=== PATIENT | female | born 2000 | race Caucasian/White ===

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

== ENCOUNTER 2019-06-14 16:24 | Emergency (ER) | payer OTHER ==
[2019-06-14 16:35] VITALS: BP 120/56; PULSE 88; RESP 20; TEMP 97.9
[2019-06-14] MEDS ORDERED: LORazepam 1 MG TAB PO STA (17:38)
[2019-06-14 19:03] LABS: Appearance,Urine Cloudy (Clear); Bilirubin,Urine Negative (Negative); Blood,Urine Negative (Negative); Color,Urine Yellow; Glucose,Urine (UA) Negative (Negative); Ketones,Urine Negative (Negative); Leukocyte Esterase,Urine Negative (Negative); Mucus,Urine Rare /hpf; Nitrite,Urine Negative (Negative); Protein,Urine 1+ (Negative); Specific Gravity,Urine 1.035 (1.001-1.035); Squamous Epithelial Cell,Urine 3 /hpf (0-4); Urobilinogen,Urine <2.0 mg/dL (<2.0); WBC,Urine 1 /hpf (0-5)
--- NOTE | 2019-06-14 19:09 | ED ---
Female Urogenital HPI - General Chief complaint: Urogenital Stated complaint: poss UTI, seizures Time Seen by Provider: 06/14/19 16:35 Source: family Mode of arrival: ambulatory Limitations: altered mental status, physical limitation - History of Present Illness Initial comments: The patient is a 19-year-old female with past nuchal history of epilepsy and cognitive impairment who presents to the emergency department with reported increased seizure-like activity at home. She does have a history of seizure disorder and is currently on Keppra, lamictal and onfi. She has been taking the medications as directed and has been on these medications for several years. Father states that she will have an increase in breakthrough seizures when she has a urinary tract infection. She is incontinent and wears a diaper. States that she has a tendency to poop in her diaper and he is unable to change her as soon as he would like. They did follow-up with Dr. Shay in office today. He was concerned because he reported that the patient wasn't drinking much over the past day and hasn't had a wet diaper in 24 hours. The patient is nonverbal and therefore has no complaints - Related Data Home Medications Medication Instructions Recorded Confirmed Clobazam [Onfi] 30 mg PO BID 01/22/15 10/20/17 ARIPiprazole [Abilify] 15 mg PO HS 05/13/17 10/20/17 Sertraline [Zoloft] 100 mg PO HS 05/13/17 10/20/17 cloNIDine HCL [Catapres] 0.1 mg PO DAILY 05/13/17 10/20/17 lamoTRIgine [LaMICtal Odt] 200 mg PO BID 05/13/17 10/20/17 lamoTRIgine [LaMICtal] 75 mg PO BID 05/13/17 10/20/17 levETIRAcetam [levETIRAcetam Oral 1,100 mg PO TID 05/13/17 10/20/17 Solution] Cetirizine HCl [Zyrtec] 5 mg PO DAILY PRN 10/20/17 10/20/17 Ibuprofen [Motrin Ib] 400 mg PO Q6H PRN 10/20/17 10/20/17 busPIRone HCl [Buspar] See Taper PO DIRECTED 10/20/17 10/20/17 Allergies Allergy/AdvReac Type Severity Reaction Status Date / Time No Known Allergies Allergy Verified 06/14/19 16:35 Review of Systems ROS Statement: Those systems with pertinent positive or pertinent negative responses have been documented in the HPI. ROS Other: All systems not noted in ROS Statement are negative. Past Medical History Past Medical History: Seizure Disorder Additional Past Medical History / Comment(s): epilepsy, cognitive impairment History of Any Multi-Drug Resistant Organisms: None Reported Additional Past Surgical History / Comment(s): VNS shunt, eye correction Past Psychological History: No Psychological Hx Reported Smoking Status: Never smoker Past Alcohol Use History: None Reported Past Drug Use History: None Reported General Exam Limitations: altered mental status, physical limitation General appearance: alert, in no apparent distress Head exam: Present: atraumatic Eye exam: Present: PERRL, EOMI Respiratory exam: Present: normal lung sounds bilaterally. Absent: respiratory distress, wheezes, rales, rhonchi, stridor Cardiovascular Exam: Present: regular rate, normal rhythm, normal heart sounds. Absent: systolic murmur, diastolic murmur, rubs, gallop, clicks GI/Abdominal exam: Present: soft, normal bowel sounds. Absent: distended, tenderness, guarding, rebound, rigid Extremities exam: Present: normal inspection, full ROM, normal capillary refill. Absent: tenderness, pedal edema, joint swelling, calf tenderness Neurological exam: Present: alert Skin exam: Present: warm, dry, intact, normal color. Absent: rash Course Vital Signs 06/14/19 16:31 Temperature 97.9 F Pulse Rate 88 Respiratory 20 Rate Blood Pressure 120/56 O2 Sat by Pulse 99 Oximetry Medical Decision Making - Medical Decision Making Upon arrival the patient is placed in room 16. A thorough history and physical exam is performed. Because the father is reporting that the patient is significantly dehydrated did recommend placing an IV. Father initially refused stating he wanted to attempt to hydrate her by mouth. The patient was given 2 mg of Ativan for anxiety and then straight cathed. The patient's urine does results and I do go in and discuss the results with the father. I do inform him that she does not have signs of a urinary tract infection at this. I do not have a reason for the patient having increased seizures. The father does request blood work at this time. It does not appear that she is drinking very well by mouth either and therefore I did recommend IV placed and for hydration. Father originally agreed to this. He then retracted this statement saying that he wanted to continue to try and encourage fluids by mouth. Laboratory studies were conducted which were unremarkable. Patient's Lamictal level was sent as a send out. I went back into the room and the father has been able to get the patient did drink one cup of water and 2 cups of juice. Because the diagnosis, differential treatment options. At this time the father felt comfortable taking the patient home. She has not had any seizure-like activity in the emergency room. I did recommend that they continue taking the antiseizure medications as directed. She needs to follow-up with her neurologist in regards to her breakthrough seizure activity. The patient has any new or worsening symptoms she should return to the emergency room. The father was in agreement with the treatment plan and the patient was discharged home in stable condition - Lab Data Result diagrams: 06/14/19 19:54 06/14/19 19:54 Lab Results 06/14/19 06/14/19 06/14/19 Range/Units 17:35 19:54 19:54 WBC 9.3 (4.0-11.0) k/uL RBC 5.03 (3.80-5.40) m/uL Hgb 14.8 (11.4-16.0) gm/dL Hct 44.5 (34.0-46.0) % MCV 88.5 (80.0-100.0) fL MCH 29.5 (25.0-35.0) pg MCHC 33.3 (31.0-37.0) g/dL RDW 12.2 (11.5-15.5) % Plt Count 309 (150-450) k/uL Neutrophils % 67 % Lymphocytes % 25 % Monocytes % 5 % Eosinophils % 1 % Basophils % 0 % Neutrophils # 6.2 (1.3-7.7) k/uL Lymphocytes # 2.4 (1.0-4.8) k/uL Monocytes # 0.5 (0-1.0) k/uL Eosinophils # 0.1 (0-0.7) k/uL Basophils # 0.0 (0-0.2) k/uL Sodium 140 (137-145) mmol/L Potassium 4.1 (3.5-5.1) mmol/L Chloride 103 (98-107) mmol/L Carbon Dioxide 25 (22-30) mmol/L Anion Gap 12 mmol/L BUN 11 (7-17) mg/dL Creatinine 0.68 (0.52-1.04) mg/dL Est GFR (CKD-EPI)AfAm >90 (>60 ml/min/1.73 sqM) Est GFR (CKD-EPI)NonAf >90 (>60 ml/min/1.73 sqM) Glucose 114 H (74-99) mg/dL Calcium 9.6 (8.4-10.2) mg/dL Total Bilirubin 0.5 (0.2-1.3) mg/dL AST 29 (14-36) U/L ALT 22 (4-34) U/L Alkaline Phosphatase 146 H (38-126) U/L Total Protein 7.6 (6.3-8.2) g/dL Albumin 4.8 (3.5-5.0) g/dL Lipase 92 (23-300) U/L HCG, Qual Not Detected Urine Color Yellow Urine Appearance Cloudy H (Clear) Urine pH 6.0 (5.0-8.0) Ur Specific Mason 1.035 (1.001-1.035) Urine Protein 1+ H (Negative) Urine Glucose (UA) Negative (Negative) Urine Ketones Negative (Negative) Urine Blood Negative (Negative) Urine Nitrite Negative (Negative) Urine Bilirubin Negative (Negative) Urine Urobilinogen <2.0 (<2.0) mg/dL Ur Leukocyte Esterase Negative (Negative) Urine WBC 1 (0-5) /hpf Ur Squamous Epith Cells 3 (0-4) /hpf Urine Mucus Rare H (None) /hpf Lamotrigine (2.0-15.0) ug/mL 06/14/19 Range/Units 19:54 WBC (4.0-11.0) k/uL RBC (3.80-5.40) m/uL Hgb (11.4-16.0) gm/dL Hct (34.0-46.0) % MCV (80.0-100.0) fL MCH (25.0-35.0) pg MCHC (31.0-37.0) g/dL RDW (11.5-15.5) % Plt Count (150-450) k/uL Neutrophils % % Lymphocytes % % Monocytes % % Eosinophils % % Basophils % % Neutrophils # (1.3-7.7) k/uL Lymphocytes # (1.0-4.8) k/uL Monocytes # (0-1.0) k/uL Eosinophils # (0-0.7) k/uL Basophils # (0-0.2) k/uL Sodium (137-145) mmol/L Potassium (3.5-5.1) mmol/L Chloride (98-107) mmol/L Carbon Dioxide (22-30) mmol/L Anion Gap mmol/L BUN (7-17) mg/dL Creatinine (0.52-1.04) mg/dL Est GFR (CKD-EPI)AfAm (>60 ml/min/1.73 sqM) Est GFR (CKD-EPI)NonAf (>60 ml/min/1.73 sqM) Glucose (74-99) mg/dL Calcium (8.4-10.2) mg/dL Total Bilirubin (0.2-1.3) mg/dL AST (14-36) U/L ALT (4-34) U/L Alkaline Phosphatase (38-126) U/L Total Protein (6.3-8.2) g/dL Albumin (3.5-5.0) g/dL Lipase (23-300) U/L HCG, Qual Urine Color Urine Appearance (Clear) Urine pH (5.0-8.0) Ur Specific Mason (1.001-1.035) Urine Protein (Negative) Urine Glucose (UA) (Negative) Urine Ketones (Negative) Urine Blood (Negative) Urine Nitrite (Negative) Urine Bilirubin (Negative) Urine Urobilinogen (<2.0) mg/dL Ur Leukocyte Esterase (Negative) Urine WBC (0-5) /hpf Ur Squamous Epith Cells (0-4) /hpf Urine Mucus (None) /hpf Lamotrigine 8.1 (2.0-15.0) ug/mL Disposition Clinical Impression: Breakthrough seizure, Dehydration Disposition: HOME SELF-CARE Condition: Stable Instructions (If sedation given, give patient instructions): Recurrent Seizures in Adults (ED) Additional Instructions: Please follow-up with your neurologist. Take your seizure medications as directed. Return to the emergency room for any new or worsening symptoms Is patient prescribed a controlled substance at d/c from ED?: No Referrals: Melchor Garcia MD [Primary Care Provider] - 1-2 days Time of Disposition: 21:19
[2019-06-14] MEDS ORDERED: SODIUM CHLORIDE 0.9% 1,000 ML IV ONE (19:18)
[2019-06-14 20:27] LABS: Basophils % (A) 0 %; Eosinophils # (A) 0.1 k/uL (0-0.7); Eosinophils % (A) 1 %; HCT 44.5 % (34.0-46.0); HGB 14.8 gm/dL (11.4-16.0); Lymphocytes # (A) 2.4 k/uL (1.0-4.8); Lymphocytes % (A) 25 %; MCH 29.5 pg (25.0-35.0); MCHC 33.3 g/dL (31.0-37.0); MCV 88.5 fL (80.0-100.0); Mean Platelet Volume 7.2; Monocytes # (A) 0.5 k/uL (0-1.0); Monocytes % (A) 5 %; Neutrophils # (A) 6.2 k/uL (1.3-7.7); Neutrophils % (A) 67 %; Platelet Count 309 k/uL (150-450); RBC 5.03 m/uL (3.80-5.40); RDW 12.2 % (11.5-15.5); WBC 9.3 k/uL (4.0-11.0)
[2019-06-14 20:37] LABS: HCG,Qualitative Serum Not Detected
[2019-06-14 21:06] LABS: ALT 22 U/L (4-34); AST 29 U/L (14-36); African American GFR (CKD) >90 (>60 ml/min/1.73 sqM); Albumin 4.8 g/dL (3.5-5.0); Alkaline Phosphatase 146 U/L (38-126); Anion Gap 12 mmol/L; Blood Urea Nitrogen 11 mg/dL (7-17); Calcium 9.6 mg/dL (8.4-10.2); Carbon Dioxide 25 mmol/L (22-30); Chloride 103 mmol/L (98-107); Glucose 114 mg/dL (74-99); Non-African American GFR(CKD) >90 (>60 ml/min/1.73 sqM); Potassium 4.1 mmol/L (3.5-5.1); Sodium 140 mmol/L (137-145); Total Bilirubin 0.5 mg/dL (0.2-1.3); Total Protein 7.6 g/dL (6.3-8.2)
== END 2019-06-14 21:36 | disposition home or self-care (01) ==
LOC: EC 16:24
DX: E86.0 Dehydration (principal); G40.909 Epilepsy, unspecified, not intractable, without status epilepticus; F41.9 Anxiety disorder, unspecified; G31.84 Mild cognitive impairment of uncertain or unknown etiology; Z79.899 Other long term (current) drug therapy
CPT/HCPCS: 36415; 80053; 80175; 81001; 83690; 84703; 85025; 99284

== ENCOUNTER → 2020-09-27 | Day surgery (SDC) | payer OTHER ==
[2020-09-25 14:05] VITALS: BMI 37.8
[~2020-09-27] MED LIST: DEXAMETHASONE SOD PHOSPHATE 4 MG/ML 1 ML VIAL IV ONE; KETAMINE 10 MG/ML 20 ML VIAL ONE; LACTATED RINGERS 1,000 ML IV SCH; LIDOCAINE 1% (10MG/ML) FOR IV START INTRADERMA PRN; LIDOCAINE 1% INJ 10MG/ML (20 ML MDV) ONE; MIDAZOLAM 2 MG/2 ML VIAL IV ONE; MIDAZOLAM ORAL SYRUP 10 MG/5 ML CUP PO ONE; ONDANSETRON 4 MG/2 ML VIAL IVP ONE; ONDANSETRON 4 MG/2 ML VIAL IVP PRN; PROPOFOL 10 MG/ML 20 ML VIAL IV ONE; SUCCINYLCHOLINE CHLORIDE 100 MG/5 ML SYR IV ONE; fentaNYL (PF) 50 MCG/ML 2 ML AMP ONE; metroNIDAZOLE-NS PMX 500 MG in SALINE 1 100ML.BAG IVPB PRN
[2020-09-27 14:09] VITALS: RESP 16; TEMP 97
--- NOTE | 2020-09-27 14:54 | P.GSCN ---
History of Present Illness Consult date: 09/27/20 Reason for Consult: -Initial Oral Exam -FMX -Prophy -#1 O resin -#5 B resin -#9 DL Resin -#10 MLF -#11 F resin -#16 O resin -#22 F resin -#26 F resin -#27 DF Resin -#32 O resin all filteck bulk or supreme shade A 3, glass ionomer base -#2,4,14,15,18,19,20,28,29,30 root extractions with #18 being surgical. All roots were under the gumline, and #4 was abscessed with a fistula. * 4 Resorbable sutures placed on lowers both sides (2 on each side). -7 carpules, local infiltrations and palatal infiltrations used for the extraction areas. -#8 has grade II mobility and #7 has a grade I mobility. Mother informed. Might be due to a fall. Past Medical History Past Medical History: Seizure Disorder Additional Past Medical History / Comment(s): epilepsy-last seizure couple weeks ago, cognitive impairment, urinary incontinecy-wears depends, UTI's, cerebral palsy per PCP H&P History of Any Multi-Drug Resistant Organisms: None Reported Additional Past Surgical History / Comment(s): VNS shunt, eye correction Past Anesthesia/Blood Transfusion Reactions: No Reported Reaction Smoking Status: Second hand smoke exposure - Past Family History Mother Family Medical History: No Reported History Medications and Allergies Home Medications Medication Instructions Recorded Confirmed Type Ibuprofen [Motrin Ib] 400 mg PO Q6H PRN 10/20/17 09/25/20 History Cariprazine HCl [Vraylar] 6 mg PO QAM 09/25/20 09/27/20 History FLUoxetine HCL 80 mg PO HS 09/25/20 09/27/20 History Melatonin 10 mg PO HS 09/25/20 09/27/20 History Paliperidone [Invega] 6 mg PO DAILY 09/25/20 09/27/20 History lamoTRIgine [LaMICtal Xr] 300 mg PO BID 09/25/20 09/27/20 History levETIRAcetam [Keppra Oral 10 ml PO BID 09/25/20 09/27/20 History Solution] clonazePAM 1 mg PO TID 09/27/20 09/27/20 History Allergies Allergy/AdvReac Type Severity Reaction Status Date / Time No Known Allergies Allergy Verified 09/27/20 08:59 Surgical - Exam Vital Signs Temp Pulse Resp BP Pulse Ox 96.8 F L 73 16 105/58 93 L 09/27/20 09:14 09/27/20 09:14 09/27/20 09:14 09/27/20 09:14 09/27/20 09:14
[2020-09-27 15:12] VITALS: BP 135/64; PULSE 80
== END | disposition home or self-care (01) ==
LOC: OR 15:47
PROVIDERS: ATTEND Dentist
DX: K02.9 Dental caries, unspecified (principal); K04.7 Periapical abscess without sinus; G40.409 Other generalized epilepsy and epileptic syndromes, not intractable, without status epilepticus; R32 Unspecified urinary incontinence; G80.9 Cerebral palsy, unspecified; Z77.22 Contact with and (suspected) exposure to environmental tobacco smoke (acute) (chronic); Z79.899 Other long term (current) drug therapy; Z98.2 Presence of cerebrospinal fluid drainage device
CPT/HCPCS: 41899; J2250; J1100; J2405; J2001; J3010; J0330; J2704

== ENCOUNTER 2022-10-06 12:22 | Emergency (ER) | payer OTHER ==
[2022-10-06] MEDS ORDERED: SODIUM CHLORIDE 0.9% 500 ML 500 ML IV STA (12:58)
[2022-10-06] MEDS ORDERED: SODIUM CHLORIDE 0.9% 1,000 ML IV STA (12:58)
--- NOTE | 2022-10-06 13:00 | ED ---
Weakness HPI - General Chief complaint: Altered Mental Status Stated complaint: decreased mobility Time Seen by Provider: 10/06/22 12:24 Source: EMS, RN notes reviewed, old records reviewed Mode of arrival: EMS Limitations: language barrier, physical limitation - History of Present Illness Initial comments: This is a 22-year-old female to the ER today. Patient is nonverbal prevents with caregiver. Patient presents for decreased activity level, decreased activities of daily living since recent change in seizure medication. Patient was apparently a medically induced coma secondary to seizures for greater than a week. Caregiver, mom denies any current seizure activity, mother states patient has had similar episodes of prior urinary tract infections MD Complaint: generalized weakness, focal weakness -: days(s) Location: generalized Severity: moderate Severity scale (1-10): 4 Consistency: constant Improves with: none Worsens with: none Context: history of similar Associated Symptoms: denies other symptoms - Related Data Home Medications Medication Instructions Recorded Confirmed Ibuprofen [Motrin Ib] 400 mg PO Q6H PRN 10/20/17 05/12/22 Cariprazine HCl [Vraylar] 6 mg PO QAM 09/25/20 05/12/22 FLUoxetine HCL 80 mg PO HS 09/25/20 05/12/22 Melatonin [Melatonin ER] 10 mg PO HS 09/25/20 05/12/22 lamoTRIgine [LaMICtal Xr] 300 mg PO BID 09/25/20 05/12/22 levETIRAcetam [Keppra Oral 15 ml PO BID 09/25/20 05/12/22 Solution] clonazePAM 1 mg PO TID 09/27/20 05/12/22 Control Pill (?Name) 1 tab PO QAM 05/12/22 05/12/22 Paliperidone [Invega] 9 mg PO DAILY 05/12/22 05/12/22 Midazolam [Nayzilam] 1 spray NASAL DIRECTED PRN 05/14/22 05/14/22 Sulfamethoxazole/Trimethoprim 20 ml PO BID 05/14/22 05/14/22 [Sulfatrim 40-8 mg/5ml Susp] guanFACINE [Tenex] 2 mg PO BID 05/14/22 05/14/22 Previous Rx's Medication Instructions Recorded Amoxic-Pot Clav 400-57Mg/5Ml 10 ml PO Q12H #200 ml 10/06/22 [Augmentin 400-57 mg/5 ml Susp] Allergies Allergy/AdvReac Type Severity Reaction Status Date / Time No Known Allergies Allergy Verified 10/06/22 12:37 Review of Systems ROS Statement: Those systems with pertinent positive or pertinent negative responses have been documented in the HPI. ROS Other: All systems not noted in ROS Statement are negative. Past Medical History Past Medical History: Seizure Disorder Additional Past Medical History / Comment(s): Epilepsy-last seizure yesterday, cognitive impairment, developmentally delayed, non verbal, Autism, urinary incontinence, wears depends, hx UTI's, cerebral palsy. History of Any Multi-Drug Resistant Organisms: None Reported Additional Past Surgical History / Comment(s): VNS shunt, eye correction, dental work. Past Anesthesia/Blood Transfusion Reactions: No Reported Reaction Additional Past Anesthesia/Blood Transfusion Reaction / Comment(s): Mom PONV. Past Psychological History: Anxiety Smoking Status: Second hand smoke exposure Past Alcohol Use History: None Reported Past Drug Use History: None Reported - Past Family History Mother Family Medical History: No Reported History General Exam Limitations: language barrier, physical limitation General appearance: alert, in no apparent distress Head exam: Present: atraumatic, normocephalic, normal inspection Eye exam: Present: normal appearance, PERRL, EOMI. Absent: scleral icterus, conjunctival injection, periorbital swelling ENT exam: Present: normal exam, mucous membranes moist Neck exam: Present: normal inspection. Absent: tenderness, meningismus, lymphadenopathy Respiratory exam: Present: normal lung sounds bilaterally. Absent: respiratory distress, wheezes, rales, rhonchi, stridor Cardiovascular Exam: Present: regular rate, normal rhythm, normal heart sounds. Absent: systolic murmur, diastolic murmur, rubs, gallop, clicks GI/Abdominal exam: Present: soft, normal bowel sounds. Absent: distended, tenderness, guarding, rebound, rigid Extremities exam: Present: normal inspection, full ROM, normal capillary refill. Absent: tenderness, pedal edema, joint swelling, calf tenderness Back exam: Present: normal inspection Neurological exam: Present: alert, oriented X3, CN II-XII intact Psychiatric exam: Present: normal affect, normal mood Skin exam: Present: warm, dry, intact, normal color. Absent: rash Course Vital Signs 10/06/22 10/06/22 10/06/22 12:38 18:46 20:06 Temperature 101.1 F H Pulse Rate 97 100 101 H Respiratory 20 18 18 Rate Blood Pressure 139/86 126/87 120/93 O2 Sat by Pulse 100 100 100 Oximetry - Reevaluation(s) Reevaluation #1: 10/06/22 15:31 Medical records reviewed Reevaluation #2: 10/06/22 15:31 Symptoms unchanged here in the emergency department Reevaluation #3: 10/06/22 16:57 Patient symptoms are improving here in the ER Patient informed results questions answered Reevaluation #4: 10/06/22 13:02 Was pt. sent in by a medical professional or institution? @ -no Did you speak to anyone other than the patient for history? @ -no Did you review nursing and triage notes? @ -agree Were old charts reviewed? @ -yes Differential Diagnosis? @ -prior EKG interpreted by me (3pts min.)? @ -no X-rays interpreted by me (1pt min.)? @ -no CT interpreted by me (1pt min.)? @ -no U/S interpreted by me (1pt. min.)? @ -no What testing was considered but not performed? (CT, X-rays, U/S, labs)? Why? @ -no What meds were considered but not given? Why? @ -no Did you discuss the management of the patient with other professionals? @ -no Did you reconcile home meds? @ -no Was smoking cessation discussed for >3mins.? @ -no Was critical care preformed (if so, how long)? @ -no Were there social determinants of health that impacted care today? How? (Homelessness, low income, unemployed, alcoholism, drug addiction, transportation, low edu. Level, literacy, decrease access to med. care, long-term, rehab)? @ -no Was there de-escalation of care discussed even if they declined? (Discuss DNR or withdrawal of care, Hospice)? @ -no What co-morbidities impacted this encounter? (DM, HTN, Smoking, COPD, CAD, Cancer, CVA, Hep., AIDS, mental health diagnosis, sleep apnea, morbid obesity)? @ -none Was patient admitted / discharged? @ -22 female to the emergency department for evaluation of altered mental status and acting appropriately. Patient does have significant urinary tract infection here in the ER, family prefers discharge home, patient given antibiotics here and can be discharged Discharge Undiagnosed new problem with uncertain prognosis? @ -no Drug Therapy requiring intensive monitoring for toxicity (Heparin, Nitro, Insulin, Cardizem)? @ -no Were any procedures done? @ -no Diagnosis/symptom? @ -UTI, weakness, altered mental status Acute, or Chronic, or Acute on Chronic? @ -acute Uncomplicated (without systemic symptoms) or Complicated (systemic symptoms)? @ -complicated Side effects of treatment? @ -no Exacerbation, Progression, or Severe Exacerbation] @ -no Poses a threat to life or bodily function? @ -no Reevaluation #5: 10/06/22 Differential Altered Mental Status: Hypoglycemia, DKA, hypercapnia, ETOH, overdose, CO poisoning, trauma, myxedema coma, HTN encephalopathy, infection, encephalitis, psychosis, intercranial hemorrhage, hepatic encephalopathy, meningitis, CVA, this is not meant to be an all-inclusive list Differential Weakness: Hypoglycemia, shock, sepsis, hyponatremia, anemia, infection, NV, ETOH, adverse medicine reaction, overdose, stroke, this is not meant to be an all-inclusive list. EKG Findings - EKG Comments: EKG Findings:: EKG is sinus tachycardia 104 [place] 137 QRS 94 QTC 377 - EKG Results: EKG: interpreted by [facility] Medical Decision Making - Medical Decision Making 22 female to the emergency department for evaluation of altered mental status and acting appropriately. Patient does have significant urinary tract infection here in the ER, family prefers discharge home, patient given antibiotics here and can be discharged - Lab Data Result diagrams: 10/06/22 13:58 Lab Results 10/06/22 10/06/22 10/06/22 Range/Units 13:37 13:58 13:58 Sodium 138 (137-145) mmol/L Potassium 4.3 (3.5-5.1) mmol/L Chloride 106 (98-107) mmol/L Carbon Dioxide 23 (22-30) mmol/L Anion Gap 9 mmol/L BUN 14 (7-17) mg/dL Creatinine 0.62 (0.52-1.04) mg/dL Est GFR (CKD-EPI)AfAm >90 (>60 ml/min/1.73 sqM) Est GFR (CKD-EPI)NonAf >90 (>60 ml/min/1.73 sqM) Glucose 101 H (74-99) mg/dL Calcium 8.5 (8.4-10.2) mg/dL Phosphorus 4.3 (2.5-4.5) mg/dL Magnesium 2.0 2.0 (1.6-2.3) mg/dL Total Bilirubin 0.5 (0.2-1.3) mg/dL AST 32 (14-36) U/L ALT 25 (4-34) U/L Alkaline Phosphatase 116 (38-126) U/L Total Protein 6.5 (6.3-8.2) g/dL Albumin 3.5 (3.5-5.0) g/dL TSH 1.210 (0.465-4.680) mIU/L Urine Color Yellow Urine Appearance Turbid H (Clear) Urine pH 6.5 (5.0-8.0) Ur Specific [place] 1.016 (1.001-1.035) Urine Protein 2+ H (Negative) Urine Glucose (UA) Negative (Negative) Urine Ketones Negative (Negative) Urine Blood Small H (Negative) Urine Nitrite Negative (Negative) Urine Bilirubin Negative (Negative) Urine Urobilinogen <2.0 (<2.0) mg/dL Ur Leukocyte Esterase Large H (Negative) Urine RBC 9 H (0-5) /hpf Urine WBC >182 H (0-5) /hpf Ur Squamous Epith Cells 58 H (0-4) /hpf Urine Bacteria Many H (None) /hpf Urine Mucus Rare H (None) /hpf Salicylates <1.0 mg/dL Acetaminophen <10.0 ug/mL Phenytoin <3.0 ug/mL Valproic Acid <10.0 ug/mL Carbamazepine <3.0 ug/mL Lamotrigine (2.0-15.0) ug/mL [place] <0.2 mmol/L Serum Alcohol <10 mg/dL 10/06/22 Range/Units 13:58 Sodium (137-145) mmol/L Potassium (3.5-5.1) mmol/L Chloride (98-107) mmol/L Carbon Dioxide (22-30) mmol/L Anion Gap mmol/L BUN (7-17) mg/dL Creatinine (0.52-1.04) mg/dL Est GFR (CKD-EPI)AfAm (>60 ml/min/1.73 sqM) Est GFR (CKD-EPI)NonAf (>60 ml/min/1.73 sqM) Glucose (74-99) mg/dL Calcium (8.4-10.2) mg/dL Phosphorus (2.5-4.5) mg/dL Magnesium (1.6-2.3) mg/dL Total Bilirubin (0.2-1.3) mg/dL AST (14-36) U/L ALT (4-34) U/L Alkaline Phosphatase (38-126) U/L Total Protein (6.3-8.2) g/dL Albumin (3.5-5.0) g/dL TSH (0.465-4.680) mIU/L Urine Color Urine Appearance (Clear) Urine pH (5.0-8.0) Ur Specific [place] (1.001-1.035) Urine Protein (Negative) Urine Glucose (UA) (Negative) Urine Ketones (Negative) Urine Blood (Negative) Urine Nitrite (Negative) Urine Bilirubin (Negative) Urine Urobilinogen (<2.0) mg/dL Ur Leukocyte Esterase (Negative) Urine RBC (0-5) /hpf Urine WBC (0-5) /hpf Ur Squamous Epith Cells (0-4) /hpf Urine Bacteria (None) /hpf Urine Mucus (None) /hpf Salicylates mg/dL Acetaminophen ug/mL Phenytoin ug/mL Valproic Acid ug/mL Carbamazepine ug/mL Lamotrigine 14.1 (2.0-15.0) ug/mL [place] mmol/L Serum Alcohol mg/dL - EKG Data -: EKG Interpreted by Me (EKG sinus 104 KS 137 QRS 94 QTC 377) Disposition Clinical Impression: Altered mental status, UTI (urinary tract infection), Delirium due to general medical condition, Weakness Disposition: HOME SELF-CARE Condition: Good Instructions (If sedation given, give patient instructions): Urinary Tract Infection in Women (ED) Prescriptions: Amoxic-Pot Clav 400-57Mg/5Ml [Augmentin 400-57 mg/5 ml Susp] 10 ml PO Q12H #200 ml Is patient prescribed a controlled substance at d/c from ED?: No Referrals: Melchor Garcia MD [Primary Care Provider] - 1-2 days Time of Disposition: 16:50
[2022-10-06 14:20] LABS: Appearance,Urine Turbid (Clear); Bacteria,Urine Many /hpf; Bilirubin,Urine Negative (Negative); Blood,Urine Small (Negative); Color,Urine Yellow; Glucose,Urine (UA) Negative (Negative); Ketones,Urine Negative (Negative); Leukocyte Esterase,Urine Large (Negative); Mucus,Urine Rare /hpf; Nitrite,Urine Negative (Negative); PH, Urine 6.5 (5.0-8.0); Protein,Urine 2+ (Negative); RBC,Urine 9 /hpf (0-5); Specific Gravity,Urine 1.016 (1.001-1.035); Squamous Epithelial Cell,Urine 58 /hpf (0-4); Urobilinogen,Urine <2.0 mg/dL (<2.0); WBC,Urine >182 /hpf (0-5)
[2022-10-06 14:24] LABS: AST 32 U/L (14-36); African American GFR (CKD) >90 (>60 ml/min/1.73 sqM); Albumin 3.5 g/dL (3.5-5.0); Alkaline Phosphatase 116 U/L (38-126); Anion Gap 9 mmol/L; Blood Urea Nitrogen 14 mg/dL (7-17); Carbamazepine (Tegretol) <3.0 ug/mL; Carbon Dioxide 23 mmol/L (22-30); Chloride 106 mmol/L (98-107); Glucose 101 mg/dL (74-99); Lithium <0.2 mmol/L; Non-African American GFR(CKD) >90 (>60 ml/min/1.73 sqM); Phenytoin (Dilantin) <3.0 ug/mL; Sodium 138 mmol/L (137-145); Total Bilirubin 0.5 mg/dL (0.2-1.3); Total Protein 6.5 g/dL (6.3-8.2)
[2022-10-06 14:28] LABS: Valproic Acid (Depakene) <10.0 ug/mL
[2022-10-06 15:26] LABS: ALT 25 U/L (4-34); Acetaminophen <10.0 ug/mL; Alcohol <10 mg/dL; Calcium 8.5 mg/dL (8.4-10.2); Phosphorus 4.3 mg/dL (2.5-4.5); Potassium 4.3 mmol/L (3.5-5.1); Salicylate <1.0 mg/dL
[2022-10-06] MEDS ORDERED: AMOXIC-POT CLAV 200-28.5MG/5ML 100 ML BOTTLE PO ONE (16:56)
[2022-10-06 18:47] VITALS: RESP 18; TEMP 101.1
[2022-10-06] MEDS ORDERED: ACETAMINOPHEN TAB 500 MG TAB PO STA (19:36)
[2022-10-06] MEDS ORDERED: IBUPROFEN 800 MG TAB PO STA (19:36)
[2022-10-06 20:08] VITALS: BP 120/93; PULSE 101
== END 2022-10-06 20:20 | disposition home or self-care (01) ==
LOC: EC 12:22
DX: N39.0 Urinary tract infection, site not specified (principal); F05 Delirium due to known physiological condition; F41.9 Anxiety disorder, unspecified; Z77.22 Contact with and (suspected) exposure to environmental tobacco smoke (acute) (chronic); Z79.899 Other long term (current) drug therapy
CPT/HCPCS: 36415; 93005; 80156; 80164; 80053; 80175; 80185; 80178; 83735; 84100; 84443; 81001; 80143; 80179; 99285; 96365; 96361; G0480; J0696; 80320

== ENCOUNTER 2022-11-04 12:49 | Emergency (ER) | payer OTHER ==
[2022-11-04 18:37] LABS: Appearance,Urine Cloudy (Clear); Bacteria,Urine Many /hpf; Bilirubin,Urine Negative (Negative); Blood,Urine Negative (Negative); Color,Urine Light Red; Glucose,Urine (UA) Negative (Negative); Ketones,Urine Negative (Negative); Leukocyte Esterase,Urine Large (Negative); Mucus,Urine Many /hpf; Nitrite,Urine Positive (Negative); Protein,Urine 1+ (Negative); RBC,Urine 35 /hpf (0-5); Specific Gravity,Urine 1.033 (1.001-1.035); Squamous Epithelial Cell,Urine 2 /hpf (0-4); Urobilinogen,Urine <2.0 mg/dL (<2.0); WBC,Urine 113 /hpf (0-5)
[2022-11-04 20:08] LABS: Basophils % (A) 0 %; Eosinophils # (A) 0.1 k/uL (0-0.7); Eosinophils % (A) 2 %; HGB 13.6 gm/dL (11.4-16.0); Lymphocytes # (A) 2.4 k/uL (1.0-4.8); Lymphocytes % (A) 38 %; MCH 31.1 pg (25.0-35.0); MCHC 34.9 g/dL (31.0-37.0); MCV 89.1 fL (80.0-100.0); Mean Platelet Volume 7.5; Monocytes # (A) 0.4 k/uL (0-1.0); Monocytes % (A) 7 %; Neutrophils # (A) 3.1 k/uL (1.3-7.7); Neutrophils % (A) 50 %; Platelet Count 230 k/uL (150-450); RBC 4.38 m/uL (3.80-5.40); RDW 14.9 % (11.5-15.5); WBC 6.2 k/uL (3.8-10.6)
[2022-11-04 20:20] LABS: ALT 30 U/L (4-34); AST 49 U/L (14-36); African American GFR (CKD) >90 (>60 ml/min/1.73 sqM); Albumin 3.7 g/dL (3.5-5.0); Alkaline Phosphatase 112 U/L (38-126); Anion Gap 4 mmol/L; Blood Urea Nitrogen 10 mg/dL (7-17); Calcium 9.2 mg/dL (8.4-10.2); Carbon Dioxide 29 mmol/L (22-30); Chloride 106 mmol/L (98-107); Glucose 84 mg/dL (74-99); Non-African American GFR(CKD) >90 (>60 ml/min/1.73 sqM); Sodium 139 mmol/L (137-145); Total Bilirubin 0.6 mg/dL (0.2-1.3); Total Protein 6.8 g/dL (6.3-8.2)
[2022-11-04 20:34] LABS: Potassium 4.4 mmol/L (3.5-5.1)
[2022-11-04] MEDS ORDERED: cefTRIAXone IN SWFI 1,000 MG/10 ML SYRINGE IVP STA (21:00)
--- NOTE | 2022-11-04 21:00 | ED ---
General Adult HPI - General Chief complaint: Urogenital Stated complaint: constipation Time Seen by Provider: 11/04/22 15:07 Source: family, EMS Mode of arrival: EMS Limitations: physical limitation - History of Present Illness Initial comments: This is a 22-year-old female with a past medical history including cognitive delay and epilepsy as well as impairment secondary to severe epilepsy presented to the emergency department for increasing lethargy today. The patient's parents stated that the patient was sleeping all day and did not want to eat or drink. The patient denied of any urine or stool diapers. They were concerned due to the patient's symptoms today that she had worsening infection. The patient was unable to answer any questions as she is at her baseline and nonverbal. The patient did have a UTI on October 06 but stated that the patient had improved from this initial infection. The patient woke up with the symptoms today. - Related Data Home Medications Medication Instructions Recorded Confirmed Cariprazine HCl [Vraylar] 6 mg PO DAILY 09/25/20 11/04/22 FLUoxetine HCL 80 mg PO HS 09/25/20 11/04/22 levETIRAcetam [Keppra Oral 1,700 mg PO BID 09/25/20 11/04/22 Solution] Paliperidone [Invega] 9 mg PO DAILY 05/12/22 11/04/22 Midazolam [Nayzilam] 1 spray NASAL ONCE PRN 05/14/22 11/04/22 guanFACINE [Tenex] 1 mg PO BID 05/14/22 11/04/22 ALPRAZolam [Xanax] 1 mg PO TID PRN 11/04/22 11/04/22 Lacosamide [Vimpat] 200 mg PO BID 11/04/22 11/04/22 cloBAZam 20 mg PO HS 11/04/22 11/04/22 guanFACINE HCL [Intuniv] 2 mg PO BID 11/04/22 11/04/22 lamoTRIgine 300 mg PO BID 11/04/22 11/04/22 Previous Rx's Medication Instructions Recorded cephALEXin [Keflex Oral Susp] 10 ml PO QID #200 ml 11/04/22 Allergies Allergy/AdvReac Type Severity Reaction Status Date / Time No Known Allergies Allergy Verified 11/04/22 19:26 Review of Systems ROS Statement: Those systems with pertinent positive or pertinent negative responses have been documented in the HPI. ROS Other: All systems not noted in ROS Statement are negative. Past Medical History Past Medical History: Seizure Disorder Additional Past Medical History / Comment(s): Epilepsy-last seizure yesterday, cognitive impairment, developmentally delayed, non verbal, Autism, urinary incontinence, wears depends, hx UTI's, cerebral palsy. History of Any Multi-Drug Resistant Organisms: None Reported Additional Past Surgical History / Comment(s): VNS shunt, eye correction, dental work. Past Anesthesia/Blood Transfusion Reactions: No Reported Reaction Additional Past Anesthesia/Blood Transfusion Reaction / Comment(s): Mom PONV. Past Psychological History: Anxiety Smoking Status: Second hand smoke exposure Past Alcohol Use History: None Reported Past Drug Use History: None Reported - Past Family History Mother Family Medical History: No Reported History General Exam Limitations: altered mental status (ANOx0, at baseline), physical limitation General appearance: alert, in no apparent distress, obese Head exam: Present: atraumatic, normocephalic, normal inspection Eye exam: Present: normal appearance, PERRL Pupils: Present: normal accommodation ENT exam: Present: normal exam, normal oropharynx, mucous membranes moist Neck exam: Present: normal inspection, full ROM Respiratory exam: Present: normal lung sounds bilaterally Cardiovascular Exam: Present: regular rate, normal rhythm, normal heart sounds GI/Abdominal exam: Present: soft, normal bowel sounds Extremities exam: Present: normal inspection, full ROM Back exam: Present: normal inspection, full ROM Neurological exam: Present: alert, altered (ANOx0, at baseline) Psychiatric exam: Present: normal affect, normal mood Skin exam: Present: warm, dry Course Vital Signs 11/04/22 12:55 Temperature 97.9 F Pulse Rate 87 Respiratory 16 Rate Blood Pressure 106/72 O2 Sat by Pulse 96 Oximetry Medical Decision Making - Medical Decision Making Was pt. sent in by a medical professional or institution (, PA, PURCHASING EXPEDITOR, urgent care, hospital, or skilled nursing...) When possible be specific @ -No Did you speak to anyone other than the patient for history (EMS, parent, family, police, friend...)? What history was obtained from this source @ -Yes, parents at the bedside stated that the patient had worsening lethargy today with decreased urine and stool diapers. Did you review nursing and triage notes (agree or disagree)? Why? @ -I reviewed and agree with nursing and triage notes Were old charts reviewed (outside hosp., previous admission, EMS record, old EKG, old radiological studies, urgent care reports/EKG's, skilled nursing records)? Report findings @ -No old charts were reviewed Differential Diagnosis (chest pain, altered mental status, abdominal pain women, abdominal pain men, vaginal bleeding, weakness, fever, dyspnea, syncope, headache, dizziness, GI bleed, back pain, seizure, CVA, palpatations, mental health)? @ -Sepsis, UTI, pneumonia EKG interpreted by me (3pts min.). @ -None X-rays interpreted by me (1pt min.). @ -None done CT interpreted by me (1pt min.). @ -None done U/S interpreted by me (1pt. min.). @ -None done What testing was considered but not performed or refused? (CT, X-rays, U/S, labs)? Why? @ -None What meds were considered but not given or refused? Why? @ -None Did you discuss the management of the patient with other professionals (professionals i.e. , PA, PURCHASING EXPEDITOR, lab, RT, psych nurse, social media community manager, sock drier, teacher, aoc plans intelligence officer, bilingual case manager)? Give summary @ -No Was smoking cessation discussed for >3mins.? @ -No Was critical care preformed (if so, how long)? @ -No Were there social determinants of health that impacted care today? How? (Homelessness, low income, unemployed, alcoholism, drug addiction, transportation, low edu. Level, literacy, decrease access to med. care, retirement, rehab)? @ -No Was there de-escalation of care discussed even if they declined (Discuss DNR or withdrawal of care, Hospice)? DNR status @ -No What co-morbidities impacted this encounter? (DM, HTN, Smoking, COPD, CAD, Cancer, CVA, ARF, Chemo, Hep., AIDS, mental health diagnosis, sleep apnea, morbid obesity)? @ -Epilepsy, cognitive delay Was patient admitted / discharged? Hospital course, mention meds given and route, prescriptions, significant lab abnormalities, going to OR and other pertinent info. @ -The patient was seen and evaluated emergency department. There was a significant delay to evaluate the patient as there was a significantly critical medical resuscitation. When I evaluated, the patient was resting in bed comfortably. Vital signs were stable. Urinalysis was initially obtained and was positive for UTI and laboratory workup was obtained to make sure the patient denied of any signs of sepsis. There was also a significant delay as the patient was a difficult IV start and an ultrasound that he needed to be placed. Once this was performed, the patient had normal laboratory workup and likely had lethargy secondary to UTI. On reevaluation in the emergency department, the patient was back to her baseline, eating and drinking per her parents. Due to the patient's UTI, the patient was given a dose of Rocephin in the emergency department and was given a prescription for liquid Keflex to be taken for 5 days as the patient could not tolerate pills. The patient's parents were told to follow-up with her primary care physician for further workup and evaluations report back to the emergency department if there are pain or symptoms became acutely worse. The patient was agreeable to this as was her parents. The patient was straight home in stable condition. Undiagnosed new problem with uncertain prognosis? @ -No Drug Therapy requiring intensive monitoring for toxicity (Heparin, Nitro, Insulin, Cardizem)? @ -No Were any procedures done? @ -No Diagnosis/symptom? @ -UTI Acute, or Chronic, or Acute on Chronic? @ -Acute Uncomplicated (without systemic symptoms) or Complicated (systemic symptoms)? @ -Uncomplicated Side effects of treatment? @ -No Exacerbation, Progression, or Severe Exacerbation? @ -No Poses a threat to life or bodily function? How? (Chest pain, USA, NV, pneumonia, PE, COPD, DKA, ARF, appy, cholecystitis, CVA, Diverticulitis, Homicidal, Suicidal, threat to staff... and all critical care pts) @ -No - Lab Data Result diagrams: 11/04/22 19:40 11/04/22 19:40 Lab Results 11/04/22 11/04/22 11/04/22 Range/Units 18:11 19:40 19:40 WBC 6.2 (3.8-10.6) k/uL RBC 4.38 (3.80-5.40) m/uL Hgb 13.6 (11.4-16.0) gm/dL Hct 39.0 (34.0-46.0) % MCV 89.1 (80.0-100.0) fL MCH 31.1 (25.0-35.0) pg MCHC 34.9 (31.0-37.0) g/dL RDW 14.9 (11.5-15.5) % Plt Count 230 (150-450) k/uL MPV 7.5 Neutrophils % 50 % Lymphocytes % 38 % Monocytes % 7 % Eosinophils % 2 % Basophils % 0 % Neutrophils # 3.1 (1.3-7.7) k/uL Lymphocytes # 2.4 (1.0-4.8) k/uL Monocytes # 0.4 (0-1.0) k/uL Eosinophils # 0.1 (0-0.7) k/uL Basophils # 0.0 (0-0.2) k/uL Sodium 139 (137-145) mmol/L Potassium 4.4 (3.5-5.1) mmol/L Chloride 106 (98-107) mmol/L Carbon Dioxide 29 (22-30) mmol/L Anion Gap 4 mmol/L BUN 10 (7-17) mg/dL Creatinine 0.57 (0.52-1.04) mg/dL Est GFR (CKD-EPI)AfAm >90 (>60 ml/min/1.73 sqM) Est GFR (CKD-EPI)NonAf >90 (>60 ml/min/1.73 sqM) Glucose 84 (74-99) mg/dL Plasma Lactic Acid Mookie (0.7-2.0) mmol/L Calcium 9.2 (8.4-10.2) mg/dL Total Bilirubin 0.6 (0.2-1.3) mg/dL AST 49 H (14-36) U/L ALT 30 (4-34) U/L Alkaline Phosphatase 112 (38-126) U/L Total Protein 6.8 (6.3-8.2) g/dL Albumin 3.7 (3.5-5.0) g/dL Urine Color Light Red Urine Appearance Cloudy H (Clear) Urine pH 6.0 (5.0-8.0) Ur Specific [place] 1.033 (1.001-1.035) Urine Protein 1+ H (Negative) Urine Glucose (UA) Negative (Negative) Urine Ketones Negative (Negative) Urine Blood Negative (Negative) Urine Nitrite Positive H (Negative) Urine Bilirubin Negative (Negative) Urine Urobilinogen <2.0 (<2.0) mg/dL Ur Leukocyte Esterase Large H (Negative) Urine RBC 35 H (0-5) /hpf Urine WBC 113 H (0-5) /hpf Ur Squamous Epith Cells 2 (0-4) /hpf Urine Bacteria Many H (None) /hpf Urine Mucus Many H (None) /hpf 11/04/22 Range/Units 19:40 WBC (3.8-10.6) k/uL RBC (3.80-5.40) m/uL Hgb (11.4-16.0) gm/dL Hct (34.0-46.0) % MCV (80.0-100.0) fL MCH (25.0-35.0) pg MCHC (31.0-37.0) g/dL RDW (11.5-15.5) % Plt Count (150-450) k/uL MPV Neutrophils % % Lymphocytes % % Monocytes % % Eosinophils % % Basophils % % Neutrophils # (1.3-7.7) k/uL Lymphocytes # (1.0-4.8) k/uL Monocytes # (0-1.0) k/uL Eosinophils # (0-0.7) k/uL Basophils # (0-0.2) k/uL Sodium (137-145) mmol/L Potassium (3.5-5.1) mmol/L Chloride (98-107) mmol/L Carbon Dioxide (22-30) mmol/L Anion Gap mmol/L BUN (7-17) mg/dL Creatinine (0.52-1.04) mg/dL Est GFR (CKD-EPI)AfAm (>60 ml/min/1.73 sqM) Est GFR (CKD-EPI)NonAf (>60 ml/min/1.73 sqM) Glucose (74-99) mg/dL Plasma Lactic Acid Mookie 0.9 (0.7-2.0) mmol/L Calcium (8.4-10.2) mg/dL Total Bilirubin (0.2-1.3) mg/dL AST (14-36) U/L ALT (4-34) U/L Alkaline Phosphatase (38-126) U/L Total Protein (6.3-8.2) g/dL Albumin (3.5-5.0) g/dL Urine Color Urine Appearance (Clear) Urine pH (5.0-8.0) Ur Specific [place] (1.001-1.035) Urine Protein (Negative) Urine Glucose (UA) (Negative) Urine Ketones (Negative) Urine Blood (Negative) Urine Nitrite (Negative) Urine Bilirubin (Negative) Urine Urobilinogen (<2.0) mg/dL Ur Leukocyte Esterase (Negative) Urine RBC (0-5) /hpf Urine WBC (0-5) /hpf Ur Squamous Epith Cells (0-4) /hpf Urine Bacteria (None) /hpf Urine Mucus (None) /hpf Disposition Clinical Impression: UTI (urinary tract infection) Disposition: HOME SELF-CARE Condition: Stable Instructions (If sedation given, give patient instructions): Urinary Tract Infection in Women (ED) Prescriptions: cephALEXin [Keflex Oral Susp] 10 ml PO QID #200 ml Is patient prescribed a controlled substance at d/c from ED?: No Referrals: Víctor Shay Jr, [Primary Care Provider] - 1-2 days Time of Disposition: 19:45
[2022-11-04 22:23] VITALS: BP 117/77; PULSE 76; RESP 18; TEMP 98.1
== END 2022-11-04 22:23 | disposition home or self-care (01) ==
LOC: EC 12:49
DX: N39.0 Urinary tract infection, site not specified (principal); G40.909 Epilepsy, unspecified, not intractable, without status epilepticus; F41.9 Anxiety disorder, unspecified; Z77.22 Contact with and (suspected) exposure to environmental tobacco smoke (acute) (chronic); Z79.899 Other long term (current) drug therapy
CPT/HCPCS: 51798; 36415; 80053; 83605; 85025; 81001; 99285; 96374; J0696

== ENCOUNTER 2022-12-01 13:28 | Emergency (ER) | payer OTHER ==
[2022-12-01 13:54] VITALS: BP 98/64; PULSE 75; RESP 18; TEMP 99.4
[2022-12-01] MEDS ORDERED: KETOROLAC 15 MG/ML 1 ML VIAL IVP STA (14:09)
[2022-12-01] MEDS ORDERED: ONDANSETRON 4 MG/2 ML VIAL IVP STA (14:09)
[2022-12-01] MEDS ORDERED: SODIUM CHLORIDE 0.9% 500 ML 500 ML IV STA (14:09)
--- NOTE | 2022-12-01 14:10 | ED ---
Abdominal Pain HPI - General Chief Complaint: Abdominal Pain Stated Complaint: Poss UTI Time Seen by Provider: 12/01/22 13:46 Source: family, RN notes reviewed, old records reviewed, Caregiver Mode of arrival: EMS Limitations: altered mental status, physical limitation - History of Present Illness Initial Comments: This is a 22-year-old female to the emergency department for evaluation today of abdominal pain. Decreased bowel movements, no dysuria but family always concern for urinary tract with this patient. Patient has no complaints here in the emergency department MD Complaint: abdominal pain -: days(s) Location: diffuse, epigastric, suprapubic Radiation: epigastric, suprapubic Migration to: suprapubic Severity: moderate Severity scale (1-10): 7 Quality: stabbing Consistency: constant Improves With: nothing Worsens With: nothing Associated Symptoms: nausea Treatments Prior to Arrival: other (0) - Related Data Home Medications Medication Instructions Recorded Confirmed Cariprazine HCl [Vraylar] 6 mg PO DAILY 09/25/20 11/04/22 FLUoxetine HCL 80 mg PO HS 09/25/20 11/04/22 levETIRAcetam [Keppra Oral 1,700 mg PO BID 09/25/20 11/04/22 Solution] Paliperidone [Invega] 9 mg PO DAILY 05/12/22 11/04/22 Midazolam [Nayzilam] 1 spray NASAL ONCE PRN 05/14/22 11/04/22 guanFACINE [Tenex] 1 mg PO BID 05/14/22 11/04/22 ALPRAZolam [Xanax] 1 mg PO TID PRN 11/04/22 11/04/22 Lacosamide [Vimpat] 200 mg PO BID 11/04/22 11/04/22 cloBAZam 20 mg PO HS 11/04/22 11/04/22 guanFACINE HCL [Intuniv] 2 mg PO BID 11/04/22 11/04/22 lamoTRIgine 300 mg PO BID 11/04/22 11/04/22 Previous Rx's Medication Instructions Recorded cephALEXin [Keflex Oral Susp] 10 ml PO QID #200 ml 11/04/22 Amoxic-Pot Clav 875-125Mg 1 tab PO Q12HR #14 tablet 12/01/22 [Augmentin 875-125] Allergies Allergy/AdvReac Type Severity Reaction Status Date / Time No Known Allergies Allergy Verified 12/01/22 13:48 Review of Systems ROS Statement: Those systems with pertinent positive or pertinent negative responses have been documented in the HPI. ROS Other: All systems not noted in ROS Statement are negative. Past Medical History Past Medical History: Seizure Disorder Additional Past Medical History / Comment(s): Epilepsy, cognitive impairment, developmentally delayed, non verbal, Autism, urinary incontinence, wears depends, hx UTI's, cerebral palsy. History of Any Multi-Drug Resistant Organisms: None Reported Additional Past Surgical History / Comment(s): VNS shunt, eye correction, dental work. Past Anesthesia/Blood Transfusion Reactions: No Reported Reaction Additional Past Anesthesia/Blood Transfusion Reaction / Comment(s): Mom PONV. Past Psychological History: Anxiety Smoking Status: Second hand smoke exposure Past Alcohol Use History: None Reported Past Drug Use History: None Reported - Past Family History Mother Family Medical History: No Reported History General Exam Limitations: altered mental status, physical limitation General appearance: alert, in no apparent distress Head exam: Present: atraumatic, normocephalic, normal inspection Eye exam: Present: normal appearance, PERRL, EOMI. Absent: scleral icterus, conjunctival injection, periorbital swelling ENT exam: Present: normal exam, mucous membranes moist Neck exam: Present: normal inspection. Absent: tenderness, meningismus, lymphadenopathy Respiratory exam: Present: normal lung sounds bilaterally. Absent: respiratory distress, wheezes, rales, rhonchi, stridor Cardiovascular Exam: Present: regular rate, normal rhythm, normal heart sounds. Absent: systolic murmur, diastolic murmur, rubs, gallop, clicks GI/Abdominal exam: Present: soft, normal bowel sounds. Absent: distended, tenderness, guarding, rebound, rigid Extremities exam: Present: normal inspection, full ROM, normal capillary refill. Absent: tenderness, pedal edema, joint swelling, calf tenderness Back exam: Present: normal inspection Neurological exam: Present: alert, oriented X3, CN II-XII intact Psychiatric exam: Present: normal affect, normal mood Skin exam: Present: warm, dry, intact, normal color. Absent: rash Course Vital Signs 12/01/22 13:49 Temperature 99.4 F Pulse Rate 75 Respiratory 18 Rate Blood Pressure 98/64 O2 Sat by Pulse 98 Oximetry - Reevaluation(s) Reevaluation #1: 12/01/22 15:20 Medical record is reviewed Reevaluation #2: 12/01/22 15:20 Symptoms are changed Reevaluation #3: Patient informed results and questions answered Reevaluation #4: 12/01/22 15:20 Was pt. sent in by a medical professional or institution (NOHELIA Diaz, CHRISTIAN SCIENCE NURSE, urgent care, hospital, or [facility]...) When possible be specific @ -no Did you speak to anyone other than the patient for history (EMS, parent, family, police, friend...)? What history was obtained from this source @ -no Did you review nursing and triage notes (agree or disagree)? Why? @ -agree Are old charts reviewed (outside hosp., previous admission, EMS record, old EKG, old radiological studies, urgent care reports/EKG's, [facility] records)? Report findings @ -yes Differential Diagnosis (chest pain, altered mental status, abdominal pain women, abdominal pain men, vaginal bleeding, weakness, fever, dyspnea, syncope, headache, dizziness, GI bleed, back pain, seizure, CVA, palpatations, mental health, musculoskeletal)? @ -prior EKG interpreted by me (3pts min.). @ -no X-rays interpreted by me (1pt min.). @ -no CT interpreted by me (1pt min.). @ -yes U/S interpreted by me (1pt. min.). @ -no What testing was considered but not performed or refused? (CT, X-rays, U/S, labs)? Why? @ -none What meds were considered but not given or refused? Why? @ -none Did you discuss the management of the patient with other professionals (oksana andre i.e. NOHELIA Diaz, CHRISTIAN SCIENCE NURSE, lab, RT, psych nurse, social media content specialist, power plant operations manager, teacher, restoration officer, home health care case manager)? Give summary @ -no Was smoking cessation discussed for >3mins.? @ -no Was critical care preformed (if so, how long)? @ -no Were there social determinants of health that impacted care today? How? (Homelessness, low income, unemployed, alcoholism, drug addiction, transportation, low edu. Level, literacy, decrease access to med. care, [facility], rehab)? @ -none Was there de-escalation of care discussed even if they declined (Discuss DNR or withdrawal of care, Hospice)? DNR status @ -no What co-morbidities impacted this encounter? (DM, HTN, Smoking, COPD, CAD, Cancer, CVA, ARF, Chemo, Hep., AIDS, mental health diagnosis, sleep apnea, morbid obesity)? @ -none Was patient admitted / discharged? Hospital course, mention meds given and route, prescriptions, significant lab abnormalities, going to OR and other pertinent info. @ - 22 female not acting appropriately maybe an pain abdominal pain does have constipation also found of urinary tract infection patient will place on antibiotics and bowel regimen patient can be discharged home Discharge Undiagnosed new problem with uncertain prognosis? @ -no Drug Therapy requiring intensive monitoring for toxicity (Heparin, Nitro, Insulin, Cardizem)? @ -no Were any procedures done? @ -no Diagnosis/symptom? @ -UTI, constipation, altered mental status Acute, or Chronic, or Acute on Chronic? @ -Acute Uncomplicated (without systemic symptoms) or Complicated (systemic symptoms)? @ -Complicated Side effects of treatment? @ -no Exacerbation, Progression, or Severe Exacerbation? @ -exacerbation Poses a threat to life or bodily function? How? (Chest pain, USA, NV, pneumonia, PE, COPD, DKA, ARF, appy, cholecystitis, CVA, Diverticulitis, Homicidal, Suicidal, threat to staff... and all critical care pts) @ -no Reevaluation #5: 12/01/22 15:20 Differential Abdominal Pain Women: Appendicitis, Cholecystitis, diverticulosis, ischemic bowel, pancreatitis, hepatitis, UTI, gastroenteritis, AAA, incarcerated hernia, bowel obstruction, constipation, inflammatory bowel, hepatitis, peptic ulcer disease, splenic infarction, perforated viscus, vulvitis, ovarian torsion, PID, kidney stone, pl acenta abruption, this is not meant to be an all-inclusive list Medical Decision Making - Medical Decision Making 22 female not acting appropriately maybe an pain abdominal pain does have constipation also found of urinary tract infection patient will place on antibiotics and bowel regimen patient can be discharged home - Lab Data Result diagrams: 12/01/22 15:18 12/01/22 15:18 Lab Results 12/01/22 12/01/22 12/01/22 Range/Units 14:45 15:18 15:18 WBC 5.8 (3.8-10.6) k/uL RBC 4.42 (3.80-5.40) m/uL Hgb 13.4 (11.4-16.0) gm/dL Hct 39.6 (34.0-46.0) % MCV 89.7 (80.0-100.0) fL MCH 30.4 (25.0-35.0) pg MCHC 33.9 (31.0-37.0) g/dL RDW 15.1 (11.5-15.5) % Plt Count 304 (150-450) k/uL MPV 7.5 Neutrophils % 56 % Lymphocytes % 33 % Monocytes % 8 % Eosinophils % 1 % Basophils % 0 % Neutrophils # 3.2 (1.3-7.7) k/uL Lymphocytes # 1.9 (1.0-4.8) k/uL Monocytes # 0.5 (0-1.0) k/uL Eosinophils # 0.1 (0-0.7) k/uL Basophils # 0.0 (0-0.2) k/uL Sodium 141 (137-145) mmol/L Potassium 4.3 (3.5-5.1) mmol/L Chloride 104 (98-107) mmol/L Carbon Dioxide 30 (22-30) mmol/L Anion Gap 7 mmol/L BUN 13 (7-17) mg/dL Creatinine 0.64 (0.52-1.04) mg/dL Est GFR (CKD-EPI)AfAm >90 (>60 ml/min/1.73 sqM) Est GFR (CKD-EPI)NonAf >90 (>60 ml/min/1.73 sqM) Glucose 86 (74-99) mg/dL Calcium 9.2 (8.4-10.2) mg/dL Total Bilirubin 0.4 (0.2-1.3) mg/dL AST 42 H (14-36) U/L ALT 37 H (4-34) U/L Alkaline Phosphatase 139 H (38-126) U/L Total Protein 6.9 (6.3-8.2) g/dL Albumin 3.8 (3.5-5.0) g/dL Amylase 47 (30-110) U/L Lipase 79 (23-300) U/L Urine Color Yellow Urine Appearance Cloudy H (Clear) Urine pH 6.5 (5.0-8.0) Ur Specific [place] 1.019 (1.001-1.035) Urine Protein Trace H (Negative) Urine Glucose (UA) Negative (Negative) Urine Ketones Negative (Negative) Urine Blood Negative (Negative) Urine Nitrite Positive H (Negative) Urine Bilirubin Negative (Negative) Urine Urobilinogen <2.0 (<2.0) mg/dL Ur Leukocyte Esterase Small H (Negative) Urine RBC 2 (0-5) /hpf Urine WBC 17 H (0-5) /hpf Ur Squamous Epith Cells 22 H (0-4) /hpf Urine Bacteria Moderate H (None) /hpf Urine Mucus Few H (None) /hpf - Radiology Data Radiology results: report reviewed (CT of the abdomen and pelvis is negative for acute disease mild constipation), image reviewed Disposition Clinical Impression: Abdominal pain, UTI (urinary tract infection), Constipation, Altered mental status Disposition: HOME SELF-CARE Condition: Good Instructions (If sedation given, give patient instructions): Constipation (ED), Urinary Tract Infection in Women (ED) Prescriptions: Amoxic-Pot Clav 875-125Mg [Augmentin 875-125] 1 tab PO Q12HR #14 tablet Is patient prescribed a controlled substance at d/c from ED?: No Referrals: Víctor Shay Jr, [Primary Care Provider] - 1-2 days Time of Disposition: 17:00
[2022-12-01 15:00] LABS: Appearance,Urine Cloudy (Clear); Bacteria,Urine Moderate /hpf; Bilirubin,Urine Negative (Negative); Blood,Urine Negative (Negative); Color,Urine Yellow; Glucose,Urine (UA) Negative (Negative); Ketones,Urine Negative (Negative); Leukocyte Esterase,Urine Small (Negative); Mucus,Urine Few /hpf; Nitrite,Urine Positive (Negative); PH, Urine 6.5 (5.0-8.0); Protein,Urine Trace (Negative); RBC,Urine 2 /hpf (0-5); Specific Gravity,Urine 1.019 (1.001-1.035); Squamous Epithelial Cell,Urine 22 /hpf (0-4); Urobilinogen,Urine <2.0 mg/dL (<2.0); WBC,Urine 17 /hpf (0-5)
--- NOTE | 2022-12-01 15:55 | CT ---
EXAMINATION TYPE: CT abdomen pelvis wo con CT DLP: 1143.4 mGycm, Automated exposure control for dose reduction was used. DATE OF EXAM: 12/01/2022 3:44 PM COMPARISON: None CLINICAL INDICATION:Female, 22 years old with history of abdominal pain; UTI TECHNIQUE: Standard CT of the abdomen and pelvis without IV or oral contrast. Lack of IV or oral co ntrast limits evaluation of solid and hollow organ viscera. Coronal and sagittal reformats were perfo rmed. FINDINGS: LOWER CHEST: Posterior dependent subsegmental atelectasis is noted. Pectus excavatum with an AP dimen maxine of 5.6 cm. Left anterior chest wall partially visualized device identified. Mild cardiac megaly. ABDOMEN LIVER: Unremarkable noncontrast appearance GALLBLADDER AND BILE DUCTS: Unremarkable noncontrast appearance PANCREAS: Unremarkable noncontrast appearance SPLEEN: Unremarkable noncontrast appearance ADRENAL GLANDS: Unremarkable noncontrast appearance. KIDNEYS AND URETERS: No evidence of hydronephrosis or renal calculus. No perinephric fat stranding or fluid collections. PELVIS BLADDER: Under distended, limiting evaluation. REPRODUCTIVE: Unremarkable noncontrast appearance ABDOMEN & PELVIS STOMACH AND BOWEL: Stomach and duodenum are unremarkable. No evidence of bowel obstruction. The appen vimal is within normal limits. Moderate amount of stool in the distal colon. No focal bowel wall thicke sanju or surrounding inflammatory changes. PERITONEUM: No evidence of pneumoperitoneum or free fluid. VASCULATURE: No evidence of aortic aneurysm. MUSCULOSKELETAL: No acute osseous abnormalities LYMPH NODES: No gross evidence for lymphadenopathy. SOFT TISSUE/ABDOMINAL WALL: Unremarkable IMPRESSION: 1. No acute abdominal/pelvic process within limitations of a noncontrast exam. 2. Moderate colonic stool burden. Correlate for constipation.
[2022-12-01 16:08] LABS: Basophils % (A) 0 %; Eosinophils # (A) 0.1 k/uL (0-0.7); Eosinophils % (A) 1 %; HCT 39.6 % (34.0-46.0); HGB 13.4 gm/dL (11.4-16.0); Lymphocytes # (A) 1.9 k/uL (1.0-4.8); Lymphocytes % (A) 33 %; MCH 30.4 pg (25.0-35.0); MCHC 33.9 g/dL (31.0-37.0); MCV 89.7 fL (80.0-100.0); Mean Platelet Volume 7.5; Monocytes # (A) 0.5 k/uL (0-1.0); Monocytes % (A) 8 %; Neutrophils # (A) 3.2 k/uL (1.3-7.7); Neutrophils % (A) 56 %; Platelet Count 304 k/uL (150-450); RBC 4.42 m/uL (3.80-5.40); RDW 15.1 % (11.5-15.5); WBC 5.8 k/uL (3.8-10.6)
[2022-12-01 16:12] LABS: ALT 37 U/L (4-34); AST 42 U/L (14-36); African American GFR (CKD) >90 (>60 ml/min/1.73 sqM); Albumin 3.8 g/dL (3.5-5.0); Alkaline Phosphatase 139 U/L (38-126); Amylase 47 U/L (30-110); Anion Gap 7 mmol/L; Blood Urea Nitrogen 13 mg/dL (7-17); Calcium 9.2 mg/dL (8.4-10.2); Carbon Dioxide 30 mmol/L (22-30); Chloride 104 mmol/L (98-107); Glucose 86 mg/dL (74-99); Lipase 79 U/L (23-300); Non-African American GFR(CKD) >90 (>60 ml/min/1.73 sqM); Potassium 4.3 mmol/L (3.5-5.1); Sodium 141 mmol/L (137-145); Total Bilirubin 0.4 mg/dL (0.2-1.3); Total Protein 6.9 g/dL (6.3-8.2)
[2022-12-01] MEDS ORDERED: cefTRIAXone IN SWFI 1,000 MG/10 ML SYRINGE IVP STA (17:08)
[2022-12-01] MEDS ORDERED: GLYCERIN ADULT SUPPOSITORY 1 EACH RECTAL STA (17:08)
[2022-12-01] MEDS ORDERED: SENNOSIDES-DOCUSATE SODIUM 1 EACH TAB PO STA (17:08)
[2022-12-01] MEDS ORDERED: AMOXIC-POT CLAV 875MG STARTER PACK 2 TAB BTL PO STA (17:32)
== END 2022-12-01 19:19 | disposition home or self-care (01) ==
LOC: EC 13:28
DX: R41.82 Altered mental status, unspecified (principal); K59.00 Constipation, unspecified; R10.13 Epigastric pain; N39.0 Urinary tract infection, site not specified; F41.9 Anxiety disorder, unspecified; Z77.22 Contact with and (suspected) exposure to environmental tobacco smoke (acute) (chronic); Z79.899 Other long term (current) drug therapy
CPT/HCPCS: 36415; 80053; 82150; 83690; 85025; 81001; 74176; 99284; 96374; 96375 ×2; 96361 ×3; J2405; J0696; J1885

== ENCOUNTER 2023-02-06 11:32 | Emergency (ER) | payer OTHER ==
[2023-02-06 11:37] VITALS: RESP 18
--- NOTE | 2023-02-06 12:30 | XR ---
EXAMINATION TYPE: XR chest 2V DATE OF EXAM: 02/06/2023 12:17 PM CLINICAL INDICATION:Female, 22 years old with history of cough,fever; [facility] COMPARISON: Chest radiographs from 12/31/2022 TECHNIQUE: XR chest 2V Frontal and lateral views of the chest. FINDINGS: Poor patient positioning. Lungs/Pleura: There is no evidence of pleural effusion, focal consolidation, or pneumothorax. Pulmonary vascularity: Unremarkable. Heart/mediastinum: Cardiomediastinal silhouette is unremarkable. Musculoskeletal: No acute osseous pathology. Other findings: Electronic device with leads extending towards the head. IMPRESSION: Low lung volumes with a generalized hazy appearance which could represent atelectasis.
--- NOTE | 2023-02-06 12:31 | XR ---
EXAMINATION TYPE: XR KUB DATE OF EXAM: 02/06/2023 12:17 PM CLINICAL INDICATION:Female, 22 years old with history of constipation; COMPARISON: None. TECHNIQUE: One radiographic view of the abdomen was obtained. FINDINGS: Moderate to large stool amount of stool throughout the colon. The bowel gas pattern is nons pecific without dilated loops of small or large bowel. There is no evidence for organomegaly or pneum operitoneum. The osseous structures are intact. No abnormal calcifications are present. Fecal mater ial and gas are demonstrated throughout the colon and rectum. Degeneration changes throughout the sp ine. IMPRESSION: Moderate to large stool burden throughout the colon. Nonspecific bowel gas pattern without radiograph ic evidence for acute process.
[2023-02-06 13:24] LABS: Basophils % (A) 0 %; Eosinophils % (A) 0 %; HCT 39.6 % (34.0-46.0); HGB 13.8 gm/dL (11.4-16.0); Lymphocytes # (A) 1.6 k/uL (1.0-4.8); Lymphocytes % (A) 24 %; MCHC 34.8 g/dL (31.0-37.0); MCV 91.9 fL (80.0-100.0); Mean Platelet Volume 7.4; Monocytes # (A) 0.3 k/uL (0-1.0); Monocytes % (A) 5 %; Neutrophils # (A) 4.5 k/uL (1.3-7.7); Neutrophils % (A) 69 %; Platelet Count 363 k/uL (150-450); RDW 13.2 % (11.5-15.5); WBC 6.5 k/uL (3.8-10.6)
[2023-02-06 13:42] LABS: ALT 79 U/L (4-34); African American GFR (CKD) >90 (>60 ml/min/1.73 sqM); Albumin 4.1 g/dL (3.5-5.0); Anion Gap 10 mmol/L; Blood Urea Nitrogen 16 mg/dL (7-17); Calcium 9.5 mg/dL (8.4-10.2); Carbon Dioxide 25 mmol/L (22-30); Chloride 104 mmol/L (98-107); Glucose 101 mg/dL (74-99); Non-African American GFR(CKD) >90 (>60 ml/min/1.73 sqM); Sodium 139 mmol/L (137-145); Total Bilirubin 0.5 mg/dL (0.2-1.3)
[2023-02-06 13:58] LABS: AST 68 U/L (14-36); Alkaline Phosphatase 141 U/L (38-126); Potassium 4.8 mmol/L (3.5-5.1)
--- NOTE | 2023-02-06 15:31 | ED ---
General Adult HPI - General Chief complaint: Upper Respiratory Infection Stated complaint: CONGESTION Time Seen by Provider: 02/06/23 11:36 Source: patient, RN notes reviewed Mode of arrival: ambulatory Limitations: no limitations - History of Present Illness Initial comments: 22-year-old female presents emergency Department with mother for evaluation of weakness, fever, congestion. Patient has not been well over the last few weeks. Patient worsen or last couple days but states that she has a weakened usual and which she has underlying cognitive impairment, epilepsy. She is concerned about possible infection was brought to emergency department for evaluation. - Related Data Home Medications Medication Instructions Recorded Confirmed Cariprazine HCl [Vraylar] 6 mg PO DAILY 09/25/20 11/04/22 FLUoxetine HCL 80 mg PO HS 09/25/20 11/04/22 levETIRAcetam [Keppra Oral 1,700 mg PO BID 09/25/20 11/04/22 Solution] Paliperidone [Invega] 9 mg PO DAILY 05/12/22 11/04/22 Midazolam [Nayzilam] 1 spray NASAL ONCE PRN 05/14/22 11/04/22 guanFACINE [Tenex] 1 mg PO BID 05/14/22 11/04/22 ALPRAZolam [Xanax] 1 mg PO TID PRN 11/04/22 11/04/22 Lacosamide [Vimpat] 200 mg PO BID 11/04/22 11/04/22 cloBAZam 20 mg PO HS 11/04/22 11/04/22 guanFACINE HCL [Intuniv] 2 mg PO BID 11/04/22 11/04/22 lamoTRIgine 300 mg PO BID 11/04/22 11/04/22 Previous Rx's Medication Instructions Recorded cephALEXin [Keflex Oral Susp] 10 ml PO QID #200 ml 11/04/22 Amoxic-Pot Clav 875-125Mg 1 tab PO Q12HR #14 tablet 12/01/22 [Augmentin 875-125] Amoxic-Pot Clav 875-125Mg 1 tab PO Q12HR #20 tab 02/06/23 [Augmentin 875-125] Allergies Allergy/AdvReac Type Severity Reaction Status Date / Time No Known Allergies Allergy Verified 02/06/23 11:34 Review of Systems ROS Statement: Those systems with pertinent positive or pertinent negative responses have been documented in the HPI. ROS Other: All systems not noted in ROS Statement are negative. Past Medical History Past Medical History: Seizure Disorder Additional Past Medical History / Comment(s): Epilepsy, cognitive impairment, developmentally delayed, non verbal, Autism, urinary incontinence, wears depends, hx UTI's, cerebral palsy. History of Any Multi-Drug Resistant Organisms: None Reported Additional Past Surgical History / Comment(s): VNS shunt, eye correction, dental work. Past Anesthesia/Blood Transfusion Reactions: No Reported Reaction Additional Past Anesthesia/Blood Transfusion Reaction / Comment(s): Mom PONV. Past Psychological History: Anxiety Smoking Status: Second hand smoke exposure Past Alcohol Use History: None Reported Past Drug Use History: None Reported - Past Family History Mother Family Medical History: No Reported History General Exam Limitations: no limitations General appearance: alert, in no apparent distress Head exam: Present: atraumatic, normocephalic, normal inspection Eye exam: Present: normal appearance, PERRL, EOMI. Absent: scleral icterus, conjunctival injection, periorbital swelling ENT exam: Present: mucous membranes moist, TM's normal bilaterally, normal external ear exam. Absent: normal oropharynx Neck exam: Present: normal inspection, full ROM. Absent: tenderness, meningi smus, lymphadenopathy Respiratory exam: Present: normal lung sounds bilaterally. Absent: respiratory distress, wheezes, rales, rhonchi, stridor Cardiovascular Exam: Present: regular rate, normal rhythm, normal heart sounds. Absent: systolic murmur, diastolic murmur, rubs, gallop, clicks GI/Abdominal exam: Present: soft, normal bowel sounds. Absent: distended, tenderness, guarding, rebound, rigid Course Vital Signs 02/06/23 11:35 Temperature 99.5 F Pulse Rate 80 Respiratory 18 Rate Blood Pressure 128/72 O2 Sat by Pulse 97 Oximetry Medical Decision Making - Medical Decision Making Was pt. sent in by a medical professional or institution (, PA, [employer], urgent care, hospital, or alf...) When possible be specific @ -No Did you speak to anyone other than the patient for history (EMS, parent, family, police, friend...)? What history was obtained from this source @ -[Mother providing also family history current complaint medications Did you review nursing and triage notes (agree or disagree)? Why? @ -I reviewed and agree with nursing and triage notes Were old charts reviewed (outside hosp., previous admission, EMS record, old EKG, old radiological studies, urgent care reports/EKG's, alf records)? Report findings @ -No old charts were reviewed Differential Diagnosis (chest pain, altered mental status, abdominal pain women, abdominal pain men, vaginal bleeding, weakness, fever, dyspnea, syncope, headache, dizziness, GI bleed, back pain, seizure, CVA, palpatations, mental health, musculoskeletal)? @ -URI, pneumonia, UTI, viral illness EKG interpreted by me (3pts min.). @ -None X-rays interpreted by me (1pt min.). @ -Chest x-ray shows some haziness concerning for atelectasis CT interpreted by me (1pt min.). @ -None done U/S interpreted by me (1pt. min.). @ -None done What testing was considered but not performed or refused? (CT, X-rays, U/S, labs)? Why? @ -None What meds were considered but not given or refused? Why? @ -None Did you discuss the management of the patient with other professionals (professionals i.e. , PA, [employer], lab, RT, psych nurse, social worker delinquency prevention, director energy, teacher, armoured corps officer, case reviewer)? Give summary @ -No Was smoking cessation discussed for >3mins.? @ -No Was critical care preformed (if so, how long)? @ -No Were there social determinants of health that impacted care today? How? (Homelessness, low income, unemployed, alcoholism, drug addiction, transportation, low edu. Level, literacy, decrease access to med. care, usp, rehab)? @ -No Was there de-escalation of care discussed even if they declined (Discuss DNR or withdrawal of care, Hospice)? DNR status @ -No What co-morbidities impacted this encounter? (DM, HTN, Smoking, COPD, CAD, Cancer, CVA, ARF, Chemo, Hep., AIDS, mental health diagnosis, sleep apnea, morbid obesity)? @ -Epilepsy, cognitive impairment Was patient admitted / discharged? Hospital course, mention meds given and route, prescriptions, significant lab abnormalities, going to OR and other pertinent info. @ -Discharge patient is nitrite positive be treated for UTI patient does have URI symptoms without definite infiltrate and has a negative viral swab. Undiagnosed new problem with uncertain prognosis? @ -No Drug Therapy requiring intensive monitoring for toxicity (Heparin, Nitro, Insulin, Cardizem)? @ -No Were any procedures done? @ -No Diagnosis/symptom? @ -URI, UTI Acute, or Chronic, or Acute on Chronic? @ -Acute Uncomplicated (without systemic symptoms) or Complicated (systemic symptoms)? @ -Uncomplicated Side effects of treatment? @ -No Exacerbation, Progression, or Severe Exacerbation? @ -No Poses a threat to life or bodily function? How? (Chest pain, USA, [place], pneumonia, PE, COPD, DKA, ARF, appy, cholecystitis, CVA, Diverticulitis, Homicidal, Suicidal, threat to staff... and all critical care pts) @ -No - Lab Data Result diagrams: 02/06/23 12:56 02/06/23 12:56 Lab Results 02/06/23 02/06/23 02/06/23 Range/Units 12:28 12:56 12:56 WBC 6.5 (3.8-10.6) k/uL RBC 4.30 (3.80-5.40) m/uL Hgb 13.8 (11.4-16.0) gm/dL Hct 39.6 (34.0-46.0) % MCV 91.9 (80.0-100.0) fL MCH 32.0 (25.0-35.0) pg MCHC 34.8 (31.0-37.0) g/dL RDW 13.2 (11.5-15.5) % Plt Count 363 (150-450) k/uL MPV 7.4 Neutrophils % 69 % Lymphocytes % 24 % Monocytes % 5 % Eosinophils % 0 % Basophils % 0 % Neutrophils # 4.5 (1.3-7.7) k/uL Lymphocytes # 1.6 (1.0-4.8) k/uL Monocytes # 0.3 (0-1.0) k/uL Eosinophils # 0.0 (0-0.7) k/uL Basophils # 0.0 (0-0.2) k/uL Sodium 139 (137-145) mmol/L Potassium 4.8 (3.5-5.1) mmol/L Chloride 104 (98-107) mmol/L Carbon Dioxide 25 (22-30) mmol/L Anion Gap 10 mmol/L BUN 16 (7-17) mg/dL Creatinine 0.52 (0.52-1.04) mg/dL Est GFR (CKD-EPI)AfAm >90 (>60 ml/min/1.73 sqM) Est GFR (CKD-EPI)NonAf >90 (>60 ml/min/1.73 sqM) Glucose 101 H (74-99) mg/dL Plasma Lactic Acid Mookie (0.7-2.0) mmol/L Calcium 9.5 (8.4-10.2) mg/dL Total Bilirubin 0.5 (0.2-1.3) mg/dL AST 68 H (14-36) U/L ALT 79 H (4-34) U/L Alkaline Phosphatase 141 H (38-126) U/L Total Protein 7.0 (6.3-8.2) g/dL Albumin 4.1 (3.5-5.0) g/dL Urine Color Urine Appearance (Clear) Urine pH (5.0-8.0) Ur Specific [place] (1.001-1.035) Urine Protein (Negative) Urine Glucose (UA) (Negative) Urine Ketones (Negative) Urine Blood (Negative) Urine Nitrite (Negative) Urine Bilirubin (Negative) Urine Urobilinogen (<2.0) mg/dL Ur Leukocyte Esterase (Negative) Urine RBC (0-5) /hpf Urine WBC (0-5) /hpf Ur Squamous Epith Cells (0-4) /hpf Urine Bacteria (None) /hpf Urine Mucus (None) /hpf Influenza Type A (PCR) Not Detected (Not Detectd) Influenza Type B (PCR) Not Detected (Not Detectd) RSV (PCR) Not Detected (Not Detectd) SARS-CoV-2 (PCR) Not Detected (Not Detectd) 02/06/23 02/06/23 Range/Units 12:56 14:59 WBC (3.8-10.6) k/uL RBC (3.80-5.40) m/uL Hgb (11.4-16.0) gm/dL Hct (34.0-46.0) % MCV (80.0-100.0) fL MCH (25.0-35.0) pg MCHC (31.0-37.0) g/dL RDW (11.5-15.5) % Plt Count (150-450) k/uL MPV Neutrophils % % Lymphocytes % % Monocytes % % Eosinophils % % Basophils % % Neutrophils # (1.3-7.7) k/uL Lymphocytes # (1.0-4.8) k/uL Monocytes # (0-1.0) k/uL Eosinophils # (0-0.7) k/uL Basophils # (0-0.2) k/uL Sodium (137-145) mmol/L Potassium (3.5-5.1) mmol/L Chloride (98-107) mmol/L Carbon Dioxide (22-30) mmol/L Anion Gap mmol/L BUN (7-17) mg/dL Creatinine (0.52-1.04) mg/dL Est GFR (CKD-EPI)AfAm (>60 ml/min/1.73 sqM) Est GFR (CKD-EPI)NonAf (>60 ml/min/1.73 sqM) Glucose (74-99) mg/dL Plasma Lactic Acid Mookie 1.3 (0.7-2.0) mmol/L Calcium (8.4-10.2) mg/dL Total Bilirubin (0.2-1.3) mg/dL AST (14-36) U/L ALT (4-34) U/L Alkaline Phosphatase (38-126) U/L Total Protein (6.3-8.2) g/dL Albumin (3.5-5.0) g/dL Urine Color Yellow Urine Appearance Cloudy H (Clear) Urine pH 7.0 (5.0-8.0) Ur Specific [place] 1.029 (1.001-1.035) Urine Protein Trace H (Negative) Urine Glucose (UA) Negative (Negative) Urine Ketones Negative (Negative) Urine Blood Negative (Negative) Urine Nitrite Positive H (Negative) Urine Bilirubin Negative (Negative) Urine Urobilinogen <2.0 (<2.0) mg/dL Ur Leukocyte Esterase Negative (Negative) Urine RBC <1 (0-5) /hpf Urine WBC 1 (0-5) /hpf Ur Squamous Epith Cells 1 (0-4) /hpf Urine Bacteria Occasional H (None) /hpf Urine Mucus Occasional H (None) /hpf Influenza Type A (PCR) (Not Detectd) Influenza Type B (PCR) (Not Detectd) RSV (PCR) (Not Detectd) SARS-CoV-2 (PCR) (Not Detectd) Disposition Clinical Impression: Acute upper respiratory infection, UTI (urinary tract infection) Disposition: HOME SELF-CARE Condition: Stable Instructions (If sedation given, give patient instructions): Urinary Tract Infection in Women (ED) Additional Instructions: Please return to the Emergency Department if symptoms worsen or any other concerns. Prescriptions: Amoxic-Pot Clav 875-125Mg [Augmentin 875-125] 1 tab PO Q12HR #20 tab Is patient prescribed a controlled substance at d/c from ED?: No Referrals: Melchor Garcia MD [Primary Care Provider] - 1-2 days Time of Disposition: 16:04
[2023-02-06 15:56] LABS: Appearance,Urine Cloudy (Clear); Bacteria,Urine Occasional /hpf; Bilirubin,Urine Negative (Negative); Blood,Urine Negative (Negative); Color,Urine Yellow; Glucose,Urine (UA) Negative (Negative); Ketones,Urine Negative (Negative); Leukocyte Esterase,Urine Negative (Negative); Mucus,Urine Occasional /hpf; Nitrite,Urine Positive (Negative); Protein,Urine Trace (Negative); RBC,Urine <1 /hpf (0-5); Specific Gravity,Urine 1.029 (1.001-1.035); Squamous Epithelial Cell,Urine 1 /hpf (0-4); Urobilinogen,Urine <2.0 mg/dL (<2.0); WBC,Urine 1 /hpf (0-5)
[2023-02-06] MEDS ORDERED: cefTRIAXone IN SWFI 1,000 MG/10 ML SYRINGE IVP STA (16:01)
[2023-02-06 16:45] VITALS: BP 133/88; PULSE 88; TEMP 98
== END 2023-02-06 16:29 | disposition home or self-care (01) ==
LOC: EC 11:32
DX: J06.9 Acute upper respiratory infection, unspecified (principal); N39.0 Urinary tract infection, site not specified; F41.9 Anxiety disorder, unspecified; Z77.22 Contact with and (suspected) exposure to environmental tobacco smoke (acute) (chronic); Z79.899 Other long term (current) drug therapy; Z20.822 Contact with and (suspected) exposure to COVID-19
CPT/HCPCS: 36415; 80053; 83605; 85025; 81001; 87636; 71046; 74018; 99284; 96374; J0696

== ENCOUNTER 2023-02-21 09:58 | Emergency (ER) | payer OTHER ==
--- NOTE | 2023-02-21 10:38 | XR ---
EXAMINATION TYPE: XR KUB DATE OF EXAM: 02/21/2023 10:31 AM CLINICAL INDICATION:Female, 23 years old with history of constipation; [facility] COMPARISON: None. TECHNIQUE: One radiographic view of the abdomen was obtained. FINDINGS: The bowel gas pattern is nonspecific without dilated loops of small or large bowel. There i s no evidence for organomegaly or pneumoperitoneum. The osseous structures are intact. No abnormal calcifications are present. Fecal material and gas are demonstrated throughout the colon and rectum. Mild to moderate fecal burden. IMPRESSION: 1. No evidence of bowel obstruction. 2. Mild to moderate fecal burden.
[2023-02-21 11:21] LABS: ALT 88 U/L (4-34); African American GFR (CKD) >90 (>60 ml/min/1.73 sqM); Anion Gap 13 mmol/L; Blood Urea Nitrogen 14 mg/dL (7-17); Calcium 9.7 mg/dL (8.4-10.2); Carbon Dioxide 23 mmol/L (22-30); Chloride 104 mmol/L (98-107); Glucose 100 mg/dL (74-99); Non-African American GFR(CKD) >90 (>60 ml/min/1.73 sqM); Sodium 140 mmol/L (137-145); Total Bilirubin 0.8 mg/dL (0.2-1.3)
[2023-02-21 11:35] LABS: Potassium 5.8 mmol/L (3.5-5.1)
[2023-02-21 11:36] LABS: AST 139 U/L (14-36); Albumin 4.3 g/dL (3.5-5.0); Alkaline Phosphatase 150 U/L (38-126); Total Protein 7.4 g/dL (6.3-8.2)
[2023-02-21] MEDS ORDERED: LORazepam 1 MG TAB PO STA (11:52)
[2023-02-21 11:54] LABS: Appearance,Urine Clear (Clear); Bilirubin,Urine Negative (Negative); Blood,Urine Negative (Negative); Color,Urine Yellow; Glucose,Urine (UA) Negative (Negative); Ketones,Urine Negative (Negative); Leukocyte Esterase,Urine Negative (Negative); Nitrite,Urine Negative (Negative); PH, Urine 6.5 (5.0-8.0); Protein,Urine Trace (Negative); Specific Gravity,Urine 1.017 (1.001-1.035); Urobilinogen,Urine <2.0 mg/dL (<2.0)
[2023-02-21 12:32] LABS: Basophils % (A) 0 %; Eosinophils # (A) 0.1 k/uL (0-0.7); Eosinophils % (A) 1 %; HCT 43.1 % (34.0-46.0); HGB 14.9 gm/dL (11.4-16.0); Lymphocytes # (A) 1.5 k/uL (1.0-4.8); Lymphocytes % (A) 18 %; MCH 32.1 pg (25.0-35.0); MCHC 34.7 g/dL (31.0-37.0); MCV 92.5 fL (80.0-100.0); Mean Platelet Volume 7.8; Monocytes # (A) 0.5 k/uL (0-1.0); Monocytes % (A) 6 %; Neutrophils # (A) 6.4 k/uL (1.3-7.7); Neutrophils % (A) 75 %; Platelet Count 306 k/uL (150-450); RBC 4.66 m/uL (3.80-5.40); RDW 13.3 % (11.5-15.5); WBC 8.5 k/uL (3.8-10.6)
[2023-02-21 12:45] LABS: ALT 87 U/L (4-34); AST 126 U/L (14-36); African American GFR (CKD) >90 (>60 ml/min/1.73 sqM); Albumin 4.4 g/dL (3.5-5.0); Alkaline Phosphatase 166 U/L (38-126); Anion Gap 10 mmol/L; Blood Urea Nitrogen 14 mg/dL (7-17); Calcium 9.9 mg/dL (8.4-10.2); Carbon Dioxide 31 mmol/L (22-30); Chloride 102 mmol/L (98-107); Glucose 93 mg/dL (74-99); Non-African American GFR(CKD) >90 (>60 ml/min/1.73 sqM); Potassium 4.3 mmol/L (3.5-5.1); Sodium 143 mmol/L (137-145); Total Bilirubin 0.6 mg/dL (0.2-1.3); Total Protein 7.2 g/dL (6.3-8.2)
--- NOTE | 2023-02-21 13:04 | ED ---
General Adult HPI - General Chief complaint: Weakness Stated complaint: lethargic Time Seen by Provider: 02/21/23 10:17 Source: family, EMS, RN notes reviewed Mode of arrival: EMS Limitations: physical limitation - History of Present Illness Initial comments: 23-year-old male with past medical history significant for autism and cognitive delay presents to the emergency department with a chief complaint of lethargy. Patient is nonverbal so most of the history is obtained from the mother. Mother reports that patient has not had a bowel movement for 5 days. Denies any known fevers or vomiting, melena, and hematochezia. - Related Data Home Medications Medication Instructions Recorded Confirmed Cariprazine HCl [Vraylar] 6 mg PO DAILY 09/25/20 02/21/23 FLUoxetine HCL 80 mg PO HS 09/25/20 02/21/23 levETIRAcetam [Keppra Oral 2,000 mg PO BID 09/25/20 02/21/23 Solution] Paliperidone [Invega] 9 mg PO DAILY 05/12/22 02/21/23 Midazolam [Nayzilam] 1 spray NASAL ONCE PRN 05/14/22 02/21/23 guanFACINE [Tenex] 1 mg PO BID 05/14/22 02/21/23 Lacosamide [Vimpat] 200 mg PO BID 11/04/22 02/21/23 cloBAZam 20 mg PO HS 11/04/22 02/21/23 guanFACINE HCL [Intuniv] 2 mg PO BID 11/04/22 02/21/23 lamoTRIgine 300 mg PO BID 11/04/22 02/21/23 LORazepam [Ativan] 1 mg PO BID PRN 02/21/23 02/21/23 LORazepam [Ativan] 1 mg PO DAILY 02/21/23 02/21/23 Allergies Allergy/AdvReac Type Severity Reaction Status Date / Time No Known Allergies Allergy Verified 02/21/23 15:11 Review of Systems ROS Statement: Those systems with pertinent positive or pertinent negative responses have been documented in the HPI. ROS Other: All systems not noted in ROS Statement are negative. Past Medical History Past Medical History: Seizure Disorder Additional Past Medical History / Comment(s): Epilepsy, cognitive impairment, developmentally delayed, non verbal, Autism, urinary incontinence, wears depends, hx UTI's, cerebral palsy. History of Any Multi-Drug Resistant Organisms: None Reported Additional Past Surgical History / Comment(s): VNS shunt, eye correction, dental work. Past Anesthesia/Blood Transfusion Reactions: No Reported Reaction Additional Past Anesthesia/Blood Transfusion Reaction / Comment(s): Mom PONV. Past Psychological History: Anxiety Smoking Status: Second hand smoke exposure Past Alcohol Use History: None Reported Past Drug Use History: None Reported - Past Family History Mother Family Medical History: No Reported History General Exam Limitations: physical limitation Course Vital Signs 02/21/23 02/21/23 02/21/23 10:05 11:22 13:45 Temperature 97.0 F L 97.2 F L Pulse Rate 104 H 100 Respiratory 16 18 Rate Blood Pressure 119/87 127/75 115/84 O2 Sat by Pulse 98 98 Oximetry - Reevaluation(s) Reevaluation #1: 02/21/23 14:45 should reevaluated. Patient still has not had a bowel movement. Enema ordered. Reevaluation #2: 02/21/23 16:25 pt reevaluated. Patient notes he distress. Additional enema was ordered. Productive a lactulose to be given and patient to be discharged. Medical Decision Making - Medical Decision Making Was pt. sent in by a medical professional or institution (, PA, EMBEDDED SYSTEMS DEVELOPER, urgent care, hospital, or [facility]...) When possible be specific @ -[No] Did you speak to anyone other than the patient for history (EMS, parent, family, police, friend...)? What history was obtained from this source @ -[No] Did you review nursing and triage notes (agree or disagree)? Why? @ -[I reviewed and agree with nursing and triage notes] Were old charts reviewed (outside hosp., previous admission, EMS record, old EKG, old radiological studies, urgent care reports/EKG's, [facility] records)? Report findings @ -[No old charts were reviewed] Differential Diagnosis (chest pain, altered mental status, abdominal pain women, abdominal pain men, vaginal bleeding, weakness, fever, dyspnea, syncope, headache, dizziness, GI bleed, back pain, seizure, CVA, palpatations, mental health, musculoskeletal)? @ -[not applicable] EKG interpreted by me (3pts min.). @ -[As above] X-rays interpreted by me (1pt min.). @ [facility] x-ray reveals mild to moderate stool burden CT interpreted by me (1pt min.). @ -[None done] U/S interpreted by me (1pt. min.). @ -[None done] What testing was considered but not performed or refused? (CT, X-rays, U/S, labs)? Why? @ -[None] What meds were considered but not given or refused? Why? @ -[None] Did you discuss the management of the patient with other professionals (professionals i.e. DrPedro, PA, EMBEDDED SYSTEMS DEVELOPER, lab, RT, psych nurse, social media analyst, guest services officer, teacher, personal banking officer, rn case manager)? Give summary @ -[No] Was smoking cessation discussed for >3mins.? @ -[No] Was critical care preformed (if so, how long)? @ -[No] Were there social determinants of health that impacted care today? How? (Homelessness, low income, unemployed, alcoholism, drug addiction, transportation, low edu. Level, literacy, decrease access to med. care, alf, rehab)? @ -[No] Was there de-escalation of care discussed even if they declined (Discuss DNR or withdrawal of care, Hospice)? DNR status @ -[No] What co-morbidities impacted this encounter? (DM, HTN, Smoking, COPD, CAD, Cancer, CVA, ARF, Chemo, Hep., AIDS, mental health diagnosis, sleep apnea, morbid obesity)? @ -[None] Was patient admitted / discharged? Hospital course, mention meds given and route, prescriptions, significant lab abnormalities, going to OR and other pertinent info. @ Discharged. This is a 23-year-old female with past medical history significant for autism and cognitive delay who presents the emergency department with a chief complaint of constipation. Patient had thorough history and physical exam performed. Abdomen is soft and nontender. Patient given 2 enemas and lactulose. Discharged in stable condition. Return precautions discussed at length. Case is discussed with Dr. Bessie DOTY who agrees with plan of care Undiagnosed new problem with uncertain prognosis? @ -[No] Drug Therapy requiring intensive monitoring for toxicity (Heparin, Nitro, Insulin, Cardizem)? @ -[No] Were any procedures done? @ -[No] Diagnosis/symptom? @ -Constipation Acute, or Chronic, or Acute on Chronic? @ -Acute Uncomplicated (without systemic symptoms) or Complicated (systemic symptoms)? @ -Uncomplicated Side effects of treatment? @ -[No] Exacerbation, Progression, or Severe Exacerbation? @ -[No] Poses a threat to life or bodily function? How? (Chest pain, [place], [place], pneumonia, PE, COPD, DKA, ARF, appy, cholecystitis, CVA, Diverticulitis, Homicidal, Suicidal, threat to staff... and all critical care pts) @ Low likelihood - Lab Data Result diagrams: 02/21/23 12:20 02/21/23 12:20 Lab Results 02/21/23 02/21/23 02/21/23 Range/Units 10:50 10:50 10:50 WBC (3.8-10.6) k/uL RBC (3.80-5.40) m/uL Hgb (11.4-16.0) gm/dL Hct (34.0-46.0) % MCV (80.0-100.0) fL MCH (25.0-35.0) pg MCHC (31.0-37.0) g/dL RDW (11.5-15.5) % Plt Count (150-450) k/uL MPV Neutrophils % % Lymphocytes % % Monocytes % % Eosinophils % % Basophils % % Neutrophils # (1.3-7.7) k/uL Lymphocytes # (1.0-4.8) k/uL Monocytes # (0-1.0) k/uL Eosinophils # (0-0.7) k/uL Basophils # (0-0.2) k/uL Sodium 140 (137-145) mmol/L Potassium 5.8 H (3.5-5.1) mmol/L Chloride 104 (98-107) mmol/L Carbon Dioxide 23 (22-30) mmol/L Anion Gap 13 mmol/L BUN 14 (7-17) mg/dL Creatinine 0.61 (0.52-1.04) mg/dL Est GFR (CKD-EPI)AfAm >90 (>60 ml/min/1.73 sqM) Est GFR (CKD-EPI)NonAf >90 (>60 ml/min/1.73 sqM) Glucose 100 H (74-99) mg/dL Calcium 9.7 (8.4-10.2) mg/dL Total Bilirubin 0.8 (0.2-1.3) mg/dL AST 139 H (14-36) U/L ALT 88 H (4-34) U/L Alkaline Phosphatase 150 H (38-126) U/L Total Protein 7.4 (6.3-8.2) g/dL Albumin 4.3 (3.5-5.0) g/dL Urine Color Yellow Urine Appearance Clear (Clear) Urine pH 6.5 (5.0-8.0) Ur Specific [place] 1.017 (1.001-1.035) Urine Protein Trace H (Negative) Urine Glucose (UA) Negative (Negative) Urine Ketones Negative (Negative) Urine Blood Negative (Negative) Urine Nitrite Negative (Negative) Urine Bilirubin Negative (Negative) Urine Urobilinogen <2.0 (<2.0) mg/dL Ur Leukocyte Esterase Negative (Negative) Influenza Type A (PCR) Not Detected (Not Detectd) Influenza Type B (PCR) Not Detected (Not Detectd) RSV (PCR) Not Detected (Not Detectd) SARS-CoV-2 (PCR) Not Detected (Not Detectd) 02/21/23 02/21/23 Range/Units 12:20 12:20 WBC 8.5 (3.8-10.6) k/uL RBC 4.66 (3.80-5.40) m/uL Hgb 14.9 (11.4-16.0) gm/dL Hct 43.1 (34.0-46.0) % MCV 92.5 (80.0-100.0) fL MCH 32.1 (25.0-35.0) pg MCHC 34.7 (31.0-37.0) g/dL RDW 13.3 (11.5-15.5) % Plt Count 306 (150-450) k/uL MPV 7.8 Neutrophils % 75 % Lymphocytes % 18 % Monocytes % 6 % Eosinophils % 1 % Basophils % 0 % Neutrophils # 6.4 (1.3-7.7) k/uL Lymphocytes # 1.5 (1.0-4.8) k/uL Monocytes # 0.5 (0-1.0) k/uL Eosinophils # 0.1 (0-0.7) k/uL Basophils # 0.0 (0-0.2) k/uL Sodium 143 (137-145) mmol/L Potassium 4.3 (3.5-5.1) mmol/L Chloride 102 (98-107) mmol/L Carbon Dioxide 31 H (22-30) mmol/L Anion Gap 10 mmol/L BUN 14 (7-17) mg/dL Creatinine 0.63 (0.52-1.04) mg/dL Est GFR (CKD-EPI)AfAm >90 (>60 ml/min/1.73 sqM) Est GFR (CKD-EPI)NonAf >90 (>60 ml/min/1.73 sqM) Glucose 93 (74-99) mg/dL Calcium 9.9 (8.4-10.2) mg/dL Total Bilirubin 0.6 (0.2-1.3) mg/dL AST 126 H (14-36) U/L ALT 87 H (4-34) U/L Alkaline Phosphatase 166 H (38-126) U/L Total Protein 7.2 (6.3-8.2) g/dL Albumin 4.4 (3.5-5.0) g/dL Urine Color Urine Appearance (Clear) Urine pH (5.0-8.0) Ur Specific [place] (1.001-1.035) Urine Protein (Negative) Urine Glucose (UA) (Negative) Urine Ketones (Negative) Urine Blood (Negative) Urine Nitrite (Negative) Urine Bilirubin (Negative) Urine Urobilinogen (<2.0) mg/dL Ur Leukocyte Esterase (Negative) Influenza Type A (PCR) (Not Detectd) Influenza Type B (PCR) (Not Detectd) RSV (PCR) (Not Detectd) SARS-CoV-2 (PCR) (Not Detectd) Disposition Clinical Impression: Constipation Disposition: HOME SELF-CARE Condition: Stable Instructions (If sedation given, give patient instructions): Constipation (ED), High Fiber Diet (ED), Fleet Enema (ED) Additional Instructions: Please monitor symptoms closely Please return to the nearest emergency department if worsening symptoms Is patient prescribed a controlled substance at d/c from ED?: No Referrals: Melchor Garcia MD [Primary Care Provider] - 1-2 days Time of Disposition: 16:49
[2023-02-21 13:52] VITALS: BP 115/84; PULSE 100
[2023-02-21] MEDS ORDERED: LACTULOSE 20 GM/30 ML CUP PO ONE (16:39)
[2023-02-21 20:02] VITALS: RESP 17; TEMP 97.6
== END 2023-02-21 20:14 | disposition home or self-care (01) ==
LOC: EC 09:58
DX: K59.00 Constipation, unspecified (principal); F41.9 Anxiety disorder, unspecified; G40.909 Epilepsy, unspecified, not intractable, without status epilepticus; Z77.22 Contact with and (suspected) exposure to environmental tobacco smoke (acute) (chronic); Z20.822 Contact with and (suspected) exposure to COVID-19; Z79.899 Other long term (current) drug therapy
CPT/HCPCS: 36415; 74018; 80053; 81003; 85025; 87636; 99285

== ENCOUNTER 2023-03-25 09:28 | Inpatient (IN) | payer OTHER ==
--- NOTE | 2023-03-25 09:43 | ED ---
Female Urogenital HPI - General Stated complaint: Possible UTI Time Seen by Provider: 03/25/23 09:42 Source: RN notes reviewed, old records reviewed, Caregiver Limitations: altered mental status, physical limitation - History of Present Illness Initial comments: This is a 23-year-old female with underlying altered mental status, patient's brought in by caregiver for possibility of urinary tract infection patient is unable to provide any significant medical history mom states patient's activity level has severely diminished MD Complaint: dysuria, pelvic pain -: days(s) Location: suprapubic Radiation: suprapubic Severity: mild Severity scale (1-10): 1 Quality: cramping Consistency: intermittent Improves with: none Worsens with: none Patient : No Associated Symptoms: denies other symptoms - Related Data Sexually active: No Home Medications Medication Instructions Recorded Confirmed Cariprazine HCl [Vraylar] 6 mg PO DAILY 09/25/20 03/25/23 FLUoxetine HCL 80 mg PO HS 09/25/20 03/25/23 Paliperidone [Invega] 9 mg PO DAILY 05/12/22 03/25/23 Midazolam [Nayzilam] 1 spray NASAL ONCE PRN 05/14/22 03/25/23 guanFACINE [Tenex] 3 mg PO DAILY 05/14/22 03/25/23 Lacosamide [Vimpat] 200 mg PO BID 11/04/22 03/25/23 cloBAZam 20 mg PO HS 11/04/22 03/25/23 lamoTRIgine 300 mg PO BID 11/04/22 03/25/23 LORazepam [Ativan] 1 mg PO BID PRN 02/21/23 03/25/23 Previous Rx's Medication Instructions Recorded Amoxic-Pot Clav 200-28.5MG/5Ml 12 ml PO Q8HR 5 Days #180 ml 03/30/23 [Augmentin 200-28.5 mg/5 ml Susp] levETIRAcetam [Keppra Oral 1,500 mg PO BID #0 03/30/23 Solution] Allergies Allergy/AdvReac Type Severity Reaction Status Date / Time No Known Allergies Allergy Verified 03/25/23 12:25 Review of Systems ROS Statement: Those systems with pertinent positive or pertinent negative responses have been documented in the HPI. ROS Other: All systems not noted in ROS Statement are negative. Past Medical History Past Medical History: Seizure Disorder Additional Past Medical History / Comment(s): Epilepsy, cognitive impairment, developmentally delayed, non verbal, Autism, urinary incontinence, wears depends, hx UTI's, cerebral palsy. History of Any Multi-Drug Resistant Organisms: None Reported Additional Past Surgical History / Comment(s): VNS shunt, eye correction, dental work. Past Anesthesia/Blood Transfusion Reactions: No Reported Reaction Additional Past Anesthesia/Blood Transfusion Reaction / Comment(s): Mom PONV. Past Psychological History: Anxiety Smoking Status: Second hand smoke exposure Past Alcohol Use History: None Reported Past Drug Use History: None Reported - Past Family History Mother Family Medical History: No Reported History General Exam General appearance: alert, in no apparent distress, anxious Head exam: Present: atraumatic, normocephalic, normal inspection Eye exam: Present: normal appearance, PERRL, EOMI. Absent: scleral icterus, conjunctival injection, periorbital swelling ENT exam: Present: normal exam, mucous membranes moist Neck exam: Present: normal inspection. Absent: tenderness, meningismus, lymphadenopathy Respiratory exam: Present: normal lung sounds bilaterally. Absent: respiratory distress, wheezes, rales, rhonchi, stridor Cardiovascular Exam: Present: regular rate, normal rhythm, normal heart sounds. Absent: systolic murmur, diastolic murmur, rubs, gallop, clicks GI/Abdominal exam: Present: soft, normal bowel sounds. Absent: distended, tenderness, guarding, rebound, rigid Extremities exam: Present: normal inspection, full ROM, normal capillary refill. Absent: tenderness, pedal edema, joint swelling, calf tenderness Back exam: Present: normal inspection Neurological exam: Present: alert, oriented X3, CN II-XII intact Psychiatric exam: Present: normal affect, normal mood Skin exam: Present: warm, dry, intact, normal color. Absent: rash Course Vital Signs 03/25/23 03/25/23 03/25/23 09:50 10:02 11:00 Temperature 97.2 F L Pulse Rate 74 71 65 Respiratory 16 20 16 Rate Blood Pressure 109/72 109/72 110/60 O2 Sat by Pulse 93 L 94 L 98 Oximetry 03/25/23 03/25/23 03/25/23 11:31 12:55 14:00 Temperature Pulse Rate 76 75 88 Respiratory 16 16 16 Rate Blood Pressure 103/55 115/75 118/81 O2 Sat by Pulse 95 96 92 L Oximetry 03/25/23 03/25/23 03/25/23 15:39 17:00 17:36 Temperature 97.4 F L Pulse Rate 84 81 68 Respiratory 17 16 16 Rate Blood Pressure 114/78 115/84 134/68 O2 Sat by Pulse 97 95 95 Oximetry - Reevaluation(s) Reevaluation #1: 03/25/23 10:02 Records reviewed Reevaluation #2: 03/25/23 14:28 A she has no change in symptoms here in the ER Reevaluation #3: 03/25/23 14:28 Patient informed results questions answered Reevaluation #4: 03/25/23 10:02 Was pt. sent in by a medical professional or institution (NOHELIA Diaz, DECORATING CONSULTANT, urgent care, hospital, or penitentiary...) When possible be specific @ -no Did you speak to anyone other than the patient for history (EMS, parent, family, police, friend...)? What history was obtained from this source @ -no Did you review nursing and triage notes (agree or disagree)? Why? @ -agree Are old charts reviewed (outside hosp., previous admission, EMS record, old EKG, old radiological studies, urgent care reports/EKG's, penitentiary records)? Report findings @ -yes Differential Diagnosis (chest pain, altered mental status, abdominal pain women, abdominal pain men, vaginal bleeding, weakness, fever, dyspnea, syncope, headache, dizziness, GI bleed, back pain, seizure, CVA, palpatations, mental health, musculoskeletal)? @ -prior EKG interpreted by me (3pts min.). @ -yes X-rays interpreted by me (1pt min.). @ -yes positive for pneumonia CT interpreted by me (1pt min.). @ -yes positive for pneumonia U/S interpreted by me (1pt. min.). @ -no What testing was considered but not performed or refused? (CT, X-rays, U/S, labs)? Why? @ -none What meds were considered but not given or refused? Why? @ -none Did you discuss the management of the patient with other professionals (professionals i.e. NOHELIA Diaz, DECORATING CONSULTANT, lab, RT, psych nurse, home health care social worker, lye machine operator, teacher, chief analytics officer, case sealer)? Give summary @ -no Was smoking cessation discussed for >3mins.? @ -no Was critical care preformed (if so, how long)? @ -no Were there social determinants of health that impacted care today? How? (Homelessness, low income, unemployed, alcoholism, drug addiction, transportation, low edu. Level, literacy, decrease access to med. care, shelter, rehab)? @ -none Was there de-escalation of care discussed even if they declined (Discuss DNR or withdrawal of care, Hospice)? DNR status @ -no What co-morbidities impacted this encounter? (DM, HTN, Smoking, COPD, CAD, Cancer, CVA, ARF, Chemo, Hep., AIDS, mental health diagnosis, sleep apnea, morbid obesity)? @ -none Was patient admitted / discharged? Hospital course, mention meds given and route, prescriptions, significant lab abnormalities, going to OR and other pertinent info. @ - 23-year-old female to the emergency department for evaluation is found to have pneumonia here in the emergency room, pneumonia with weakness. Patient has no other acute findings, patient will be admitted for IV antibiotics Admitted Undiagnosed new problem with uncertain prognosis? @ -no Drug Therapy requiring intensive monitoring for toxicity (Heparin, Nitro, Insulin, Cardizem)? @ -no Were any procedures done? @ -no Diagnosis/symptom? @ -Altered mental status and pneumonia Acute, or Chronic, or Acute on Chronic? @ -Acute Uncomplicated (without systemic symptoms) or Complicated (systemic symptoms)? @ -Complicated Side effects of treatment? @ -no Exacerbation, Progression, or Severe Exacerbation? @ -exacerbation Poses a threat to life or bodily function? How? (Chest pain, USA, NC, pneumonia, PE, COPD, DKA, ARF, appy, cholecystitis, CVA, Diverticulitis, Homicidal, Suicidal, threat to staff... and all critical care pts) @ -yes pneumonia sepsis Reevaluation #5: 03/25/23 10:02 Differential Abdominal Pain Women: Appendicitis, Cholecystitis, diverticulosis, ischemic bowel, pancreatitis, hepatitis, UTI, gastroenteritis, AAA, incarcerated hernia, bowel obstruction, constipation, inflammatory bowel, hepatitis, peptic ulcer disease, splenic infarction, perforated viscus, vulvitis, ovarian torsion, PID, kidney stone, placenta abruption, this is not meant to be an all-inclusive list - Consultations Consultation #1: Spoke with Dr. Garcia who agrees to admit this patient Medical Decision Making - Medical Decision Making 23-year-old female to the emergency department for evaluation is found to have pneumonia here in the emergency room, pneumonia with weakness. Patient has no other acute findings, patient will be admitted for IV antibiotics - Lab Data Result diagrams: 03/27/23 07:15 03/30/23 05:19 Lab Results 03/25/23 03/25/23 03/25/23 Range/Units 09:42 09:42 10:45 WBC 3.1 L (3.8-10.6) k/uL RBC 4.18 (3.80-5.40) m/uL Hgb 13.5 (11.4-16.0) gm/dL Hct 38.4 (34.0-46.0) % MCV 91.9 (80.0-100.0) fL MCH 32.4 (25.0-35.0) pg MCHC 35.3 (31.0-37.0) g/dL RDW 15.4 (11.5-15.5) % Plt Count 172 (150-450) k/uL MPV 8.5 Neutrophils % 55 % Lymphocytes % 34 % Monocytes % 7 % Eosinophils % 1 % Basophils % 0 % Neutrophils # 1.7 (1.3-7.7) k/uL Lymphocytes # 1.1 (1.0-4.8) k/uL Monocytes # 0.2 (0-1.0) k/uL Eosinophils # 0.0 (0-0.7) k/uL Basophils # 0.0 (0-0.2) k/uL Poikilocytosis Slight PT (10.0-12.5) sec INR (<1.2) APTT (22.0-30.0) sec Sodium (137-145) mmol/L Potassium (3.5-5.1) mmol/L Chloride (98-107) mmol/L Carbon Dioxide (22-30) mmol/L Anion Gap mmol/L BUN (7-17) mg/dL Creatinine (0.52-1.04) mg/dL Est GFR (CKD-EPI)AfAm (>60 ml/min/1.73 sqM) Est GFR (CKD-EPI)NonAf (>60 ml/min/1.73 sqM) Glucose (74-99) mg/dL Plasma Lactic Acid Mookie (0.7-2.0) mmol/L Calcium (8.4-10.2) mg/dL Phosphorus (2.5-4.5) mg/dL Magnesium (1.6-2.3) mg/dL Total Bilirubin (0.2-1.3) mg/dL AST (14-36) U/L ALT (4-34) U/L Alkaline Phosphatase (38-126) U/L Troponin I (0.000-0.034) ng/mL NT-Pro-B Natriuret Pep pg/mL Total Protein (6.3-8.2) g/dL Albumin (3.5-5.0) g/dL Lipase (23-300) U/L Urine Color Yellow Urine Appearance Slightly Cloudy H (Clear) Urine pH 6.0 (5.0-8.0) Ur Specific [place] 1.033 (1.001-1.035) Urine Protein 1+ H (Negative) Urine Glucose (UA) Negative (Negative) Urine Ketones Negative (Negative) Urine Blood Negative (Negative) Urine Nitrite Negative (Negative) Urine Bilirubin 1+ (Negative) Urine Urobilinogen 2.0 (<2.0) mg/dL Ur Leukocyte Esterase Moderate (Negative) Urine RBC 104 H (0-5) /hpf Urine WBC 19 H (0-5) /hpf Ur Squamous Epith Cells 10 H (0-4) /hpf Urine Bacteria Occasional H (None) /hpf Urine Mucus Many H (None) /hpf Urine Yeast (Budding) Many H (None) /hpf Urine Legionella Ag Negative (Negative) 03/25/23 03/25/23 03/25/23 Range/Units 10:45 10:45 10:45 WBC (3.8-10.6) k/uL RBC (3.80-5.40) m/uL Hgb (11.4-16.0) gm/dL Hct (34.0-46.0) % MCV (80.0-100.0) fL MCH (25.0-35.0) pg MCHC (31.0-37.0) g/dL RDW (11.5-15.5) % Plt Count (150-450) k/uL MPV Neutrophils % % Lymphocytes % % Monocytes % % Eosinophils % % Basophils % % Neutrophils # (1.3-7.7) k/uL Lymphocytes # (1.0-4.8) k/uL Monocytes # (0-1.0) k/uL Eosinophils # (0-0.7) k/uL Basophils # (0-0.2) k/uL Poikilocytosis PT 10.3 (10.0-12.5) sec INR 0.9 (<1.2) APTT 29.0 (22.0-30.0) sec Sodium 147 H (137-145) mmol/L Potassium 4.2 (3.5-5.1) mmol/L Chloride 107 (98-107) mmol/L Carbon Dioxide 34 H (22-30) mmol/L Anion Gap 6 mmol/L BUN 18 H (7-17) mg/dL Creatinine 0.56 (0.52-1.04) mg/dL Est GFR (CKD-EPI)AfAm >90 (>60 ml/min/1.73 sqM) Est GFR (CKD-EPI)NonAf >90 (>60 ml/min/1.73 sqM) Glucose 82 (74-99) mg/dL Plasma Lactic Acid Mookie 0.7 (0.7-2.0) mmol/L Calcium 9.7 (8.4-10.2) mg/dL Phosphorus 4.3 (2.5-4.5) mg/dL Magnesium 1.6 (1.6-2.3) mg/dL Total Bilirubin 0.5 (0.2-1.3) mg/dL AST 246 H (14-36) U/L ALT 258 H (4-34) U/L Alkaline Phosphatase 164 H (38-126) U/L Troponin I (0.000-0.034) ng/mL NT-Pro-B Natriuret Pep 20 pg/mL Total Protein 6.4 (6.3-8.2) g/dL Albumin 3.8 (3.5-5.0) g/dL Lipase (23-300) U/L Urine Color Urine Appearance (Clear) Urine pH (5.0-8.0) Ur Specific [place] (1.001-1.035) Urine Protein (Negative) Urine Glucose (UA) (Negative) Urine Ketones (Negative) Urine Blood (Negative) Urine Nitrite (Negative) Urine Bilirubin (Negative) Urine Urobilinogen (<2.0) mg/dL Ur Leukocyte Esterase (Negative) Urine RBC (0-5) /hpf Urine WBC (0-5) /hpf Ur Squamous Epith Cells (0-4) /hpf Urine Bacteria (None) /hpf Urine Mucus (None) /hpf Urine Yeast (Budding) (None) /hpf Urine Legionella Ag (Negative) 03/25/23 03/25/23 Range/Units 10:45 12:47 WBC (3.8-10.6) k/uL RBC (3.80-5.40) m/uL Hgb (11.4-16.0) gm/dL Hct (34.0-46.0) % MCV (80.0-100.0) fL MCH (25.0-35.0) pg MCHC (31.0-37.0) g/dL RDW (11.5-15.5) % Plt Count (150-450) k/uL MPV Neutrophils % % Lymphocytes % % Monocytes % % Eosinophils % % Basophils % % Neutrophils # (1.3-7.7) k/uL Lymphocytes # (1.0-4.8) k/uL Monocytes # (0-1.0) k/uL Eosinophils # (0-0.7) k/uL Basophils # (0-0.2) k/uL Poikilocytosis PT (10.0-12.5) sec INR (<1.2) APTT (22.0-30.0) sec Sodium (137-145) mmol/L Potassium (3.5-5.1) mmol/L Chloride (98-107) mmol/L Carbon Dioxide (22-30) mmol/L Anion Gap mmol/L BUN (7-17) mg/dL Creatinine (0.52-1.04) mg/dL Est GFR (CKD-EPI)AfAm (>60 ml/min/1.73 sqM) Est GFR (CKD-EPI)NonAf (>60 ml/min/1.73 sqM) Glucose (74-99) mg/dL Plasma Lactic Acid Mookie (0.7-2.0) mmol/L Calcium (8.4-10.2) mg/dL Phosphorus (2.5-4.5) mg/dL Magnesium (1.6-2.3) mg/dL Total Bilirubin (0.2-1.3) mg/dL AST (14-36) U/L ALT (4-34) U/L Alkaline Phosphatase (38-126) U/L Troponin I <0.012 (0.000-0.034) ng/mL NT-Pro-B Natriuret Pep pg/mL Total Protein (6.3-8.2) g/dL Albumin (3.5-5.0) g/dL Lipase 94 (23-300) U/L Urine Color Urine Appearance (Clear) Urine pH (5.0-8.0) Ur Specific [place] (1.001-1.035) Urine Protein (Negative) Urine Glucose (UA) (Negative) Urine Ketones (Negative) Urine Blood (Negative) Urine Nitrite (Negative) Urine Bilirubin (Negative) Urine Urobilinogen (<2.0) mg/dL Ur Leukocyte Esterase (Negative) Urine RBC (0-5) /hpf Urine WBC (0-5) /hpf Ur Squamous Epith Cells (0-4) /hpf Urine Bacteria (None) /hpf Urine Mucus (None) /hpf Urine Yeast (Budding) (None) /hpf Urine Legionella Ag (Negative) - EKG Data -: EKG Interpreted by Me (EKG is sinus 41 AK 136 QRS 174 QTc 452) - Radiology Data Radiology results: report reviewed (CT chest and pelvis positive for pneumonia, chest x-rays positive for pneumonia), image reviewed Disposition Clinical Impression: Altered mental status, Pneumonia, Weakness, Delirium due to general medical condition, Developmental disorder, Autism, Right middle lobe pneumonia, Recurrent UTI Disposition: ADMITTED IP TO THIS [facility] Condition: Serious Is patient prescribed a controlled substance at d/c from ED?: No Time of Disposition: 14:15
[2023-03-25 10:36] LABS: Appearance,Urine Slightly Cloudy (Clear); Bilirubin,Urine 1+ (Negative); Blood,Urine Negative (Negative); Color,Urine Yellow; Glucose,Urine (UA) Negative (Negative); Ketones,Urine Negative (Negative); Leukocyte Esterase,Urine Moderate (Negative); Nitrite,Urine Negative (Negative); Protein,Urine 1+ (Negative); Specific Gravity,Urine 1.033 (1.001-1.035)
[2023-03-25 10:38] LABS: Bacteria,Urine Occasional /hpf; Budding Yeast,Urine Many /hpf; Mucus,Urine Many /hpf; RBC,Urine 104 /hpf (0-5); Squamous Epithelial Cell,Urine 10 /hpf (0-4); WBC,Urine 19 /hpf (0-5)
[2023-03-25] MEDS ORDERED: SODIUM CHLORIDE 0.9% 1,000 ML IV STA (10:45)
[2023-03-25 10:57] LABS: Basophils % (A) 0 %; Eosinophils % (A) 1 %; HCT 38.4 % (34.0-46.0); HGB 13.5 gm/dL (11.4-16.0); Lymphocytes # (A) 1.1 k/uL (1.0-4.8); Lymphocytes % (A) 34 %; MCH 32.4 pg (25.0-35.0); MCHC 35.3 g/dL (31.0-37.0); MCV 91.9 fL (80.0-100.0); Mean Platelet Volume 8.5; Monocytes # (A) 0.2 k/uL (0-1.0); Monocytes % (A) 7 %; Neutrophils # (A) 1.7 k/uL (1.3-7.7); Neutrophils % (A) 55 %; Platelet Count 172 k/uL (150-450); Poikilocytosis Slight; RBC 4.18 m/uL (3.80-5.40); RDW 15.4 % (11.5-15.5); WBC 3.1 k/uL (3.8-10.6)
[2023-03-25 11:09] LABS: INR 0.9 (<1.2); Prothrombin Time 10.3 sec (10.0-12.5)
[2023-03-25 11:16] LABS: ALT 258 U/L (4-34); AST 246 U/L (14-36); African American GFR (CKD) >90 (>60 ml/min/1.73 sqM); Albumin 3.8 g/dL (3.5-5.0); Alkaline Phosphatase 164 U/L (38-126); Anion Gap 6 mmol/L; Blood Urea Nitrogen 18 mg/dL (7-17); Calcium 9.7 mg/dL (8.4-10.2); Carbon Dioxide 34 mmol/L (22-30); Chloride 107 mmol/L (98-107); Glucose 82 mg/dL (74-99); Magnesium 1.6 mg/dL (1.6-2.3); Non-African American GFR(CKD) >90 (>60 ml/min/1.73 sqM); Phosphorus 4.3 mg/dL (2.5-4.5); Potassium 4.2 mmol/L (3.5-5.1); Sodium 147 mmol/L (137-145); Total Bilirubin 0.5 mg/dL (0.2-1.3); Total Protein 6.4 g/dL (6.3-8.2)
[2023-03-25 11:25] LABS: NT-Pro-B-Type Natriuretic Pept 20 pg/mL
--- NOTE | 2023-03-25 11:52 | XR ---
EXAMINATION TYPE: XR chest 2V DATE OF EXAM: 03/25/2023 COMPARISON: NONE HISTORY: Upper respiratory infection. TECHNIQUE: Frontal and lateral views of the chest are obtained. IMPRESSION: There is patchy interstitial changes throughout the lungs bilaterally which could relate to edema or possibly infection. There is no focal area of consolidation. Evaluation is somewhat limited due to po or inspiratory effort. Left-sided generator device has leads extending up into the left neck.
--- NOTE | 2023-03-25 13:46 | CT ---
EXAMINATION: CTA CHEST, CT ABDOMEN AND PELVIS WITH IV CONTRAST DATE OF EXAM: 03/25/2023 1:34 PM HISTORY: Altered mental status and urinary tract infection. TECHNIQUE: CTA of the chest followed by routine CT abdomen and pelvis was performed with sagittal, co nolberto and 3-D reformatted images. 100 mL of Isovue-[address] dose lowering tech niques were used, to include: automated exposure control, adjustment for patient size, and or use of iterative reconstruction. COMPARISON: None FINDINGS: CHEST CTA: Lungs: There is an area of consolidative change within the medial aspect of the right middle lobe wh ich could potentially also represent atelectasis versus infection. The lungs otherwise appear clear. There are some small blebs at the right lung apex. Pleura: Normal. Mediastinum And Loni: Normal. Pulmonary Arteries: Normal. Cardiovascular: Normal. Chest Wall: Left-sided generator device has leads extending into the neck. ABDOMEN: Liver and Biliary system: Normal. Adrenal glands: Normal. Kidneys and ureters: Normal. Spleen: Normal. Pancreas: Normal. Gallbladder: Normal. Lymph nodes, Peritoneum and mesentery: There is no mesenteric or retroperitoneal lymphadenopathy. Gastrointestinal tract: There are no dilated loops of bowel or free intraperitoneal air. The appe ndix is normal. Aorta/IVC: No aortic aneurysm. IVC normal. Abdominal wall: Normal. PELVIS: Fluid: There is no free fluid in the pelvis. Lymph Nodes: There is no pelvic or inguinal lymphadenopathy.. Urinary bladder: Normal. BONES: There are no osseous destructive lesions.. ADDITIONAL SIGNIFICANT FINDINGS: None. IMPRESSION: 1. Right middle lobe opacity is suggestive of pneumonia with a possibility of a component of atelecta sis. 2. No acute process otherwise seen within the chest, abdomen or pelvis.
[2023-03-25] MEDS ORDERED: IPRATROPIUM-ALBUTEROL 3 ML NEB INHALATION PRN (14:24)
[2023-03-25] MEDS ORDERED: PNEUMONIA PROTOCOL UTILIZED 1 EACH MISC PO PRN (14:24)
[2023-03-25] MEDS ORDERED: AZITHROMYCIN 500 MG in SODIUM CHLORIDE 0.9% 250 ML IVPB STA (14:24)
[2023-03-25] MEDS ORDERED: LORazepam 1 MG TAB PO PRN (18:25)
[2023-03-25] MEDS: CLOBAZAM 10 MG PO SCH (20:29)
[2023-03-25] MEDS: FLUoxetine HCL 20 MG CAP PO SCH (20:29)
[2023-03-25] MEDS: levETIRAcetam 500 MG TAB PO SCH (20:29)
[2023-03-25] MEDS: LACOSAMIDE 50 MG TABLET PO SCH (20:29)
[2023-03-25] MEDS: lamoTRIgine 100 MG TAB PO SCH (20:29)
--- NOTE | 2023-03-26 08:33 | XR ---
EXAMINATION TYPE: XR chest 2V DATE OF EXAM: 03/26/2023 6:59 AM CLINICAL INDICATION:Female, 23 years old with history of pneumonia; [facility] COMPARISON: Chest radiograph from one day prior. TECHNIQUE: XR chest 2V Frontal and lateral views of the chest. FINDINGS: Lungs/Pleura: Prominent interstitial lung markings are seen scattered throughout the lungs. No eviden ce of focal consolidation, pneumothorax or pleural effusion. Pulmonary vascularity: Unremarkable. Heart/mediastinum: Cardiomediastinal silhouette is unremarkable. Electronic device with lead terminat ing superiorly. Musculoskeletal: No acute osseous pathology. IMPRESSION: Low lung volumes with a generalized hazy appearance which could represent atelectasis versus atypical pneumonia.
[2023-03-26] MEDS: guanFACINE 1 MG TAB PO SCH (08:47)
[2023-03-26] MEDS: lamoTRIgine 100 MG TAB PO SCH ×2 (08:47→20:57)
[2023-03-26] MEDS: levETIRAcetam 500 MG TAB PO SCH ×2 (08:48→20:57)
[2023-03-26] MEDS: PALIPERIDONE 3 MG TAB.ER.24 PO SCH (08:48)
[2023-03-26] MEDS: LACOSAMIDE 50 MG TABLET PO SCH ×2 (08:48→20:57)
[2023-03-26] MEDS: VRAYLAR 6 MG PO SCH (08:51)
--- NOTE | 2023-03-26 12:03 | P.HPIM ---
History of Present Illness H&P Date: 03/26/23 Chief Complaint: Bennett Sierra is a 23-year-old female with known epilepsy, cerebral palsy, autism, nonverbal, urinary continence. He is been dealing with frequent urinary tract infections that have failed to improve her overall course. She ended up with [facility] last month for this was found to have a resistant bacteria. She presented to the emergency room and [facility] for worsening mentation yesterday.. She is found to have contaminated urine and a pneumonia. She is admitted now resting comfortably on the floor. Mother indicates she is a little bit more responsive. She remains on significant amount of antiseizure medication. Her mother who is her primary caregiver reports no other known symptoms. Her father is a bedside mentioned since the change in medications in July with neurology she's been much more somnolent. Incidental finding was elevated liver function tests on her labs. Review of Systems ROS unobtainable: due to mental status Past Medical History Past Medical History: Seizure Disorder Additional Past Medical History / Comment(s): Epilepsy, cognitive impairment, developmentally delayed, non verbal, Autism, urinary incontinence, wears depends, hx UTI's, cerebral palsy. History of Any Multi-Drug Resistant Organisms: None Reported Additional Past Surgical History / Comment(s): VNS shunt, eye correction, dental work. Past Anesthesia/Blood Transfusion Reactions: No Reported Reaction Additional Past Anesthesia/Blood Transfusion Reaction / Comment(s): Mom PONV. Smoking Status: Never smoker - Past Family History Mother Family Medical History: No Reported History Occupational Seizure History - Commerical Driving History Currently uses [employer] for employment (including self-employed).: No Medications and Allergies Home Medications Medication Instructions Recorded Confirmed Type Cariprazine HCl [Vraylar] 6 mg PO DAILY 09/25/20 03/25/23 History FLUoxetine HCL 80 mg PO HS 09/25/20 03/25/23 History levETIRAcetam [Keppra Oral 2,000 mg PO BID 09/25/20 03/25/23 History Solution] Paliperidone [Invega] 9 mg PO DAILY 05/12/22 03/25/23 History Midazolam [Nayzilam] 1 spray NASAL ONCE PRN 05/14/22 03/25/23 History guanFACINE [Tenex] 3 mg PO DAILY 05/14/22 03/25/23 History Lacosamide [Vimpat] 200 mg PO BID 11/04/22 03/25/23 History cloBAZam 20 mg PO HS 11/04/22 03/25/23 History lamoTRIgine 300 mg PO BID 11/04/22 03/25/23 History LORazepam [Ativan] 1 mg PO BID PRN 02/21/23 03/25/23 History Allergies Allergy/AdvReac Type Severity Reaction Status Date / Time No Known Allergies Allergy Verified 03/25/23 12:25 Physical Exam Vitals: Vital Signs Temp Pulse Pulse Resp BP BP Pulse Ox 03/26/23 11:15 75 17 03/26/23 08:00 97.4 F L 75 17 117/75 95 03/26/23 01:51 97.1 F L 85 14 107/66 98 03/25/23 20:10 97.4 F L 84 14 121/76 94 L 03/25/23 18:12 96.9 F L 85 16 124/83 93 L 03/25/23 17:36 68 16 134/68 95 03/25/23 17:00 81 16 115/84 95 03/25/23 15:39 97.4 F L 84 17 114/78 97 03/25/23 14:00 88 16 118/81 92 L 03/25/23 12:55 75 16 115/75 96 Intake and Output 03/25/23 03/26/23 03/26/23 22:59 06:59 14:59 Other: Voiding Method Diaper Diaper # Voids 1 Weight 79.379 kg GENERAL: Sleeping female well-known to me. HEAD: Atraumatic, normocephalic. EYES: Deferred ENT:nares patent, oropharynx clear without exudates. Moist mucous membranes. NECK: Normal range of motion, supple without lymphadenopathy or JVD, no thyromegaly LUNGS: Breath sounds no wheezes rales, there is rhonchi to the right lung. HEART: Regular rate and rhythm without murmurs, rubs or gallops.S1S2 Normal ABDOMEN: Soft, nontender, normoactive bowel sounds. No guarding, no rebound. No masses appreciated. EXTREMITIES: Normal range of motion, no pitting or edema. No clubbing or cyanosis. NEUROLOGICAL: Cranial nerves II through XII grossly intact. She does not speak but makes sounds, this time patient is asleep but easily arousable. PSYCH: Sleeping this time. SKIN: Warm, Dry, normal turgor, no rashes or lesions noted. Results CBC & Chem 7: 03/25/23 10:45 03/25/23 10:45 Labs: Microbiology - Last 24 Hours (Table) 03/25/23 10:45 Blood Culture Gram Stain - Preliminary Blood Chest x-ray: report reviewed CT scan - chest: report reviewed Thrombosis Risk Factor Assmnt - DVT/VTE Prophylaxis DVT/VTE Prophylaxis: Low risk, early ambulation encouraged - Choose All That Apply Any of the Below Risk Factors Present?: Yes Each Factor Represents 1 point: Obesity (BMI >25) Other Risk Factors: No Thrombosis Risk Factor Assessment Total Risk Factor Score: 1 Thrombosis Risk Factor Assessment Level: Low Risk Assessment and Plan (1) Right middle lobe pneumonia Current Visit: Yes Status: Acute Code(s): J18.9 - PNEUMONIA, UNSPECIFIED ORGANISM SNOMED Code(s): 653160440 (2) Recurrent UTI Current Visit: Yes Status: Acute Code(s): N39.0 - URINARY TRACT INFECTION, SITE NOT SPECIFIED SNOMED Code(s): 866397537 (3) Autism Current Visit: Yes Status: Acute Code(s): F84.0 - AUTISTIC DISORDER SNOMED Code(s): 93426786 (4) Developmental disorder Current Visit: Yes Status: Acute Code(s): F89 - UNSPECIFIED DISORDER OF PSYCHOLOGICAL DEVELOPMENT SNOMED Code(s): 0961746 (5) Cerebral palsy Current Visit: Yes Status: Acute Code(s): G80.9 - CEREBRAL PALSY, UNSPECIFIED SNOMED Code(s): 850322781 (6) Altered mental status Current Visit: Yes Status: Acute Code(s): R41.82 - ALTERED MENTAL STATUS, UNSPECIFIED SNOMED Code(s): 886442877 (7) Abnormal LFTs Current Visit: Yes Status: Acute Code(s): R79.89 - OTHER SPECIFIED ABNORMAL FINDINGS OF BLOOD CHEMISTRY SNOMED Code(s): 294455604 Plan: She will continue on azithromycin and ceftriaxone. Her home medications were reordered. Will consult neurology regarding the somnolence caused by these m edications which were recently changed. P labs normal function tests. She'll be reevaluated next 24 hours.
[2023-03-26] MEDS: AZITHROMYCIN 500 MG in SODIUM CHLORIDE 0.9% 250 ML IVPB SCH (13:48)
[2023-03-26 13:55] LABS: Basophils % (A) 1 %; Eosinophils % (A) 1 %; HCT 39.3 % (34.0-46.0); HGB 13.8 gm/dL (11.4-16.0); Lymphocytes # (A) 1.1 k/uL (1.0-4.8); Lymphocytes % (A) 29 %; MCH 32.7 pg (25.0-35.0); MCV 93.4 fL (80.0-100.0); Mean Platelet Volume 7.7; Monocytes # (A) 0.3 k/uL (0-1.0); Monocytes % (A) 6 %; Neutrophils # (A) 2.3 k/uL (1.3-7.7); Neutrophils % (A) 61 %; Platelet Count 166 k/uL (150-450); Poikilocytosis Slight; RBC 4.21 m/uL (3.80-5.40); RDW 15.5 % (11.5-15.5); WBC 3.9 k/uL (3.8-10.6)
[2023-03-26 14:09] LABS: Chloride 108 mmol/L (98-107)
[2023-03-26 14:16] LABS: ALT 235 U/L (4-34); AST 212 U/L (14-36); African American GFR (CKD) >90 (>60 ml/min/1.73 sqM); Albumin 3.4 g/dL (3.5-5.0); Albumin/Globulin Ratio 1.4; Alkaline Phosphatase 155 U/L (38-126); Anion Gap 6 mmol/L; Blood Urea Nitrogen 14 mg/dL (7-17); Carbon Dioxide 30 mmol/L (22-30); Globulin 2.5 g/dL; Glucose 74 mg/dL (74-99); Magnesium 1.5 mg/dL (1.6-2.3); Non-African American GFR(CKD) >90 (>60 ml/min/1.73 sqM); Potassium 4.2 mmol/L (3.5-5.1); Sodium 144 mmol/L (137-145); Total Bilirubin 0.4 mg/dL (0.2-1.3); Total Protein 5.9 g/dL (6.3-8.2)
[2023-03-26] MEDS: FLUoxetine HCL 20 MG CAP PO SCH (20:57)
[2023-03-26] MEDS: CLOBAZAM 10 MG PO SCH (21:11)
[2023-03-27] MEDS: lamoTRIgine 100 MG TAB PO SCH ×2 (08:04→20:42)
[2023-03-27] MEDS: LACOSAMIDE 50 MG TABLET PO SCH ×2 (08:04→20:42)
[2023-03-27] MEDS: PALIPERIDONE 3 MG TAB.ER.24 PO SCH (08:05)
[2023-03-27] MEDS: guanFACINE 1 MG TAB PO SCH (08:05)
[2023-03-27] MEDS: levETIRAcetam 500 MG TAB PO SCH ×2 (08:05→20:42)
[2023-03-27] MEDS: VRAYLAR 6 MG PO SCH (08:22)
[2023-03-27 08:30] LABS: Basophils % (A) 0 %; Eosinophils # (A) 0.1 k/uL (0-0.7); Eosinophils % (A) 1 %; HCT 37.9 % (34.0-46.0); HGB 12.9 gm/dL (11.4-16.0); Lymphocytes # (A) 1.5 k/uL (1.0-4.8); Lymphocytes % (A) 32 %; MCH 31.8 pg (25.0-35.0); MCV 93.7 fL (80.0-100.0); Mean Platelet Volume 7.9; Monocytes # (A) 0.3 k/uL (0-1.0); Monocytes % (A) 7 %; Neutrophils # (A) 2.6 k/uL (1.3-7.7); Neutrophils % (A) 56 %; Platelet Count 174 k/uL (150-450); Poikilocytosis Slight; RBC 4.04 m/uL (3.80-5.40); RDW 15.5 % (11.5-15.5); WBC 4.6 k/uL (3.8-10.6)
[2023-03-27 09:25] LABS: ALT 214 U/L (4-34); AST 180 U/L (14-36); African American GFR (CKD) >90 (>60 ml/min/1.73 sqM); Albumin 3.1 g/dL (3.5-5.0); Albumin/Globulin Ratio 1.3; Alkaline Phosphatase 144 U/L (38-126); Anion Gap 8 mmol/L; Blood Urea Nitrogen 17 mg/dL (7-17); Calcium 8.8 mg/dL (8.4-10.2); Carbon Dioxide 29 mmol/L (22-30); Chloride 107 mmol/L (98-107); Globulin 2.4 g/dL; Glucose 61 mg/dL (74-99); Non-African American GFR(CKD) >90 (>60 ml/min/1.73 sqM); Potassium 3.6 mmol/L (3.5-5.1); Sodium 144 mmol/L (137-145); Total Bilirubin 0.4 mg/dL (0.2-1.3); Total Protein 5.5 g/dL (6.3-8.2)
[2023-03-27] MEDS: AZITHROMYCIN 500 MG in SODIUM CHLORIDE 0.9% 250 ML IVPB SCH (12:22)
--- NOTE | 2023-03-27 12:30 | P.PN ---
Nhan العلي a 23-year-old female with known epilepsy, cerebral palsy, autism, nonverbal, urinary continence. He is been dealing with frequent urinary tract infections that have failed to improve her overall course. She ended up with [facility] last month for this was found to have a resistant bacteria. She presented to the emergency room and [facility] for worsening mentation yesterday.. She is found to have contaminated urine and a pneumonia. She is admitted now resting comfortably on the floor. Mother indicates she is a little bit more responsive. She remains on significant amount of antiseizure medication. Her mother who is her primary caregiver reports no other known symptoms. Her father is a bedside mentioned since the change in medications in July with neurology she's been much more somnolent. Incidental finding was elevated liver function tests on her labs. 03/27/2023: Patient was seen and evaluated. Her mother is now bedside. Her mother reports she continues to be somnolent. May be slightly more arousable. Vital signs are stable. Patient afebrile. Blood pressure normal. She remained pain center pulse oximetry 93% on room air. Labs today show normal CBC, chemistries are also normal. LFTs AST is down to 180 from 246 and ALT 214 from 258. Alkaline phosphatase is also improved 144. Blood cultures are positive for bacillus. She remains on Rocephin and azithromycin for pneumonia coverage, her antiseizure medications clobetasol, Vimpat, Lamictal, Keppra, Ativan, and inVegra. No reported seizures Objective - Vital Signs Vital signs: Vital Signs Temp 97.4 F L 03/27/23 07:35 Pulse 78 03/27/23 07:35 Resp 17 03/27/23 07:35 BP 102/64 03/27/23 07:35 Pulse Ox 93 L 03/27/23 08:35 FiO2 Intake & Output 03/26/23 03/27/23 03/27/23 18:59 06:59 18:59 Other: Voiding Method Diaper Diaper Diaper # Voids 0 2 - Exam GENERAL: female well-known to me. Arousable to her baseline, but not as active HEAD: Atraumatic, normocephalic. EYES: Deferred ENT:nares patent, oropharynx clear without exudates. Moist mucous membranes. NECK: Normal range of motion, supple without lymphadenopathy or JVD, no thyromegaly LUNGS: Breath sounds no wheezes rales, there is rhonchi to the right lung. HEART: Regular rate and rhythm without murmurs, rubs or gallops.S1S2 Normal ABDOMEN: Soft, nontender, normoactive bowel sounds. No guarding, no rebound. No masses appreciated. EXTREMITIES: Normal range of motion, no pitting or edema. No clubbing or cyanosis. NEUROLOGICAL: Cranial nerves II through XII grossly intact. She does not speak but makes sounds, this time patient is asleep but easily arousable. PSYCH: Sleeping this time. SKIN: Warm, Dry, normal turgor, no rashes or lesions noted. - Labs CBC & Chem 7: 03/27/23 07:15 03/27/23 07:15 Labs: Abnormal Lab Results - Last 24 Hours (Table) 03/26/23 03/27/23 Range/Units 13:27 07:15 Chloride 108 H (98-107) mmol/L Glucose 61 L (74-99) mg/dL Magnesium 1.5 L (1.6-2.3) mg/dL AST 212 H 180 H (14-36) U/L ALT 235 H 214 H (4-34) U/L Alkaline Phosphatase 155 H 144 H (38-126) U/L Total Protein 5.9 L 5.5 L (6.3-8.2) g/dL Albumin 3.4 L 3.1 L (3.5-5.0) g/dL Microbiology - Last 24 Hours (Table) 03/25/23 10:45 Blood Culture Gram Stain - Preliminary Blood Blood Culture - Preliminary Bacillus species Not Anthracis 03/25/23 10:40 Blood Culture - Preliminary Blood Assessment and Plan (1) Right middle lobe pneumonia Current Visit: Yes Status: Acute Code(s): J18.9 - PNEUMONIA, UNSPECIFIED ORGANISM SNOMED Code(s): 327326213 (2) Recurrent UTI Current Visit: Yes Status: Acute Code(s): N39.0 - URINARY TRACT INFECTION, SITE NOT SPECIFIED SNOMED Code(s): 158236811 (3) Autism Current Visit: Yes Status: Acute Code(s): F84.0 - AUTISTIC DISORDER SNOMED Code(s): 25296510 (4) Developmental disorder Current Visit: Yes Status: Acute Code(s): F89 - UNSPECIFIED DISORDER OF PSYCHOLOGICAL DEVELOPMENT SNOMED Code(s): 0083612 (5) Cerebral palsy Current Visit: Yes Status: Acute Code(s): G80.9 - CEREBRAL PALSY, UNSPECIFIED SNOMED Code(s): 381612359 (6) Altered mental status Current Visit: Yes Status: Acute Code(s): R41.82 - ALTERED MENTAL STATUS, UNSPECIFIED SNOMED Code(s): 336760197 (7) Abnormal LFTs Current Visit: Yes Status: Acute Code(s): R79.89 - OTHER SPECIFIED ABNORMAL FINDINGS OF BLOOD CHEMISTRY SNOMED Code(s): 963525799 (8) Positive blood culture Current Visit: Yes Status: Acute Code(s): R78.81 - BACTEREMIA SNOMED Code(s): 110054527 Plan: She will continue on azithromycin and ceftriaxone. Her home medications were reordered. Will consult neurology regarding the somnolence caused by these medications which were recently changed. We'll consult infectious diseases regarding her positive blood culture She'll be reevaluated next 24 hours.
[2023-03-27] MEDS: DEXTROSE 5%-0.9% NACL 1,000 ML IV SCH (14:11)
[2023-03-27] MEDS: CLOBAZAM 10 MG PO SCH (20:43)
[2023-03-27] MEDS: FLUoxetine HCL 20 MG CAP PO SCH (20:45)
--- NOTE | 2023-03-27 21:35 | P.CONS ---
History of Present Illness - Reason for Consult Consult date: 03/27/23 Bacteremia Requesting physician: Melchor Garcia - Chief Complaint Mental status changes x few days - History of Present Illness Patient is a 23-year-old female with a past medical history significant for seizure disorder cognitive impairment developmental delay autism cerebral palsy history of recurrent UTI patient was brought into the hospital on 03/25/2023 for evaluation of worsening mental status changes and concern for possible UTI history provided by mostly father at the bedside mentioned that his ex- brought the patient to the hospital because of mental status changes and concerning for possible UTI there was no clear history of any high-grade fever or chills nausea vomiting diarrhea or any other symptoms reported on presentation to the hospital the patient was afebrile and no fever has been recorded subsequently patient was mildly hypoxic however currently not requiring supplemental oxygen not hypotensive need for pressor support patient did have white count of 3.1 which is 0.6 today creatinine 0.56 liver exams are mildly elevated patient urine was not significantly positive patient did have a CT of the chest abdominal pelvis did not show any evidence of PE and there was consulted with changes within the medial aspect of the right middle lobe concerning for pneumonia patient was started on ceftriaxone and azithromycin with the blood cultures coming back positive with gram-positive bacilli infectious disease was consulted for further management of antibiotic therapy most information has been obtained from review the chart talking to the father as patient nonverbal and cannot provide any history. Review of Systems Positive points has been mentioned in HPI complete review could not be obtained because of his underlying mental status Past Medical History Past Medical History: Seizure Disorder Additional Past Medical History / Comment(s): Epilepsy, cognitive impairment, developmentally delayed, non verbal, Autism, urinary incontinence, wears depends, hx UTI's, cerebral palsy. History of Any Multi-Drug Resistant Organisms: None Reported Additional Past Surgical History / Comment(s): VNS shunt, eye correction, dental work. Past Anesthesia/Blood Transfusion Reactions: No Reported Reaction Additional Past Anesthesia/Blood Transfusion Reaction / Comm: Mom PONV. Smoking Status: Never smoker - Past Family History Mother Family Medical History: No Reported History Medications and Allergies Home Medications Medication Instructions Recorded Confirmed Type Cariprazine HCl [Vraylar] 6 mg PO DAILY 09/25/20 03/25/23 History FLUoxetine HCL 80 mg PO HS 09/25/20 03/25/23 History Paliperidone [Invega] 9 mg PO DAILY 05/12/22 03/25/23 History Midazolam [Nayzilam] 1 spray NASAL ONCE PRN 05/14/22 03/25/23 History guanFACINE [Tenex] 3 mg PO DAILY 05/14/22 03/25/23 History Lacosamide [Vimpat] 200 mg PO BID 11/04/22 03/25/23 History cloBAZam 20 mg PO HS 11/04/22 03/25/23 History lamoTRIgine 300 mg PO BID 11/04/22 03/25/23 History LORazepam [Ativan] 1 mg PO BID PRN 02/21/23 03/25/23 History Amoxic-Pot Clav 200-28.5MG/5Ml 12 ml PO Q8HR 5 Days #180 ml 03/30/23 Rx [Augmentin 200-28.5 mg/5 ml Susp] levETIRAcetam [Keppra Oral 1,500 mg PO BID #0 03/30/23 03/25/23 Rx Solution] Allergies Allergy/AdvReac Type Severity Reaction Status Date / Time No Known Allergies Allergy Verified 03/25/23 12:25 Physical Exam Vitals: Vital Signs Temp Pulse Resp BP Pulse Ox 03/27/23 08:35 93 L 03/27/23 07:35 97.4 F L 78 17 102/64 95 03/27/23 02:00 97.5 F L 79 97/68 94 L 03/26/23 19:47 97.7 F 85 16 111/65 97 Intake and Output 03/26/23 03/27/23 03/27/23 22:59 06:59 14:59 Other: Voiding Method Diaper Diaper # Voids 0 2 GENERAL DESCRIPTION: Young female lying in bed, no distress. No tachypnea or accessory muscle of respiration use. HEENT: Shows Pallor , no scleral icterus. Oral mucous membrane is dry. No pharyngeal erythema or thrush NECK: Trachea central, no thyromegaly. LUNGS: Unlabored breathing. Decreased breath sound at the base HEART: S1, S2, regular rate and rhythm. No loud murmur ABDOMEN: Soft, no tenderness EXTREMITIES: No edema of feet. SKIN: No rash, no masses palpable. NEUROLOGICAL: The patient is awake but nonverbal orientation cannot be determined Results CBC & Chem 7: 03/27/23 07:15 03/30/23 05:19 Labs: Abnormal Lab Results - Last 24 Hours (Table) 03/27/23 03/27/23 Range/Units 07:15 13:24 Glucose 61 L (74-99) mg/dL AST 180 H (14-36) U/L ALT 214 H (4-34) U/L Alkaline Phosphatase 144 H (38-126) U/L C-Reactive Protein 2.2 H (<1.0) mg/dL Total Protein 5.5 L (6.3-8.2) g/dL Albumin 3.1 L (3.5-5.0) g/dL Microbiology - Last 24 Hours (Table) 03/25/23 10:45 Blood Culture Gram Stain - Preliminary Blood Blood Culture - Preliminary Bacillus species Not Anthracis 03/25/23 10:40 Blood Culture - Preliminary Blood Assessment and Plan (1) Pneumonia Status: Acute Code(s): J18.9 - PNEUMONIA, UNSPECIFIED ORGANISM SNOMED Code(s): 506671838 (2) Positive blood culture Status: Acute Code(s): R78.81 - BACTEREMIA SNOMED Code(s): 981010004 Plan: 1-patient with a positive blood culture with gram-positive bacilli more likely skin contamination and could be bacillus species patient did have a CT abdominal pelvis did not show any acute intra-abdominal pathology 2-patient did have a right middle lobe pneumonia on the CT could be responsible for her symptoms and the patient is covered with Rocephin and Zithromax to continue. 3we will repeat a blood culture to document clearance and check a CRP and a procalcitonin obtain sputum if possible Father at the bedside question concern answered We will follow on clinical condition and cultures to further adjust medication if needed Thank you for this consultation we will follow the patient along with you Dictation was produced using Seen dictation software. please excuse any grammatical, word or spelling errors. Time with Patient: Greater than 30
[2023-03-28] MEDS: DEXTROSE 5%-0.9% NACL 1,000 ML IV SCH (06:15)
--- NOTE | 2023-03-28 07:55 | XR ---
EXAMINATION TYPE: XR chest 1V portable DATE OF EXAM: 03/28/2023 6:44 AM CLINICAL INDICATION:Female, 23 years old with history of pneumonia; COMPARISON: Chest radiograph from one day prior. TECHNIQUE: XR chest 1V portable Frontal view of the chest. FINDINGS: Lungs/Pleura: Prominent interstitial lung markings are seen scattered throughout the lungs. No eviden ce of focal consolidation, pneumothorax or pleural effusion. Pulmonary vascularity: Unremarkable. Heart/mediastinum: Cardiomediastinal silhouette is unremarkable. Electronic device with lead terminat ing superiorly. Musculoskeletal: No acute osseous pathology. IMPRESSION: Low lung volumes with a generalized hazy appearance which could represent atelectasis versus atypical pneumonia.
[2023-03-28] MEDS: levETIRAcetam 500 MG TAB PO SCH (09:08)
[2023-03-28] MEDS: LACOSAMIDE 50 MG TABLET PO SCH ×2 (09:08→20:28)
[2023-03-28] MEDS: guanFACINE 1 MG TAB PO SCH (09:08)
[2023-03-28] MEDS: PALIPERIDONE 3 MG TAB.ER.24 PO SCH (09:08)
[2023-03-28] MEDS: lamoTRIgine 100 MG TAB PO SCH ×2 (09:08→20:28)
[2023-03-28] MEDS: VRAYLAR 6 MG PO SCH (09:19)
--- NOTE | 2023-03-28 09:35 | P.CNNES ---
History of Present Illness Consult date: 03/27/23 Requesting physician: Melchor Garcia Reason for Consult: somnolence/medications History of Present Illness: Patient is a 23-year-old female with history of developmental delays, cognitively impaired, who has history of seizure disorder, brought to the hospital by ambulance to days ago, 03/25/2023 at 9:28 AM. As per EMS flow sheet, when they arrived, it was reported that at the end of February 2023, she was diagnosed at [facility] with antibiotic resistant E. coli UTI. Patient's mother at the scene reported that the day prior, she began to notice that the patient was basically nonverbal was not making any sounds and did not want to eat or drink. This morning, patient continued to resist eating or drink ing and curled on the floor in position. This was an abnormal behavior for the patient. Patient's mother was concerned the UTI has got worse and requires further treatment. Patient was afebrile. Patient makes eye contact when her name is spoken and then closes her eyes. Patient is normally inquisitive and stays awake, so not to miss anything. Patient's blood pressure at the scene was 138/88, pulse rate 88, respirations 16 saturation 95% temperature 97.2. Patient has not had any seizures since she arrived to the hospital. Neurology was consulted for excessive somnolence, and evaluate seizure medications. Patient's father was present at this time, who provided with history. He mentions that patient was born with her twin sister at 38 weeks of by normal vaginal delivery without any complications. Her weight was 7 pounds, and had no complications. She was noticed to have developmental delays at 1-1/2-2 years, when she was not rolling, not talking. Patient started having seizure disorder at age 2. Over the years she has tried numerous medications. She had undergone genetic testing, and no abnormalities were identified. Her breakthrough seizures usually occurs whenever she has a UTI or sinus infection. Usually the medications used to hold her seizures very well. She may not have seizure for a month or several weeks. Patient has sig nificant speech delays, and has only 5-6 words vocabulary. She is in diapers and never was potty trained. Patient was however ambulatory, although with not a lot of mobility, but was able to get up, and walk inside the house, and was able to walk up stairs, walk downstairs. Patient's parents are and patient lives with her mother mostly, and only on the weekends and Wednesday afternoon, and that takes care of her. Patient's father says that she was brought to the hospital this time because she was unresponsive, not talking, not responding to verbal or physical stimuli. No seizures have been reported. In late June and early July 2022 patient has worsening of her seizures. On a Wednesday, she had a couple seizures, and the frequency ramped up on and by Wednesday, she was having seizures every 15 minutes. Patient was admitted to [facility], where she was intubated, placed on mechanical ventilation. It took almost 48 hours to control the seizures (per father, she had 100s of seizures around that time of hospitalization). Subsequently she developed a collapsed lung and pneumonia and was hospitalized for another 9 days for total of 14 days of hospitalization. Patient has always been on Lamictal 300 mg twice a day and Keppra 2000 mg twice a day, but after this admission in June/July 2022, she has been also added on Vimpat 200 mg twice a day and Onfi 20 mg at bedtime. During this hospitalization, she was strapped in the bed, and was immobile, as she was pulling all lines and was difficult to manage, as patient does not take verbal commands and was pulling all the IV and other lines out. After she was discharged from the hospitalization, patient has not walked. She just scoots around on the floor but does not walk. She has developed a wound on the right lateral malleolus because of lack of mobility and from dragging on the carpet. Review of Systems Progress as mentioned in HPI. Dad denies any fever, chills or any report of headaches. ROS unobtainable: due to mental status Past Medical History Past Medical History: Seizure Disorder Additional Past Medical History / Comment(s): Epilepsy, cognitive impairment, developmentally delayed, non verbal, Autism, urinary incontinence, wears depends, hx UTI's, cerebral palsy. History of Any Multi-Drug Resistant Organisms: None Reported Additional Past Surgical History / Comment(s): VNS shunt, eye correction, dental work. Past Anesthesia/Blood Transfusion Reactions: No Reported Reaction Additional Past Anesthesia/Blood Transfusion Reaction / Comment(s): Mom PONV. Smoking Status: Never smoker - Past Family History Mother Family Medical History: No Reported History Medications and Allergies Home Medications Medication Instructions Recorded Confirmed Type Cariprazine HCl [Vraylar] 6 mg PO DAILY 09/25/20 03/25/23 History FLUoxetine HCL 80 mg PO HS 09/25/20 03/25/23 History levETIRAcetam [Keppra Oral 2,000 mg PO BID 09/25/20 03/25/23 History Solution] Paliperidone [Invega] 9 mg PO DAILY 05/12/22 03/25/23 History Midazolam [Nayzilam] 1 spray NASAL ONCE PRN 05/14/22 03/25/23 History guanFACINE [Tenex] 3 mg PO DAILY 05/14/22 03/25/23 History Lacosamide [Vimpat] 200 mg PO BID 11/04/22 03/25/23 History cloBAZam 20 mg PO HS 11/04/22 03/25/23 History lamoTRIgine 300 mg PO BID 11/04/22 03/25/23 History LORazepam [Ativan] 1 mg PO BID PRN 02/21/23 03/25/23 History Allergies Allergy/AdvReac Type Severity Reaction Status Date / Time No Known Allergies Allergy Verified 03/25/23 12:25 Physical Examination - Vital Signs Vital Signs: Vital Signs Temp Pulse Resp BP Pulse Ox 03/27/23 08:35 93 L 03/27/23 07:35 97.4 F L 78 17 102/64 95 03/27/23 02:00 97.5 F L 79 97/68 94 L 03/26/23 19:47 97.7 F 85 16 111/65 97 Intake and Output 03/26/23 03/27/23 03/27/23 22:59 06:59 14:59 Other: Voiding Method Diaper Diaper # Voids 0 2 Patient is a young female, laying in the bed, in no distress. Patient is alert awake, is significantly mentally challenged. Patient only spoke a few words, which is her baseline. Attention, concentration and fund of knowledge are all severely impaired. On cranial nerve examination, pupils are equal, round and reacting to light, visual miguel could not be tested. Extraocular muscles appears intact. Face is symmetric. Lower cranial nerves could not be tested. Patient does hear and answers sporadically with her baseline limited speech. On muscle strength testing, patient did not cooperate with the testing at all. Her hands appears weak, approximately the strength appears fairly normal. Patient was laying in the bed, crossing her legs in an style. Patient's dad was able to stretch her legs in front, and she held the legs extended on the bed. Patient has slight heelcord shortening on the right side. Deep tendon reflexes are symmetric 2+ at the biceps, 2+ brachioradialis, 3 at the knees, 3 ankles and plantars are upgoing bilaterally. Patient has a sust ained clonus on the right side. Sensory and cerebellar functions cannot be tested. Her tone is increased in the legs. Gait patient not ambulatory at this time On general examination, there is no carotid bruit or murmur, S1-S2 audible. Chest is clear on consultation. Abdomen is soft nontender. No organomegaly, bowel sounds present. Peripheral pulses are present. No peripheral edema. Results - Laboratory Findings CBC and BMP: 03/27/23 07:15 03/27/23 07:15 Abnormal Lab Findings: Abnormal Labs 03/25/23 03/25/23 03/25/23 09:42 10:45 10:45 WBC 3.1 L Sodium 147 H Chloride Carbon Dioxide 34 H BUN 18 H Glucose Magnesium AST 246 H ALT 258 H Alkaline Phosphatase 164 H C-Reactive Protein Total Protein Albumin Urine Appearance Slightly Cloudy H Urine Protein 1+ H Urine RBC 104 H Urine WBC 19 H Ur Squamous Epith Cells 10 H Urine Bacteria Occasional H Urine Mucus Many H Urine Yeast (Budding) Many H 03/26/23 03/27/23 03/27/23 13:27 07:15 13:24 WBC Sodium Chloride 108 H Carbon Dioxide BUN Glucose 61 L Magnesium 1.5 L AST 212 H 180 H ALT 235 H 214 H Alkaline Phosphatase 155 H 144 H C-Reactive Protein 2.2 H Total Protein 5.9 L 5.5 L Albumin 3.4 L 3.1 L Urine Appearance Urine Protein Urine RBC Urine WBC Ur Squamous Epith Cells Urine Bacteria Urine Mucus Urine Yeast (Budding) Assessment and Plan Assessment: * Altered mental status, likely due to metabolic encephalopathy, on top of her baseline static encephalopathy from developmental delays, cognitive impairment. * History of mentally challenged, cognitively impaired with developmental delays. * Seizure disorder since age 2. Seizures currently in remission. * Polypharmacy * Mild right lower lobe pneumonia * History of recurrent UTI * Autism * Positive blood cultures, perhaps contamination Plan: * Patient is on numerous seizure medications. Particularly the dose of Lamictal (300 mg twice a day) and Keppra (2000 mg twice a day) is a fairly high dose. However these were the 2 medications that she has been on for long time. Vimpat 200 mg twice a day and Onfi 20 mg at bedtime were added in July 2022 after she was hospitalized at [facility] for status epilepticus. At present she is on all 4 seizure medications. At present patient is fully alert and awake. I spoke to patient's dad about adjusting seizure medications, but he preferred for me to speak to her mother, who is the main caregiver about seizure medications. * I will contact patient's mother for further discussion about her seizure medications. In the meantime we will continue the same. * We will check Keppra level, Lamictal level. * Other medical management as per IM and ID. * Neurology will follow. Thank you for the consult. Time with Patient: Greater than 30
[2023-03-28 10:34] LABS: ALT 172 U/L (8-44); AST 133 U/L (13-35); Albumin 3.3 g/dL (3.8-4.9); Albumin/Globulin Ratio 1.94 Ratio (1.60-3.17); Alkaline Phosphatase 141 U/L (41-126); Blood Urea Nitrogen 14.4 mg/dL (9.0-27.0); Calcium 8.8 mg/dL (8.7-10.3); Chloride 112 mmol/L (96-109); Globulin 1.7 g/dL (1.6-3.3); Glucose 95 mg/dL (70-110); Magnesium 1.5 mg/dL (1.5-2.4); Potassium 3.4 mmol/L (3.5-5.5); Sodium 148 mmol/L (135-145); Total Bilirubin <0.2 mg/dL (0.3-1.2)
[2023-03-28] MEDS: D5-0.45% NACL WITH KCL 20MEQ/L 1,000 ML IV SCH (12:03)
[2023-03-28] MEDS ORDERED: LORazepam 2 MG/ML INJ IV PRN (12:09)
--- NOTE | 2023-03-28 12:11 | P.PN ---
Nhan العلي a 23-year-old female with known epilepsy, cerebral palsy, autism, nonverbal, urinary continence. He is been dealing with frequent urinary tract infections that have failed to improve her overall course. She ended up with [facility] last month for this was found to have a resistant bacteria. She presented to the emergency room and [facility] for worsening mentation yesterday.. She is found to have contaminated urine and a pneumonia. She is admitted now resting comfortably on the floor. Mother indicates she is a little bit more responsive. She remains on significant amount of antiseizure medication. Her mother who is her primary caregiver reports no other known symptoms. Her father is a bedside mentioned since the change in medications in July with neurology she's been much more somnolent. Incidental finding was elevated liver function tests on her labs. 03/27/2023: Patient was seen and evaluated. Her mother is now bedside. Her mother reports she continues to be somnolent. May be slightly more arousable. Vital signs are stable. Patient afebrile. Blood pressure normal. She remained pain center pulse oximetry 93% on room air. Labs today show normal CBC, chemistries are also normal. LFTs AST is down to 180 from 246 and ALT 214 from 258. Alkaline phosphatase is also improved 144. Blood cultures are positive for bacillus. She remains on Rocephin and azithromycin for pneumonia coverage, her antiseizure medications clobetasol, Vimpat, Lamictal, Keppra, Ativan, and inVegra. No reported seizures 03/28/2023: Patient remains in her bed. She was found asleep today. She was easily arousable. Her mother is at bedside. Vital signs are stable today. Laboratory studies show a slight hypernatremia and hypokalemia. Infectious disease and neurology had seen the patient. The recommendations are noted. Her labs remained stable. Chest x-ray shows low lung volumes generalized hazy appearance could represent atelectasis versus atypical pneumonia. Objective - Vital Signs Vital signs: Vital Signs Temp 96.5 F L 03/28/23 01:51 Pulse 66 03/28/23 06:41 Resp 17 03/28/23 06:41 BP 102/68 03/28/23 06:41 Pulse Ox 93 L 03/28/23 09:25 FiO2 Intake & Output 03/27/23 03/28/23 03/28/23 18:59 06:59 18:59 Other: Voiding Method Diaper Diaper Diaper # Voids 2 1 - Exam GENERAL: female well-known to me. Awake when I entered the room HEAD: Atraumatic, normocephalic. EYES: Deferred ENT:nares patent, oropharynx clear without exudates. Moist mucous membranes. NECK: Normal range of motion, supple without lymphadenopathy or JVD, no thyromegaly LUNGS: Breath sounds no wheezes rales, there is rhonchi to the right lung. HEART: Regular rate and rhythm without murmurs, rubs or gallops.S1S2 Normal ABDOMEN: Soft, nontender, normoactive bowel sounds. No guarding, no rebound. No masses appreciated. EXTREMITIES: Normal range of motion, no pitting or edema. No clubbing or cyanosis. NEUROLOGICAL: Cranial nerves II through XII grossly intact. She does not speak but makes sounds, this time patient is awake and looking around. PSYCH: Baseline SKIN: Warm, Dry, normal turgor, no rashes or lesions noted. - Labs CBC & Chem 7: 03/27/23 07:15 03/28/23 03:59 Labs: Abnormal Lab Results - Last 24 Hours (Table) 03/27/23 03/28/23 Range/Units 13:24 03:59 Sodium 148 H (135-145) mmol/L Potassium 3.4 L (3.5-5.5) mmol/L Chloride 112 H (96-109) mmol/L BUN/Creatinine Ratio 24.00 H (12.00-20.00) Ratio Total Bilirubin <0.2 L (0.3-1.2) mg/dL AST 133 H (13-35) U/L ALT 172 H (8-44) U/L Alkaline Phosphatase 141 H (41-126) U/L C-Reactive Protein 2.2 H (<1.0) mg/dL Total Protein 5.0 L (6.2-8.2) g/dL Albumin 3.3 L (3.8-4.9) g/dL Microbiology - Last 24 Hours (Table) 03/25/23 10:40 Blood Culture - Preliminary Blood 03/25/23 10:45 Blood Culture Gram Stain - Preliminary Blood Blood Culture - Preliminary Bacillus species Not Anthracis Assessment and Plan (1) Right middle lobe pneumonia Current Visit: Yes Status: Acute Code(s): J18.9 - PNEUMONIA, UNSPECIFIED ORGANISM SNOMED Code(s): 731214451 (2) Recurrent UTI Current Visit: Yes Status: Acute Code(s): N39.0 - URINARY TRACT INFECTION, SITE NOT SPECIFIED SNOMED Code(s): 345744018 (3) Autism Current Visit: Yes Status: Acute Code(s): F84.0 - AUTISTIC DISORDER SNOMED Code(s): 19621209 (4) Developmental disorder Current Visit: Yes Status: Acute Code(s): F89 - UNSPECIFIED DISORDER OF PSYCHOLOGICAL DEVELOPMENT SNOMED Code(s): 9718249 (5) Cerebral palsy Current Visit: Yes Status: Acute Code(s): G80.9 - CEREBRAL PALSY, UNSPECIFIED SNOMED Code(s): 642681440 (6) Altered mental status Current Visit: Yes Status: Acute Code(s): R41.82 - ALTERED MENTAL STATUS, UNSPECIFIED SNOMED Code(s): 079167218 (7) Abnormal LFTs Current Visit: Yes Status: Acute Code(s): R79.89 - OTHER SPECIFIED ABNORMAL FINDINGS OF BLOOD CHEMISTRY SNOMED Code(s): 485088135 (8) Positive blood culture Current Visit: Yes Status: Acute Code(s): R78.81 - BACTEREMIA SNOMED Code(s): 324241259
[2023-03-28 16:17] VITALS: BMI 33.0
[2023-03-28] MEDS: FLUoxetine HCL 20 MG CAP PO SCH (20:28)
[2023-03-28] MEDS: CLOBAZAM 10 MG PO SCH (20:28)
[2023-03-29] MEDS: D5-0.45% NACL WITH KCL 20MEQ/L 1,000 ML IV SCH ×2 (06:38→16:06)
[2023-03-29] MEDS: PALIPERIDONE 3 MG TAB.ER.24 PO SCH (08:34)
[2023-03-29] MEDS: lamoTRIgine 100 MG TAB PO SCH ×2 (08:35→20:47)
[2023-03-29] MEDS: LACOSAMIDE 50 MG TABLET PO SCH ×2 (08:35→20:46)
[2023-03-29] MEDS: VRAYLAR 6 MG PO SCH (08:35)
[2023-03-29] MEDS: guanFACINE 1 MG TAB PO SCH (08:35)
--- NOTE | 2023-03-29 09:48 | P.PN ---
Subjective Progress Note Date: 03/28/23 Patient was seen for a follow-up. Patient's dad was present. Patient's dad mentioned that at around 12 - 1 p.m., she had a spell in which her eyes was dazed, confused, she could not say "hi" which usually responds. She had a look of "dear in headlight". She is now back to baseline. Patient's dad mentions that patient does not get any grand mal seizures. Her seizures consist of tensing up, and eyes go glassy and she does not respond for about 1-1-1/2 minutes. She does not bite her tongue. Patient's dad was not clear if the spelled earlier today was a seizure or something different. I also spoke to patient's mother on the phone about her seizure medications. She was concerned about the dose of Keppra, which is quite high. She used to be on Keppra 1000 mg twice a day, but after her status epilepticus in June and July 2022, the dose was increased to 2000 mg twice a day. Patient has been on Lamictal 300 mg twice a day for a long time. However patient's mother was concerned that patient has lost about 50 pounds, which may affect the dosing of Lamictal. Informed her that I have sent Lamictal level which is still pending. Objective - Vital Signs Vital signs: Vital Signs Temp 96.5 F L 03/28/23 01:51 Pulse 70 03/28/23 13:54 Resp 16 03/28/23 13:54 BP 111/78 03/28/23 13:54 Pulse Ox 91 L 03/28/23 13:54 FiO2 Intake & Output 03/27/23 03/28/23 03/28/23 18:59 06:59 18:59 Weight 79.379 kg Other: Voiding Method Diaper Diaper Diaper # Voids 2 1 - Exam Patient is laying in the bed. She is getting changed. Detailed examination deferred. - Labs CBC & Chem 7: 03/27/23 07:15 03/28/23 03:59 Labs: Abnormal Lab Results - Last 24 Hours (Table) 03/28/23 Range/Units 03:59 Sodium 148 H (135-145) mmol/L Potassium 3.4 L (3.5-5.5) mmol/L Chloride 112 H (96-109) mmol/L BUN/Creatinine Ratio 24.00 H (12.00-20.00) Ratio Total Bilirubin <0.2 L (0.3-1.2) mg/dL AST 133 H (13-35) U/L ALT 172 H (8-44) U/L Alkaline Phosphatase 141 H (41-126) U/L Total Protein 5.0 L (6.2-8.2) g/dL Albumin 3.3 L (3.8-4.9) g/dL Microbiology - Last 24 Hours (Table) 03/25/23 10:45 Blood Culture Gram Stain - Final Blood Blood Culture - Final Bacillus species Not Anthracis 03/25/23 10:40 Blood Culture - Preliminary Blood Assessment and Plan Assessment: * Altered mental status, likely due to metabolic encephalopathy, on top of her baseline static encephalopathy from developmental delays, cognitive impairment. * History of mentally challenged, cognitively impaired with developmental delays. * Seizure disorder since age 2. Seizures currently in remission. * Polypharmacy * Mild right lower lobe pneumonia * History of recurrent UTI * Autism * Positive blood cultures, perhaps contamination Plan: * Patient is on numerous seizure medications. Particularly the dose of Lamictal (300 mg twice a day) and Keppra (2000 mg twice a day) is a fairly high dose. However these were the 2 medications that she has been on for long time. Vimpat 200 mg twice a day and Onfi 20 mg at bedtime were added in July 2022 after she was hospitalized at [facility] for status epilepticus. At present she is on all 4 seizure medications. * I also spoke to patient's mother on the phone about her seizure medications. She was concerned about the dose of Keppra, which is quite high. She used to be on Keppra 1000 mg twice a day, but after her status epilepticus in the end of June/July 2022, the dose was increased to 2000 mg twice a day. Patient has been on Lamictal 300 mg twice a day for a long time. However patient's mother was concerned that patient has lost about 50 pounds, which may affect the dosing of Lamictal. Informed her that I have sent Lamictal level which is still pending. We will decrease Keppra down to 1500 mg twice a day. Patient's mother agreed. * Await Keppra level, Lamictal level. * Other medical management as per IM and ID.
--- NOTE | 2023-03-29 11:41 | P.PN ---
Nhan العلي a 23-year-old female with known epilepsy, cerebral palsy, autism, nonverbal, urinary continence. He is been dealing with frequent urinary tract infections that have failed to improve her overall course. She ended up with [facility] last month for this was found to have a resistant bacteria. She presented to the emergency room and [facility] for worsening mentation yesterday.. She is found to have contaminated urine and a pneumonia. She is admitted now resting comfortably on the floor. Mother indicates she is a little bit more responsive. She remains on significant amount of antiseizure medication. Her mother who is her primary caregiver reports no other known symptoms. Her father is a bedside mentioned since the change in medications in July with neurology she's been much more somnolent. Incidental finding was elevated liver function tests on her labs. 03/27/2023: Patient was seen and evaluated. Her mother is now bedside. Her mother reports she continues to be somnolent. May be slightly more arousable. Vital signs are stable. Patient afebrile. Blood pressure normal. She remained pain center pulse oximetry 93% on room air. Labs today show normal CBC, chemistries are also normal. LFTs AST is down to 180 from 246 and ALT 214 from 258. Alkaline phosphatase is also improved 144. Blood cultures are positive for bacillus. She remains on Rocephin and azithromycin for pneumonia coverage, her antiseizure medications clobetasol, Vimpat, Lamictal, Keppra, Ativan, and inVegra. No reported seizures 03/28/2023: Patient remains in her bed. She was found asleep today. She was easily arousable. Her mother is at bedside. Vital signs are stable today. Laboratory studies show a slight hypernatremia and hypokalemia. Infectious disease and neurology had seen the patient. The recommendations are noted. Her labs remained stable. Chest x-ray shows low lung volumes generalized hazy appearance could represent atelectasis versus atypical pneumonia. 03/29/2023: Patient is asleep in her bed. Indicates she's been acting more like herself. She did stay up until 3 AM. Mom is been at bedside since yesterday. Infectious disease is on consult. She remains on IV fluids of D5 half-normal saline +20 KCl at 70 mL an hour. She had a seizure yesterday. She has DuoNeb updrafts ordered for shortness breath. She remains on her seizure medications. Antibiotics have been completed. She remains afebrile. Blood pressure pulse oximetry heart rate rest rate are normal. Laboratory studies along with seizure medication levels are all pending. Blood culture repeat remains negative Objective - Vital Signs Vital signs: Vital Signs Temp 98.2 F 03/29/23 07:57 Pulse 65 03/29/23 07:57 Resp 19 03/29/23 07:57 BP 117/81 03/29/23 07:57 Pulse Ox 95 03/29/23 07:57 FiO2 Intake & Output 03/28/23 03/29/23 03/29/23 18:59 06:59 18:59 Intake Total 840 1080 50 Balance 840 1080 50 Weight 79.379 kg Intake: Intake, IV Titration 840 840 50 Amount D5-0.45% NaCl with KCl 840 840 20Meq/l 1,000 ml @ 70 mls /hr IV .[id number] RACHEL Rx#: [id number] cefTRIAXone 2 gm In 50 Sodium Chloride 0.9% 50 ml @ 100 mls/hr IVPB Q24HR RACHEL Rx#:[id number] Oral 240 Other: Voiding Method Diaper Diaper Diaper Incontinent # Voids 1 2 1 - Exam GENERAL: female well-known to me. Sleeping HEAD: Atraumatic, normocephalic. EYES: Deferred ENT:nares patent, oropharynx clear without exudates. Moist mucous membranes. NECK: Normal range of motion, supple without lymphadenopathy or JVD, no thyromegaly LUNGS: Breath sounds no wheezes rales, there is rhonchi to the right lung. HEART: Regular rate and rhythm without murmurs, rubs or gallops.S1S2 Normal ABDOMEN: Soft, nontender, normoactive bowel sounds. No guarding, no rebound. No masses appreciated. EXTREMITIES: Normal range of motion, no pitting or edema. No clubbing or cyanosis. NEUROLOGICAL: Cranial nerves II through XII grossly intact. PSYCH: Baseline SKIN: Warm, Dry, normal turgor, no rashes or lesions noted. - Labs CBC & Chem 7: 03/27/23 07:15 03/28/23 03:59 Labs: Microbiology - Last 24 Hours (Table) 03/27/23 13:24 Blood Culture - Preliminary Blood 03/25/23 10:40 Blood Culture - Preliminary Blood 03/25/23 10:45 Blood Culture Gram Stain - Final Blood Blood Culture - Final Bacillus species Not Anthracis Assessment and Plan (1) Right middle lobe pneumonia Current Visit: Yes Status: Acute Code(s): J18.9 - PNEUMONIA, UNSPECIFIED ORGANISM SNOMED Code(s): 085994332 (2) Recurrent UTI Current Visit: Yes Status: Acute Code(s): N39.0 - URINARY TRACT INFECTION, SITE NOT SPECIFIED SNOMED Code(s): 101490748 (3) Autism Current Visit: Yes Status: Acute Code(s): F84.0 - AUTISTIC DISORDER SNOMED Code(s): 13161868 (4) Developmental disorder Current Visit: Yes Status: Acute Code(s): F89 - UNSPECIFIED DISORDER OF PSYCHOLOGICAL DEVELOPMENT SNOMED Code(s): 3310091 (5) Cerebral palsy Current Visit: Yes Status: Acute Code(s): G80.9 - CEREBRAL PALSY, UNSPECIFIED SNOMED Code(s): 987313049 (6) Altered mental status Current Visit: Yes Status: Acute Code(s): R41.82 - ALTERED MENTAL STATUS, UNSPECIFIED SNOMED Code(s): 732080337 (7) Abnormal LFTs Current Visit: Yes Status: Acute Code(s): R79.89 - OTHER SPECIFIED ABNORMAL FINDINGS OF BLOOD CHEMISTRY SNOMED Code(s): 136763210 (8) Positive blood culture Current Visit: Yes Status: Acute Code(s): R78.81 - BACTEREMIA SNOMED Code(s): 561216570 Plan: Awaiting her repeat metabolic panel and liver function tests. Waiting on her antiseizure medication levels. We have recommendations from neurology and infectious disease. She'll continue on her current course treatment. With her continued improvement, we'll expect discharge in next 24-48 hours.
--- NOTE | 2023-03-29 13:35 | P.PN ---
Subjective Progress Note Date: 03/28/23 Principal diagnosis: Reason for follow-up is pneumonia positive blood culture and right foot pressure ulcer Patient is a 23-year-old female with a past medical history si gnificant for seizure disorder cognitive impairment developmental delay autism cerebral palsy history of recurrent UTI patient was brought into the hospital on 03/25/2023 for evaluation of worsening mental status changes and concern for possible UTI, patient did have a CT of the chest abdominal pelvis with evidence of right middle lobe pneumonia also have blood cultures drawn ischemia positive with gram-positive bacilli probably this infectious disease consultation On today's evaluation that is 03/28/2023 the patient remains to be afebrile the patient is breathing comfortably on room air no worsening cough or sputum production per the mother at the bedside no vomiting or diarrhea has been re ported patient mother mentioned she did have a wound on the right heel pressure ulcer currently being treated with Medihoney but no drainage has been noticed. Patient did have a white count of 4.6 as of 03/27/2023, creatinine 0.6 Objective - Vital Signs Vital signs: Vital Signs Temp 96.5 F L 03/28/23 01:51 Pulse 66 03/28/23 06:41 Resp 17 03/28/23 06:41 BP 102/68 03/28/23 06:41 Pulse Ox 93 L 03/28/23 09:25 FiO2 Intake & Output 03/27/23 03/28/23 03/28/23 18:59 06:59 18:59 Other: Voiding Method Diaper Diaper Diaper # Voids 2 1 - Exam GENERAL DESCRIPTION: Young female lying in bed in no distress RESPIRATORY SYSTEM: Unlabored breathing , decreased breath sounds at bases HEART: S1 S2 regular rate and rhythm , ABDOMEN: Soft , no tenderness EXTREMITIES: Right foot medial aspect did have a stage III pressure ulcer with some slough tissue but no significant redness or foul-smelling drainage - Labs CBC & Chem 7: 03/27/23 07:15 03/28/23 03:59 Labs: Abnormal Lab Results - Last 24 Hours (Table) 03/27/23 03/28/23 Range/Units 13:24 03:59 Sodium 148 H (135-145) mmol/L Potassium 3.4 L (3.5-5.5) mmol/L Chloride 112 H (96-109) mmol/L BUN/Creatinine Ratio 24.00 H (12.00-20.00) Ratio Total Bilirubin <0.2 L (0.3-1.2) mg/dL AST 133 H (13-35) U/L ALT 172 H (8-44) U/L Alkaline Phosphatase 141 H (41-126) U/L C-Reactive Protein 2.2 H (<1.0) mg/dL Total Protein 5.0 L (6.2-8.2) g/dL Albumin 3.3 L (3.8-4.9) g/dL Microbiology - Last 24 Hours (Table) 03/25/23 10:40 Blood Culture - Preliminary Blood 03/25/23 10:45 Blood Culture Gram Stain - Preliminary Blood Blood Culture - Preliminary Bacillus species Not Anthracis Assessment and Plan (1) Decubitus ulcer of right foot, stage 3 Current Visit: Yes Status: Acute Code(s): L89.893 - PRESSURE ULCER OF OTHER SITE, STAGE 3 SNOMED Code(s): 886483314 (2) Pneumonia Current Visit: Yes Status: Acute Code(s): J18.9 - PNEUMONIA, UNSPECIFIED ORGANISM SNOMED Code(s): 195464600 (3) Positive blood culture Current Visit: Yes Status: Acute Code(s): R78.81 - BACTEREMIA SNOMED Code(s): 198825754 Plan: 1-patient with a positive blood culture with gram-positive bacilli more likely skin contamination and could be bacillus species patient did have a CT abdominal pelvis did not show any acute intra-abdominal pathology 2-patient did have a right middle lobe pneumonia on the CT could be responsible for her symptoms and the patient is covered with Rocephin and Zithromax to continue. 3blood culture has been repeated to document clearance of bacteremia which are currently pending ID on the initial blood cultures currently pending as well 4patient with a pressure ulcer to the right foot stage III with slough tissue continue local wound care with [facility] wound does not look infected clinically Mother at the bedside multiple questions concern answered Dictation was produced using Dr. Zation software. please excuse any grammatical, word or spelling errors. Time with Patient: Less than 30
--- NOTE | 2023-03-29 13:39 | P.PN ---
Subjective Progress Note Date: 03/29/23 Principal diagnosis: Reason for follow-up is pneumonia positive blood culture and right foot pressure ulcer Patient is a 23-year-old female with a past medical history si gnificant for seizure disorder cognitive impairment developmental delay autism cerebral palsy history of recurrent UTI patient was brought into the hospital on 03/25/2023 for evaluation of worsening mental status changes and concern for possible UTI, patient did have a CT of the chest abdominal pelvis with evidence of right middle lobe pneumonia also have blood cultures drawn ischemia positive with gram-positive bacilli probably this infectious disease consultation On today's evaluation that is 03/29/2023 the patient continues to be afebrile the patient is breathing comfortably on room air and no need for supplemental oxygen, mother at the bedside mention no worsening cough or sputum production or choking on the food and no vomiting or diarrhea has been reported Patient did have a white count of 4.6 as of 03/27/2023, creatinine 0.6 as of yesterday no lab draw today, blood culture have been finalized with bacillus species not anthracis blood culture repeat 03/27/2023 so far pending Objective - Vital Signs Vital signs: Vital Signs Temp 98.2 F 03/29/23 07:57 Pulse 65 03/29/23 07:57 Resp 19 03/29/23 07:57 BP 117/81 03/29/23 07:57 Pulse Ox 95 03/29/23 07:57 FiO2 Intake & Output 03/28/23 03/29/23 03/29/23 18:59 06:59 18:59 Intake Total 840 1080 50 Balance 840 1080 50 Weight 79.379 kg Intake: Intake, IV Titration 840 840 50 Amount D5-0.45% NaCl with KCl 840 840 20Meq/l 1,000 ml @ 70 mls /hr IV .[id number] RACHEL Rx#: [id number] cefTRIAXone 2 gm In 50 Sodium Chloride 0.9% 50 ml @ 100 mls/hr IVPB Q24HR RACHEL Rx#:[id number] Oral 240 Other: Voiding Method Diaper Diaper Diaper Incontinent # Voids 1 2 1 - Exam GENERAL DESCRIPTION: Young female lying in bed in no distress RESPIRATORY SYSTEM: Unlabored breathing , decreased breath sounds at bases HEART: S1 S2 regular rate and rhythm , ABDOMEN: Soft , no tenderness EXTREMITIES: Right foot medial aspect did have a stage III pressure ulcer with some slough tissue but no significant redness or foul-smelling drainage - Labs CBC & Chem 7: 03/27/23 07:15 03/28/23 03:59 Labs: Microbiology - Last 24 Hours (Table) 03/27/23 13:24 Blood Culture - Preliminary Blood 03/25/23 10:40 Blood Culture - Preliminary Blood 03/25/23 10:45 Blood Culture Gram Stain - Final Blood Blood Culture - Final Bacillus species Not Anthracis Assessment and Plan (1) Decubitus ulcer of right foot, stage 3 Current Visit: Yes Status: Acute Code(s): L89.893 - PRESSURE ULCER OF OTHER SITE, STAGE 3 SNOMED Code(s): 908360609 (2) Pneumonia Current Visit: Yes Status: Acute Code(s): J18.9 - PNEUMONIA, UNSPECIFIED ORGANISM SNOMED Code(s): 355816015 (3) Positive blood culture Current Visit: Yes Status: Acute Code(s): R78.81 - BACTEREMIA SNOMED Code(s): 161263091 Plan: 1-patient with a positive blood culture with gram-positive bacilli more likely skin contamination and could be bacillus species patient did have a CT abdominal pelvis did not show any acute intra-abdominal pathology 2-patient did have a right middle lobe pneumonia on the CT could be responsible for her symptoms , Patient has completed 4 doses of ceftriaxone will consider short course of oral Augmentin to finish her treatment 3blood culture has been finalized as the bacillus species not anthracis and repeat blood culture has been negative so far more likely representing contamination and this was explained to the mother at the bedside in layman term 4patient with a pressure ulcer to the right foot stage III with slough tissue continue local wound care with [facility] Mother at the bedside multiple questions concern answered Dictation was produced using [employer] dictation software. please excuse any grammatical, word or spelling errors. Time with Patient: Less than 30
[2023-03-29] MEDS: AMOXIC-POT CLAV 200-28.5MG/5ML 100 ML BOTTLE PO SCH ×2 (16:04→23:37)
--- NOTE | 2023-03-29 17:27 | P.PN ---
Subjective Progress Note Date: 03/29/23 Patient was seen for a follow-up. Patient's mother was present. No further seizures. Patient is stable. Patient's dad mentioned that at around 12 - 1 p.m., she had a spell in which her eyes was dazed, confused, she could not say "hi" which usually responds. She had a look of "dear in headlight". She is now back to baseline. Patient's dad mentions that patient does not get any grand mal seizures. Her seizures consist of tensing up, and eyes go glassy and she does not respond for about 1-1-1/2 minutes. She does not bite her tongue. Patient's dad was not clear if the spelled earlier today was a seizure or something different. I also spoke to patient's mother on the phone about her seizure medications. She was concerned about the dose of Keppra, which is quite high. She used to be on Keppra 1000 mg twice a day, but after her status epilepticus in June and July 2022, the dose was increased to 2000 mg twice a day. Patient has been on Lamictal 300 mg twice a day for a long time. However patient's mother was concerned that patient has lost about 50 pounds, which may affect the dosing of Lamictal. Informed her that I have sent Lamictal level which is still pending. Objective - Vital Signs Vital signs: Vital Signs Temp 98.2 F 03/29/23 07:57 Pulse 69 03/29/23 14:00 Resp 16 03/29/23 14:00 BP 106/72 03/29/23 14:00 Pulse Ox 95 03/29/23 14:00 FiO2 Intake & Output 03/28/23 03/29/23 03/29/23 18:59 06:59 18:59 Intake Total 840 1080 50 Balance 840 1080 50 Weight 79.379 kg Intake: Intake, IV Titration 840 840 50 Amount D5-0.45% NaCl with KCl 840 840 20Meq/l 1,000 ml @ 70 mls /hr IV .[id number] [facility] Rx#: [id number] cefTRIAXone 2 gm In 50 Sodium Chloride 0.9% 50 ml @ 100 mls/hr IVPB Q24HR [facility] Rx#:[id number] Oral 240 Other: Voiding Method Diaper Diaper Diaper Incontinent # Voids 1 2 1 - Exam Patient is laying in the bed. Patient is alert and awake. She is mostly nonverbal, with some very limited speech. 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 * History of mentally challenged, cognitively impaired with developmental delays. * Seizure disorder since age 2. Seizures currently in remission. * Polypharmacy * Mild right lower lobe pneumonia * History of recurrent UTI * Autism * Positive blood cultures, perhaps contamination Plan: * Patient is on numerous seizure medications. Particularly the dose of Lamictal (300 mg twice a day) and Keppra (2000 mg twice a day) is a fairly high dose. However these were the 2 medications that she has been on for long time. Vimpat 200 mg twice a day and Onfi 20 mg at bedtime were added in July 2022 after she was hospitalized at [facility] for status epilepticus. At present she is on all 4 seizure medications. * I also spoke to patient's mother on the phone about her seizure medications. She was concerned about the dose of Keppra, which is quite high. She used to be on Keppra 1000 mg twice a day, but after her status epilepticus in the end of June/July 2022, the dose was increased to 2000 mg twice a day. Patient has been on Lamictal 300 mg twice a day for a long time. However patient's mother was concerned that patient has lost about 50 pounds, which may affect the dosing of Lamictal. Informed her that I have sent Lamictal level which is still pending. We will decrease Keppra down to 1500 mg twice a day. Patient's mother agreed. * Await Keppra level, Lamictal level. * Other medical management as per IM and ID.
[2023-03-29] MEDS: FLUoxetine HCL 20 MG CAP PO SCH (20:46)
[2023-03-29] MEDS: CLOBAZAM 10 MG PO SCH (20:46)
[2023-03-29 21:19] VITALS: RESP 18
[2023-03-30] MEDS: D5-0.45% NACL WITH KCL 20MEQ/L 1,000 ML IV SCH (06:10)
[2023-03-30 06:20] LABS: ALT 130 U/L (4-34); AST 84 U/L (14-36); African American GFR (CKD) >90 (>60 ml/min/1.73 sqM); Albumin/Globulin Ratio 1.3; Alkaline Phosphatase 131 U/L (38-126); Anion Gap 7 mmol/L; Blood Urea Nitrogen 8 mg/dL (7-17); Calcium 8.7 mg/dL (8.4-10.2); Carbon Dioxide 31 mmol/L (22-30); Chloride 103 mmol/L (98-107); Globulin 2.3 g/dL; Glucose 87 mg/dL (74-99); Non-African American GFR(CKD) >90 (>60 ml/min/1.73 sqM); Potassium 3.8 mmol/L (3.5-5.1); Sodium 141 mmol/L (137-145); Total Bilirubin 0.3 mg/dL (0.2-1.3); Total Protein 5.3 g/dL (6.3-8.2)
[2023-03-30] MEDS: AMOXIC-POT CLAV 200-28.5MG/5ML 100 ML BOTTLE PO SCH (09:12)
[2023-03-30] MEDS: guanFACINE 1 MG TAB PO SCH (09:13)
[2023-03-30] MEDS: LACOSAMIDE 50 MG TABLET PO SCH (09:14)
[2023-03-30] MEDS: lamoTRIgine 100 MG TAB PO SCH (09:15)
[2023-03-30] MEDS: PALIPERIDONE 3 MG TAB.ER.24 PO SCH (09:15)
[2023-03-30] MEDS ORDERED: VRAYLAR 6 MG PO SCH (10:30)
--- NOTE | 2023-03-30 12:27 | P.PN ---
Subjective Progress Note Date: 03/30/23 Principal diagnosis: Reason for follow-up is pneumonia positive blood culture and right foot pressure ulcer Patient is a 23-year-old female with a past medical history si gnificant for seizure disorder cognitive impairment developmental delay autism cerebral palsy history of recurrent UTI patient was brought into the hospital on 03/25/2023 for evaluation of worsening mental status changes and concern for possible UTI, patient did have a CT of the chest abdominal pelvis with evidence of right middle lobe pneumonia also have blood cultures drawn ischemia positive with gram-positive bacilli probably this infectious disease consultation On today's evaluation that is 03/29/2023 the patient continues to be afebrile the patient is breathing comfortably on room air and no need for supplemental oxygen, mother at the bedside mention no worsening cough or sputum production or choking on the food and no vomiting or diarrhea has been reported Patient did have a white count of 4.6 as of 03/27/2023, creatinine 0.6 as of yesterday no lab draw today, blood culture have been finalized with bacillus species not anthracis blood culture repeat 03/27/2023 so far pending Objective - Vital Signs Vital signs: Vital Signs Temp 96.1 F L 03/30/23 07:22 Pulse 72 03/30/23 07:22 Resp 18 03/30/23 07:22 BP 84/65 03/30/23 07:22 Pulse Ox 96 03/30/23 08:04 FiO2 Intake & Output 03/29/23 03/30/23 03/30/23 18:59 06:59 18:59 Intake Total 1250 Balance 1250 Intake: Intake, IV Titration 890 Amount D5-0.45% NaCl with KCl 840 20Meq/l 1,000 ml @ 70 mls /hr IV .[id number] [facility] Rx#: [id number] cefTRIAXone 2 gm In 50 Sodium Chloride 0.9% 50 ml @ 100 mls/hr IVPB Q24HR [facility] Rx#:[id number] Oral 360 Other: Voiding Method Diaper Diaper Incontinent Incontinent # Voids 2 2 - Labs CBC & Chem 7: 03/27/23 07:15 03/30/23 05:19 Labs: Abnormal Lab Results - Last 24 Hours (Table) 03/30/23 Range/Units 05:19 Carbon Dioxide 31 H (22-30) mmol/L AST 84 H (14-36) U/L ALT 130 H (4-34) U/L Alkaline Phosphatase 131 H (38-126) U/L Total Protein 5.3 L (6.3-8.2) g/dL Albumin 3.0 L (3.5-5.0) g/dL Microbiology - Last 24 Hours (Table) 03/27/23 13:24 Blood Culture - Preliminary Blood Assessment and Plan (1) Decubitus ulcer of right foot, stage 3 Current Visit: Yes Status: Acute Code(s): L89.893 - PRESSURE ULCER OF OTHER SITE, STAGE 3 SNOMED Code(s): 208619844 (2) Pneumonia Current Visit: Yes Status: Acute Code(s): J18.9 - PNEUMONIA, UNSPECIFIED ORGANISM SNOMED Code(s): 814856168 (3) Positive blood culture Current Visit: Yes Status: Acute Code(s): R78.81 - BACTEREMIA SNOMED Code(s): 529100361 Plan: 1-patient with a positive blood culture with gram-positive bacilli more likely skin contamination and could be bacillus species patient did have a CT abdominal pelvis did not show any acute intra-abdominal pathology 2-blood culture has been finalized as the bacillus species not anthracis and repeat blood culture has been negative so far more likely representing contamination and this was explained to the mother at the bedside in layman term 3patient with a pressure ulcer to the right foot stage III with slough tissue continue local wound care with [facility] 4-patient did have a right middle lobe pneumonia on the CT , Patient has completed 4 doses of ceftriaxone , patient is currently on oral Augmentin to continue for another few days And aspiration precautions Father at the bedside questions concern answered Dictation was produced using [employer] dictation software. please excuse any grammatical, word or spelling errors. Time with Patient: Less than 30
[2023-03-30] MEDS: VRAYLAR 6 MG PO SCH (13:09)
--- NOTE | 2023-03-30 13:34 | P.DS ---
Providers Date of admission: 03/25/23 14:26 Expected date of discharge: 03/30/23 Attending physician: Melchor Garcia Consults: 03/26/23 19:37 Consult Physician Routine Consulting Provider: Edvin Lopez Consult Reason/Comments: somnolence/medications Do you want consulting provider notified?: Yes 03/27/23 11:33 Consult Physician Routine Consulting Provider: Grey Parisi Consult Reason/Comments: + blood cultures Do you want consulting provider notified?: Yes 03/27/23 12:30 Consult Physician Routine Consulting Provider: Zia Yeh Consult Reason/Comments: seizures with great somnolence from meds Do you want consulting provider notified?: Yes Primary care physician: Víctor Shay - Jeffery Diagnosis(es) (1) Right middle lobe pneumonia Current Visit: Yes Status: Acute (2) Recurrent UTI Current Visit: Yes Status: Acute (3) Autism Current Visit: Yes Status: Acute (4) Developmental disorder Current Visit: Yes Status: Acute (5) Cerebral palsy Current Visit: Yes Status: Acute (6) Altered mental status Current Visit: Yes Status: Acute (7) Abnormal LFTs Current Visit: Yes Status: Acute (8) Positive blood culture Current Visit: Yes Status: Acute Hospital Course: 03/26/23: Coretta is a 23-year-old female with known epilepsy, cerebral palsy, autism, nonverbal, urinary continence. He is been dealing with frequent urinary tract infections that have failed to improve her overall course. She ended up with [place] last month for this was found to have a resistant bacteria. She presented to the emergency room and [facility] for worsening mentation yesterday.. She is found to have contaminated urine and a pneumonia. She is admitted now resting comfortably on the floor. Mother indicates she is a little bit more responsive. She remains on significant amount of antiseizure medication. Her mother who is her primary caregiver reports no other known symptoms. Her father is a bedside mentioned since the change in medications in July with neurology she's been m uch more somnolent. Incidental finding was elevated liver function tests on her labs. 03/27/2023: Patient was seen and evaluated. Her mother is now bedside. Her mother reports she continues to be somnolent. May be slightly more arousable. Vital signs are stable. Patient afebrile. Blood pressure normal. She remained pain center pulse oximetry 93% on room air. Labs today show normal CBC, ch emistries are also normal. LFTs AST is down to 180 from 246 and ALT 214 from 258. Alkaline phosphatase is also improved 144. Blood cultures are positive for bacillus. She remains on Rocephin and azithromycin for pneumonia coverage, her antiseizure medications clobetasol, Vimpat, Lamictal, Keppra, Ativan, and inVegra. No reported seizures 03/28/2023: Patient remains in her bed. She was found asleep today. She was easily arousable. Her mother is at bedside. Vital signs are stable today. Laboratory studies show a slight hypernatremia and hypokalemia. Infectious disease and neurology had seen the patient. The recommendations are noted. Her labs remained stable. Chest x-ray shows low lung volumes generalized hazy appearance could represent atelectasis versus atypical pneumonia. 03/29/2023: Patient is asleep in her bed. Indicates she's been acting more like herself. She did stay up until 3 AM. Mom is been at bedside since yesterday. Infectious disease is on consult. She remains on IV fluids of D5 half-normal saline +20 KCl at 70 mL an hour. She had a seizure yesterday. She [facility] for shortness breath. She remains on her seizure medications. Antibiotics have been completed. She remains afebrile. Blood pressure pulse oximetry heart rate rest rate are normal. Laboratory studies along with seizure medication levels are all pending. Blood culture repeat remains negative 03/30/23: ID and neruo notes reviewed. repeat blood cultre Negative x 48hours, [place] to be contaminent. pneumonia symptoms improved. abn lfts improved. Overall pt is closer to base line and will be sent hay with a small seizure med reduction and abx for the pneumonia. she eill f/u in office in 3 days Patient Condition at Discharge: Fair Plan - Discharge Summary New Discharge Prescriptions: New Amoxic-Pot Clav 200-28.5MG/5Ml [Augmentin 200-28.5 mg/5 ml Susp] 12 ml PO Q8HR 5 Days #180 ml Continue Paliperidone [Invega] 9 mg PO DAILY Midazolam [Nayzilam] 1 spray NASAL ONCE PRN PRN Reason: Seizures Lacosamide [Vimpat] 200 mg PO BID cloBAZam 20 mg PO HS lamoTRIgine 300 mg PO BID LORazepam [Ativan] 1 mg PO BID PRN PRN Reason: Anxiety Cariprazine HCl [Vraylar] 6 mg PO DAILY FLUoxetine HCL 80 mg PO HS guanFACINE [Tenex] 3 mg PO DAILY Changed levETIRAcetam [Keppra Oral Solution] 1,500 mg PO BID #0 Discharge Medication List Cariprazine HCl [Vraylar] 6 mg PO DAILY 09/25/20 [History] FLUoxetine HCL 80 mg PO HS 09/25/20 [History] Paliperidone [Invega] 9 mg PO DAILY 05/12/22 [History] Midazolam [Nayzilam] 1 spray NASAL ONCE PRN 05/14/22 [History] guanFACINE [Tenex] 3 mg PO DAILY 05/14/22 [History] Lacosamide [Vimpat] 200 mg PO BID 11/04/22 [History] cloBAZam 20 mg PO HS 11/04/22 [History] lamoTRIgine 300 mg PO BID 11/04/22 [History] LORazepam [Ativan] 1 mg PO BID PRN 02/21/23 [History] Amoxic-Pot Clav 200-28.5MG/5Ml [Augmentin 200-28.5 mg/5 ml Susp] 12 ml PO Q8HR 5 Days #180 ml 03/30/23 [Rx] levETIRAcetam [Keppra Oral Solution] 1,500 mg PO BID #0 03/30/23 [Rx] Follow up Appointment(s)/Referral(s): [facility] Nurse, [NON-STAFF] - As Needed Melchor Garcia MD [STAFF PHYSICIAN] - 1 Week Discharge Disposition: HOME SELF-CARE
[2023-03-30 15:25] VITALS: PULSE 73; TEMP 96.9
[2023-03-30 15:48] VITALS: BP 95/55
--- NOTE | 2023-03-31 00:22 | P.PN ---
Subjective Progress Note Date: 03/30/23 03/30/2023: Patient was seen for a follow-up. Patient's both parents were present today. Patient is getting ready for discharge. No further seizures reported. 03/29/2023: Patient was seen for a follow-up. Patient's mother was present. No further seizures. Patient is stable. Patient's dad mentioned that at around 12 - 1 p.m., she had a spell in which her eyes was dazed, confused, she could not say "hi" which usually responds. She had a look of "dear in headlight". She is now back to baseline. Patient's dad mentions that patient does not get any grand mal seizures. Her seizures consist of tensing up, and eyes go glassy and she does not respond for about 1-1-1/2 minutes. She does not bite her tongue. Patient's dad was not clear if the spelled earlier today was a seizure or something different. I also spoke to patient's mother on the phone about her seizure medications. She was concerned about the dose of Keppra, which is quite high. She used to be on Keppra 1000 mg twice a day, but after her status epilepticus in June and Jul, the dose was increased to 2000 mg twice a day. Patient has been on Lamictal 300 mg twice a day for a long time. However patient's mother was concerned that patient has lost about 50 pounds, which may affect the dosing of Lamictal. Informed her that I have sent Lamictal level which is still pending. Objective - Vital Signs Vital signs: Vital Signs Temp 96.1 F L 03/30/23 07:22 Pulse 72 03/30/23 07:22 Resp 18 03/30/23 07:22 BP 84/65 03/30/23 07:22 Pulse Ox 96 03/30/23 08:04 FiO2 Intake & Output 03/29/23 03/30/23 03/30/23 18:59 06:59 18:59 Intake Total 1250 Balance 1250 Intake: Intake, IV Titration 890 Amount D5-0.45% NaCl with KCl 840 20Meq/l 1,000 ml @ 70 mls /hr IV .[id number] [facility] Rx#: [id number] cefTRIAXone 2 gm In 50 Sodium Chloride 0.9% 50 ml @ 100 mls/hr IVPB Q24HR [facility] Rx#:[id number] Oral 360 Other: Voiding Method Diaper Diaper Diaper Incontinent Incontinent Incontinent # Voids 2 2 - Exam Patient is laying in the bed. Patient is getting ready for transfer. Detailed examination deferred. 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 * History of mentally challenged, cognitively impaired with developmental delays. * Seizure disorder since age 2. Seizures currently in remission. * Polypharmacy * Mild right lower lobe pneumonia * History of recurrent UTI * Autism * Positive blood cultures, perhaps contamination Plan: * Patient is on numerous seizure medications. Particularly the dose of Lamictal (300 mg twice a day) and Keppra (2000 mg twice a day) is a fairly high dose. However these were the 2 medications that she has been on for long time. Vimpat 200 mg twice a day and Onfi 20 mg at bedtime were added in July 2022 after she was hospitalized at [facility] for status epilepticus. At present she is on all 4 seizure medications. * I also spoke to patient's mother on the phone about her seizure medications. She was concerned about the dose of Keppra, which is quite high. She used to be on Keppra 1000 mg twice a day, but after her status epilepticus in the end of June/July 2022, the dose was increased to 2000 mg twice a day. Patient has been on Lamictal 300 mg twice a day for a long time. However patient's mother was concerned that patient has lost about 50 pounds, which may affect the dosing of Lamictal. Informed her that I have sent Lamictal level which is still pending. We will decrease Keppra down to 1500 mg twice a day. Omar jack's mother agreed. * Await Keppra level, Lamictal level. Still pending. Spoke to mother. She will discuss with Dr. Shay as an outpatient about the medication level, which is still pending at the time of this dictation. * Patient will follow-up with the neurologist..
[2023-03-31 04:54] LABS: Levetiracetam (Keppra) 76.1 ug/mL (3.0-60.0)
[2023-03-31 06:49] LABS: Lamotrigine (Lamictal) 19.5 ug/mL (2.0-15.0)
== END 2023-03-30 15:15 | disposition home health service (06) | DRG 139 ==
LOC: EC 09:28 → 4SSUR 14:26 → OBSVTOIN 14:26 → 4SSUR 17:28
PROVIDERS: ADMIT Family Medicine; ATTEND Family Medicine
DX: J18.9 Pneumonia, unspecified organism (principal); N39.0 Urinary tract infection, site not specified; B96.20 Unspecified Escherichia coli [E. coli] as the cause of diseases classified elsewhere; F84.0 Autistic disorder; R40.0 Somnolence; E87.0 Hyperosmolality and hypernatremia; R32 Unspecified urinary incontinence; R79.89 Other specified abnormal findings of blood chemistry; T42.75XA Adverse effect of unspecified antiepileptic and sedative-hypnotic drugs, initial encounter; G80.9 Cerebral palsy, unspecified; G40.909 Epilepsy, unspecified, not intractable, without status epilepticus; G93.41 Metabolic encephalopathy; G93.49 Other encephalopathy; L89.893 Pressure ulcer of other site, stage 3; Z77.22 Contact with and (suspected) exposure to environmental tobacco smoke (acute) (chronic); Z79.899 Other long term (current) drug therapy; Z87.440 Personal history of urinary (tract) infections; Z28.311 Partially vaccinated for COVID-19
CPT/HCPCS: 36415; 71045; 71046; 71275; 74177; 80053; 80175; 80177; 81001; 83605; 83690; 83735; 83880; 84100; 84145; 84443; 84484; 85025; 85610; 85730; 86140; 87040; 87449; 93005; 94760; 96361; 96365; 96366; 96375; 99285

== ENCOUNTER 2023-04-19 10:49 | Inpatient (IN) | payer OTHER ==
[2023-04-19] MEDS ORDERED: SODIUM CHLORIDE 0.9% 1,000 ML IV STA (11:13)
--- NOTE | 2023-04-19 11:16 | ED ---
Seizure HPI - General Chief Complaint: Seizure Stated Complaint: Seizure Time Seen by Provider: 04/19/23 11:03 Source: family, EMS, RN notes reviewed Mode of arrival: EMS Limitations: language barrier, altered mental status - History of Present Illness Initial Comments: Patient is a 23-year-old female presented ER with chief complaint of a seizure. Doctor's providing most HPI. Mother states patient had a tonic-clonic seizure for about 30 minutes this morning. Mother states that she did 2 nasal sprays of treatment as a limp. Mother reports patient has been taking epileptic medications as prescribed. Patient is currently taking Keppra, Lamictal, lacosamide. Mother reports that she is not acting normal post ictal. She states patient has not had any recent fevers, chills, cough, congestion, urinary problems. She does report patient has been constipated and she tried [id number] medications. She also describes patient was recently h ospitalized for pneumonia around [place]. - Related Data Home Medications Medication Instructions Recorded Confirmed Cariprazine HCl [Vraylar] 6 mg PO DAILY 09/25/20 04/19/23 FLUoxetine HCL 80 mg PO HS 09/25/20 04/19/23 Paliperidone [Invega] 9 mg PO DAILY 05/12/22 04/19/23 Midazolam [Nayzilam] 1 spray NASAL ONCE PRN 05/14/22 04/19/23 guanFACINE [Tenex] 3 mg PO DAILY 05/14/22 04/19/23 Lacosamide [Vimpat] 200 mg PO BID 11/04/22 04/19/23 cloBAZam 20 mg PO HS 11/04/22 04/19/23 lamoTRIgine 300 mg PO BID 11/04/22 04/19/23 LORazepam [Ativan] 1 mg PO BID PRN 02/21/23 04/19/23 Previous Rx's Medication Instructions Recorded levETIRAcetam [Keppra Oral 1,500 mg PO BID #0 03/30/23 Solution] Allergies Allergy/AdvReac Type Severity Reaction Status Date / Time No Known Allergies Allergy Verified 04/19/23 11:52 Review of Systems ROS Statement: Those systems with pertinent positive or pertinent negative responses have been documented in the HPI. ROS Other: All systems not noted in ROS Statement are negative. Past Medical History Past Medical History: Seizure Disorder Additional Past Medical History / Comment(s): Epilepsy, cognitive impairment, developmentally delayed, non verbal, Autism, urinary incontinence, wears depends, hx UTI's, cerebral palsy. History of Any Multi-Drug Resistant Organisms: None Reported Additional Past Surgical History / Comment(s): VNS shunt, eye correction, dental work. Past Anesthesia/Blood Transfusion Reactions: No Reported Reaction Additional Past Anesthesia/Blood Transfusion Reaction / Comment(s): Mom PONV. Past Psychological History: Anxiety Smoking Status: Never smoker Past Alcohol Use History: None Reported Past Drug Use History: None Reported - Past Family History Mother Family Medical History: No Reported History General Exam Limitations: language barrier, altered mental status General appearance: alert, in no apparent distress Head exam: Present: atraumatic, normocephalic, normal inspection ENT exam: Present: normal exam, mucous membranes dry, mucous membranes moist Respiratory exam: Present: normal lung sounds bilaterally. Absent: respiratory distress, wheezes, rales, rhonchi, stridor Cardiovascular Exam: Present: regular rate, normal rhythm, normal heart sounds. Absent: systolic murmur, diastolic murmur, rubs, gallop, clicks GI/Abdominal exam: Present: soft, normal bowel sounds. Absent: distended, tenderness, guarding, rebound, rigid Neurological exam: Present: alert Psychiatric exam: Present: normal affect, normal mood Skin exam: Present: warm, dry, intact, normal color. Absent: rash Course Vital Signs 04/19/23 04/19/23 04/19/23 11:02 11:11 12:20 Temperature 92.2 F L Pulse Rate 72 68 Respiratory 18 16 Rate Blood Pressure 112/66 113/86 O2 Sat by Pulse 94 L 96 Oximetry 04/19/23 04/19/23 15:00 17:01 Temperature 96.8 F L 97.6 F Pulse Rate 79 Respiratory 14 Rate Blood Pressure 111/59 O2 Sat by Pulse Oximetry Medical Decision Making - Medical Decision Making Was pt. sent in by a medical professional or institution (, PA, FOREIGN COLLECTION CLERK, urgent care, hospital, or jail...) When possible be specific @ -No Did you speak to anyone other than the patient for history (EMS, parent, family, police, friend...)? What history was obtained from this source @ -Mother providing HPI Did you review nursing and triage notes (agree or disagree)? Why? @ -I reviewed and agree with nursing and triage notes Were old charts reviewed (outside hosp., previous admission, EMS record, old EKG, old radiological studies, urgent care reports/EKG's, jail records)? Report findings @ -No old charts were reviewed Differential Diagnosis (chest pain, altered mental status, abdominal pain women, abdominal pain men, vaginal bleeding, weakness, fever, dyspnea, syncope, headache, dizziness, GI bleed, back pain, seizure, CVA, palpatations, mental health, musculoskeletal)? @ -Differential seizure EKG interpreted by me (3pts min.). @ -None X-rays interpreted by me (1pt min.). @ -Chest x-ray interpreted by me shows no acute cardiopulmonary process CT interpreted by me (1pt min.). @ -None done U/S interpreted by me (1pt. min.). @ -None done What testing was considered but not performed or refused? (CT, X-rays, U/S, labs)? Why? @ -None What meds were considered but not given or refused? Why? @ -None Did you discuss the management of the patient with other professionals (professionals i.e. , PA, FOREIGN COLLECTION CLERK, lab, RT, psych nurse, nursing home social worker, patient services specialist, teacher, chief security officer, community case manager)? Give summary @ -yes, Dr. Funes, ED attending, spoke with who accepts medical admission. Was smoking cessation discussed for >3mins.? @ -No Was critical care preformed (if so, how long)? @ -No Were there social determinants of health that impacted care today? How? (Homelessness, low income, unemployed, alcoholism, drug addiction, transport ation, low edu. Level, literacy, decrease access to med. care, fci, rehab)? @ -No Was there de-escalation of care discussed even if they declined (Discuss DNR or withdrawal of care, Hospice)? DNR status @ -No What co-morbidities impacted this encounter? (DM, HTN, Smoking, COPD, CAD, Cancer, CVA, ARF, Chemo, Hep., AIDS, mental health diagnosis, sleep apnea, morbid obesity)? @ -Epilepsy, developmental delay Was patient admitted / discharged? Hospital course, mention meds given and r oute, prescriptions, significant lab abnormalities, going to OR and other pertinent info. @ -Admitted. Patient is a 23-year-old female presented ER with chief complaint of a seizure. Patient had a temperature of 92.2 axillary on exam. History and physical exam was performed. Patient in no signs of acute distress. Labs obtained in the ER were significant for mild dehydration. COVID, RSV, influenza negative. UA without signs of infection. Chest x-ray showed no acute process. K eppra, Lamictal, lacosamide levels pending. TSH and free T4 are pending. Patient received IV fluids and ativan for symptoms control in the ER. Case discussed with Dr. Garcia who accepts medical admission. Patient will be admitted for further care. Mother is in agreement with plan. Undiagnosed new problem with uncertain prognosis? @ -No Drug Therapy requiring intensive monitoring for toxicity (Heparin, Nitro, Insulin, Cardizem)? @ -No Were any procedures done? @ -No Diagnosis/symptom? @ -Seizure Acute, or Chronic, or Acute on Chronic? @ -Acute Uncomplicated (without systemic symptoms) or Complicated (systemic symptoms)? @ -Complicated Side effects of treatment? @ -No Exacerbation, Progression, or Severe Exacerbation? @ -No Poses a threat to life or bodily function? How? (Chest pain, [place], [place], pneumonia, PE, COPD, DKA, ARF, appy, cholecystitis, CVA, Diverticulitis, Homicidal, Suicidal, threat to staff... and all critical care pts) @ -No - Lab Data Result diagrams: 04/19/23 11:39 04/19/23 11:39 Lab Results 04/19/23 04/19/23 04/19/23 Range/Units 11:39 11:39 11:39 WBC 4.7 (3.8-10.6) k/uL RBC 4.25 (3.80-5.40) m/uL Hgb 14.0 (11.4-16.0) gm/dL Hct 40.0 (34.0-46.0) % MCV 94.0 (80.0-100.0) fL MCH 32.9 (25.0-35.0) pg MCHC 35.0 (31.0-37.0) g/dL RDW 15.6 H (11.5-15.5) % Plt Count 231 (150-450) k/uL MPV 7.8 Poikilocytosis Slight Sodium 149 H (137-145) mmol/L Potassium 3.9 (3.5-5.1) mmol/L Chloride 110 H (98-107) mmol/L Carbon Dioxide 33 H (22-30) mmol/L Anion Gap 6 mmol/L BUN 21 H (7-17) mg/dL Creatinine 0.73 (0.52-1.04) mg/dL Est GFR (CKD-EPI)AfAm >90 (>60 ml/min/1.73 sqM) Est GFR (CKD-EPI)NonAf >90 (>60 ml/min/1.73 sqM) Glucose 90 (74-99) mg/dL Calcium 9.7 (8.4-10.2) mg/dL Total Bilirubin 0.5 (0.2-1.3) mg/dL AST 164 H (14-36) U/L ALT 168 H (4-34) U/L Alkaline Phosphatase 165 H (38-126) U/L Total Protein 6.7 (6.3-8.2) g/dL Albumin 4.1 (3.5-5.0) g/dL Urine Color Yellow Urine Appearance Clear (Clear) Urine pH 6.0 (5.0-8.0) Ur Specific Mcgrath 1.015 (1.001-1.035) Urine Protein 1+ H (Negative) Urine Glucose (UA) Negative (Negative) Urine Ketones Negative (Negative) Urine Blood Negative (Negative) Urine Nitrite Negative (Negative) Urine Bilirubin Negative (Negative) Urine Urobilinogen <2.0 (<2.0) mg/dL Ur Leukocyte Esterase Negative (Negative) Urine RBC 3 (0-5) /hpf Urine WBC 5 (0-5) /hpf Ur Squamous Epith Cells 2 (0-4) /hpf Hyaline Casts 4 H (0-2) /lpf Urine Mucus Few H (None) /hpf Urine Yeast (Budding) Many H (None) /hpf Influenza Type A (PCR) (Not Detectd) Influenza Type B (PCR) (Not Detectd) RSV (PCR) (Not Detectd) SARS-CoV-2 (PCR) (Not Detectd) 04/19/23 Range/Units 11:39 WBC (3.8-10.6) k/uL RBC (3.80-5.40) m/uL Hgb (11.4-16.0) gm/dL Hct (34.0-46.0) % MCV (80.0-100.0) fL MCH (25.0-35.0) pg MCHC (31.0-37.0) g/dL RDW (11.5-15.5) % Plt Count (150-450) k/uL MPV Poikilocytosis Sodium (137-145) mmol/L Potassium (3.5-5.1) mmol/L Chloride (98-107) mmol/L Carbon Dioxide (22-30) mmol/L Anion Gap mmol/L BUN (7-17) mg/dL Creatinine (0.52-1.04) mg/dL Est GFR (CKD-EPI)AfAm (>60 ml/min/1.73 sqM) Est GFR (CKD-EPI)NonAf (>60 ml/min/1.73 sqM) Glucose (74-99) mg/dL Calcium (8.4-10.2) mg/dL Total Bilirubin (0.2-1.3) mg/dL AST (14-36) U/L ALT (4-34) U/L Alkaline Phosphatase (38-126) U/L Total Protein (6.3-8.2) g/dL Albumin (3.5-5.0) g/dL Urine Color Urine Appearance (Clear) Urine pH (5.0-8.0) Ur Specific Mcgrath (1.001-1.035) Urine Protein (Negative) Urine Glucose (UA) (Negative) Urine Ketones (Negative) Urine Blood (Negative) Urine Nitrite (Negative) Urine Bilirubin (Negative) Urine Urobilinogen (<2.0) mg/dL Ur Leukocyte Esterase (Negative) Urine RBC (0-5) /hpf Urine WBC (0-5) /hpf Ur Squamous Epith Cells (0-4) /hpf Hyaline Casts (0-2) /lpf Urine Mucus (None) /hpf Urine Yeast (Budding) (None) /hpf Influenza Type A (PCR) Not Detected (Not Detectd) Influenza Type B (PCR) Not Detected (Not Detectd) RSV (PCR) Not Detected (Not Detectd) SARS-CoV-2 (PCR) Not Detected (Not Detectd) - Radiology Data Radiology results: report reviewed, image reviewed Disposition Clinical Impression: Seizure Disposition: [facility] Condition: Stable Referrals: Víctor Shay Jr, [Primary Care Provider] - 1-2 days Time of Disposition: 17:23
[2023-04-19 11:55] LABS: MCH 32.9 pg (25.0-35.0); Mean Platelet Volume 7.8; Platelet Count 231 k/uL (150-450); Poikilocytosis Slight; RBC 4.25 m/uL (3.80-5.40); RDW 15.6 % (11.5-15.5); WBC 4.7 k/uL (3.8-10.6)
[2023-04-19] MEDS ORDERED: LORazepam 2 MG/ML INJ IV STA (12:01)
[2023-04-19 12:19] LABS: ALT 168 U/L (4-34); AST 164 U/L (14-36); African American GFR (CKD) >90 (>60 ml/min/1.73 sqM); Albumin 4.1 g/dL (3.5-5.0); Alkaline Phosphatase 165 U/L (38-126); Anion Gap 6 mmol/L; Blood Urea Nitrogen 21 mg/dL (7-17); Calcium 9.7 mg/dL (8.4-10.2); Carbon Dioxide 33 mmol/L (22-30); Chloride 110 mmol/L (98-107); Glucose 90 mg/dL (74-99); Non-African American GFR(CKD) >90 (>60 ml/min/1.73 sqM); Potassium 3.9 mmol/L (3.5-5.1); Sodium 149 mmol/L (137-145); Total Bilirubin 0.5 mg/dL (0.2-1.3); Total Protein 6.7 g/dL (6.3-8.2)
--- NOTE | 2023-04-19 12:49 | XR ---
EXAMINATION TYPE: XR chest 2V DATE OF EXAM: 04/19/2023 COMPARISON: 03/28/2023 TECHNIQUE: PA and lateral views submitted. HISTORY: Altered mental status FINDINGS: There is limited inspiration. Grossly the lungs are clear and there is no pneumothorax, pleural effu maxine, or focal pneumonia. Heart size normal and no overt failure. There is a stimulator device in st able position with the lead coiled over the soft tissues of the left neck. Correlate clinically. IMPRESSION: 1. No acute process.
[2023-04-19 14:33] LABS: Appearance,Urine Clear (Clear); Bilirubin,Urine Negative (Negative); Blood,Urine Negative (Negative); Budding Yeast,Urine Many /hpf; Color,Urine Yellow; Glucose,Urine (UA) Negative (Negative); Hyaline Casts,Urine 4 /lpf (0-2); Ketones,Urine Negative (Negative); Leukocyte Esterase,Urine Negative (Negative); Mucus,Urine Few /hpf; Nitrite,Urine Negative (Negative); Protein,Urine 1+ (Negative); RBC,Urine 3 /hpf (0-5); Specific Gravity,Urine 1.015 (1.001-1.035); Squamous Epithelial Cell,Urine 2 /hpf (0-4); Urobilinogen,Urine <2.0 mg/dL (<2.0); WBC,Urine 5 /hpf (0-5)
[2023-04-19] MEDS ORDERED: ACETAMINOPHEN TAB 325 MG TAB PO PRN (17:21)
[2023-04-19] MEDS ORDERED: NALOXONE 0.4 MG/ML 1 ML VIAL IV PRN (17:21)
[2023-04-19] MEDS: SODIUM CHLORIDE 0.9% 1,000 ML IV SCH (18:22)
[2023-04-19 18:48] LABS: T4, Free (Free Thyroxine) 1.1 ng/dL (0.78-2.19)
[2023-04-19] MEDS ORDERED: LORazepam 1 MG TAB PO PRN (21:07)
[2023-04-19] MEDS ORDERED: NON FORMULARY DRUG (Midazolam [Nayzilam] 5 MG/0.1 ML Each) NASAL PRN (21:07)
[2023-04-19] MEDS ORDERED: bisacodyL 10 MG SUPP RECTAL PRN (21:09)
[2023-04-19] MEDS: FLUoxetine HCL 20 MG CAP PO SCH (22:02)
[2023-04-19] MEDS: levETIRAcetam ORAL SOLN 500 MG/5 ML CUP PO SCH (22:03)
[2023-04-19] MEDS: lamoTRIgine 100 MG TAB PO SCH (22:03)
[2023-04-19] MEDS: LACOSAMIDE 50 MG TABLET PO SCH (22:08)
[2023-04-19] MEDS: Clobazam [Clobazam] 10 MG Tablet PO SCH (22:58)
[2023-04-20] MEDS: SODIUM CHLORIDE 0.9% 1,000 ML IV SCH ×2 (05:03→20:42)
[2023-04-20] MEDS ORDERED: NA PHOS,M-B/NA PHOS,DI-BA 133 ML ENEMA RECTAL ONE ×2 (06:00→07:00)
[2023-04-20 07:24] LABS: Levetiracetam (Keppra) 91.6 ug/mL (3.0-60.0)
--- NOTE | 2023-04-20 08:33 | XR ---
EXAMINATION TYPE: XR abdomen 2V DATE OF EXAM: 04/20/2023 CLINICAL DATA: 23 year-old female no bowel movement in 10 days, [facility] COMPARISON: 02/21/2023 FINDINGS: No evidence for free intraperitoneal air. Generator device projecting at the left side of t he chest. No dilated small bowel or air-fluid levels. There is large amount of stool seen throughout the colon. There is also fullness in the pelvis which could represent distention of the bladder. No suspicious calcifications are seen. IMPRESSION: 1. No evidence for free air or small bowel obstruction. 2. Large stool burden compatible with constipation. 3. Fullness in the region of the pelvis may reflect prominent distention of the urinary bladder.
[2023-04-20] MEDS: levETIRAcetam ORAL SOLN 500 MG/5 ML CUP PO SCH (10:38)
[2023-04-20] MEDS: lamoTRIgine 100 MG TAB PO SCH ×2 (10:38→20:38)
[2023-04-20] MEDS: LACOSAMIDE 50 MG TABLET PO SCH ×2 (10:38→20:37)
[2023-04-20] MEDS: guanFACINE 1 MG TAB PO SCH (10:39)
[2023-04-20] MEDS: PALIPERIDONE 3 MG TAB.ER.24 PO SCH (10:39)
[2023-04-20] MEDS: CARIPRAZINE HCL 6 MG PO SCH (10:43)
--- NOTE | 2023-04-20 13:03 | P.CNNES ---
History of Present Illness Consult date: 04/20/23 Requesting physician: Melchor Garcia Reason for Consult: seizures History of Present Illness: This is a 23-year-old woman history of epilepsy, cognitive delay, autism, nonverbal at baseline who presented emergency department because of breakthrough seizure. History is obtained from patient's mother was at bedside as well as the medical record. According to the mother of the patient is on the multiple seizure medication and has VNS for her epilepsy. Patient had a breakthrough seizure in which the seizure lasted about possibly 30 minutes in which the patient was staring off and had abnormal movement of the body but no jerking or shaking of extremities yesterday. Patient is on Keppra 1500 mg twice a day, Lamictal 300 mg twice a day, Vimpat 200 mg twice a day, on the 20 mg daily at bedtime and is on low setting VNS. Patient has seizures since 2 years old. Patient was in our facility towards end of 03/2023 and was a being cared by Dr. Lopez (Neuro-Hospitalist) in which the Keppra was decreased to 1500mg bid especially since it was supratherapeutic and mother concerns for side-effects of sleepiness. The patient follow-up with Dr. Barone over at [place] and according to the mother she stated he was in agreement with dose of Keppra 1500mg bid but was told if continues to have seizures to consider going back up to 2gm bid. Per mother the patient had a prior seizure was this Wednesday. She had underlying pneumonia in the last one month. Patient is back to baseline. As stated earlier patient is nonverbal but the according to the mother she can feed herself using her hands. She crawls. Some of the work-up during this hospital visit consisted of: wbc 4.7K Sodium is 149, AST is 164, ALTs 168, BUN is 21 and creatinine is 0.73 at. Glucose is 90, calcium 7.7 TSH is 2.640 Free T4 is 1.10. Keppra level is 91.6 Lamcital level is 21.5. Review of Systems Limited but the positive and negative as per HPI. Past Medical History Past Medical History: Seizure Disorder Additional Past Medical History / Comment(s): Epilepsy, cognitive impairment, developmentally delayed, non verbal, Autism, urinary incontinence, wears depends, hx UTI's, cerebral palsy. History of Any Multi-Drug Resistant Organisms: None Reported Additional Past Surgical History / Comment(s): VNS shunt, eye correction, dental work. Past Anesthesia/Blood Transfusion Reactions: No Reported Reaction Additional Past Anesthesia/Blood Transfusion Reaction / Comment(s): Mom PONV. Past Psychological History: Anxiety Additional Psychological History / Comment(s): Developmentally delayed, autis tic, non verbal. Smoking Status: Never smoker Past Alcohol Use History: None Reported Past Drug Use History: None Reported - Past Family History Mother Family Medical History: No Reported History Medications and Allergies Home Medications Medication Instructions Recorded Confirmed Type Cariprazine HCl [Vraylar] 6 mg PO DAILY 09/25/20 04/19/23 History FLUoxetine HCL 80 mg PO HS 09/25/20 04/19/23 History Paliperidone [Invega] 9 mg PO DAILY 05/12/22 04/19/23 History Midazolam [Nayzilam] 1 spray NASAL ONCE PRN 05/14/22 04/19/23 History guanFACINE [Tenex] 3 mg PO DAILY 05/14/22 04/19/23 History Lacosamide [Vimpat] 200 mg PO BID 11/04/22 04/19/23 History cloBAZam 20 mg PO HS 11/04/22 04/19/23 History lamoTRIgine 300 mg PO BID 11/04/22 04/19/23 History LORazepam [Ativan] 1 mg PO BID PRN 02/21/23 04/19/23 History levETIRAcetam [Keppra Oral 1,500 mg PO BID #0 03/30/23 04/19/23 Rx Solution] Allergies Allergy/AdvReac Type Severity Reaction Status Date / Time No Known Allergies Allergy Verified 04/19/23 11:52 Physical Examination - Vital Signs Vital Signs: Vital Signs Temp Pulse Pulse Resp BP BP Pulse Ox 04/20/23 08:00 18 04/20/23 07:00 98.2 F 92 16 101/57 94 L 04/20/23 02:02 98.5 F 92 22 106/57 93 L 04/20/23 02:00 22 04/19/23 20:07 98.1 F 96 14 109/62 97 04/19/23 20:00 98.9 F 107 H 16 96/49 94 L 04/19/23 18:31 98 04/19/23 18:23 86 14 111/59 92 L 04/19/23 17:01 97.6 F 79 14 111/59 04/19/23 15:00 96.8 F L Intake and Output 04/19/23 04/20/23 04/20/23 22:59 06:59 14:59 Intake Total 180 Balance 180 Intake: Oral 180 Other: Voiding Method Diaper Diaper Diaper # Voids 1 # Bowel Movements 1 Weight 79.379 kg General: Lying in bed and does not appear in acute distress. Neuro: Very limited because of her overall poor baseline and lack of cooperation. Upon seeing the patient she was closing her eyes and resisting to contact. When I moved away from patient (in which she did not see me) then she open eyes and was moving her head side to side and was interacting with her mother. No facial weakness. Has decrease tone in uppers. Could not assess lowers because of lack of cooperation. Results - Laboratory Findings CBC and BMP: 04/19/23 11:39 04/19/23 11:39 Abnormal Lab Findings: Abnormal Labs 04/19/23 04/19/23 04/19/23 11:39 11:39 11:39 RDW 15.6 H Sodium 149 H Chloride 110 H Carbon Dioxide 33 H BUN 21 H AST 164 H ALT 168 H Alkaline Phosphatase 165 H Urine Protein 1+ H Hyaline Casts 4 H Urine Mucus Few H Urine Yeast (Budding) Many H Lamotrigine Levetiracetam 04/19/23 11:39 RDW Sodium Chloride Carbon Dioxide BUN AST ALT Alkaline Phosphatase Urine Protein Hyaline Casts Urine Mucus Urine Yeast (Budding) Lamotrigine 21.5 H* Levetiracetam 91.6 H Assessment and Plan Assessment: This is a 23-year-old woman with history of epilepsy since age of 32 years old, is on for different antiepileptic drug and is on low setting of VNS who presents because of breakthrough seizure. According to the mother in last one month, p atient having underlying pneumonia. In end of 03/2023 her Keppra was decrease from 2gm to 1500mg because of concern of side-effects (sleepiness) by Dr. Lopez Breakthrough seizure likely due to her underlying recent sickness (pneumonia) and uncontrolled epilepsy---back to baseline. Underlying epilepsy since 2 years old and is on 4 different antiepileptic drugs and low setting of VNS Severe Cognitive impairment Autism History of recurrent UTI Plan: I well on Keppra from 1500 mg to 2000 mg twice a day she since the patient's having recurrent seizures. Her Keppra was lowered in the end of March 2023 because of concern of side effects for her sleepiness by Dr. Lopez. She stated that she spoke with her daughters epileptologist (Dr. Barone) and she was informed patient can go back on Keppra 2gm bid if continues to have seizures. Her home Vimpat 200mg bid, Lamictal 300mg bid and Onfi 20mg qhs is continued. If continues to have seizures, consider for her epileptologist to go up on her VNS settings and if seizures controlled to consider going down on her medication to limit side-effects. Is on Ativan 1mg bid PRN Patient Keppra level is 91.6 (normal is 3--60). Lamotrigine level is 21.5 (normal is 2-15). I ordered a routine EEG but mother feels patient is doing better and wants to hold off on EEG but if continues to have further episodes by tomorrow will consider an EEG. Recommend the patient to follow-up with Dr. Barone within 1-2 weeks for further evaluation and modification of seizures management. Will defer the rest of medical management to the primary team. The plan is discussed with patient's mother who is at bedside. Thank you for the consultation. Time with Patient: Greater than 30
[2023-04-20 14:59] VITALS: RESP 16
--- NOTE | 2023-04-20 16:24 | P.HPIM ---
History of Present Illness H&P Date: 04/20/23 Chief Complaint: Seizures This is a 23-year-old female with past medical history significant for epilepsy, cerebral palsy, autism, nonverbal, and multiple other medical issues, follows up with [place] epileptologist -Dr. Barone, and presented to the ER with breakthrough seizures. All information is being obtained from chart, staff, mother as patient is nonverbal, has not walked since July,. Patient's mother states patient started having breakthrough seizure activity lasting approximately 25 minutes despite 2 nasal sprays. Patient is currently maintained on Lamictal, Keppra and Vimpat, and low setting VNS. Lamictal level 21.5, Keppra level 91.6. Patient had been hospitalized in March for pneumonia and seizures and Keppra dose had been decreased due to supratherapeutic levels and concerns for increased sleepiness. Chest x-ray reported no acute process. Abdominal x-ray reported no evidence for free air or small bowel obstruction, large stool burden compatible with constipation, fullness in the region of the pelvis may reflect prominent distention of the urinary bladder. Patient was fecally disimpacted for large amount of stool, + received an enema with further stooling. No further seizure activity reported. Patient is currently sleeping with mother at the bedside. Afebrile, normal WBC, sodium 149, potassium 3.9, bicarb 33, BUN 21, creatinine 0.73, glucose 90, elevated LFTs; AST 164, ALT 168, alk phos 165( elevated in March during prior admission). TSH 2.64, free T4 110. UA negative. Serology did not detect influenza type A/B/RSV/Covid. Review of Systems ROS unobtainable: due to mental status Past Medical History Past Medical History: Seizure Disorder Additional Past Medical History / Comment(s): Epilepsy, cognitive impairment, developmentally delayed, non verbal, Autism, urinary incontinence, wears depends, hx UTI's, cerebral palsy. History of Any Multi-Drug Resistant Organisms: None Reported Additional Past Surgical History / Comment(s): VNS shunt, eye correction, dental work. Past Anesthesia/Blood Transfusion Reactions: No Reported Reaction Additional Past Anesthesia/Blood Transfusion Reaction / Comment(s): Mom PONV. Past Psychological History: Anxiety Additional Psychological History / Comment(s): Developmentally delayed, autistic, non verbal. Smoking Status: Never smoker Past Alcohol Use History: None Reported Past Drug Use History: None Reported - Past Family History Mother Family Medical History: No Reported History Medications and Allergies Home Medications Medication Instructions Recorded Confirmed Type Cariprazine HCl [Vraylar] 6 mg PO DAILY 09/25/20 04/19/23 History FLUoxetine HCL 80 mg PO HS 09/25/20 04/19/23 History Paliperidone [Invega] 9 mg PO DAILY 05/12/22 04/19/23 History Midazolam [Nayzilam] 1 spray NASAL ONCE PRN 05/14/22 04/19/23 History guanFACINE [Tenex] 3 mg PO DAILY 05/14/22 04/19/23 History Lacosamide [Vimpat] 200 mg PO BID 11/04/22 04/19/23 History cloBAZam 20 mg PO HS 11/04/22 04/19/23 History lamoTRIgine 300 mg PO BID 11/04/22 04/19/23 History LORazepam [Ativan] 1 mg PO BID PRN 02/21/23 04/19/23 History levETIRAcetam [Keppra Oral 1,500 mg PO BID #0 03/30/23 04/19/23 Rx Solution] Allergies Allergy/AdvReac Type Severity Reaction Status Date / Time No Known Allergies Allergy Verified 04/19/23 11:52 Physical Exam Vitals: Vital Signs Temp Pulse Pulse Resp BP BP Pulse Ox 04/20/23 08:00 18 04/20/23 07:00 98.2 F 92 16 101/57 94 L 04/20/23 02:02 98.5 F 92 22 106/57 93 L 04/20/23 02:00 22 04/19/23 20:07 98.1 F 96 14 109/62 97 04/19/23 20:00 98.9 F 107 H 16 96/49 94 L 04/19/23 18:31 98 04/19/23 18:23 86 14 111/59 92 L 04/19/23 17:01 97.6 F 79 14 111/59 04/19/23 15:00 96.8 F L Intake and Output 04/19/23 04/20/23 04/20/23 22:59 06:59 14:59 Intake Total 180 Balance 180 Intake: Oral 180 Other: Voiding Method Diaper Diaper Diaper # Voids 1 # Bowel Movements 1 Weight 79.379 kg GENERAL: Lying in bed, sleeping, no apparent acute distress. HEAD: Atraumatic, normocephalic. EYES: Deferred NECK: Supple, without lymphadenopathy or JVD LUNGS: Breath sounds no wheezes rales, there is rhonchi to the right lung. HEART: Regular rate and rhythm without murmurs, rubs or gallops.S1S2 Normal ABDOMEN: Soft, nontender, normoactive bowel sounds. No guarding, no rebound. EXTREMITIES: Normal range of motion, no pitting or edema. No clubbing or cyanosis. Legs interlocked in a pretzel shape at rest. NEUROLOGICAL: Limited exam:She does not speak but makes sounds, this time patient is asleep but easily arousable. PSYCH: Sleeping this time. SKIN: Warm, Dry, normal turgor, no rashes or lesions noted. Results CBC & Chem 7: 04/19/23 11:39 04/19/23 11:39 Labs: Abnormal Lab Results - Last 24 Hours (Table) 04/19/23 04/19/23 Range/Units 11:39 11:39 Urine Protein 1+ H (Negative) Hyaline Casts 4 H (0-2) /lpf Urine Mucus Few H (None) /hpf Urine Yeast (Budding) Many H (None) /hpf Lamotrigine 21.5 H* (2.0-15.0) ug/mL Levetiracetam 91.6 H (3.0-60.0) ug/mL Assessment and Plan Assessment: Breakthrough seizures in a patient with history of seizure disorder since age 2. Constipation status post disimpaction Recent right middle lobe pneumonia, completed antibiotic therapy History of recurrent UTIs Cognitively impaired with developmental disorder Autism Cerebral palsy Abnormal LFTs Plan: Continue on current medication regime ,monitoring and symptomatic treatment. Per patient's mother's discussion with neurology,Dr. Barone had recommended increasing Keppra back to prior dose before last admission ,if further seizure activity occurred. Keppra dose therefore increased. Maintain seizure precautions. EEG ordered, declined today by mother. The impression and plan of care has been dictated as directed. : I performed a history and examination of this patient, discussed the same with the dictator. I agree with the dictator's note ,documented as a scribe. Any a dditional findings or plans will be noted.
[2023-04-20] MEDS: PANTOPRAZOLE 40 MG/10 ML VIAL IVP SCH (17:59)
[2023-04-20] MEDS ORDERED: ZINC OXIDE PASTE (Z-GUARD) 1 APPLIC TOPICAL PRN (18:09)
[2023-04-20] MEDS: FLUoxetine HCL 20 MG CAP PO SCH (20:37)
[2023-04-20] MEDS: levETIRAcetam 500 MG TAB PO SCH (20:38)
[2023-04-20] MEDS: Clobazam [Clobazam] 10 MG Tablet PO SCH (20:41)
[2023-04-21 08:24] VITALS: PULSE 70; TEMP 98.7
[2023-04-21 08:48] VITALS: BP 98/62
[2023-04-21] MEDS: lamoTRIgine 100 MG TAB PO SCH (08:55)
[2023-04-21] MEDS: LACOSAMIDE 50 MG TABLET PO SCH (08:55)
[2023-04-21] MEDS: levETIRAcetam 500 MG TAB PO SCH (08:55)
[2023-04-21] MEDS: PALIPERIDONE 3 MG TAB.ER.24 PO SCH (08:56)
[2023-04-21] MEDS: guanFACINE 1 MG TAB PO SCH (08:56)
[2023-04-21] MEDS: CARIPRAZINE HCL 6 MG PO SCH (09:38)
[2023-04-21] MEDS: PANTOPRAZOLE 40 MG/10 ML VIAL IVP SCH (09:38)
--- NOTE | 2023-04-21 10:05 | P.DS ---
Providers Date of admission: 04/19/23 17:36 Expected date of discharge: 04/21/23 Attending physician: Melchor Garcia H&P Date: 04/20/23 Chief Complaint: Seizures This is a 23-year-old female with past medical history significant for epilepsy, cerebral palsy, autism, nonverbal, and multiple other medical issues, follows up with [place] epileptologist -Dr. Baorne, and presented to the ER with breakthrough seizures. All information is being obtained from chart, staff, mother as patient is nonverbal, has not walked since July,. Patient's mother states patient started having breakthrough seizure activity lasting approximately 25 minutes despite 2 nasal sprays. Patient is currently maintained on Lamictal, Keppra and Vimpat, and low setting VNS. Lamictal level 21.5, Keppra level 91.6. Patient had been hospitalized in March for pneumonia and seizures and Keppra dose had been decreased due to supratherapeutic levels and concerns for increased sleepiness. Chest x-ray reported no acute process. Abdominal x-ray reported no evidence for free air or small bowel obstruction, large stool burden compatible with constipation, fullness in the region of the pelvis may reflect prominent distention of the urinary bladder. Patient was fecally disimpacted for large amount of stool, + received an enema with further stooling. No further seizure activity reported. Patient is currently sleeping with mother at the bedside. Afebrile, normal WBC, sodium 149, potassium 3.9, bicarb 33, BUN 21, creatinine 0.73, glucose 90, elevated LFTs; AST 164, ALT 168, alk phos 165( elevated in March during prior admission). TSH 2.64, free T4 110. UA negative. Serology did not detect influenza type A/B/RSV/Covid. Per patient's mother's discussion with neurology,Dr. Barone had recommended increasing Keppra back to prior dose before last admission ,if further seizure activity occurred. Keppra dose therefore increased. Maintain seizure precautions. EEG ordered, declined at this time by mother. 04/21/2023 seizure precautions maintained. No further seizure activity reported overnight or this morning. Patient alert, interacting with her mother at bedside. Mother is eager for discharge. Patient will be discharged home today in stable condition with guarded prognosis pending final DC recommendations and clearance per neurology. The impression and plan of care has been dictated as directed. : I performed a history and examination of this patient, discussed the same with the dictator. I agree with the dictator's note ,documented as a scribe. Any additional findings or plans will be noted. Consults: 04/20/23 05:54 Consult Physician Urgent Consulting Provider: Zia Yeh Consult Reason/Comments: seizures Do you want consulting provider notified?: Yes Primary care physician: Víctor Shay Patient Condition at Discharge: Stable Plan - Discharge Summary Discharge Rx Participant: Yes New Discharge Prescriptions: Continue Paliperidone [Invega] 9 mg PO DAILY Midazolam [Nayzilam] 1 spray NASAL ONCE PRN PRN Reason: Seizures Lacosamide [Vimpat] 200 mg PO BID cloBAZam 20 mg PO HS lamoTRIgine 300 mg PO BID LORazepam [Ativan] 1 mg PO BID PRN PRN Reason: Anxiety Cariprazine HCl [Vraylar] 6 mg PO DAILY FLUoxetine HCL 80 mg PO HS guanFACINE [Tenex] 3 mg PO DAILY Changed levETIRAcetam [Keppra Oral Solution] 2,000 mg PO BID #0 Discharge Medication List Cariprazine HCl [Vraylar] 6 mg PO DAILY 09/25/20 [History] FLUoxetine HCL 80 mg PO HS 09/25/20 [History] Paliperidone [Invega] 9 mg PO DAILY 05/12/22 [History] Midazolam [Nayzilam] 1 spray NASAL ONCE PRN 05/14/22 [History] guanFACINE [Tenex] 3 mg PO DAILY 05/14/22 [History] Lacosamide [Vimpat] 200 mg PO BID 11/04/22 [History] cloBAZam 20 mg PO HS 11/04/22 [History] lamoTRIgine 300 mg PO BID 11/04/22 [History] LORazepam [Ativan] 1 mg PO BID PRN 02/21/23 [History] levETIRAcetam [Keppra Oral Solution] 2,000 mg PO BID #0 04/21/23 [Rx] Follow up Appointment(s)/Referral(s): Epileptologist, Dr. Barone [Other] - 1 Week (Please call to schedule follow up) Laurita,Víctor Jr, DO [Primary Care Provider] - 3 Days (Please call to schedule follow up) Patient Instructions/Handouts: Epilepsy (GEN) Activity/Diet/Wound Care/Special Instructions: Call [facility] to set up ambulance for discharge home: [phone]. The physician certification form is on the chart.
[2023-04-21 10:16] LABS: Lamotrigine (Lamictal) 21.5 ug/mL (2.0-15.0)
== END 2023-04-21 09:37 | disposition home or self-care (01) | DRG 53 ==
LOC: EC 10:49 → 4SSUR 17:36 → 1SOBS 18:16
PROVIDERS: ADMIT Family Medicine; ATTEND Family Medicine
DX: G40.909 Epilepsy, unspecified, not intractable, without status epilepticus (principal); F41.9 Anxiety disorder, unspecified; F84.0 Autistic disorder; G80.9 Cerebral palsy, unspecified; Z11.52 Encounter for screening for COVID-19; Z28.311 Partially vaccinated for COVID-19; Z28.21 Immunization not carried out because of patient refusal; Z87.440 Personal history of urinary (tract) infections; K59.00 Constipation, unspecified; Z79.899 Other long term (current) drug therapy; E86.0 Dehydration; Z87.01 Personal history of pneumonia (recurrent); R32 Unspecified urinary incontinence; R41.89 Other symptoms and signs involving cognitive functions and awareness
CPT/HCPCS: 36415; 71046; 74019; 80053; 80175; 80177; 80235; 81001; 84439; 84443; 85027; 87636; 96361; 96374; 99285

== ENCOUNTER 2023-05-05 10:23 | Day surgery (SDC) | payer OTHER ==
[2023-05-03 09:40] VITALS: BMI 32.1
[~2023-05-05 10:23] MED LIST changes: +HYDROmorphone 0.5 MG/0.5 ML SYRINGE IVP PRN; -KETAMINE 10 MG/ML 20 ML VIAL ONE; -LIDOCAINE 1% (10MG/ML) FOR IV START INTRADERMA PRN; -LIDOCAINE 1% INJ 10MG/ML (20 ML MDV) ONE; -MIDAZOLAM 2 MG/2 ML VIAL IV ONE; -MIDAZOLAM ORAL SYRUP 10 MG/5 ML CUP PO ONE; -ONDANSETRON 4 MG/2 ML VIAL IVP PRN; -PROPOFOL 10 MG/ML 20 ML VIAL IV ONE; -SUCCINYLCHOLINE CHLORIDE 100 MG/5 ML SYR IV ONE; -fentaNYL (PF) 50 MCG/ML 2 ML AMP ONE
[2023-05-05] MEDS ORDERED: SUCCINYLCHOLINE CHLORIDE 200 MG/10 ML VIAL IV ONE (11:33)
[2023-05-05] MEDS ORDERED: PROPOFOL 10 MG/ML 20 ML VIAL IV ONE (11:33)
[2023-05-05] MEDS ORDERED: ePHEDrine 50 MG/ML 1 ML VIAL ONE (11:33)
[2023-05-05] MEDS ORDERED: LIDOCAINE 1% INJ 10MG/ML (20 ML MDV) ONE (11:33)
[2023-05-05] MEDS ORDERED: PHENYLEPHRINE 10 MG/ML VIAL ONE (11:33)
[2023-05-05] MEDS ORDERED: KETOROLAC 15 MG/ML 1 ML VIAL ONE (11:33)
--- NOTE | 2023-05-05 14:03 | P.GSCN ---
History of Present Illness Consult date: 05/05/23 (Pt) Reason for Consult: -4 BWS -1 PA #30 -Prophy -#16 M resin -#1 O resin glass ionomer. -#7,9,10 Root extractions -#8,30 Simple extraction Citanest forte 4% 4 carpules, local, palatal and lingual infiltration Post op instructions given to parents. Thank you Past Medical History Past Medical History: Seizure Disorder Additional Past Medical History / Comment(s): Epilepsy, cognitive impairment, developmentally delayed, non verbal, Autism, urinary incontinence, wears depends, hx UTI's, cerebral palsy, pt. has been in [facility] since 06/25 and requires [facility] list for transfer History of Any Multi-Drug Resistant Organisms: None Reported Additional Past Surgical History / Comment(s): VNS shunt, eye correction, dental work. Past Anesthesia/Blood Transfusion Reactions: No Reported Reaction Additional Past Anesthesia/Blood Transfusion Reaction / Comm: Mom PONV Smoking Status: Never smoker, Second hand smoke exposure - Past Family History Mother Family Medical History: No Reported History Medications and Allergies Home Medications Medication Instructions Recorded Confirmed Type Cariprazine HCl [Vraylar] 6 mg PO DAILY 09/25/20 05/03/23 History FLUoxetine HCL 80 mg PO HS 09/25/20 05/03/23 History Paliperidone [Invega] 9 mg PO DAILY 05/12/22 05/03/23 History Midazolam [Nayzilam] 1 spray NASAL ONCE PRN 05/14/22 05/03/23 History guanFACINE [Tenex] 3 mg PO DAILY 05/14/22 05/03/23 History Lacosamide [Vimpat] 200 mg PO BID 11/04/22 05/03/23 History cloBAZam 20 mg PO HS 11/04/22 05/03/23 History lamoTRIgine 300 mg PO BID 11/04/22 05/03/23 History LORazepam [Ativan] 1 mg PO BID PRN 02/21/23 05/03/23 History Brivaracetam [Briviact] 10 mg PO BID 05/03/23 05/03/23 History Allergies Allergy/AdvReac Type Severity Reaction Status Date / Time No Known Allergies Allergy Verified 05/03/23 08:35 Surgical - Exam Vital Signs Temp Pulse Resp BP Pulse Ox 97.2 F L 66 16 118/64 97 05/05/23 10:31 05/05/23 10:31 05/05/23 10:31 05/05/23 10:31 05/05/23 10:31
[2023-05-05 14:49] VITALS: TEMP 96.8
[2023-05-05 14:50] VITALS: RESP 12
[2023-05-05 15:19] VITALS: BP 103/63; PULSE 77
== END 2023-05-05 15:22 | disposition home or self-care (01) ==
LOC: OR 10:23
PROVIDERS: ATTEND Dentist
DX: K02.9 Dental caries, unspecified (principal); G80.8 Other cerebral palsy; G40.409 Other generalized epilepsy and epileptic syndromes, not intractable, without status epilepticus; Z87.440 Personal history of urinary (tract) infections; Z79.899 Other long term (current) drug therapy
CPT/HCPCS: 84703; 41899; J0330; J1100; J2405; J2001; J1885; J2704; J2371

== ENCOUNTER 2023-05-26 19:38 | Observation (INO) | payer OTHER ==
[2023-05-26] MEDS: SODIUM CHLORIDE 0.9% 1,000 ML IV STA (22:31)
--- NOTE | 2023-05-26 22:35 | ED ---
Weakness HPI - General Chief complaint: Weakness Stated complaint: AMS Time Seen by Provider: 05/26/23 21:28 Source: patient, EMS, RN notes reviewed, old records reviewed Mode of arrival: EMS Limitations: no limitations - History of Present Illness Initial comments: This is a 23-year-old female to the ER for evaluation today. Patient presents today for evaluation of altered mental status, unable to provide history patient is brought in for increasing altered mental status MD Complaint: generalized weakness, lack of energy, difficulty walking -: days(s) Location: generalized Severity: moderate Severity scale (1-10): 4 Quality: tingling, numbness Consistency: constant Improves with: none Worsens with: none Context: recent illness, history of similar Associated Symptoms: confusion - Related Data Home Medications Medication Instructions Recorded Confirmed Cariprazine HCl [Vraylar] 6 mg PO DAILY 09/25/20 05/03/23 FLUoxetine HCL 80 mg PO HS 09/25/20 05/03/23 Paliperidone [Invega] 9 mg PO DAILY 05/12/22 05/03/23 Midazolam [Nayzilam] 1 spray NASAL ONCE PRN 05/14/22 05/03/23 guanFACINE [Tenex] 3 mg PO DAILY 05/14/22 05/03/23 Lacosamide [Vimpat] 200 mg PO BID 11/04/22 05/03/23 cloBAZam 20 mg PO HS 11/04/22 05/03/23 lamoTRIgine 300 mg PO BID 11/04/22 05/03/23 LORazepam [Ativan] 1 mg PO BID PRN 02/21/23 05/03/23 Brivaracetam [Briviact] 10 mg PO BID 05/03/23 05/03/23 Allergies Allergy/AdvReac Type Severity Reaction Status Date / Time No Known Allergies Allergy Verified 05/26/23 19:48 Review of Systems ROS Statement: Those systems with pertinent positive or pertinent negative responses have been documented in the HPI. ROS Other: All systems not noted in ROS Statement are negative. Past Medical History Past Medical History: Seizure Disorder Additional Past Medical History / Comment(s): Epilepsy, cognitive impairment, developmentally delayed, non verbal, Autism, urinary incontinence, wears depends, hx UTI's, cerebral palsy, pt. has been in [facility] since 06/25 and requires [facility] list for transfer History of Any Multi-Drug Resistant Organisms: None Reported Additional Past Surgical History / Comment(s): VNS shunt, eye correction, dental work. Past Anesthesia/Blood Transfusion Reactions: No Reported Reaction Additional Past Anesthesia/Blood Transfusion Reaction / Comment(s): Mom PONV Past Psychological History: Anxiety Smoking Status: Never smoker, Second hand smoke exposure Past Alcohol Use History: None Reported Past Drug Use History: None Reported - Past Family History Mother Family Medical History: No Reported History General Exam Limitations: no limitations General appearance: alert, in no apparent distress Head exam: Present: atraumatic, normocephalic, normal inspection Eye exam: Present: normal appearance, PERRL, EOMI. Absent: scleral icterus, conjunctival injection, periorbital swelling ENT exam: Present: normal exam, mucous membranes moist Neck exam: Present: normal inspection. Absent: tenderness, meningismus, lymphadenopathy Respiratory exam: Present: normal lung sounds bilaterally. Absent: respiratory distress, wheezes, rales, rhonchi, stridor Cardiovascular Exam: Present: regular rate, normal rhythm, normal heart sounds. Absent: systolic murmur, diastolic murmur, rubs, gallop, clicks GI/Abdominal exam: Present: soft, normal bowel sounds. Absent: distended, tenderness, guarding, rebound, rigid Extremities exam: Present: normal inspection, full ROM, normal capillary refill. Absent: tenderness, pedal edema, joint swelling, calf tenderness Back exam: Present: normal inspection Neurological exam: Present: alert, oriented X3, CN II-XII intact Psychiatric exam: Present: normal affect, normal mood Skin exam: Present: warm, dry, intact, normal color. Absent: rash Course Vital Signs 05/26/23 05/26/23 05/27/23 19:44 21:47 02:21 Temperature 97.5 F L Pulse Rate 70 74 68 Respiratory 18 20 15 Rate Blood Pressure 109/70 112/78 O2 Sat by Pulse 94 L 94 L 95 Oximetry - Reevaluation(s) Reevaluation #1: 05/27/23 03:51 medical record is reviewed Reevaluation #2: 05/27/23 03:51 patient is unchanged here in the ER Reevaluation #3: 05/27/23 03:52 patient and mom informed of results here in the ED Reevaluation #4: 05/27/23 03:51 Was pt. sent in by a medical professional or institution (NOHELIA Diaz, CORE MACHINE OPERATOR, urgent care, hospital, or half-way...) When possible be specific @ -no Did you speak to anyone other than the patient for history (EMS, parent, family, police, friend...)? What history was obtained from this source @ -no Did you review nursing and triage notes (agree or disagree)? Why? @ -agree Are old charts reviewed (outside hosp., previous admission, EMS record, old EKG, old radiological studies, urgent care reports/EKG's, half-way records)? Report findings @ -yes Differential Diagnosis (chest pain, altered mental status, abdominal pain women, abdominal pain men, vaginal bleeding, weakness, fever, dyspnea, syncope, headache, dizziness, GI bleed, back pain, seizure, CVA, palpatations, mental health, musculoskeletal)? @ -prior EKG interpreted by me (3pts min.). @ -yes X-rays interpreted by me (1pt min.). @ -yes negative for acute disease CT interpreted by me (1pt min.). @ -no U/S interpreted by me (1pt. min.). @ -no What testing was considered but not performed or refused? (CT, X-rays, U/S, labs)? Why? @ -none What meds were considered but not given or refused? Why? @ -none Did you discuss the management of the patient with other professionals (pro fessionals i.e. NOHELIA Diaz, CORE MACHINE OPERATOR, lab, RT, psych nurse, criminal justice social worker, packaging engineer, teacher, sheriff officer, case monitor)? Give summary @ -no Was smoking cessation discussed for >3mins.? @ -no Was critical care preformed (if so, how long)? @ -no Were there social determinants of health that impacted care today? How? (Homelessness, low income, unemployed, alcoholism, drug addiction, transportation, low edu. Level, literacy, decrease access to med. care, correction, rehab)? @ -none Was there de-escalation of care discussed even if they declined (Discuss DNR or withdrawal of care, Hospice)? DNR status @ -no What co-morbidities impacted this encounter? (DM, HTN, Smoking, COPD, CAD, Cancer, CVA, ARF, Chemo, Hep., AIDS, mental health diagnosis, sleep apnea, morbid obesity)? @ -none Was patient admitted / discharged? Hospital course, mention meds given and route, prescriptions, significant lab abnormalities, going to OR and other pertinent info. @ - Undiagnosed new problem with uncertain prognosis? @ -no Drug Therapy requiring intensive monitoring for toxicity (Heparin, Nitro, Insulin, Cardizem)? @ -no Were any procedures done? @ -no Diagnosis/symptom? @ - Acute, or Chronic, or Acute on Chronic? @ -Acute Uncomplicated (without systemic symptoms) or Complicated (systemic symptoms)? @ -Complicated Side effects of treatment? @ -no Exacerbation, Progression, or Severe Exacerbation? @ -exacerbation Poses a threat to life or bodily function? How? (Chest pain, [place], [place], pneumonia, PE, COPD, DKA, ARF, appy, cholecystitis, CVA, Diverticulitis, Homicidal, Suicidal, threat to staff... and all critical care pts) @ -yes Reevaluation #5: Differential Altered Mental Status: Hypoglycemia, DKA, hypercapnia, ETOH, overdose, CO poisoning, trauma, myxedema coma, HTN encephalopathy, infection, encephalitis, psychosis, intercranial hemorrhage, hepatic encephalopathy, meningitis, CVA, this is not meant to be an all-inclusive list - Consultations Consultation #1: spoke w [facility] who is ok for admission Medical Decision Making - Medical Decision Making 23 female to the ER for evlauation of AMS, who will be admitted for evaluation in regards to altered mental state - Lab Data Result diagrams: 05/26/23 23:11 05/26/23 23:11 Lab Results 05/26/23 05/26/23 05/26/23 Range/Units 23:11 23:11 23:11 WBC 3.8 (3.8-10.6) k/uL RBC 3.55 L (3.80-5.40) m/uL Hgb 12.1 (11.4-16.0) gm/dL Hct 34.1 (34.0-46.0) % MCV 96.1 (80.0-100.0) fL MCH 34.1 (25.0-35.0) pg MCHC 35.5 (31.0-37.0) g/dL RDW 14.8 (11.5-15.5) % Plt Count 165 (150-450) k/uL MPV 8.0 Neutrophils % 49 % Lymphocytes % 38 % Monocytes % 8 % Eosinophils % 1 % Basophils % 0 % Neutrophils # 1.9 (1.3-7.7) k/uL Lymphocytes # 1.5 (1.0-4.8) k/uL Monocytes # 0.3 (0-1.0) k/uL Eosinophils # 0.1 (0-0.7) k/uL Basophils # 0.0 (0-0.2) k/uL PT 11.1 (10.0-12.5) sec INR 1.0 (<1.2) APTT 26.7 (22.0-30.0) sec Sodium (137-145) mmol/L Potassium (3.5-5.1) mmol/L Chloride (98-107) mmol/L Carbon Dioxide (22-30) mmol/L Anion Gap mmol/L BUN (7-17) mg/dL Creatinine (0.52-1.04) mg/dL Est GFR (CKD-EPI)AfAm (>60 ml/min/1.73 sqM) Est GFR (CKD-EPI)NonAf (>60 ml/min/1.73 sqM) Glucose (74-99) mg/dL Plasma Lactic Acid Mookie (0.7-2.0) mmol/L Calcium (8.4-10.2) mg/dL Phosphorus (2.5-4.5) mg/dL Magnesium (1.6-2.3) mg/dL Total Bilirubin (0.2-1.3) mg/dL AST (14-36) U/L ALT (4-34) U/L Alkaline Phosphatase (38-126) U/L Troponin I (0.000-0.034) ng/mL Total Protein (6.3-8.2) g/dL Albumin (3.5-5.0) g/dL Urine Color Yellow Urine Appearance Cloudy H (Clear) Urine pH 6.5 (5.0-8.0) Ur Specific [place] 1.030 (1.001-1.035) Urine Protein 1+ H (Negative) Urine Glucose (UA) Negative (Negative) Urine Ketones Trace H (Negative) Urine Blood Negative (Negative) Urine Nitrite Negative (Negative) Urine Bilirubin 1+ H (Negative) Urine Urobilinogen 8.0 (<2.0) mg/dL Ur Leukocyte Esterase Negative (Negative) Urine WBC 2 (0-5) /hpf Ur Squamous Epith Cells 7 H (0-4) /hpf Urine Bacteria Moderate H (None) /hpf Urine Mucus Many H (None) /hpf 05/26/23 05/26/23 05/26/23 Range/Units 23:11 23:11 23:11 WBC (3.8-10.6) k/uL RBC (3.80-5.40) m/uL Hgb (11.4-16.0) gm/dL Hct (34.0-46.0) % MCV (80.0-100.0) fL MCH (25.0-35.0) pg MCHC (31.0-37.0) g/dL RDW (11.5-15.5) % Plt Count (150-450) k/uL MPV Neutrophils % % Lymphocytes % % Monocytes % % Eosinophils % % Basophils % % Neutrophils # (1.3-7.7) k/uL Lymphocytes # (1.0-4.8) k/uL Monocytes # (0-1.0) k/uL Eosinophils # (0-0.7) k/uL Basophils # (0-0.2) k/uL PT (10.0-12.5) sec INR (<1.2) APTT (22.0-30.0) sec Sodium 150 H (137-145) mmol/L Potassium 3.1 L (3.5-5.1) mmol/L Chloride 119 H (98-107) mmol/L Carbon Dioxide 29 (22-30) mmol/L Anion Gap 2 mmol/L BUN 23 H (7-17) mg/dL Creatinine 0.64 (0.52-1.04) mg/dL Est GFR (CKD-EPI)AfAm >90 (>60 ml/min/1.73 sqM) Est GFR (CKD-EPI)NonAf >90 (>60 ml/min/1.73 sqM) Glucose 76 (74-99) mg/dL Plasma Lactic Acid Mookie 0.7 (0.7-2.0) mmol/L Calcium 7.9 L (8.4-10.2) mg/dL Phosphorus 3.3 (2.5-4.5) mg/dL Magnesium 1.8 (1.6-2.3) mg/dL Total Bilirubin 0.6 (0.2-1.3) mg/dL AST 157 H (14-36) U/L ALT 151 H (4-34) U/L Alkaline Phosphatase 138 H (38-126) U/L Troponin I <0.012 (0.000-0.034) ng/mL Total Protein 5.0 L (6.3-8.2) g/dL Albumin 2.8 L (3.5-5.0) g/dL Urine Color Urine Appearance (Clear) Urine pH (5.0-8.0) Ur Specific [place] (1.001-1.035) Urine Protein (Negative) Urine Glucose (UA) (Negative) Urine Ketones (Negative) Urine Blood (Negative) Urine Nitrite (Negative) Urine Bilirubin (Negative) Urine Urobilinogen (<2.0) mg/dL Ur Leukocyte Esterase (Negative) Urine WBC (0-5) /hpf Ur Squamous Epith Cells (0-4) /hpf Urine Bacteria (None) /hpf Urine Mucus (None) /hpf Disposition Clinical Impression: Altered mental status, Weakness, Cerebral palsy, Seizure, Developmental disorder Disposition: ADMITTED IP TO THIS HOSP Condition: Fair Is patient prescribed a controlled substance at d/c from ED?: No Referrals: Víctor Shay Jr, DO [Primary Care Provider] - 1-2 days Time of Disposition: 03:50
[2023-05-26 23:31] LABS: Basophils % (A) 0 %; Eosinophils # (A) 0.1 k/uL (0-0.7); Eosinophils % (A) 1 %; HCT 34.1 % (34.0-46.0); HGB 12.1 gm/dL (11.4-16.0); Lymphocytes # (A) 1.5 k/uL (1.0-4.8); Lymphocytes % (A) 38 %; MCH 34.1 pg (25.0-35.0); MCHC 35.5 g/dL (31.0-37.0); MCV 96.1 fL (80.0-100.0); Monocytes # (A) 0.3 k/uL (0-1.0); Monocytes % (A) 8 %; Neutrophils # (A) 1.9 k/uL (1.3-7.7); Neutrophils % (A) 49 %; Platelet Count 165 k/uL (150-450); RBC 3.55 m/uL (3.80-5.40); RDW 14.8 % (11.5-15.5); WBC 3.8 k/uL (3.8-10.6)
[2023-05-26 23:39] LABS: Partial Thromboplastin Time 26.7 sec (22.0-30.0); Prothrombin Time 11.1 sec (10.0-12.5)
[2023-05-26 23:42] LABS: ALT 151 U/L (4-34); AST 157 U/L (14-36); African American GFR (CKD) >90 (>60 ml/min/1.73 sqM); Albumin 2.8 g/dL (3.5-5.0); Alkaline Phosphatase 138 U/L (38-126); Anion Gap 2 mmol/L; Blood Urea Nitrogen 23 mg/dL (7-17); Calcium 7.9 mg/dL (8.4-10.2); Carbon Dioxide 29 mmol/L (22-30); Chloride 119 mmol/L (98-107); Glucose 76 mg/dL (74-99); Magnesium 1.8 mg/dL (1.6-2.3); Non-African American GFR(CKD) >90 (>60 ml/min/1.73 sqM); Phosphorus 3.3 mg/dL (2.5-4.5); Potassium 3.1 mmol/L (3.5-5.1); Sodium 150 mmol/L (137-145); Total Bilirubin 0.6 mg/dL (0.2-1.3)
[2023-05-26 23:59] LABS: Appearance,Urine Cloudy (Clear); Bacteria,Urine Moderate /hpf; Bilirubin,Urine 1+ (Negative); Blood,Urine Negative (Negative); Color,Urine Yellow; Glucose,Urine (UA) Negative (Negative); Ketones,Urine Trace (Negative); Leukocyte Esterase,Urine Negative (Negative); Mucus,Urine Many /hpf; Nitrite,Urine Negative (Negative); PH, Urine 6.5 (5.0-8.0); Protein,Urine 1+ (Negative); Squamous Epithelial Cell,Urine 7 /hpf (0-4); WBC,Urine 2 /hpf (0-5)
[2023-05-27] MEDS ORDERED: MORPHINE SULFATE 4 MG/ML SYRINGE IV PRN (03:46)
[2023-05-27] MEDS ORDERED: ONDANSETRON 4 MG/2 ML VIAL IVP PRN (03:46)
[2023-05-27] MEDS ORDERED: NALOXONE 0.4 MG/ML 1 ML VIAL IV PRN (03:46)
[2023-05-27] MEDS: SODIUM CHLORIDE 0.9% 1,000 ML IV SCH (04:31)
[2023-05-27] MEDS ORDERED: Potassium Replacement Protocol 1 EACH MISC MISCELLANE PRN (11:47)
[2023-05-27] MEDS ORDERED: LORazepam 1 MG TAB PO PRN (13:36)
[2023-05-27] MEDS ORDERED: NON FORMULARY DRUG (Midazolam [Nayzilam] 5 MG/0.1 ML Each) EA NOSTRIL PRN (13:36)
[2023-05-27] MEDS: guanFACINE 1 MG TAB PO SCH (13:54)
[2023-05-27] MEDS: LACOSAMIDE 50 MG TABLET PO SCH (13:54)
[2023-05-27] MEDS: PALIPERIDONE 3 MG TAB.ER.24 PO SCH (13:55)
[2023-05-27] MEDS: lamoTRIgine 100 MG TAB PO SCH (13:55)
[2023-05-27] MEDS: NON FORMULARY DRUG (Cariprazine Hcl [Vraylar] 6 MG Capsule) PO SCH (13:56)
[2023-05-27] MEDS: BRIVARACETAM 10 MG/ML PO SCH (13:56)
[2023-05-27] MEDS: PANTOPRAZOLE 40 MG/10 ML VIAL IVP SCH (14:21)
[2023-05-27] MEDS: DOCUSATE ORAL SOLN 100 MG/10 ML CUP PO SCH (14:27)
[2023-05-27 14:40] LABS: Appearance,Urine Cloudy (Clear); Bacteria,Urine Few /hpf; Bilirubin,Urine Negative (Negative); Blood,Urine Negative (Negative); Color,Urine Yellow; Glucose,Urine (UA) Negative (Negative); Ketones,Urine 1+ (Negative); Leukocyte Esterase,Urine Negative (Negative); Mucus,Urine Many /hpf; Nitrite,Urine Negative (Negative); PH, Urine 6.5 (5.0-8.0); Protein,Urine Trace (Negative); RBC,Urine 2 /hpf (0-5); Specific Gravity,Urine 1.028 (1.001-1.035); Squamous Epithelial Cell,Urine 2 /hpf (0-4); WBC,Urine 1 /hpf (0-5)
--- NOTE | 2023-05-27 15:05 | P.CNNES ---
History of Present Illness Consult date: 05/27/23 Requesting physician: Joel Funes Reason for Consult: Altered mental status History of Present Illness: Patient is a 23-year-old female with history of developmental delays, cognitively impaired, seizure disorder, came to the hospital by ambulance yesterday at 7:38 PM for altered mental status. Patient's mother was present, who provided with a history. She states that she called the ambulance because of altered mental status, lethargy, not eating or drinking and constant level state of irritation. As per EMS flowsheet, when they arrived on scene, found nonverbal alert but lethargic 23-year-old female laying supine in her bed in her care of mother. Mother stated that patient has not been herself for the last 2 days, not responding normally to her environment. Initially she thought that patient was constipated but her demeanor did not change after having a bowel movement yesterday. She states that patient normally responds serially to others and is happy when she feels well. She is able to hold eye contact when she is well. Patient's airway was normal with normal respiration. She was lisa rt to surroundings but lethargic. EKG shows sinus rhythm. Patient was found to be hypotensive and nonfebrile. Lungs were clear. Patient's blood pressure was 109/47 pulse rate 68, respiration 14 saturation 94% temperature 98.7. Blood test shows normal WBC hemoglobin 12.1 platelets are normal. PT PTT normal sodium 150 potassium 3.1, BUN 23 creatinine 0.64. AST is 157, ALT 151 both elevated. Troponin is normal. UA is negative. Patient recently visited ER on 04/20/2023 and was transferred to [facility], where patient underwent prolonged, 36 hours EEG which showed no epileptiform activity. Patient's mother states that at that time she was having strange episodes in which she was rolling [id number], flopping around arching her back and some spells in which she was just staring off. Patient had 2 episodes caught during the EEG and both of them showed no epileptiform activ ity. Patient was taken off Keppra, and switched to Briviact and also started Onfi. Patient is still on Lamictal and Vimpat. It was felt that this is a way of throwing temper tantrums and were not seizures. Patient was recently admitted to [facility] patient has been seen by myself most recently on 03/30/2023 when she had altered mental status felt to be related to metabolic encephalopathy on top of her baseline static encephalopathy from developmental delays, cognitive impairment. Patient's last Lamictal level was 21.5 (2-15), Keppra 91.6 (3-60), Vimpat level 19.9 (up to 15.0), all on 04/19/2023. Patient was born with her twin sister at 38 weeks of by normal vaginal delivery without any complications. Her weight was 7 pounds, and had no complications. She was noticed to have developmental delays at 1-1/2-2 years, when she was not rolling, not talking. Patient started having seizure disorder at age 2. Over the years she has tried numerous medications. She had undergone genetic testing, and no abnormalities were identified. Her breakthrough seizures usually occurs whenever she has a UTI or sinus infection. Usually the medications used to hold her seizures very well. She may not have seizure for a month or several weeks. Patient has significant speech delays, and has only 5-6 words vocabulary. She is in diapers and never was potty trained. Patient was however ambulatory, although with not a lot of mobility, but was able to get up, and walk inside the house, and was able to walk up stairs, walk downstairs. Patient's parents are and patient lives with her mother mostly, and only on the weekends and Wednesday afternoon, and that takes care of her. In late June and early July 2022 patient has worsening of her seizures. On a Wednesday, she had a couple seizures, and the frequency ramped up on and by Wednesday, she was having seizures every 15 minutes. Patient was admitted to [facility], where she was intubated, placed on mechanical ventilation. It took almost 48 hours to control the seizures (per father, she had 100s of seizures around that time of hospitalization). Subsequently she developed a collapsed lung and pneumonia and was hospitalized for another 9 days for total of 14 days of hospitalization. Patient has always been on Lamictal 300 mg twice a day and Keppra 2000 mg twice a day, but after this admission in July 2022, she has been also added on Vimpat 200 mg twice a day and Onfi 20 mg at bedtime. During this hospitalization, she was strapped in the bed, and was immobile, as she was pulling all lines and was difficult to manage, as patient does not take verbal commands and was pulling all the IV and other lines out. After she was discharged from the hospitalization, patient has not walked. She just scoots around on the floor but does not walk. She has developed a wound on the right lateral malleolus because of lack of mobility and from dragging on the carpet. Review of Systems ROS unobtainable: due to mental status Past Medical History Past Medical History: Seizure Disorder Additional Past Medical History / Comment(s): Epilepsy, cognitive impairment, developmentally delayed, non verbal, Autism, urinary incontinence, wears depends, hx UTI's, cerebral palsy, pt. has been in W/C since 06/25 and requires [facility] list for transfer History of Any Multi-Drug Resistant Organisms: None Reported Additional Past Surgical History / Comment(s): VNS shunt, eye correction, dental work. Past Anesthesia/Blood Transfusion Reactions: No Reported Reaction Additional Past Anesthesia/Blood Transfusion Reaction / Comment(s): Mom PONV Past Psychological History: Anxiety Smoking Status: Never smoker, Second hand smoke exposure Past Alcohol Use History: None Reported Past Drug Use History: None Reported - Past Family History Mother Family Medical History: No Reported History Medications and Allergies Home Medications Medication Instructions Recorded Confirmed Type Cariprazine HCl [Vraylar] 6 mg PO DAILY 09/25/20 05/27/23 History FLUoxetine HCL 80 mg PO HS 09/25/20 05/27/23 History Paliperidone [Invega] 9 mg PO DAILY 05/12/22 05/27/23 History Midazolam [Nayzilam] 5 mg NASAL DIRECTED PRN 05/14/22 05/27/23 History guanFACINE [Tenex] 3 mg PO DAILY 05/14/22 05/27/23 History Lacosamide [Vimpat] 200 mg PO BID 11/04/22 05/27/23 History cloBAZam 20 mg PO HS 11/04/22 05/27/23 History lamoTRIgine 300 mg PO BID 11/04/22 05/27/23 History LORazepam [Ativan] 1 mg PO TID PRN 02/21/23 05/27/23 History Brivaracetam [Briviact] 10 mg PO BID 05/03/23 05/27/23 History Docusate Oral Soln [Colace Oral 60 mg PO DAILY 05/27/23 05/27/23 History Soln] Allergies Allergy/AdvReac Type Severity Reaction Status Date / Time No Known Allergies Allergy Verified 05/27/23 07:09 Physical Examination - Vital Signs Vital Signs: Vital Signs Temp Pulse Resp BP Pulse Ox 05/27/23 08:34 98.2 F 91 18 103/67 100 05/27/23 02:21 68 15 112/78 95 05/26/23 21:47 74 20 94 L 05/26/23 19:44 97.5 F L 70 18 109/70 94 L Intake and Output 05/26/23 05/27/23 05/27/23 22:59 06:59 14:59 Other: Weight 70.76 kg Patient is a young female, laying in the bed, in no distress. Patient is somnolent, but does open her eyes, and appears restless. Patient is significantly mentally challenged. Patient only speaks a few words, which is her baseline. Attention, concentration and fund of knowledge are all severely impaired. On cranial nerve examination, pupils are equal, round and reacting to light, visual miguel could not be tested. Extraocular muscles appears intact. Face is symmetric. Lower cranial nerves could not be tested. Patient does hear and answers sporadically with her baseline limited speech. On muscle strength testing, patient did not cooperate with the testing at all. Patient was laying in the bed, crossing her legs in an style. Patient has slight heelcord shortening on the right side. Deep tendon reflexes are symmetric 2+ at the biceps, 2+ brachioradialis, 3 at the knees, 3 ankles and plantars are upgoing bilaterally. Patient has a sustained clonus on the right side. Sensory and cerebellar functions cannot be tested. Her tone is increased in the legs. Gait patient not ambulatory at this time On general examination, there is no carotid bruit or murmur, S1-S2 audible. Chest is clear on consultation. Abdomen is soft nontender. No organomegaly, bowel sounds present. Peripheral pulses are present. No peripheral edema. Results - Laboratory Findings CBC and BMP: 05/26/23 23:11 02/21/24 23:11 Abnormal Lab Findings: Abnormal Labs 05/26/23 05/26/23 05/26/23 23:11 23:11 23:11 RBC 3.55 L Sodium 150 H Potassium 3.1 L Chloride 119 H BUN 23 H Calcium 7.9 L AST 157 H ALT 151 H Alkaline Phosphatase 138 H Total Protein 5.0 L Albumin 2.8 L Urine Appearance Cloudy H Urine Protein 1+ H Urine Ketones Trace H Urine Bilirubin 1+ H Ur Squamous Epith Cells 7 H Urine Bacteria Moderate H Urine Mucus Many H Assessment and Plan Assessment: * Altered mental status, likely due to metabolic encephalopathy, on top of her baseline static encephalopathy from developmental delays, cognitive impairment. * History of mentally challenged, cognitively impaired with developmental delays. * Seizure disorder since age 2. Seizures currently in remission. * Polypharmacy * Hypernatremia * Elevated liver enzymes * Rule out UTI * History of recurrent UTI * Autism Plan: * Patient's seizures are in remission. Continue same dose of Briviact 10 mg twice daily, Lamictal 300 mg twice daily, Onfi 20 mg at bedtime and Vimpat 200 mg twice daily. Patient is now off Keppra. * Patient's last Lamictal level was 21.5 (2-15). Patient's mother was recommended to discuss with her neurologist about the level, if the dose of Lamictal needs to be decreased. She also has elevated liver enzymes. * No other neurological workup indicated. * Neurologically clear for discharge. * Patient will follow-up with the neurologist. * Thank you for the consult.
[2023-05-27 16:13] LABS: African American GFR (CKD) >90 (>60 ml/min/1.73 sqM); Anion Gap 6 mmol/L; Blood Urea Nitrogen 22 mg/dL (7-17); Calcium 8.4 mg/dL (8.4-10.2); Carbon Dioxide 27 mmol/L (22-30); Chloride 116 mmol/L (98-107); Glucose 81 mg/dL (74-99); Non-African American GFR(CKD) >90 (>60 ml/min/1.73 sqM); Potassium 3.7 mmol/L (3.5-5.1); Sodium 149 mmol/L (137-145)
--- NOTE | 2023-05-27 16:34 | P.DS ---
Providers Date of admission: 05/27/23 03:46 Expected date of discharge: 05/27/23 Attending physician: Víctor Shay Consults: 05/27/23 03:46 Consult Physician Routine Consulting Provider: Edvin Lopez Consult Reason/Comments: ams Do you want consulting provider notified?: Yes Primary care physician: Víctor Shay Patient Condition at Discharge: Fair Plan - Discharge Summary New Discharge Prescriptions: New Sulfamethox-Tmp 800-160Mg [Bactrim DS 800-160 mg] 1 tab PO Q12HR 5 Days #10 tab Continue Paliperidone [Invega] 9 mg PO DAILY Midazolam [Nayzilam] 5 mg NASAL DIRECTED PRN PRN Reason: Seizures Lacosamide [Vimpat] 200 mg PO BID cloBAZam 20 mg PO HS lamoTRIgine 300 mg PO BID LORazepam [Ativan] 1 mg PO TID PRN PRN Reason: Anxiety Brivaracetam [Briviact] 10 mg PO BID Cariprazine HCl [Vraylar] 6 mg PO DAILY FLUoxetine HCL 80 mg PO HS guanFACINE [Tenex] 3 mg PO DAILY Docusate Oral Soln [Colace Oral Soln] 60 mg PO DAILY Discharge Medication List Cariprazine HCl [Vraylar] 6 mg PO DAILY 09/25/20 [History] FLUoxetine HCL 80 mg PO HS 09/25/20 [History] Paliperidone [Invega] 9 mg PO DAILY 05/12/22 [History] Midazolam [Nayzilam] 5 mg NASAL DIRECTED PRN 05/14/22 [History] guanFACINE [Tenex] 3 mg PO DAILY 05/14/22 [History] Lacosamide [Vimpat] 200 mg PO BID 11/04/22 [History] cloBAZam 20 mg PO HS 11/04/22 [History] lamoTRIgine 300 mg PO BID 11/04/22 [History] LORazepam [Ativan] 1 mg PO TID PRN 02/21/23 [History] Brivaracetam [Briviact] 10 mg PO BID 05/03/23 [History] Docusate Oral Soln [Colace Oral Soln] 60 mg PO DAILY 05/27/23 [History] Sulfamethox-Tmp 800-160Mg [Bactrim DS 800-160 mg] 1 tab PO Q12HR 5 Days #10 tab 05/27/23 [Rx] Follow up Appointment(s)/Referral(s): Víctor Shay Jr, [Primary Care Provider] - 3 Days Activity/Diet/Wound Care/Special Instructions: Follow-up with patient's neurologist at [facility] in 2 weeks.
--- NOTE | 2023-05-27 16:37 | P.HPIM ---
History of Present Illness H&P Date: 05/27/23 This is a 23-year-old female with past medical history significant for epilepsy, cerebral palsy, autism, nonverbal, and multiple other medical issues, follows up with [place] epileptologist -Dr. Barone, and presented to the ER with All information is being obtained from chart, staff, mother. Afebrile, normal WBC, normal WBC, hemoglobin 12.1, platelets 165, INR 1. Sodium 150, potassium 3.1 Review of Systems ROS unobtainable: due to mental status Past Medical History Past Medical History: Seizure Disorder Additional Past Medical History / Comment(s): Epilepsy, cognitive impairment, developmentally delayed, non verbal, Autism, urinary incontinence, wears depends, hx UTI's, cerebral palsy, pt. has been in W/C since 06/25 and requires [facility] list for transfer History of Any Multi-Drug Resistant Organisms: None Reported Additional Past Surgical History / Comment(s): VNS shunt, eye correction, dental work. Past Anesthesia/Blood Transfusion Reactions: No Reported Reaction Additional Past Anesthesia/Blood Transfusion Reaction / Comment(s): Mom PONV Past Psychological History: Anxiety Smoking Status: Never smoker, Second hand smoke exposure Past Alcohol Use History: None Reported Past Drug Use History: None Reported - Past Family History Mother Family Medical History: No Reported History Medications and Allergies Home Medications Medication Instructions Recorded Confirmed Type Cariprazine HCl [Vraylar] 6 mg PO DAILY 09/25/20 05/27/23 History FLUoxetine HCL 80 mg PO HS 09/25/20 05/27/23 History Paliperidone [Invega] 9 mg PO DAILY 05/12/22 05/27/23 History Midazolam [Nayzilam] 5 mg NASAL DIRECTED PRN 05/14/22 05/27/23 History guanFACINE [Tenex] 3 mg PO DAILY 05/14/22 05/27/23 History Lacosamide [Vimpat] 200 mg PO BID 11/04/22 05/27/23 History cloBAZam 20 mg PO HS 11/04/22 05/27/23 History lamoTRIgine 300 mg PO BID 11/04/22 05/27/23 History LORazepam [Ativan] 1 mg PO TID PRN 02/21/23 05/27/23 History Brivaracetam [Briviact] 10 mg PO BID 05/03/23 05/27/23 History Docusate Oral Soln [Colace Oral 60 mg PO DAILY 05/27/23 05/27/23 History Soln] Allergies Allergy/AdvReac Type Severity Reaction Status Date / Time No Known Allergies Allergy Verified 05/27/23 07:09 Physical Exam Vitals: Vital Signs Temp Pulse Resp BP Pulse Ox 05/27/23 08:34 98.2 F 91 18 103/67 100 05/27/23 02:21 68 15 112/78 95 05/26/23 21:47 74 20 94 L 05/26/23 19:44 97.5 F L 70 18 109/70 94 L Intake and Output 05/26/23 05/27/23 05/27/23 22:59 06:59 14:59 Other: Weight 70.76 kg GENERAL: Lying in bed, no apparent acute distress. HEAD: Atraumatic, normocephalic. EYES: Deferred NECK: Supple, without lymphadenopathy or JVD LUNGS: Breath sounds no wheezes rales, there is rhonchi to the right lung. HEART: Regular rate and rhythm without murmurs, rubs or gallops.S1S2 Normal ABDOMEN: Soft, nontender, normoactive bowel sounds. No guarding, no rebound. EXTREMITIES: Normal range of motion, no pitting or edema. No clubbing or cyanosis. NEUROLOGICAL: Limited exam:She does not speak but makes sounds, SKIN: Warm, Dry, normal turgor, no rashes or lesions noted. Results CBC & Chem 7: 05/26/23 23:11 05/26/23 23:11 Labs: Abnormal Lab Results - Last 24 Hours (Table) 05/26/23 05/26/23 05/26/23 Range/Units 23:11 23:11 23:11 RBC 3.55 L (3.80-5.40) m/uL Sodium 150 H (137-145) mmol/L Potassium 3.1 L (3.5-5.1) mmol/L Chloride 119 H (98-107) mmol/L BUN 23 H (7-17) mg/dL Calcium 7.9 L (8.4-10.2) mg/dL AST 157 H (14-36) U/L ALT 151 H (4-34) U/L Alkaline Phosphatase 138 H (38-126) U/L Total Protein 5.0 L (6.3-8.2) g/dL Albumin 2.8 L (3.5-5.0) g/dL Urine Appearance Cloudy H (Clear) Urine Protein 1+ H (Negative) Urine Ketones Trace H (Negative) Urine Bilirubin 1+ H (Negative) Ur Squamous Epith Cells 7 H (0-4) /hpf Urine Bacteria Moderate H (None) /hpf Urine Mucus Many H (None) /hpf Assessment and Plan Assessment: Altered mental status, weakness and the patient with epilepsy, cerebral palsy, autism, nonverbal and multiple other medical issues Cognitively impaired with developmental disorder Autism Cerebral palsy Abnormal LFTs
[2023-05-27 18:19] VITALS: TEMP 98.9
[2023-05-27] MEDS ORDERED: FLUoxetine HCL 20 MG CAP PO SCH (21:00)
[2023-05-27] MEDS ORDERED: NON FORMULARY DRUG (Clobazam [Clobazam] 10 MG Tablet) PO SCH (21:00)
[2023-05-27 21:08] VITALS: BP 111/78; PULSE 70; RESP 18
== END 2023-05-27 20:40 | disposition home or self-care (01) ==
LOC: EC 19:38 → 6NMEDSUR 05-27 03:46
PROVIDERS: ADMIT Family Medicine; ATTEND Family Medicine
DX: R41.82 Altered mental status, unspecified (principal); F41.9 Anxiety disorder, unspecified; G80.9 Cerebral palsy, unspecified; F84.0 Autistic disorder; G40.909 Epilepsy, unspecified, not intractable, without status epilepticus; R74.8 Abnormal levels of other serum enzymes; E87.0 Hyperosmolality and hypernatremia; Z77.22 Contact with and (suspected) exposure to environmental tobacco smoke (acute) (chronic); Z79.899 Other long term (current) drug therapy; Z87.440 Personal history of urinary (tract) infections
CPT/HCPCS: 96361; 96374; 99285; 36415; 80053; 80048; 82140; 83605; 83735; 84100; 84484; 85025; 85610; 85730; 81001; G0378; C9113

== ENCOUNTER 2023-05-30 15:24 | Inpatient (IN) | payer OTHER ==
--- NOTE | 2023-05-30 15:43 | ED ---
Weakness HPI - General Chief complaint: Recheck/Abnormal Lab/Rx Stated complaint: Dehydration, decrease in appetite Time Seen by Provider: 05/30/23 15:26 Source: family, RN notes reviewed, old records reviewed Mode of arrival: EMS Limitations: physical limitation - History of Present Illness Initial comments: This is a 23-year-old female well-known to the emergency room coming in for altered mental status failure to thrive not feeling appropriate. Patient was just recent hospital patient hospitalization and upon discharge she showed no improvement MD Complaint: generalized weakness, lack of energy, difficulty walking -: days(s) Location: generalized Severity: moderate Severity scale (1-10): 6 Consistency: constant Improves with: none Worsens with: none Context: history of similar Associated Symptoms: denies other symptoms - Related Data Home Medications Medication Instructions Recorded Confirmed Cariprazine HCl [Vraylar] 6 mg PO DAILY 09/25/20 05/30/23 FLUoxetine HCL 80 mg PO HS 09/25/20 05/30/23 Paliperidone [Invega] 9 mg PO DAILY 05/12/22 05/30/23 Midazolam [Nayzilam] 5 mg NASAL DIRECTED PRN 05/14/22 05/30/23 guanFACINE [Tenex] 3 mg PO DAILY 05/14/22 05/30/23 Lacosamide [Vimpat] 200 mg PO BID 11/04/22 05/30/23 lamoTRIgine 300 mg PO BID 11/04/22 05/30/23 LORazepam [Ativan] 1 mg PO TID PRN 02/21/23 05/30/23 Brivaracetam [Briviact] 10 mg PO BID 05/03/23 05/30/23 Docusate Oral Soln [Colace Oral 60 mg PO DAILY 05/27/23 05/30/23 Soln] Previous Rx's Medication Instructions Recorded Nitrofurantoin 100 mg PO QID 7 Days #280 ml 06/03/23 cloBAZam 10 mg PO HS #0 06/03/23 Allergies Allergy/AdvReac Type Severity Reaction Status Date / Time No Known Allergies Allergy Verified 05/30/23 17:54 Review of Systems ROS Statement: Those systems with pertinent positive or pertinent negative responses have been documented in the HPI. ROS Other: All systems not noted in ROS Statement are negative. Past Medical History Past Medical History: Seizure Disorder Additional Past Medical History / Comment(s): Epilepsy, cognitive impairment, developmentally delayed, non verbal, Autism, urinary incontinence, wears depends, hx UTI's, cerebral palsy, pt. has been in W/C since 06/25 and requires Kate list for transfer History of Any Multi-Drug Resistant Organisms: None Reported Additional Past Surgical History / Comment(s): VNS shunt, eye correction, dental work. Past Anesthesia/Blood Transfusion Reactions: No Reported Reaction Additional Past Anesthesia/Blood Transfusion Reaction / Comment(s): Mom PONV Past Psychological History: Anxiety Smoking Status: Never smoker, Second hand smoke exposure Past Alcohol Use History: None Reported Past Drug Use History: None Reported - Past Family History Mother Family Medical History: No Reported History General Exam Limitations: physical limitation General appearance: alert, in no apparent distress Head exam: Present: atraumatic, normocephalic, normal inspection Eye exam: Present: normal appearance, PERRL, EOMI. Absent: scleral icterus, conjunctival injection, periorbital swelling ENT exam: Present: normal exam, mucous membranes moist Neck exam: Present: normal inspection. Absent: tenderness, meningismus, lymphadenopathy Respiratory exam: Present: normal lung sounds bilaterally. Absent: respiratory distress, wheezes, rales, rhonchi, stridor Cardiovascular Exam: Present: regular rate, normal rhythm, normal heart sounds. Absent: systolic murmur, diastolic murmur, rubs, gallop, clicks GI/Abdominal exam: Present: soft, normal bowel sounds. Absent: distended, tenderness, guarding, rebound, rigid Extremities exam: Present: normal inspection, full ROM, normal capillary refill. Absent: tenderness, pedal edema, joint swelling, calf tenderness Back exam: Present: normal inspection Neurological exam: Present: alert, oriented X3, CN II-XII intact Psychiatric exam: Present: normal affect, normal mood Skin exam: Present: warm, dry, intact, normal color. Absent: rash Course Vital Signs 05/30/23 05/30/23 05/30/23 15:27 17:32 20:00 Temperature 97.1 F L Pulse Rate 70 80 Respiratory 17 18 Rate Blood Pressure 110/58 110/58 121/71 O2 Sat by Pulse 98 97 Oximetry - Reevaluation(s) Reevaluation #1: 05/30/23 19:44 Records reviewed Reevaluation #2: 02/25/24 19:44 Patient symptoms unchanged Reevaluation #3: 05/30/23 19:44 Patient informed of results and questions answered Reevaluation #4: Was pt. sent in by a medical professional or institution (NOHELIA Diaz, [employer], urgent care, hospital, or half-way...) When possible be specific @ -no Did you speak to anyone other than the patient for history (EMS, parent, family, police, friend...)? What history was obtained from this source @ -no Did you review nursing and triage notes (agree or disagree)? Why? @ -agree Are old charts reviewed (outside hosp., previous admission, EMS record, old EKG, old radiological studies, urgent care reports/EKG's, half-way records)? Report findings @ -yes Differential Diagnosis (chest pain, altered mental status, abdominal pain women, abdominal pain men, vaginal bleeding, weakness, fever, dyspnea, syncope, headache, dizziness, GI bleed, back pain, seizure, CVA, palpatations, mental health, musculoskeletal)? @ -prior EKG interpreted by me (3pts min.). @ -yes X-rays interpreted by me (1pt min.). @ -yes negative for acute disease CT interpreted by me (1pt min.). @ -no U/S interpreted by me (1pt. min.). @ -no What testing was considered but not performed or refused? (CT, X-rays, U/S, labs)? Why? @ -none What meds were considered but not given or refused? Why? @ -none Did you discuss the management of the patient with other professionals (brent tijerina i.e. NOHELIA Diaz, [employer], lab, RT, psych nurse, certified social workers in health care, v block saw operator, teacher, gunnery/ordnance officer, case work aide)? Give summary @ -no Was smoking cessation discussed for >3mins.? @ -no Was critical care preformed (if so, how long)? @ -no Were there social determinants of health that impacted care today? How? (Homelessness, low income, unemployed, alcoholism, drug addiction, transportation, low edu. Level, literacy, decrease access to med. care, penitentiary, rehab)? @ -none Was there de-escalation of care discussed even if they declined (Discuss DNR or withdrawal of care, Hospice)? DNR status @ -no What co-morbidities impacted this encounter? (DM, HTN, Smoking, COPD, CAD, Cancer, CVA, ARF, Chemo, Hep., AIDS, mental health diagnosis, sleep apnea, morbid obesity)? @ -none Was patient admitted / discharged? Hospital course, mention meds given and route, prescriptions, significant lab abnormalities, going to OR and other pertinent info. @ - 23 female with failure to thrive, will need advanced treatment regarding nutrition, patient is requiring increasing patient care Admitted Undiagnosed new problem with uncertain prognosis? @ -no Drug Therapy requiring intensive monitoring for toxicity (Heparin, Nitro, Insulin, Cardizem)? @ -no Were any procedures done? @ -no Diagnosis/symptom? @ -Failure to thrive Acute, or Chronic, or Acute on Chronic? @ -Acute Uncomplicated (without systemic symptoms) or Complicated (systemic symptoms)? @ -Complicated Side effects of treatment? @ -no Exacerbation, Progression, or Severe Exacerbation? @ -exacerbation Poses a threat to life or bodily function? How? (Chest pain, USA, VA, pneumonia, PE, COPD, DKA, ARF, appy, cholecystitis, CVA, Diverticulitis, Homicidal, Suicidal, threat to staff... and all critical care pts) @ -yes Reevaluation #5: Differential Weakness: Hypoglycemia, shock, sepsis, hyponatremia, anemia, infection, VA, ETOH, adverse medicine reaction, overdose, stroke, this is not meant to be an all-inclusive list. - Consultations Consultation #1: Dr. Dr. Shay who agrees to admit this patient EKG Findings - EKG Comments: EKG Findings:: EKG is sinus 71 TX 168 QRS 117 QTc 345 Medical Decision Making - Medical Decision Making 23 female with failure to thrive, will need advanced treatment regarding nutrition, patient is requiring increasing patient care - Lab Data Result diagrams: 06/03/23 05:19 06/03/23 05:19 Lab Results 05/30/23 05/30/23 05/30/23 Range/Units 16:51 16:51 16:51 WBC 5.4 (3.8-10.6) k/uL RBC 4.19 (3.80-5.40) m/uL Hgb 14.1 (11.4-16.0) gm/dL Hct 39.2 (34.0-46.0) % MCV 93.7 (80.0-100.0) fL MCH 33.7 (25.0-35.0) pg MCHC 36.0 (31.0-37.0) g/dL RDW 14.6 (11.5-15.5) % Plt Count 183 (150-450) k/uL MPV 8.2 Immature Gran % (Auto) % Absolute Nucleated RBC % Neutrophils % 65 % Lymphocytes % 25 % Monocytes % 6 % Eosinophils % 1 % Basophils % 1 % Immature Gran # (0.00-0.04) X 10*3/uL Neutrophils # 3.5 (1.3-7.7) k/uL Lymphocytes # 1.3 (1.0-4.8) k/uL Monocytes # 0.3 (0-1.0) k/uL Eosinophils # 0.0 (0-0.7) k/uL Basophils # 0.0 (0-0.2) k/uL NRBC/100 WBC Diff (0.00-0.01) X 10*3/uL PT 10.8 (10.0-12.5) sec INR 1.0 (<1.2) APTT 22.4 (22.0-30.0) sec Sodium 142 (137-145) mmol/L Potassium 4.4 (3.5-5.1) mmol/L Chloride 109 H (98-107) mmol/L Carbon Dioxide 26 (22-30) mmol/L Anion Gap 7 mmol/L BUN 21 H (7-17) mg/dL Creatinine 0.56 (0.52-1.04) mg/dL Est GFR (CKD-EPI) (>=60) Est GFR (CKD-EPI)AfAm >90 (>60 ml/min/1.73 sqM) Est GFR (CKD-EPI)NonAf >90 (>60 ml/min/1.73 sqM) BUN/Creatinine Ratio (12.00-20.00) Ratio Glucose 81 (74-99) mg/dL Plasma Lactic Acid Mookie (0.7-2.0) mmol/L Calcium 8.9 (8.4-10.2) mg/dL Phosphorus 3.8 (2.5-4.5) mg/dL Magnesium 1.7 (1.6-2.3) mg/dL Total Bilirubin 0.9 (0.2-1.3) mg/dL AST 384 H (14-36) U/L ALT 233 H (4-34) U/L Alkaline Phosphatase 149 H (38-126) U/L Ammonia (<30) umol/L Troponin I (0.000-0.034) ng/mL NT-Pro-B Natriuret Pep 27 pg/mL Total Protein 6.2 L (6.3-8.2) g/dL Albumin 3.7 (3.5-5.0) g/dL Globulin (1.6-3.3) g/dL Albumin/Globulin Ratio (1.60-3.17) Ratio Lipase (14-63) U/L Urine Color Urine Appearance (Clear) Urine pH (5.0-8.0) Ur Specific Rougon (1.001-1.035) Urine Protein (Negative) Urine Glucose (UA) (Negative) Urine Ketones (Negative) Urine Blood (Negative) Urine Nitrite (Negative) Urine Bilirubin (Negative) Urine Urobilinogen (<2.0) mg/dL Ur Leukocyte Esterase (Negative) Urine RBC (0-5) /hpf Urine WBC (0-5) /hpf Ur Squamous Epith Cells (0-4) /hpf Urine Bacteria (None) /hpf Urine Mucus (None) /hpf Lamotrigine (2.0-15.0) ug/mL CMV IgM Ab EBV Capsid Ag IgM Ab (<36.0) U/mL Hepatitis A IgM Ab Hep Bs Antigen Hep B Core IgM Ab Hep C IgG Ab 05/30/23 05/30/23 05/30/23 Range/Units 16:51 16:51 18:00 WBC (3.8-10.6) k/uL RBC (3.80-5.40) m/uL Hgb (11.4-16.0) gm/dL Hct (34.0-46.0) % MCV (80.0-100.0) fL MCH (25.0-35.0) pg MCHC (31.0-37.0) g/dL RDW (11.5-15.5) % Plt Count (150-450) k/uL MPV Immature Gran % (Auto) % Absolute Nucleated RBC % Neutrophils % % Lymphocytes % % Monocytes % % Eosinophils % % Basophils % % Immature Gran # (0.00-0.04) X 10*3/uL Neutrophils # (1.3-7.7) k/uL Lymphocytes # (1.0-4.8) k/uL Monocytes # (0-1.0) k/uL Eosinophils # (0-0.7) k/uL Basophils # (0-0.2) k/uL NRBC/100 WBC Diff (0.00-0.01) X 10*3/uL PT (10.0-12.5) sec INR (<1.2) APTT (22.0-30.0) sec Sodium (137-145) mmol/L Potassium (3.5-5.1) mmol/L Chloride (98-107) mmol/L Carbon Dioxide (22-30) mmol/L Anion Gap mmol/L BUN (7-17) mg/dL Creatinine (0.52-1.04) mg/dL Est GFR (CKD-EPI) (>=60) Est GFR (CKD-EPI)AfAm (>60 ml/min/1.73 sqM) Est GFR (CKD-EPI)NonAf (>60 ml/min/1.73 sqM) BUN/Creatinine Ratio (12.00-20.00) Ratio Glucose (74-99) mg/dL Plasma Lactic Acid Mookie 1.1 (0.7-2.0) mmol/L Calcium (8.4-10.2) mg/dL Phosphorus (2.5-4.5) mg/dL Magnesium (1.6-2.3) mg/dL Total Bilirubin (0.2-1.3) mg/dL AST (14-36) U/L ALT (4-34) U/L Alkaline Phosphatase (38-126) U/L Ammonia (<30) umol/L Troponin I 0.024 (0.000-0.034) ng/mL NT-Pro-B Natriuret Pep pg/mL Total Protein (6.3-8.2) g/dL Albumin (3.5-5.0) g/dL Globulin (1.6-3.3) g/dL Albumin/Globulin Ratio (1.60-3.17) Ratio Lipase (14-63) U/L Urine Color Yellow Urine Appearance Cloudy H (Clear) Urine pH 6.5 (5.0-8.0) Ur Specific Rougon 1.032 (1.001-1.035) Urine Protein 1+ H (Negative) Urine Glucose (UA) Negative (Negative) Urine Ketones Negative (Negative) Urine Blood Negative (Negative) Urine Nitrite Negative (Negative) Urine Bilirubin 1+ H (Negative) Urine Urobilinogen >12.0 (<2.0) mg/dL Ur Leukocyte Esterase Large H (Negative) Urine RBC 3 (0-5) /hpf Urine WBC 56 H (0-5) /hpf Ur Squamous Epith Cells 1 (0-4) /hpf Urine Bacteria Many H (None) /hpf Urine Mucus Many H (None) /hpf Lamotrigine (2.0-15.0) ug/mL CMV IgM Ab EBV Capsid Ag IgM Ab (<36.0) U/mL Hepatitis A IgM Ab Hep Bs Antigen Hep B Core IgM Ab Hep C IgG Ab 05/31/23 05/31/23 05/31/23 Range/Units 05:55 05:55 11:46 WBC 4.58 (3.8-10.6) k/uL RBC 3.81 L (3.80-5.40) m/uL Hgb 12.6 (11.4-16.0) gm/dL Hct 35.8 L (34.0-46.0) % MCV 94.0 (80.0-100.0) fL MCH 33.1 H (25.0-35.0) pg MCHC 35.2 (31.0-37.0) g/dL RDW 14.4 (11.5-15.5) % Plt Count 158 (150-450) k/uL MPV 10.2 Immature Gran % (Auto) 0.40 % Absolute Nucleated RBC 0 % Neutrophils % 56.9 % Lymphocytes % 31.2 % Monocytes % 9.6 % Eosinophils % 1.5 % Basophils % 0.4 % Immature Gran # 0.02 (0.00-0.04) X 10*3/uL Neutrophils # 2.60 (1.3-7.7) k/uL Lymphocytes # 1.43 (1.0-4.8) k/uL Monocytes # 0.44 (0-1.0) k/uL Eosinophils # 0.07 (0-0.7) k/uL Basophils # 0.02 (0-0.2) k/uL NRBC/100 WBC Diff 0 (0.00-0.01) X 10*3/uL PT (10.0-12.5) sec INR (<1.2) APTT (22.0-30.0) sec Sodium 146 H (137-145) mmol/L Potassium 3.7 (3.5-5.1) mmol/L Chloride 110 H (98-107) mmol/L Carbon Dioxide 23.9 (22-30) mmol/L Anion Gap 12.10 H mmol/L BUN 14.6 (7-17) mg/dL Creatinine 0.5 L (0.52-1.04) mg/dL Est GFR (CKD-EPI) 134 (>=60) Est GFR (CKD-EPI)AfAm (>60 ml/min/1.73 sqM) Est GFR (CKD-EPI)NonAf (>60 ml/min/1.73 sqM) BUN/Creatinine Ratio 29.20 H (12.00-20.00) Ratio Glucose 73 (74-99) mg/dL Plasma Lactic Acid Mookie (0.7-2.0) mmol/L Calcium 8.4 L (8.4-10.2) mg/dL Phosphorus 3.0 (2.5-4.5) mg/dL Magnesium 1.7 (1.6-2.3) mg/dL Total Bilirubin 0.4 (0.2-1.3) mg/dL AST 425 H (14-36) U/L ALT 250 H (4-34) U/L Alkaline Phosphatase 149 H (38-126) U/L Ammonia 20 (<30) umol/L Troponin I (0.000-0.034) ng/mL NT-Pro-B Natriuret Pep pg/mL Total Protein 5.4 L (6.3-8.2) g/dL Albumin 3.5 L (3.5-5.0) g/dL Globulin 1.9 (1.6-3.3) g/dL Albumin/Globulin Ratio 1.84 (1.60-3.17) Ratio Lipase 29 (14-63) U/L Urine Color Urine Appearance (Clear) Urine pH (5.0-8.0) Ur Specific Rougon (1.001-1.035) Urine Protein (Negative) Urine Glucose (UA) (Negative) Urine Ketones (Negative) Urine Blood (Negative) Urine Nitrite (Negative) Urine Bilirubin (Negative) Urine Urobilinogen (<2.0) mg/dL Ur Leukocyte Esterase (Negative) Urine RBC (0-5) /hpf Urine WBC (0-5) /hpf Ur Squamous Epith Cells (0-4) /hpf Urine Bacteria (None) /hpf Urine Mucus (None) /hpf Lamotrigine (2.0-15.0) ug/mL CMV IgM Ab EBV Capsid Ag IgM Ab (<36.0) U/mL Hepatitis A IgM Ab Hep Bs Antigen Hep B Core IgM Ab Hep C IgG Ab 06/01/23 06/01/23 06/01/23 Range/Units 07:59 07:59 07:59 WBC (3.8-10.6) k/uL RBC (3.80-5.40) m/uL Hgb (11.4-16.0) gm/dL Hct (34.0-46.0) % MCV (80.0-100.0) fL MCH (25.0-35.0) pg MCHC (31.0-37.0) g/dL RDW (11.5-15.5) % Plt Count (150-450) k/uL MPV Immature Gran % (Auto) % Absolute Nucleated RBC % Neutrophils % % Lymphocytes % % Monocytes % % Eosinophils % % Basophils % % Immature Gran # (0.00-0.04) X 10*3/uL Neutrophils # (1.3-7.7) k/uL Lymphocytes # (1.0-4.8) k/uL Monocytes # (0-1.0) k/uL Eosinophils # (0-0.7) k/uL Basophils # (0-0.2) k/uL NRBC/100 WBC Diff (0.00-0.01) X 10*3/uL PT (10.0-12.5) sec INR (<1.2) APTT (22.0-30.0) sec Sodium (137-145) mmol/L Potassium (3.5-5.1) mmol/L Chloride (98-107) mmol/L Carbon Dioxide (22-30) mmol/L Anion Gap mmol/L BUN (7-17) mg/dL Creatinine (0.52-1.04) mg/dL Est GFR (CKD-EPI) (>=60) Est GFR (CKD-EPI)AfAm (>60 ml/min/1.73 sqM) Est GFR (CKD-EPI)NonAf (>60 ml/min/1.73 sqM) BUN/Creatinine Ratio (12.00-20.00) Ratio Glucose (74-99) mg/dL Plasma Lactic Acid Mookie (0.7-2.0) mmol/L Calcium (8.4-10.2) mg/dL Phosphorus (2.5-4.5) mg/dL Magnesium (1.6-2.3) mg/dL Total Bilirubin (0.2-1.3) mg/dL AST (14-36) U/L ALT (4-34) U/L Alkaline Phosphatase (38-126) U/L Ammonia (<30) umol/L Troponin I (0.000-0.034) ng/mL NT-Pro-B Natriuret Pep pg/mL Total Protein (6.3-8.2) g/dL Albumin (3.5-5.0) g/dL Globulin (1.6-3.3) g/dL Albumin/Globulin Ratio (1.60-3.17) Ratio Lipase (14-63) U/L Urine Color Urine Appearance (Clear) Urine pH (5.0-8.0) Ur Specific Rougon (1.001-1.035) Urine Protein (Negative) Urine Glucose (UA) (Negative) Urine Ketones (Negative) Urine Blood (Negative) Urine Nitrite (Negative) Urine Bilirubin (Negative) Urine Urobilinogen (<2.0) mg/dL Ur Leukocyte Esterase (Negative) Urine RBC (0-5) /hpf Urine WBC (0-5) /hpf Ur Squamous Epith Cells (0-4) /hpf Urine Bacteria (None) /hpf Urine Mucus (None) /hpf Lamotrigine (2.0-15.0) ug/mL CMV IgM Ab Nonreactive EBV Capsid Ag IgM Ab 34.8 (<36.0) U/mL Hepatitis A IgM Ab Nonreactive Hep Bs Antigen Nonreactive Hep B Core IgM Ab Nonreactive Hep C IgG Ab Nonreactive 06/01/23 06/01/23 06/01/23 Range/Units 07:59 07:59 19:15 WBC 4.2 (3.8-10.6) k/uL RBC 4.12 (3.80-5.40) m/uL Hgb 13.9 (11.4-16.0) gm/dL Hct 39.3 (34.0-46.0) % MCV 95.3 (80.0-100.0) fL MCH 33.7 (25.0-35.0) pg MCHC 35.4 (31.0-37.0) g/dL RDW 14.9 (11.5-15.5) % Plt Count 157 (150-450) k/uL MPV 9.9 Immature Gran % (Auto) % Absolute Nucleated RBC % Neutrophils % 64 % Lymphocytes % 23 % Monocytes % 9 % Eosinophils % 1 % Basophils % 1 % Immature Gran # (0.00-0.04) X 10*3/uL Neutrophils # 2.7 (1.3-7.7) k/uL Lymphocytes # 1.0 (1.0-4.8) k/uL Monocytes # 0.4 (0-1.0) k/uL Eosinophils # 0.1 (0-0.7) k/uL Basophils # 0.0 (0-0.2) k/uL NRBC/100 WBC Diff (0.00-0.01) X 10*3/uL PT (10.0-12.5) sec INR (<1.2) APTT (22.0-30.0) sec Sodium 142 (137-145) mmol/L Potassium 4.2 (3.5-5.1) mmol/L Chloride 113 H (98-107) mmol/L Carbon Dioxide 24 (22-30) mmol/L Anion Gap 5 mmol/L BUN 8 (7-17) mg/dL Creatinine 0.47 L (0.52-1.04) mg/dL Est GFR (CKD-EPI) (>=60) Est GFR (CKD-EPI)AfAm >90 (>60 ml/min/1.73 sqM) Est GFR (CKD-EPI)NonAf >90 (>60 ml/min/1.73 sqM) BUN/Creatinine Ratio (12.00-20.00) Ratio Glucose 88 (74-99) mg/dL Plasma Lactic Acid Mookie (0.7-2.0) mmol/L Calcium 8.7 (8.4-10.2) mg/dL Phosphorus (2.5-4.5) mg/dL Magnesium (1.6-2.3) mg/dL Total Bilirubin 0.8 (0.2-1.3) mg/dL AST 557 H (14-36) U/L ALT 333 H (4-34) U/L Alkaline Phosphatase 179 H (38-126) U/L Ammonia (<30) umol/L Troponin I (0.000-0.034) ng/mL NT-Pro-B Natriuret Pep pg/mL Total Protein 6.0 L (6.3-8.2) g/dL Albumin 3.5 (3.5-5.0) g/dL Globulin 2.5 (1.6-3.3) g/dL Albumin/Globulin Ratio 1.4 (1.60-3.17) Ratio Lipase (14-63) U/L Urine Color Urine Appearance (Clear) Urine pH (5.0-8.0) Ur Specific Rougon (1.001-1.035) Urine Protein (Negative) Urine Glucose (UA) (Negative) Urine Ketones (Negative) Urine Blood (Negative) Urine Nitrite (Negative) Urine Bilirubin (Negative) Urine Urobilinogen (<2.0) mg/dL Ur Leukocyte Esterase (Negative) Urine RBC (0-5) /hpf Urine WBC (0-5) /hpf Ur Squamous Epith Cells (0-4) /hpf Urine Bacteria (None) /hpf Urine Mucus (None) /hpf Lamotrigine 20.0 H (2.0-15.0) ug/mL CMV IgM Ab EBV Capsid Ag IgM Ab (<36.0) U/mL Hepatitis A IgM Ab Hep Bs Antigen Hep B Core IgM Ab Hep C IgG Ab 06/02/23 Range/Units 09:35 WBC (3.8-10.6) k/uL RBC (3.80-5.40) m/uL Hgb (11.4-16.0) gm/dL Hct (34.0-46.0) % MCV (80.0-100.0) fL MCH (25.0-35.0) pg MCHC (31.0-37.0) g/dL RDW (11.5-15.5) % Plt Count (150-450) k/uL MPV Immature Gran % (Auto) % Absolute Nucleated RBC % Neutrophils % % Lymphocytes % % Monocytes % % Eosinophils % % Basophils % % Immature Gran # (0.00-0.04) X 10*3/uL Neutrophils # (1.3-7.7) k/uL Lymphocytes # (1.0-4.8) k/uL Monocytes # (0-1.0) k/uL Eosinophils # (0-0.7) k/uL Basophils # (0-0.2) k/uL NRBC/100 WBC Diff (0.00-0.01) X 10*3/uL PT (10.0-12.5) sec INR (<1.2) APTT (22.0-30.0) sec Sodium 145 (137-145) mmol/L Potassium 4.7 (3.5-5.1) mmol/L Chloride 112 H (98-107) mmol/L Carbon Dioxide 24.1 (22-30) mmol/L Anion Gap 8.90 mmol/L BUN 5.1 L (7-17) mg/dL Creatinine 0.6 (0.52-1.04) mg/dL Est GFR (CKD-EPI) 128 (>=60) Est GFR (CKD-EPI)AfAm (>60 ml/min/1.73 sqM) Est GFR (CKD-EPI)NonAf (>60 ml/min/1.73 sqM) BUN/Creatinine Ratio 8.50 L (12.00-20.00) Ratio Glucose 88 (74-99) mg/dL Plasma Lactic Acid Mookie (0.7-2.0) mmol/L Calcium 9.0 (8.4-10.2) mg/dL Phosphorus (2.5-4.5) mg/dL Magnesium (1.6-2.3) mg/dL Total Bilirubin 0.5 (0.2-1.3) mg/dL AST 305 H (14-36) U/L ALT 277 H (4-34) U/L Alkaline Phosphatase 175 H (38-126) U/L Ammonia (<30) umol/L Troponin I (0.000-0.034) ng/mL NT-Pro-B Natriuret Pep pg/mL Total Protein 5.7 L (6.3-8.2) g/dL Albumin 3.6 L (3.5-5.0) g/dL Globulin 2.1 (1.6-3.3) g/dL Albumin/Globulin Ratio 1.71 (1.60-3.17) Ratio Lipase (14-63) U/L Urine Color Urine Appearance (Clear) Urine pH (5.0-8.0) Ur Specific Rougon (1.001-1.035) Urine Protein (Negative) Urine Glucose (UA) (Negative) Urine Ketones (Negative) Urine Blood (Negative) Urine Nitrite (Negative) Urine Bilirubin (Negative) Urine Urobilinogen (<2.0) mg/dL Ur Leukocyte Esterase (Negative) Urine RBC (0-5) /hpf Urine WBC (0-5) /hpf Ur Squamous Epith Cells (0-4) /hpf Urine Bacteria (None) /hpf Urine Mucus (None) /hpf Lamotrigine (2.0-15.0) ug/mL CMV IgM Ab EBV Capsid Ag IgM Ab (<36.0) U/mL Hepatitis A IgM Ab Hep Bs Antigen Hep B Core IgM Ab Hep C IgG Ab - Radiology Data Radiology results: report reviewed (Chest x-ray is negative for acute disease), image reviewed Disposition Clinical Impression: Weakness, Autism, Failure to thrive Disposition: ADMITTED IP TO THIS [facility] Condition: Stable Is patient prescribed a controlled substance at d/c from ED?: No Time of Disposition: 16:45
[2023-05-30] MEDS: SODIUM CHLORIDE 0.9% 1,000 ML IV STA (16:49)
[2023-05-30] MEDS ORDERED: MORPHINE SULFATE 4 MG/ML SYRINGE IV PRN (16:52)
[2023-05-30] MEDS ORDERED: NALOXONE 0.4 MG/ML 1 ML VIAL IV PRN (16:52)
[2023-05-30] MEDS ORDERED: ONDANSETRON 4 MG/2 ML VIAL IVP PRN (16:52)
--- NOTE | 2023-05-30 17:21 | XR ---
EXAMINATION TYPE: XR chest 2V DATE OF EXAM: 05/30/2023 5:13 PM CLINICAL INDICATION:Female, 23 years old with history of Weakness; [facility] COMPARISON: Chest radiographs from 04/19/2023 TECHNIQUE: XR chest 2V Frontal and lateral views of the chest. FINDINGS: Lungs/Pleura: Low lung volumes are appreciated. No evidence of pleural effusion or pneumothorax Pulmonary vascularity: Unremarkable. Heart/mediastinum: Cardiomediastinal silhouette is unremarkable. Musculoskeletal: No acute osseous pathology. Other findings: Power generator device overlying the left chest with leads extending into the cervica l spine. IMPRESSION: No acute cardiopulmonary disease/process.
[2023-05-30 17:48] LABS: Partial Thromboplastin Time 22.4 sec (22.0-30.0); Prothrombin Time 10.8 sec (10.0-12.5)
[2023-05-30 17:49] LABS: ALT 233 U/L (4-34); AST 384 U/L (14-36); African American GFR (CKD) >90 (>60 ml/min/1.73 sqM); Albumin 3.7 g/dL (3.5-5.0); Alkaline Phosphatase 149 U/L (38-126); Anion Gap 7 mmol/L; Blood Urea Nitrogen 21 mg/dL (7-17); Calcium 8.9 mg/dL (8.4-10.2); Carbon Dioxide 26 mmol/L (22-30); Chloride 109 mmol/L (98-107); Glucose 81 mg/dL (74-99); Magnesium 1.7 mg/dL (1.6-2.3); Non-African American GFR(CKD) >90 (>60 ml/min/1.73 sqM); Phosphorus 3.8 mg/dL (2.5-4.5); Potassium 4.4 mmol/L (3.5-5.1); Sodium 142 mmol/L (137-145); Total Bilirubin 0.9 mg/dL (0.2-1.3); Total Protein 6.2 g/dL (6.3-8.2)
[2023-05-30 17:57] LABS: NT-Pro-B-Type Natriuretic Pept 27 pg/mL
[2023-05-30 18:00] LABS: Basophils % (A) 1 %; Eosinophils % (A) 1 %; HCT 39.2 % (34.0-46.0); HGB 14.1 gm/dL (11.4-16.0); Lymphocytes # (A) 1.3 k/uL (1.0-4.8); Lymphocytes % (A) 25 %; MCH 33.7 pg (25.0-35.0); MCV 93.7 fL (80.0-100.0); Mean Platelet Volume 8.2; Monocytes # (A) 0.3 k/uL (0-1.0); Monocytes % (A) 6 %; Neutrophils # (A) 3.5 k/uL (1.3-7.7); Neutrophils % (A) 65 %; Platelet Count 183 k/uL (150-450); RBC 4.19 m/uL (3.80-5.40); RDW 14.6 % (11.5-15.5); WBC 5.4 k/uL (3.8-10.6)
[2023-05-30] MEDS: SODIUM CHLORIDE 0.9% 1,000 ML IV SCH (18:11)
[2023-05-30 18:36] LABS: Appearance,Urine Cloudy (Clear); Bacteria,Urine Many /hpf; Bilirubin,Urine 1+ (Negative); Blood,Urine Negative (Negative); Color,Urine Yellow; Glucose,Urine (UA) Negative (Negative); Ketones,Urine Negative (Negative); Leukocyte Esterase,Urine Large (Negative); Mucus,Urine Many /hpf; Nitrite,Urine Negative (Negative); PH, Urine 6.5 (5.0-8.0); Protein,Urine 1+ (Negative); RBC,Urine 3 /hpf (0-5); Specific Gravity,Urine 1.032 (1.001-1.035); Squamous Epithelial Cell,Urine 1 /hpf (0-4); Urobilinogen,Urine >12.0 mg/dL (<2.0); WBC,Urine 56 /hpf (0-5)
[2023-05-31 08:22] LABS: HCT 35.8 % (37.2-46.3); HGB 12.6 g/dL (12.0-15.0); MCH 33.1 pg (27.0-32.0); MCHC 35.2 g/dL (32.0-37.0); Mean Platelet Volume 10.2 FL (9.5-12.2); NRBC Per 100 WBC 0 X 10*3/uL (0.00-0.01); Platelet Count 158 X 10*3/uL (140-440); RBC 3.81 X 10*6/uL (4.10-5.20); RDW 14.4 % (11.5-14.5); WBC 4.58 X 10*3/uL (4.50-10.00)
[2023-05-31 08:23] LABS: Basophils # (A) 0.02 X 10*3/uL (0.00-0.10); Basophils % (A) 0.4 %; Eosinophils # (A) 0.07 X 10*3/uL (0.04-0.35); Eosinophils % (A) 1.5 %; Lymphocytes # (A) 1.43 X 10*3/uL (0.90-5.00); Lymphocytes % (A) 31.2 %; Monocytes # (A) 0.44 X 10*3/uL (0.20-1.00); Monocytes % (A) 9.6 %; Neutrophils % (A) 56.9 %
[2023-05-31 08:30] LABS: ALT 250 U/L (8-44); AST 425 U/L (13-35); Albumin 3.5 g/dL (3.8-4.9); Albumin/Globulin Ratio 1.84 Ratio (1.60-3.17); Alkaline Phosphatase 149 U/L (41-126); Blood Urea Nitrogen 14.6 mg/dL (9.0-27.0); Calcium 8.4 mg/dL (8.7-10.3); Carbon Dioxide 23.9 mmol/L (21.6-31.8); Chloride 110 mmol/L (96-109); Globulin 1.9 g/dL (1.6-3.3); Glucose 73 mg/dL (70-110); Lipase 29 U/L (14-63); Magnesium 1.7 mg/dL (1.5-2.4); Potassium 3.7 mmol/L (3.5-5.5); Sodium 146 mmol/L (135-145); Total Bilirubin 0.4 mg/dL (0.3-1.2); Total Protein 5.4 g/dL (6.2-8.2)
[2023-05-31] MEDS: lamoTRIgine 100 MG TAB PO SCH (09:54)
[2023-05-31] MEDS: PANTOPRAZOLE 40 MG/10 ML VIAL IV SCH (09:54)
[2023-05-31] MEDS: BRIVIACT PO SCH ×2 (09:55→21:06)
[2023-05-31] MEDS: LACOSAMIDE 50 MG TABLET PO SCH (09:55)
[2023-05-31] MEDS: LACOSAMIDE 150 MG TABLET PO SCH (09:55)
[2023-05-31] MEDS: DOCUSATE ORAL SOLN 100 MG/10 ML CUP PO SCH (09:56)
[2023-05-31] MEDS: PALIPERIDONE 3 MG TAB.ER.24 PO SCH (09:57)
[2023-05-31] MEDS: VRAYLAR 6 MG PO SCH ×2 (09:57→09:58)
--- NOTE | 2023-05-31 14:32 | P.HPIM ---
History of Present Illness H&P Date: 05/31/23 This is a 23-year-old female with past medical history significant for epilepsy, cerebral palsy, autism, nonverbal, and multiple other medical issues, follows up with [place] epileptologist -Dr. Barone, and recently admitted on 05/26/2023 as observation for acute metabolic encephalopathy, suspected related to patient's developmental delays, cognitive impairment and possible acute recurrent UTI, di scharged on 05/27/2023. Mom had reported altered mental status, patient more withdrawn without seizure activity. Patient recently transferred from [facility] on 04/20/2023 to [facility] and completed a 36-hour prolonged EEG at [facility] April 28 that failed to show epileptiform activity. During last admission-PCP's exam patient was blinking, half grinning, without tachycardia. Afebrile, normal WBC. Potassium 3.1 on admission, supplemented, repeat potassium 3.7. Initial UA appeared contaminated reporting high epithelial cells, repeated -negative. Vital signs stable. T. bili 0.6, AST 157, ALT 151, alk phos 138, ammonia 29. Recent Lamictal level elevated at 21.5 ( 2-15), Keppra 91.6 ( 3-60), Vimpat 19.9 ( up tp 15) on 04/19/2023. Evaluated and cleared by neurology for discharge. Neurology's recommended patient's mom to discuss with her neurologist whether or not Lamictal dose needed to be decreased. Mother at bedside, in agreement with plan of discharging on empiric antibiotics and following up with PCP in 3 days. Mother returned to the ER with patient on 05/30/2023 with continued altered mental status, failure to thrive, not eating or drinking, denies seizure a ctivity. patient's mother informed Dr. Garcia though, that in the ER, patient's demeanor was actually near baseline, but significantly decreased upon admission into MedSurg room. Currently appears lethargic, alert to her surroundings, receiving IV fluid hydration and empiric IV Rocephin. LFTs have continued to increase. CT of abdomen and pelvis completed in March 2023 reported no acute process. Noted initial trended mild elevation in LFTs in November 2022 after Vimpat and clobazam added to med regimen in July 2022. Mother reports patient has lost 70 pounds over the last 8 months without any further dose adjustments. Afebrile, normal WBC, hemoglobin 12.6, platelets 158, INR 1. Sodium 146, potassium 3.7, BUN 14.6, creatinine 0.5, magnesium 1.7. T. bili 0.4, AST 425, ALT 250, alk phos 149, ammonia 20. UA reported many mucus, bacteria, epithelial cells 1, 56 WBCs, large leukocytes, >12 urobilinogen, negative for nitrates. GI and neurology consulted. Review of Systems ROS unobtainable: due to mental status Past Medical History Past Medical History: Seizure Disorder Additional Past Medical History / Comment(s): Epilepsy, cognitive impairment, developmentally delayed, non verbal, Autism, urinary incontinence, wears depends, hx UTI's, cerebral palsy, pt. has been in W/C since 06/25 and requires [facility] for transfer History of Any Multi-Drug Resistant Organisms: None Reported Additional Past Surgical History / Comment(s): VNS shunt, eye correction, dental work. Past Anesthesia/Blood Transfusion Reactions: No Reported Reaction Additional Past Anesthesia/Blood Transfusion Reaction / Comment(s): Mom PONV Past Psychological History: Anxiety Additional Psychological History / Comment(s): Developmentally delayed, autistic, non verbal. Smoking Status: Never smoker, Second hand smoke exposure Past Alcohol Use History: None Reported Past Drug Use History: None Reported - Past Family History Mother Family Medical History: No Reported History Medications and Allergies Home Medications Medication Instructions Recorded Confirmed Type Cariprazine HCl [Vraylar] 6 mg PO DAILY 09/25/20 05/30/23 History FLUoxetine HCL 80 mg PO HS 09/25/20 05/30/23 History Paliperidone [Invega] 9 mg PO DAILY 05/12/22 05/30/23 History Midazolam [Nayzilam] 5 mg NASAL DIRECTED PRN 05/14/22 05/30/23 History guanFACINE [Tenex] 3 mg PO DAILY 05/14/22 05/30/23 History Lacosamide [Vimpat] 200 mg PO BID 11/04/22 05/30/23 History cloBAZam 20 mg PO HS 11/04/22 05/30/23 History lamoTRIgine 300 mg PO BID 11/04/22 05/30/23 History LORazepam [Ativan] 1 mg PO TID PRN 02/21/23 05/30/23 History Brivaracetam [Briviact] 10 mg PO BID 05/03/23 05/30/23 History Docusate Oral Soln [Colace Oral 60 mg PO DAILY 05/27/23 05/30/23 History Soln] Sulfamethox-Tmp 800-160Mg [Bactrim 1 tab PO Q12HR 5 Days #10 tab 05/27/23 05/30/23 Rx DS 800-160 mg] Allergies Allergy/AdvReac Type Severity Reaction Status Date / Time No Known Allergies Allergy Verified 05/30/23 17:54 Physical Exam Vitals: Vital Signs Temp Pulse Pulse Resp BP BP Pulse Ox 05/31/23 14:13 96.3 F L 97 19 107/58 95 05/31/23 10:04 69 17 05/31/23 07:17 97.2 F L 69 17 108/67 95 05/30/23 21:25 97.6 F 65 17 106/69 95 05/30/23 20:00 80 18 121/71 97 05/30/23 17:32 110/58 05/30/23 15:27 97.1 F L 70 17 110/58 98 Intake and Output 05/30/23 05/31/23 05/31/23 22:59 06:59 14:59 Other: Voiding Method Diaper Diaper # Voids 1 Weight 68.039 kg GENERAL: Lying in bed, curled up on her left side, fatigued, nonverbal, HEENT: Atraumatic, normocephalic. Conjunctive pink, sclera anicteric NECK: Supple, without lymphadenopathy LUNGS: Unlabored, equal air entry, bilateral bases to HEART: Regular rate and rhythm without murmurs, rubs or gallops.S1S2 Normal ABDOMEN: Soft, nontender, normoactive bowel sounds. No guarding, no rebound. EXTREMITIES: No pitting or edema. No clubbing or cyanosis. NEUROLOGICAL: Limited exam: Currently nonresponsive, nonverbal SKIN: Warm, Dry, no rashes noted. Results CBC & Chem 7: 05/31/23 05:55 05/31/23 05:55 Labs: Abnormal Lab Results - Last 24 Hours (Table) 05/30/23 05/30/2324 Range/Units 16:51 18:00 05:55 RBC 3.81 L (4.10-5.20) X 10*6/uL Hct 35.8 L (37.2-46.3) % MCH 33.1 H (27.0-32.0) pg Sodium (135-145) mmol/L Chloride 109 H (98-107) mmol/L Anion Gap (4.00-12.00) mmol/L BUN 21 H (7-17) mg/dL Creatinine (0.6-1.5) mg/dL BUN/Creatinine Ratio (12.00-20.00) Ratio Calcium (8.7-10.3) mg/dL AST 384 H (14-36) U/L ALT 233 H (4-34) U/L Alkaline Phosphatase 149 H (38-126) U/L Total Protein 6.2 L (6.3-8.2) g/dL Albumin (3.8-4.9) g/dL Urine Appearance Cloudy H (Clear) Urine Protein 1+ H (Negative) Urine Bilirubin 1+ H (Negative) Ur Leukocyte Esterase Large H (Negative) Urine WBC 56 H (0-5) /hpf Urine Bacteria Many H (None) /hpf Urine Mucus Many H (None) /hpf 05/31/23 Range/Units 05:55 RBC (4.10-5.20) X 10*6/uL Hct (37.2-46.3) % MCH (27.0-32.0) pg Sodium 146 H (135-145) mmol/L Chloride 110 H (98-107) mmol/L Anion Gap 12.10 H (4.00-12.00) mmol/L BUN (7-17) mg/dL Creatinine 0.5 L (0.6-1.5) mg/dL BUN/Creatinine Ratio 29.20 H (12.00-20.00) Ratio Calcium 8.4 L (8.7-10.3) mg/dL AST 425 H (14-36) U/L ALT 250 H (4-34) U/L Alkaline Phosphatase 149 H (38-126) U/L Total Protein 5.4 L (6.3-8.2) g/dL Albumin 3.5 L (3.8-4.9) g/dL Urine Appearance (Clear) Urine Protein (Negative) Urine Bilirubin (Negative) Ur Leukocyte Esterase (Negative) Urine WBC (0-5) /hpf Urine Bacteria (None) /hpf Urine Mucus (None) /hpf Assessment and Plan Assessment: -Elevated LFTs, continues trending up from previous visits, recent Lamictal level elevated at 21.5 ( 2-15), Keppra 91.6 ( 3-60), Vimpat 19.9 ( up tp 15) on 04/19/2023. Neurology's recommendations at that time was for patient's mom to discuss with her neurologist whether or not Lamictal dose needed to be decreased. CT of abdomen and pelvis completed in March 2023 reported no acute process. Noted initial trended elevation in LFTs in November 2022 after Vimpat and clobazam added to med regimen in July 2022. Mother reports patient has lost 70 pounds over the last 8 months without any further dose adjustments. Suspect toxic and metabolic encephalopathy, medication induced-seizure medications, and possibly antibiotics. -Altered mental status, metabolic and toxic encephalopathy, in a patient with epilepsy, cerebral palsy, autism, nonverbal and multiple other medical issues. -Cognitively impaired with developmental disorder -Autism Plan: Continue on current medication regimen, monitoring and symptomatic treatment. IV fluid hydration. GI and neurology consults in place. Avoid hepatotoxic medications. GI workup in progress. liver ultrasound ordered. Hepatitis panel/close monitoring of LFTs with repeat labs ordered for a.m. The impression and plan of care has been dictated as directed. : I performed a history and examination of this patient, discussed the same with the dictator. I agree with the dictator's note ,documented as a scribe. Any additional findings or plans will be noted.
[2023-05-31] MEDS ORDERED: SODIUM CHLORIDE 0.9% 1,000 ML with POTASSIUM CHLORIDE 40 MEQ IV SCH (14:34)
[2023-05-31] MEDS: MAGNESIUM SULFATE-D5W PMX 1 GM in DEXTROSE/WATER 1 100ML.BAG IVPB ONE (15:04)
--- NOTE | 2023-05-31 15:36 | P.CONS ---
History of Present Illness - Reason for Consult Consult date: 05/31/23 Elevated LFTs Requesting physician: Lyndsey Quintana - Chief Complaint altered mental status changes - History of Present Illness This is a 23-year-old female with a history of epilepsy, cognitive impairment, developmentally delayed nonverbal and autistic who was brought in by her mother for concerns of failure to thrive, not acting herself. Apparently patient has been in and out of the hospital over the last couple months with urinary tract infections and has been on couple different antibiotics. Last antibiotic she recently was on was Bactrim prior to that she was hospitalized at [facility] and was on the antibiotics at that time as well. During her last hospitalization and this when she is noted to have elevated LFTs. This hospitalization they have continued to increase. Patient has no previous history of liver disorder. She is currently on IV Rocephin, recently on Bactrim and another antibiotic about 2 weeks ago however mother is unsure which one that was at this time. She is on multiple seizure medications as well as psychiatric medications. The 2 most recent medications that were added to patient was Vimpat and clobazam in July 2022. Patient has been on Lamictal for several years however there was a dose increase to 300 mg however patient was 200 pounds at that time and mom is reporting that she has had about a 70 pound weight loss over the last 8 months duration. Enterology was consulted for elevated LFTs. Trending back patient's AST and ALT they have been consistently mildly elevated since November 2022 however since March 2023 they have been consistently in the 100s to 200s and with this admission as high as 3-4 100s. Today's labs WBC 4.5 hemoglobin 12.6 platelet count 158,000 INR 1.0 sodium 146 potassium 3.7 BUN 14 creatinine 0.5 total bilirubin 0.4 AST 425 ALT 250 alkaline phosphatase 149 ammonia 20. Review of Systems ROS unobtainable: due to mental status Past Medical History Past Medical History: Seizure Disorder Additional Past Medical History / Comment(s): Epilepsy, cognitive impairment, developmentally delayed, non verbal, Autism, urinary incontinence, wears depends, hx UTI's, cerebral palsy, pt. has been in W/C since 06/25 and requires [facility] for transfer History of Any Multi-Drug Resistant Organisms: None Reported Additional Past Surgical History / Comment(s): VNS shunt, eye correction, dental work. Past Anesthesia/Blood Transfusion Reactions: No Reported Reaction Additional Past Anesthesia/Blood Transfusion Reaction / Comm: Mom PONV Past Psychological History: Anxiety Additional Psychological History / Comment(s): Developmentally delayed, autistic, non verbal. Smoking Status: Never smoker, Second hand smoke exposure Past Alcohol Use History: None Reported Past Drug Use History: None Reported - Past Family History Mother Family Medical History: No Reported History Medications and Allergies Home Medications Medication Instructions Recorded Confirmed Type Cariprazine HCl [Vraylar] 6 mg PO DAILY 09/25/20 05/30/23 History FLUoxetine HCL 80 mg PO HS 09/25/20 05/30/23 History Paliperidone [Invega] 9 mg PO DAILY 05/12/22 05/30/23 History Midazolam [Nayzilam] 5 mg NASAL DIRECTED PRN 05/14/22 05/30/23 History guanFACINE [Tenex] 3 mg PO DAILY 05/14/22 05/30/23 History Lacosamide [Vimpat] 200 mg PO BID 11/04/22 05/30/23 History cloBAZam 20 mg PO HS 11/04/22 05/30/23 History lamoTRIgine 300 mg PO BID 11/04/22 05/30/23 History LORazepam [Ativan] 1 mg PO TID PRN 02/21/23 05/30/23 History Brivaracetam [Briviact] 10 mg PO BID 05/03/23 05/30/23 History Docusate Oral Soln [Colace Oral 60 mg PO DAILY 05/27/23 05/30/23 History Soln] Sulfamethox-Tmp 800-160Mg [Bactrim 1 tab PO Q12HR 5 Days #10 tab 05/27/23 05/30/23 Rx DS 800-160 mg] Allergies Allergy/AdvReac Type Severity Reaction Status Date / Time No Known Allergies Allergy Verified 05/30/23 17:54 Physical Exam Vitals: Vital Signs Temp Pulse Pulse Resp BP BP Pulse Ox 05/31/23 10:04 69 17 05/31/23 07:17 97.2 F L 69 17 108/67 95 05/30/23 21:25 97.6 F 65 17 106/69 95 05/30/23 20:00 80 18 121/71 97 05/30/23 17:32 110/58 05/30/23 15:27 97.1 F L 70 17 110/58 98 Intake and Output 05/30/23 05/31/23 05/31/23 22:59 06:59 14:59 Other: Voiding Method Diaper Diaper # Voids 1 Weight 68.039 kg General appearance: The patient is curled up in a position in the bed. Overall nonresponsive to us. HET: Head is normocephalic and atraumatic. Conjunctiva pink. Sclera anicteric. Neck: Supple without lymphadenopathy. Trachea midline. Heart: Regular. Lungs: Equal expansion, normal respiratory effort. Abdomen: Soft, nontender, nondistended. Skin: No rashes. No jaundice. Extremities: Normal skin color and turgor. No pedal edema. Neurological: Patient is nonverbal, not very responsive to exam. Results CBC & Chem 7: 05/31/23 05:55 05/31/23 05:55 Labs: Abnormal Lab Results - Last 24 Hours (Table) 05/30/23 05/30/23 05/31/23 Range/Units 16:51 18:00 05:55 RBC 3.81 L (4.10-5.20) X 10*6/uL Hct 35.8 L (37.2-46.3) % MCH 33.1 H (27.0-32.0) pg Sodium (135-145) mmol/L Chloride 109 H (98-107) mmol/L Anion Gap (4.00-12.00) mmol/L BUN 21 H (7-17) mg/dL Creatinine (0.6-1.5) mg/dL BUN/Creatinine Ratio (12.00-20.00) Ratio Calcium (8.7-10.3) mg/dL AST 384 H (14-36) U/L ALT 233 H (4-34) U/L Alkaline Phosphatase 149 H (38-126) U/L Total Protein 6.2 L (6.3-8.2) g/dL Albumin (3.8-4.9) g/dL Urine Appearance Cloudy H (Clear) Urine Protein 1+ H (Negative) Urine Bilirubin 1+ H (Negative) Ur Leukocyte Esterase Large H (Negative) Urine WBC 56 H (0-5) /hpf Urine Bacteria Many H (None) /hpf Urine Mucus Many H (None) /hpf 05/31/23 Range/Units 05:55 RBC (4.10-5.20) X 10*6/uL Hct (37.2-46.3) % MCH (27.0-32.0) pg Sodium 146 H (135-145) mmol/L Chloride 110 H (98-107) mmol/L Anion Gap 12.10 H (4.00-12.00) mmol/L BUN (7-17) mg/dL Creatinine 0.5 L (0.6-1.5) mg/dL BUN/Creatinine Ratio 29.20 H (12.00-20.00) Ratio Calcium 8.4 L (8.7-10.3) mg/dL AST 425 H (14-36) U/L ALT 250 H (4-34) U/L Alkaline Phosphatase 149 H (38-126) U/L Total Protein 5.4 L (6.3-8.2) g/dL Albumin 3.5 L (3.8-4.9) g/dL Urine Appearance (Clear) Urine Protein (Negative) Urine Bilirubin (Negative) Ur Leukocyte Esterase (Negative) Urine WBC (0-5) /hpf Urine Bacteria (None) /hpf Urine Mucus (None) /hpf Assessment and Plan (1) Elevated LFTs Narrative/Plan: 23-year-old female presenting to the hospital with continued fatigue, changes in mental status and getting any better after recent UTI and hospitalizations. Patient has been having continued trending elevated LFTs with no prior history of liver disease. Likely this is medication induced however difficult to narrow down as patient is on multiple medications. Most recent medications were added in July 2022 both Vimpat and Clobazam, where he could start seeing a trend of elevation in her AST and ALT in November 2022. Starting in March there was continued significant elevation in the 100s and 200s and now up to the 2 and 300s. Patient also has been on multiple antibiotics most recently Bactrim at home and currently on Rocephin. This may be exacerbating the LFTs as well as her AST is 425 and ALT 250 alkaline phosphatase 149. Will need to rule out other possible etiologies and will run a hepatitis panel as well as EBV and CMV antibodies. Would recommend consultation with neurology to consider if there are other possible alternatives for medication for epilepsy. Ultimately patient will need to follow-up with her neurologist. Current Visit: Yes Status: Acute Code(s): R79.89 - OTHER SPECIFIED ABNORMAL FINDINGS OF BLOOD CHEMISTRY SNOMED Code(s): 457166575 (2) Epilepsy Current Visit: Yes Status: Acute Code(s): G40.909 - EPILEPSY, UNSP, NOT INTRACTABLE, WITHOUT STATUS EPILEPTICUS SNOMED Code(s): 42198750 (3) Cognitive impairment Current Visit: Yes Status: Acute Code(s): R41.89 - OTH SYMPTOMS AND SIGNS W COGNITIVE FUNCTIONS AND AWARENESS SNOMED Code(s): 848123057 (4) Autism Current Visit: Yes Status: Acute Code(s): F84.0 - AUTISTIC DISORDER SNOMED Code(s): 02530332 (5) Altered mental status Current Visit: No Status: Acute Code(s): R41.82 - ALTERED MENTAL STATUS, UNSPECIFIED SNOMED Code(s): 913276932 Plan: 1. Continue symptomatic and supportive care 2. Avoid hepatotoxic medications 3. EBV, CMV, hepatitis panel ordered 4. Liver ultrasound ordered 5. Recommend consultation to neurology, consider possible elevated LFTs related to seizure medications Thank you for this consultation, we will continue to follow. Dr. Eddie Leo I agree with the dictator's note, documented as a scribe by Dai Burciaga.
[2023-05-31] MEDS: 0.9% NACL WITH KCL 40 MEQ/L 1,000 ML IV SCH (16:16)
[2023-05-31] MEDS: guanFACINE 1 MG TAB PO SCH (20:22)
[2023-05-31] MEDS: FLUoxetine HCL 20 MG CAP PO SCH (20:22)
[2023-05-31] MEDS: CLOBAZAM 10 MG PO SCH (20:43)
[2023-05-31] MEDS ORDERED: CLOBAZAM 20 MG PO SCH (21:00)
[2023-06-01 09:16] LABS: ALT 333 U/L (4-34); AST 557 U/L (14-36); African American GFR (CKD) >90 (>60 ml/min/1.73 sqM); Albumin 3.5 g/dL (3.5-5.0); Albumin/Globulin Ratio 1.4; Alkaline Phosphatase 179 U/L (38-126); Anion Gap 5 mmol/L; Blood Urea Nitrogen 8 mg/dL (7-17); Calcium 8.7 mg/dL (8.4-10.2); Carbon Dioxide 24 mmol/L (22-30); Chloride 113 mmol/L (98-107); Globulin 2.5 g/dL; Glucose 88 mg/dL (74-99); Non-African American GFR(CKD) >90 (>60 ml/min/1.73 sqM); Potassium 4.2 mmol/L (3.5-5.1); Sodium 142 mmol/L (137-145); Total Bilirubin 0.8 mg/dL (0.2-1.3)
--- NOTE | 2023-06-01 09:20 | US ---
EXAMINATION TYPE: US liver DATE OF EXAM: 06/01/2023 COMPARISON: NONE CLINICAL INDICATION: Female, 23 years old with history of elevated LFTS; History given by Guardian/Mo ther; Patient is non-verbal - Recent UTI, no other signs, symptoms, or relevant history TECHNIQUE: Multiple sonographic images of the right upper quadrant are obtained. FINDINGS: EXAM MEASUREMENTS: Liver Length: 11.0 cm Gallbladder Wall: 0.3 cm CBD: 0.2 cm Right Kidney: 9.1 x 5.9 x 5.1 cm WATER COMMISSIONER NOTES: Pancreas: Tail obscured by overlying bowel gas Liver: Limited vis Gallbladder: Sludge noted filling the gallbladder Evidence for sonographic Elder's sign: No CBD: wnl Right Kidney: wnl IMPRESSION: Abundant sludge through the gallbladder.
[2023-06-01 09:23] LABS: Basophils % (A) 1 %; Eosinophils # (A) 0.1 k/uL (0-0.7); Eosinophils % (A) 1 %; HCT 39.3 % (34.0-46.0); HGB 13.9 gm/dL (11.4-16.0); Lymphocytes % (A) 23 %; MCH 33.7 pg (25.0-35.0); MCHC 35.4 g/dL (31.0-37.0); MCV 95.3 fL (80.0-100.0); Mean Platelet Volume 9.9; Monocytes # (A) 0.4 k/uL (0-1.0); Monocytes % (A) 9 %; Neutrophils # (A) 2.7 k/uL (1.3-7.7); Neutrophils % (A) 64 %; Platelet Count 157 k/uL (150-450); RBC 4.12 m/uL (3.80-5.40); RDW 14.9 % (11.5-15.5); WBC 4.2 k/uL (3.8-10.6)
--- NOTE | 2023-06-01 12:43 | P.PN ---
Subjective Progress Note Date: 06/01/23 H&P Date: 05/31/23 This is a 23-year-old female with past medical history significant for epilepsy, cerebral palsy, autism, nonverbal, and multiple other medical issues, follows up with [facility] epileptologist -Dr. Barone, and recently admitted on 05/26/2023 as observation for acute metabolic encephalopathy, suspected related to patient's developmental delays, cognitive impairment and possible acute recurrent UTI, discharged on 05/27/2023. Mom had reported altered mental status, patient more withdrawn without seizure activity. Patient recently transferred from [facility] on 04/20/2023 to [facility] and completed a 36-hour prolonged EEG at [facility] April 28 that failed to show epileptiform activity. During last admission-PCP's exam patient was blinking, half grinning, without tachycardia. Afebrile, normal WBC. Potassium 3.1 on admission, supplemented, repeat potassium 3.7. Initial UA appeared contaminated reporting high epithelial cells, repeated -negative. Vital signs stable. T. bili 0.6, AST 157, ALT 151, alk phos 138, ammonia 29. Recent Lamictal level elevated at 21.5 ( 2-15), Keppra 91.6 ( 3-60), Vimpat 19.9 ( up tp 15) on 04/19/2023. Evaluated and cleared by neurology for discharge. Neurology's recommended patient's mom to discuss with her neurologist whether or not Lamictal dose needed to be decreased. Mother at bedside, in agreement with plan of discharging on empiric antibiotics and following up with PCP in 3 days. Mother returned to the ER with patient on 05/30/2023 with continued altered mental status, failure to thrive, not eating or drinking, denies seizure activity. patient's mother informed Dr. Garcia though, that in the ER, patient's demeanor was actually near baseline, but significantly decreased upon admission into MedSurg room. Currently appears lethargic, alert to her surroundings, receiving IV fluid hydration and empiric IV Rocephin. LFTs have continued to increase. CT of abdomen and pelvis completed in March 2023 reported no acute process. Noted initial trended mild elevation in LFTs in November 2022 after Vimpat and clobazam added to med regimen in July 2022. Mother reports patient has lost 70 pounds over the last 8 months without any further dose adjustments. Afebrile, normal WBC, hemoglobin 12.6, platelets 158, INR 1. Sodium 146, potassium 3.7, BUN 14.6, creatinine 0.5, magnesium 1.7. T. bili 0.4, AST 425, ALT 250, alk phos 149, ammonia 20. UA reported many mucus, bacteria, epithelial cells 1, 56 WBCs, large leukocytes, >12 urobilinogen, negative for nitrates. GI and neurology consulted. 06/01/2023 LFTs increased, AST 557, ALT 333, alk phos 179; T. bili 0.8. BUN 8, creatinine 0.47. Afebrile, normal WBC.Liver ultrasound reported abundant sludge through the gallbladder, common bile duct within normal limits; pancreas tail obscured by overlying bowel gas pattern, liver limited vision. Continues on IV ceftriaxone for acute UTI, preliminary culture reporting gram-negative bacilli. maintaining O2 sats in the 90s on room air. Neurology consult in place, recommendations pending. More alert today, opening her eyes, turning her head towards PCP. No facial grimacing to abdominal palpation. 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 Objective - Vital Signs Vital signs: Vital Signs Temp 97.7 F 06/01/23 10:25 Pulse 69 06/01/23 10:25 Resp 17 06/01/23 10:25 BP 114/76 06/01/23 10:25 Pulse Ox 93 L 06/01/23 10:25 FiO2 Intake & Output 05/31/23 06/01/23 06/01/23 18:59 06:59 18:59 Intake Total 650 Balance 650 Intake: Intake, IV Titration 650 Amount Sodium Chloride 0.9% 1, 600 000 ml @ 75 mls/hr IV . [id number] [facility] Rx#:[id number] cefTRIAXone 2 gm In 50 Sodium Chloride 0.9% 50 ml @ 100 mls/hr IVPB ONCE STA Rx#:[id number] Other: Voiding Method Diaper Diaper # Voids 1 2 - Exam GENERAL: More alert, lying in bed, laying on her back, nonverbal, opening her eyes HEENT: Atraumatic, normocephalic. Conjunctive pink, sclera anicteric NECK: Supple, without lymphadenopathy LUNGS: Unlabored, equal air entry, bilateral bases diminished HEART: Regular rate and rhythm without murmurs, rubs or gallops.S1S2 Normal ABDOMEN: Soft, nontender, normoactive bowel sounds. No guarding, no rebound. EXTREMITIES: No pitting or edema. No clubbing or cyanosis. NEUROLOGICAL: Limited exam: More alert, turning head towards her PCP , opening her eyes ,nonverbal SKIN: Warm, Dry, no rashes noted. - Labs CBC & Chem 7: 06/01/23 07:59 06/01/23 07:59 Labs: Abnormal Lab Results - Last 24 Hours (Table) 06/01/23 Range/Units 07:59 Chloride 113 H (98-107) mmol/L Creatinine 0.47 L (0.52-1.04) mg/dL AST 557 H (14-36) U/L ALT 333 H (4-34) U/L Alkaline Phosphatase 179 H (38-126) U/L Total Protein 6.0 L (6.3-8.2) g/dL Microbiology - Last 24 Hours (Table) 05/30/23 18:00 Urine Culture - Preliminary Urine,Catheterized Gram Neg Bacilli Assessment and Plan Assessment: -Elevated LFTs, continues trending up from previous visits, recent Lamictal level elevated at 21.5 ( 2-15), Keppra 91.6 ( 3-60), Vimpat 19.9 ( up tp 15) on 04/19/2023. Neurology's recommendations at that time was for patient's mom to discuss with her neurologist whether or not Lamictal dose needed to be decreased. CT of abdomen and pelvis completed in March 2023 reported no acute process. Noted initial trended elevation in LFTs in November 2022 after Vimpat and clobazam added to med regimen in July 2022. Mother reports patient has lost 70 pounds over the last 8 months without any further dose adjustments. Suspect toxic and metabolic encephalopathy, medication induced-seizure medications. -Altered mental status, metabolic and toxic encephalopathy, multifactorial, including acute UTI, medication induced in a patient with epilepsy, cerebral palsy, autism, nonverbal and multiple other medical issues. -Acute UTI, gram-negative bacilli, finalized culture pending -Cognitively impaired with developmental disorder -Autism Plan: Continue on current medication regimen, monitoring and symptomatic treatment. Continue IV antibiotics, urine culture finalizing. IV fluid hydration. Neurology consult in place. Continue avoiding hepatotoxic medications. GI workup in progress. Hepatitis panel pending .Close monitoring of LFTs with repeat labs ordered for a.m. The impression and plan of care has been dictated as directed. : I performed a history and examination of this patient, discussed the same with the dictator. I agree with the dictator's note ,documented as a scribe. Any additional findings or plans will be noted.
--- NOTE | 2023-06-01 15:45 | P.PN ---
Subjective Progress Note Date: 06/01/23 Principal diagnosis: Elevated LFTs This is a 23-year-old female with a history of epilepsy, cognitive impairment, developmentally delayed nonverbal and autistic who was brought in by her mother for concerns of failure to thrive, not acting herself. Apparently patient has been in and out of the hospital over the last couple months with urinary tract infections and has been on couple different antibiotics. Last antibiotic she recently was on was Bactrim prior to that she was hospitalized at [facility] and was on the antibiotics at that time as well. During her last hospitalization and this when she is noted to have elevated LFTs. This hospitalization they have continued to increase. Patient has no previous history of liver disorder. She is currently on IV Rocephin, recently on Bactrim and another antibiotic about 2 weeks ago however mother is unsure which one that was at this time. She is on multiple seizure medications as well as psychiatric medications. The 2 most recent medications that were added to patient was Vimpat and clobazam in July 2022. Patient has been on Lamictal for several years however there was a dose increase to 300 mg however patient was 200 pounds at that time and mom is reporting that she has had about a 70 pound weight loss over the last 8 months duration. Enterology was consulted for elevated LFTs. Trending back patient's AST and ALT they have been consistently mildly elevated since November 2022 however since March 2023 they have been consistently in the 100s to 200s and with this admission as high as 3-4 100s. Today's labs WBC 4.5 hemoglobin 12.6 platelet count 158,000 INR 1.0 sodium 146 potassium 3.7 BUN 14 creatinine 0.5 total bilirubin 0.4 AST 425 ALT 250 alkaline phosphatase 149 ammonia 20. 06/01/2023 Patient seen and examined today as a follow-up. Today's LFTs continue to increase total bilirubin stable at 0.8 AST 557 up from 425 ALT 333 up from 250 alkaline phosphatase 179 up from 149. No acute changes. Hepatitis panel, CMV and EBV pending. Liver ultrasound reports normal liver, abundant sludge through the gallbladder. Objective - Vital Signs Vital signs: Vital Signs Temp 97.7 F 06/01/23 10:25 Pulse 69 06/01/23 10:25 Resp 17 06/01/23 10:25 BP 114/76 06/01/23 10:25 Pulse Ox 93 L 06/01/23 10:25 FiO2 Intake & Output 05/31/23 06/01/23 06/01/23 18:59 06:59 18:59 Intake Total 650 Balance 650 Intake: Intake, IV Titration 650 Amount Sodium Chloride 0.9% 1, 600 000 ml @ 75 mls/hr IV . [id number] [facility] Rx#:[id number] cefTRIAXone 2 gm In 50 Sodium Chloride 0.9% 50 ml @ 100 mls/hr IVPB ONCE STA Rx#:[id number] Other: Voiding Method Diaper Diaper # Voids 1 2 - Exam General appearance: The patient is curled up in a position in the bed. Overall nonresponsive to us. HET: Head is normocephalic and atraumatic. Conjunctiva pink. Sclera anicteric. Neck: Supple without lymphadenopathy. Trachea midline. Abdomen: Soft, nontender, nondistended. Skin: No rashes. No jaundice. Extremities: Normal skin color and turgor. No pedal edema. Neurological: Patient is nonverbal, not very responsive to exam. - Labs CBC & Chem 7: 06/01/23 07:59 06/01/23 07:59 Labs: Abnormal Lab Results - Last 24 Hours (Table) 06/01/23 Range/Units 07:59 Chloride 113 H (98-107) mmol/L Creatinine 0.47 L (0.52-1.04) mg/dL AST 557 H (14-36) U/L ALT 333 H (4-34) U/L Alkaline Phosphatase 179 H (38-126) U/L Total Protein 6.0 L (6.3-8.2) g/dL Microbiology - Last 24 Hours (Table) 05/30/23 18:00 Urine Culture - Preliminary Urine,Catheterized Gram Neg Bacilli Assessment and Plan (1) Elevated LFTs Narrative/Plan: 23-year-old female presenting to the hospital with continued fatigue, changes in mental status and getting any better after recent UTI and hospitalizations. Patient has been having continued trending elevated LFTs with no prior history of liver disease. Likely this is medication induced however difficult to narrow down as patient is on multiple medications. Most recent medications were added in July 2022 both Vimpat and Clobazam, where he could start seeing a trend of elevation in her AST and ALT in November 2022. Starting in March there was continued significant elevation in the 100s and 200s and now up to the 2 and 300s. Patient also has been on multiple antibiotics most recently Bactrim at home and currently on Rocephin. This may be exacerbating the LFTs as well as her AST is 425 and ALT 250 alkaline phosphatase 149. Will need to rule out othe r possible etiologies and will run a hepatitis panel as well as EBV and CMV antibodies. Would recommend consultation with neurology to consider if there are other possible alternatives for medication for epilepsy. Ultimately patient will need to follow-up with her neurologist. Current Visit: Yes Status: Acute Code(s): R79.89 - OTHER SPECIFIED ABNORMAL FINDINGS OF BLOOD CHEMISTRY SNOMED Code(s): 039937112 (2) Epilepsy Current Visit: Yes Status: Acute Code(s): G40.909 - EPILEPSY, UNSP, NOT IN TRACTABLE, WITHOUT STATUS EPILEPTICUS SNOMED Code(s): 19249493 (3) Cognitive impairment Current Visit: Yes Status: Acute Code(s): R41.89 - OTH SYMPTOMS AND SIGNS W COGNITIVE FUNCTIONS AND AWARENESS SNOMED Code(s): 731888554 (4) Autism Current Visit: Yes Status: Acute Code(s): F84.0 - AUTISTIC DISORDER SNOMED Code(s): 53079888 (5) Altered mental status Current Visit: No Status: Acute Code(s): R41.82 - ALTERED MENTAL STATUS, U NSPECIFIED SNOMED Code(s): 433528254 Plan: 1. Continue symptomatic and supportive care 2. Avoid hepatotoxic medications. Discussed with neurology possible medications causing elevated LFTs include last 2 newest of Vimpat and clobazam. Would recommend discontinuing these medications. 3. EBV, CMV, hepatitis panel ordered, currently pending 4. Liver ultrasound ordered and reviewed 5. Daily CMP Thank you for this consultation, we will continue to follow. Dr. Eddie Leo I agree with the dictator's note, documented as a scribe by Dai Burciaga.
[2023-06-01 16:22] LABS: Hepatitis B Surface Antigen Nonreactive
[2023-06-01 16:23] LABS: Hepatitis A Antibody IgM Nonreactive; Hepatitis B Core IgM Nonreactive; Hepatitis C IgG Antibody Nonreactive
--- NOTE | 2023-06-01 17:25 | P.CNNES ---
History of Present Illness Consult date: 06/01/23 Requesting physician: Melchor Garcia Reason for Consult: epilepsy History of Present Illness: This is a 23-year-old woman with history of epilepsy since age 2, the frontal delay, autistic, nonverbal, recurrent urinary tract infection who presented emergency department because of failure to thrive. History was obtained from medical record. It seems the patient has fatigue and is found to have acute urinary tract infection with elevated liver function test. This seems the patient has elevated liver function test and the patient is on Vimpat and clobazam and the GI team felt the liver function tests were elevated due to at dose medication possibly at. According to the nurse patient has not had any seizures on presentation or during his hospital visit state or anything recent reported. Currently the patient is on Lamictal 300 mg twice a day, Briviact 10mg bid twice a day, Vimpat 200 mg twice a day, on 320 mg at bedtime. The Vimpat and Onfi (Clobazam) were added in July 2022 after she was hospitalized at [facility] for status epilepticus. Patient has a history of seizures since the age of 2. Patient was seen multiple times by Dr. Lopez during the prior hospital visit from a neurologic perspective. His refer to his note for further details. Some of the work-up during this hospital visit consisted of: AST during this hospital visit is as high as 557 ALT is 333 Ammonia is 20 TSH is 2.390 Calcium is 8.9, sodium is a 142, magnesium is 1.7. Urinalysis leukocyte esterase was large, urine white blood cells 56, urine bacteria is many Urine culture as gram-negative bacilli. Review of Systems ROS: Is limited. Past Medical History Past Medical History: Seizure Disorder Additional Past Medical History / Comment(s): Epilepsy, cognitive impairment, developmentally delayed, non verbal, Autism, urinary incontinence, wears depends, hx UTI's, cerebral palsy, pt. has been in W/C since 06/25 and requires [facility] list for transfer History of Any Multi-Drug Resistant Organisms: None Reported Additional Past Surgical History / Comment(s): VNS shunt, eye correction, dental work. Past Anesthesia/Blood Transfusion Reactions: No Reported Reaction Additional Past Anesthesia/Blood Transfusion Reaction / Comment(s): Mom PONV Past Psychological History: Anxiety Additional Psychological History / Comment(s): Developmentally delayed, autistic, non verbal. Smoking Status: Never smoker, Second hand smoke exposure Past Alcohol Use History: None Reported Past Drug Use History: None Reported - Past Family History Mother Family Medical History: No Reported History Medications and Allergies Home Medications Medication Instructions Recorded Confirmed Type Cariprazine HCl [Vraylar] 6 mg PO DAILY 09/25/20 05/30/23 History FLUoxetine HCL 80 mg PO HS 09/25/20 05/30/23 History Paliperidone [Invega] 9 mg PO DAILY 05/12/22 05/30/23 History Midazolam [Nayzilam] 5 mg NASAL DIRECTED PRN 05/14/22 05/30/23 History guanFACINE [Tenex] 3 mg PO DAILY 05/14/22 05/30/23 History Lacosamide [Vimpat] 200 mg PO BID 11/04/22 05/30/23 History cloBAZam 20 mg PO HS 11/04/22 05/30/23 History lamoTRIgine 300 mg PO BID 11/04/22 05/30/23 History LORazepam [Ativan] 1 mg PO TID PRN 02/21/23 05/30/23 History Brivaracetam [Briviact] 10 mg PO BID 05/03/23 05/30/23 History Docusate Oral Soln [Colace Oral 60 mg PO DAILY 05/27/23 05/30/23 History Soln] Sulfamethox-Tmp 800-160Mg [Bactrim 1 tab PO Q12HR 5 Days #10 tab 05/27/23 05/30/23 Rx DS 800-160 mg] Allergies Allergy/AdvReac Type Severity Reaction Status Date / Time No Known Allergies Allergy Verified 05/30/23 17:54 Physical Examination - Vital Signs Vital Signs: Vital Signs Temp Pulse Resp BP Pulse Ox 06/01/23 14:05 97.6 F 64 16 98/64 95 06/01/23 10:25 97.7 F 69 17 114/76 93 L 06/01/23 01:43 97.3 F L 72 18 126/67 92 L 05/31/23 20:00 97.4 F L 70 18 115/78 96 Intake and Output 06/01/23 06/01/23 06/01/23 06:59 14:59 22:59 Other: Voiding Method Diaper # Voids 2 General: Lying in bed and does not appear in acute distress. Neuro: Very limited. She is sleeping Results - Laboratory Findings CBC and BMP: 06/01/23 07:59 06/01/23 07:59 Abnormal Lab Findings: Abnormal Labs 05/30/23 05/30/23 05/31/23 16:51 18:00 05:55 RBC 3.81 L Hct 35.8 L MCH 33.1 H Sodium Chloride 109 H Anion Gap BUN 21 H Creatinine BUN/Creatinine Ratio Calcium AST 384 H ALT 233 H Alkaline Phosphatase 149 H Total Protein 6.2 L Albumin Urine Appearance Cloudy H Urine Protein 1+ H Urine Bilirubin 1+ H Ur Leukocyte Esterase Large H Urine WBC 56 H Urine Bacteria Many H Urine Mucus Many H 05/31/23 06/01/23 05:55 07:59 RBC Hct MCH Sodium 146 H Chloride 110 H 113 H Anion Gap 12.10 H BUN Creatinine 0.5 L 0.47 L BUN/Creatinine Ratio 29.20 H Calcium 8.4 L AST 425 H 557 H ALT 250 H 333 H Alkaline Phosphatase 149 H 179 H Total Protein 5.4 L 6.0 L Albumin 3.5 L Urine Appearance Urine Protein Urine Bilirubin Ur Leukocyte Esterase Urine WBC Urine Bacteria Urine Mucus Assessment and Plan Assessment: This is a 23-year-old woman who presents to the hospital because of failure to thrive. She was found to have acute UTI and elevated LFT's * Elevated LFT's/Transaminitis And there is concern due to some of the antiepileptic drugs (Vimpat especially since was started in July 2022 and pat ient having elevated LFT since that time and trending up). I cannot rule out underlying recurrent infection such as UTIs etc. leading to to elevated liver function in addition * Acute UTI * Epilepsy since age 2 and is on 4 antiepileptic---controlled * Developmental delay * History of recurrent UTI * Polypharmacy Plan: This seems Vimpat has more association with a transaminitis. We'll discuss this with the patient's neurologist over at [facility] to assess if the she can be switched to a different medication per GIs request because of elevated liver function test. Currently the patient is on Lamictal 300 mg twice a day, Briviact 10mg bid twice a day, Vimpat 200 mg twice a day, on 320 mg at bedtime. The Vimpat and Onfi (Clobazam) were added in July 2022 after she was hospitalized at [facility] for status epilepticus. In the past she was on Keppra but was switched to Briviact. Seizure precaution and pads. GI is on board. We'll defer the rest of the medical measure the [facility] other specialist The plan discussed with the patient's nurse and the GI team. Thank you for the consultation. Time with Patient: Greater than 30
--- NOTE | 2023-06-02 12:22 | P.PN ---
Subjective Progress Note Date: 06/02/23 Principal diagnosis: Elevated LFTs This is a 23-year-old female with a history of epilepsy, cognitive impairment, developmentally delayed nonverbal and autistic who was brought in by her mother for concerns of failure to thrive, not acting herself. Apparently patient has been in and out of the hospital over the last couple months with urinary tract infections and has been on couple different antibiotics. Last antibiotic she recently was on was Bactrim prior to that she was hospitalized at [facility] and was on the antibiotics at that time as well. During her last hospitalization and this when she is noted to have elevated LFTs. This hospitalization they have continued to increase. Patient has no previous history of liver disorder. She is currently on IV Rocephin, recently on Bactrim and another antibiotic about 2 weeks ago however mother is unsure which one that was at this time. She is on multiple seizure medications as well as psychiatric medications. The 2 most recent medications that were added to patient was Vimpat and clobazam in July 2022. Patient has been on Lamictal for several years however there was a dose increase to 300 mg however patient was 200 pounds at that time and mom is reporting that she has had about a 70 pound weight loss over the last 8 months duration. Enterology was consulted for elevated LFTs. Trending back patient's AST and ALT they have been consistently mildly elevated since November 2022 however since March 2023 they have been consistently in the 100s to 200s and with this admission as high as 3-4 100s. Today's labs WBC 4.5 hemoglobin 12.6 platelet count 158,000 INR 1.0 sodium 146 potassium 3.7 BUN 14 creatinine 0.5 total bilirubin 0.4 AST 425 ALT 250 alkaline phosphatase 149 ammonia 20. 06/01/2023 Patient seen and examined today as a follow-up. Today's LFTs continue to increase total bilirubin stable at 0.8 AST 557 up from 425 ALT 333 up from 250 alkaline phosphatase 179 up from 149. No acute changes. Hepatitis panel, CMV and EBV pending. Liver ultrasound reports normal liver, abundant sludge through the gallbladder. 06/02/2023 Patient seen and examined today as a follow-up. She is much more awake and alert and responsive. She was seen by neurology who believes tympanic likely th e medication that would most likely cause increased LFTs. Today's labs are currently pending. Neurology and primary medical team awaiting recommendations from patient's primary neurologist. EBV, hepatitis, CMV all nonreactive Objective - Vital Signs Vital signs: Vital Signs Temp 96.5 F L 06/02/23 07:28 Pulse 65 06/02/23 07:28 Resp 18 06/02/23 07:28 BP 104/67 06/02/23 07:28 Pulse Ox 97 06/02/23 07:28 FiO2 Intake & Output 06/01/23 06/02/23 06/02/23 18:59 06:59 18:59 Other: Voiding Method Diaper Diaper # Voids 2 1 - Exam General appearance: The patient is curled up in a position in the bed. Overall nonresponsive to us. HET: Head is normocephalic and atraumatic. Conjunctiva pink. Sclera anicteric. Neck: Supple without lymphadenopathy. Trachea midline. Abdomen: Soft, nontender, nondistended. Skin: No rashes. No jaundice. Extremities: Normal skin color and turgor. No pedal edema. Neurological: Patient is nonverbal, not very responsive to exam. - Labs CBC & Chem 7: 06/01/23 07:59 06/03/23 05:19 Labs: Microbiology - Last 24 Hours (Table) 05/30/23 18:00 Urine Culture - Preliminary Urine,Catheterized Gram Neg Bacilli Assessment and Plan (1) Elevated LFTs Narrative/Plan: 23-year-old female presenting to the hospital with continued fatigue, changes in mental status and getting any better after recent UTI and hospitalizations. Patient has been having continued trending elevated LFTs with no prior history of liver disease. Likely this is medication induced however difficult to narrow down as patient is on multiple medications. Most recent medications were added in July 2022 both Vimpat and Clobazam, where he could start seeing a trend of elevation in her AST and ALT in November 2022. Starting in March there was continued significant elevation in the 100s and 200s and now up to the 2 and 300s. Patient also has been on multiple antibiotics most recently Bactrim at home and currently on Rocephin. This may be exacerbating the LFTs as well as her AST is 425 and ALT 250 alkaline phosphatase 149. Will need to rule out other possible etiologies and will run a hepatitis panel as well as EBV and CMV antibodies. Would recommend consultation with neurology to consider if there are other possible alternatives for medication for epilepsy. Their recommendation was to discontinue Clobazam. ultimately patient will need to follow-up with her neurologist. EBV, CMV, hepatitis nonreactive, viral etiology ruled out. Current Visit: Yes Status: Acute Code(s): R79.89 - OTHER SPECIFIED ABNORMAL FINDINGS OF BLOOD CHEMISTRY SNOMED Code(s): 378520962 (2) Epilepsy Current Visit: Yes Status: Acute Code(s): G40.909 - EPILEPSY, UNSP, NOT INTRACTABLE, WITHOUT STATUS EPILEPTICUS SNOMED Code(s): 14571747 (3) Cognitive impairment Current Visit: Yes Status: Acute Code(s): R41.89 - OTH SYMPTOMS AND SIGNS W COGNITIVE FUNCTIONS AND AWARENESS SNOMED Code(s): 721406163 (4) Autism Current Visit: Yes Status: Acute Code(s): F84.0 - AUTISTIC DISORDER SNOMED Code(s): 97697055 (5) Altered mental status Current Visit: No Status: Acute Code(s): R41.82 - ALTERED MENTAL STATUS, UNSPECIFIED SNOMED Code(s): 887378896 Plan: 1. Continue symptomatic and supportive care 2. Avoid hepatotoxic medications. Discussed with neurology possible medications causing elevated LFTs include last 2 newest of Vimpat and clobazam. 3. Neurology spoke with patient's neurologist and recommendation was to start with discontinuation of clobazam 4. EBV, CMV, hepatitis panel ordered all nonreactive. 5. Liver ultrasound ordered and reviewed 6. Daily CMP Thank you for this consultation, we will continue to follow. Dr. Eddie Leo I agree with the dictator's note, documented as a scribe by Dai Burciaga.
--- NOTE | 2023-06-02 14:49 | P.PN ---
Subjective Progress Note Date: 06/02/23 I am following-up with patient and she is accompanied with her mother who states it has been a while since last seizure. Objective - Vital Signs Vital signs: Vital Signs Temp 97.3 F L 06/02/23 14:00 Pulse 76 06/02/23 14:00 Resp 18 06/02/23 14:00 BP 99/60 06/02/23 14:00 Pulse Ox 95 06/02/23 14:00 FiO2 Intake & Output 06/01/23 06/02/23 06/02/23 18:59 06:59 18:59 Other: Voiding Method Diaper Diaper Diaper # Voids 2 1 1 - Exam General: Lying in bed and is not in acute distress. Neuro: Very limited. Not verbalizing or following commands. NO facial weakness. Motor: Strength is hard to assess. Some of the work-up during this hospital visit consisted of: AST during this hospital visit is as high as 557 ALT is 333 Ammonia is 20 TSH is 2.390 Calcium is 8.9, sodium is a 142, magnesium is 1.7. Urinalysis leukocyte esterase was large, urine white blood cells 56, urine bacteria is many Urine culture as gram-negative bacilli. Hepatitic C IgG ab, Hep B Core Igm and Hep Bs antigiven, Hep A IgM ab are non reactive. CMV is nonreactive. - Labs CBC & Chem 7: 06/01/23 07:59 06/01/23 07:59 Labs: Microbiology - Last 24 Hours (Table) 05/30/23 18:00 Urine Culture - Preliminary Urine,Catheterized Gram Neg Bacilli Assessment and Plan Assessment: This is a 23-year-old woman who presents to the hospital because of failure to thrive. She was found to have acute UTI and elevated LFT's * Elevated LFT's/Transaminitis And there is concern due to some of the antiepileptic drugs (Vimpat or Onfi especially since was started in July 2022 and patient having elevated LFT since that time and trending up). I cannot rule out underlying recurrent infection such as UTIs etc. leading to to elevated liver function in addition * Acute UTI * Epilepsy since age 2 and is on 4 antiepileptic---controlled * Developmental delay * History of recurrent UTI * Polypharmacy Plan: I reached out to her neurology team and spoke with Dr. Garcia (Dr. Emma harris) who is covering for him. She recommend to go down on Onfi from 20mg to 10mg qhs since she felt the Vimpat is helping with her seizure. The Vimpat and Onfi (Clobazam) were added in July 2022 after she was hospitalized at [place] for status epilepticus. In the past she was on Keppra but was switched to Briviact. Continue her other home dose Lamictal 300 mg twice a day, Briviact 10mg bid twice a day, Vimpat 200 mg twice a day. Will have the patient to follow-up with Dr. Carter as outpatient for further recommendation/modification of medication. Seizure precaution and pads. GI is on board. We'll defer the rest of the medical measure the [facility] other specialist The plan discussed with the patient's nurse, Primary team N.P. and G.I. team N.P . If no further seizures after decrease of Onfi by tomorrow then no further neurological work-up. Time with Patient: Less than 30
--- NOTE | 2023-06-02 15:43 | P.PN ---
Subjective Progress Note Date: 06/02/23 H&P Date: 05/31/23 This is a 23-year-old female with past medical history significant for epilepsy, cerebral palsy, autism, nonverbal, and multiple other medical issues, follows up with [facility] epileptologist -Dr. Barone, and recently admitted on 05/26/2023 as observation for acute metabolic encephalopathy, suspected related to patient's developmental delays, cognitive impairment and possible acute recurrent UTI, discharged on 05/27/2023. Mom had reported altered mental status, patient more withdrawn without seizure activity. Patient recently transferred from [facility] on 04/20/2023 to [facility] and completed a 36-hour prolonged EEG at [facility] April 28 that failed to show epileptiform activity. During last admission-PCP's exam patient was blinking, half grinning, without tachycardia. Afebrile, normal WBC. Potassium 3.1 on admission, supplemented, repeat potassium 3.7. Initial UA appeared contaminated reporting high epithelial cells, repeated -negative. Vital signs stable. T. bili 0.6, AST 157, ALT 151, alk phos 138, ammonia 29. Recent Lamictal level elevated at 21.5 ( 2-15), Keppra 91.6 ( 3-60), Vimpat 19.9 ( up tp 15) on 04/19/2023. Evaluated and cleared by neurology for discharge. Neurology's recommended patient's mom to discuss with her neurologist whether or not Lamictal dose needed to be decreased. Mother at bedside, in agreement with plan of discharging on empiric antibiotics and following up with PCP in 3 days. Mother returned to the ER with patient on 05/30/2023 with continued altered mental status, failure to thrive, not eating or drinking, denies seizure activity. patient's mother informed Dr. Garcia though, that in the ER, patient's demeanor was actually near baseline, but significantly decreased upon admission into MedSurg room. Currently appears lethargic, alert to her surroundings, receiving IV fluid hydration and empiric IV Rocephin. LFTs have continued to increase. CT of abdomen and pelvis completed in March 2023 reported no acute process. Noted initial trended mild elevation in LFTs in November 2022 after Vimpat and clobazam added to med regimen in July 2022. Mother reports patient has lost 70 pounds over the last 8 months without any further dose adjustments. Afebrile, normal WBC, hemoglobin 12.6, platelets 158, INR 1. Sodium 146, potassium 3.7, BUN 14.6, creatinine 0.5, magnesium 1.7. T. bili 0.4, AST 425, ALT 250, alk phos 149, ammonia 20. UA reported many mucus, bacteria, epithelial cells 1, 56 WBCs, large leukocytes, >12 urobilinogen, negative for nitrates. GI and neurology consulted. 06/01/2023 LFTs increased, AST 557, ALT 333, alk phos 179; T. bili 0.8. BUN 8, creatinine 0.47. Afebrile, normal WBC.Liver ultrasound reported abundant sludge through the gallbladder, common bile duct within normal limits; pancreas tail obscured by overlying bowel gas pattern, liver limited vision. Continues on IV ceftriaxone for acute UTI, preliminary culture reporting gram-negative bacilli. maintaining O2 sats in the 90s on room air. Neurology consult in place, recommendations pending. More alert today, opening her eyes, turning her head towards PCP. No facial grimacing to abdominal palpation. 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 06/02/2023 much more alert today, staff reports consumed 100% of breakfast. Seizure precautions maintained.no seizure activity. PCP, Dr. Garcia left message for patient's [facility] neurologist without call back yet. Labs pending. Neurology following with further recommendations pending regarding antiepileptic med regimen. Objective - Vital Signs Vital signs: Vital Signs Temp 97.3 F L 06/02/23 14:00 Pulse 76 06/02/23 14:00 Resp 18 06/02/23 14:00 BP 99/60 06/02/23 14:00 Pulse Ox 95 06/02/23 14:00 FiO2 Intake & Output 06/01/23 06/02/23 06/02/23 18:59 06:59 18:59 Other: Voiding Method Diaper Diaper Diaper # Voids 2 1 1 - Exam GENERAL: Much more alert, appears comfortable, near baseline as per mother at bedside HEENT: Atraumatic, normocephalic. Conjunctive pink, sclera anicteric NECK: Supple, without lymphadenopathy LUNGS: Unlabored, equal air entry, bilateral bases diminished HEART: Regular rate and rhythm without murmurs, rubs or gallops.S1S2 Normal ABDOMEN: Soft, nontender, normoactive bowel sounds. No guarding, no rebound. EXTREMITIES: No pitting or edema. No clubbing or cyanosis. NEUROLOGICAL: Limited exam: More alert, nonverbal SKIN: Warm, Dry, no rashes noted. - Labs CBC & Chem 7: 06/01/23 07:59 06/01/23 07:59 Labs: Microbiology - Last 24 Hours (Table) 05/30/23 18:00 Urine Culture - Final Urine,Catheterized Escherichia coli Assessment and Plan Assessment: -Elevated LFTs, continues trending up from previous visits, recent Lamictal level elevated at 21.5 ( 2-15), Keppra 91.6 ( 3-60), Vimpat 19.9 ( up tp 15) on 04/19/2023. Neurology's recommendations at that time was for patient's mom to discuss with her neurologist whether or not Lamictal dose needed to be decreased. CT of abdomen and pelvis completed in March 2023 reported no acute process. Noted initial trended elevation in LFTs in November 2022 after Vimpat and clobazam added to med regimen in July 2022. Mother reports patient has lost 70 pounds over the last 8 months without any further dose adjustments. Suspect toxic and metabolic encephalopathy, medication induced-seizure medications. -Altered mental status, metabolic and toxic encephalopathy, multifactorial, including acute UTI, medication induced in a patient with epilepsy, cerebral palsy, autism, nonverbal and multiple other medical issues. -Acute UTI, gram-negative bacilli, finalized culture pending -Cognitively impaired with developmental disorder -Autism Plan: Continue on current medication regimen, monitoring and symptomatic treatment. Labs pending .Seizure precautions. PCP/Dr. Garcia has not yet made connection with patient's [facility] neurologist. Neurology followingfurther recommendations pending regarding antiepileptic med regimen.Urine Culture Finalizing continue IV antibiotics. IV fluid hydration. GI workup in progress. The impression and plan of care has been dictated as directed. : I performed a history and examination of this patient, discussed the same with the dictator. I agree with the dictator's note ,documented as a scribe. Any additional findings or plans will be noted.
[2023-06-02 16:17] LABS: ALT 277 U/L (8-44); AST 305 U/L (13-35); Albumin 3.6 g/dL (3.8-4.9); Albumin/Globulin Ratio 1.71 Ratio (1.60-3.17); Alkaline Phosphatase 175 U/L (41-126); Blood Urea Nitrogen 5.1 mg/dL (9.0-27.0); Carbon Dioxide 24.1 mmol/L (21.6-31.8); Chloride 112 mmol/L (96-109); Globulin 2.1 g/dL (1.6-3.3); Glucose 88 mg/dL (70-110); Potassium 4.7 mmol/L (3.5-5.5); Sodium 145 mmol/L (135-145); Total Bilirubin 0.5 mg/dL (0.3-1.2); Total Protein 5.7 g/dL (6.2-8.2)
[2023-06-02] MEDS: LORazepam 1 MG TAB PO PRN (18:43)
[2023-06-02] MEDS: LACOSAMIDE 50 MG TABLET PO SCH (20:35)
[2023-06-02] MEDS: LACOSAMIDE 150 MG TABLET PO SCH (20:35)
[2023-06-02] MEDS: CLOBAZAM 10 MG PO SCH (20:35)
[2023-06-02] MEDS ORDERED: LACOSAMIDE 50 MG TABLET PO SCH (21:00)
[2023-06-03 02:06] VITALS: TEMP 97.6
[2023-06-03 05:51] LABS: ALT 209 U/L (4-34); AST 191 U/L (14-36); African American GFR (CKD) >90 (>60 ml/min/1.73 sqM); Albumin 3.1 g/dL (3.5-5.0); Albumin/Globulin Ratio 1.3; Alkaline Phosphatase 144 U/L (38-126); Anion Gap 3 mmol/L; Blood Urea Nitrogen 4 mg/dL (7-17); Calcium 8.2 mg/dL (8.4-10.2); Carbon Dioxide 25 mmol/L (22-30); Chloride 113 mmol/L (98-107); Globulin 2.4 g/dL; Glucose 97 mg/dL (74-99); Non-African American GFR(CKD) >90 (>60 ml/min/1.73 sqM); Potassium 4.3 mmol/L (3.5-5.1); Sodium 141 mmol/L (137-145); Total Bilirubin 0.6 mg/dL (0.2-1.3); Total Protein 5.5 g/dL (6.3-8.2)
[2023-06-03 08:20] VITALS: BP 124/84; PULSE 71; RESP 18
[2023-06-03 08:51] LABS: Basophils # (A) 0.01 X 10*3/uL (0.00-0.10); Basophils % (A) 0.2 %; Eosinophils # (A) 0.05 X 10*3/uL (0.04-0.35); Eosinophils % (A) 1.2 %; HCT 34.1 % (37.2-46.3); HGB 11.9 g/dL (12.0-15.0); Lymphocytes % (A) 30.9 %; MCH 32.5 pg (27.0-32.0); MCHC 34.9 g/dL (32.0-37.0); MCV 93.2 FL (80.0-97.0); Mean Platelet Volume 10.9 FL (9.5-12.2); Monocytes # (A) 0.39 X 10*3/uL (0.20-1.00); Monocytes % (A) 9.3 %; NRBC Per 100 WBC 0 X 10*3/uL (0.00-0.01); Neutrophils # (A) 2.45 X 10*3/uL (1.80-7.70); Neutrophils % (A) 58.2 %; Platelet Count 172 X 10*3/uL (140-440); RBC 3.66 X 10*6/uL (4.10-5.20); RDW 14.8 % (11.5-14.5); WBC 4.21 X 10*3/uL (4.50-10.00)
--- NOTE | 2023-06-03 11:46 | P.PN ---
Subjective Progress Note Date: 06/03/23 Principal diagnosis: Elevated LFTs This is a 23-year-old female with a history of epilepsy, cognitive impairment, developmentally delayed nonverbal and autistic who was brought in by her mother for concerns of failure to thrive, not acting herself. Apparently patient has been in and out of the hospital over the last couple months with urinary tract infections and has been on couple different antibiotics. Last antibiotic she recently was on was Bactrim prior to that she was hospitalized at [facility] and was on the antibiotics at that time as well. During her last hospitalization and this when she is noted to have elevated LFTs. This hospitalization they have continued to increase. Patient has no previous history of liver disorder. She is currently on IV Rocephin, recently on Bactrim and another antibiotic about 2 weeks ago however mother is unsure which one that was at this time. She is on multiple seizure medications as well as psychiatric medications. The 2 most recent medications that were added to patient was Vimpat and clobazam in July 2022. Patient has been on Lamictal for several years however there was a dose increase to 300 mg however patient was 200 pounds at that time and mom is reporting that she has had about a 70 pound weight loss over the last 8 months duration. Enterology was consulted for elevated LFTs. Trending back patient's AST and ALT they have been consistently mildly elevated since November 2022 however since March 2023 they have been consistently in the 100s to 200s and with this admission as high as 3-4 100s. Today's labs WBC 4.5 hemoglobin 12.6 platelet count 158,000 INR 1.0 sodium 146 potassium 3.7 BUN 14 creatinine 0.5 total bilirubin 0.4 AST 425 ALT 250 alkaline phosphatase 149 ammonia 20. 06/01/2023 Patient seen and examined today as a follow-up. Today's LFTs continue to increase total bilirubin stable at 0.8 AST 557 up from 425 ALT 333 up from 250 alkaline phosphatase 179 up from 149. No acute changes. Hepatitis panel, CMV and EBV pending. Liver ultrasound reports normal liver, abundant sludge through the gallbladder. 06/02/2023 Patient seen and examined today as a follow-up. She is much more awake and alert and responsive. She was seen by neurology who believes tympanic likely th e medication that would most likely cause increased LFTs. Today's labs are currently pending. Neurology and primary medical team awaiting recommendations from patient's primary neurologist. EBV, hepatitis, CMV all nonreactive. 06/03/2023 Patient seen and examined today as a follow-up. No acute changes through the night. She is awake and alert today. Patient's mom is at the bedside. LFTs are trending down yesterday's AST 305 today 191 ALT 277 today 209. The plan is for discharge home Objective - Vital Signs Vital signs: Vital Signs Temp 97.6 F 06/03/23 01:10 Pulse 71 06/03/23 07:35 Resp 18 06/03/23 07:35 BP 124/84 06/03/23 07:35 Pulse Ox 97 06/03/23 07:35 FiO2 Intake & Output 06/02/23 06/03/23 06/03/23 18:59 06:59 18:59 Intake Total 900 Balance 900 Intake: Intake, IV Titration 900 Amount 0.9% NaCl with KCl 40 Meq 900 /l 1,000 ml @ 75 mls/hr IV .[id number] [facility] Rx#: [id number] Other: Voiding Method Diaper Diaper # Voids 1 2 - Exam General appearance: The patient is curled up in a position in the bed. Overall nonresponsive to us. HET: Head is normocephalic and atraumatic. Conjunctiva pink. Sclera anicteric. Neck: Supple without lymphadenopathy. Trachea midline. Abdomen: Soft, nontender, nondistended. Skin: No rashes. No jaundice. Extremities: Normal skin color and turgor. No pedal edema. Neurological: Patient is nonverbal, not very responsive to exam. - Labs CBC & Chem 7: 06/03/23 05:19 06/03/23 05:19 Labs: Abnormal Lab Results - Last 24 Hours (Table) 06/02/23 06/03/23 06/03/23 Range/Units 09:35 05:19 05:19 WBC 4.21 L (4.50-10.00) X 10*3/uL RBC 3.66 L (4.10-5.20) X 10*6/uL Hgb 11.9 L (12.0-15.0) g/dL Hct 34.1 L (37.2-46.3) % MCH 32.5 H (27.0-32.0) pg RDW 14.8 H (11.5-14.5) % Chloride 112 H 113 H (96-109) mmol/L BUN 5.1 L 4 L (9.0-27.0) mg/dL Creatinine 0.44 L (0.52-1.04) mg/dL BUN/Creatinine Ratio 8.50 L (12.00-20.00) Ratio Calcium 8.2 L (8.4-10.2) mg/dL AST 305 H 191 H (13-35) U/L ALT 277 H 209 H (8-44) U/L Alkaline Phosphatase 175 H 144 H (41-126) U/L Total Protein 5.7 L 5.5 L (6.2-8.2) g/dL Albumin 3.6 L 3.1 L (3.8-4.9) g/dL Microbiology - Last 24 Hours (Table) 05/30/23 18:00 Urine Culture - Final Urine,Catheterized Escherichia coli Assessment and Plan (1) Elevated LFTs Narrative/Plan: 23-year-old female presenting to the hospital with continued fatigue, changes in mental status and getting any better after recent UTI and hospitalizations. Pat ient has been having continued trending elevated LFTs with no prior history of liver disease. Likely this is medication induced however difficult to narrow down as patient is on multiple medications. Most recent medications were added in July 2022 both Vimpat and Clobazam, where he could start seeing a trend of elevation in her AST and ALT in November 2022. Starting in March there was continued significant elevation in the 100s and 200s and now up to the 2 and 300s. Patient also has been on multiple antibiotics most recently Bactrim at home and currently on Rocephin. This may be exacerbating the LFTs as well as her AST is 425 and ALT 250 alkaline phosphatase 149. Will need to rule out other possible etiologies and will run a hepatitis panel as well as EBV and CMV antibodies. Would recommend consultation with neurology to consider if there are other possible alternatives for medication for epilepsy. Their recommendation was to discontinue Clobazam. ultimately patient will need to follow-up with her neurologist. EBV, CMV, hepatitis nonreactive, viral etiology ruled out. Recommend repeat of LFTs in 3 days follow-up with gastroenterology in 1 to 2 weeks. Current Visit: Yes Status: Acute Code(s): R79.89 - OTHER SPECIFIED ABNORMAL FINDINGS OF BLOOD CHEMISTRY SNOMED Code(s): 814646900 (2) Epilepsy Current Visit: Yes Status: Acute Code(s): G40.909 - EPILEPSY, UNSP, NOT I NTRACTABLE, WITHOUT STATUS EPILEPTICUS SNOMED Code(s): 50428142 (3) Cognitive impairment Current Visit: Yes Status: Acute Code(s): R41.89 - OTH SYMPTOMS AND SIGNS W COGNITIVE FUNCTIONS AND AWARENESS SNOMED Code(s): 492043099 (4) Autism Current Visit: Yes Status: Acute Code(s): F84.0 - AUTISTIC DISORDER SNOMED Code(s): 53060485 (5) Altered mental status Current Visit: No Status: Acute Code(s): R41.82 - ALTERED MENTAL STATUS, UNSPECIFIED SNOMED Code(s): 417880496 Plan: 1. Continue symptomatic and supportive care 2. Avoid hepatotoxic medications. Discussed with neurology possible medications causing elevated LFTs include last 2 newest of Vimpat and clobazam. 3. Neurology spoke with patient's neurologist and recommendation was to start with discontinuation of clobazam 4. EBV, CMV, hepatitis panel ordered all nonreactive. 5. Liver ultrasound ordered and reviewed 6. Repeat comprehensive metabolic panel in 3 days, discussed with patient's mother to follow-up with gastroenterology in 1 to 2 weeks. Follow-up with neurologist regarding medication changes. Thank you for this consultation, patient is cleared from gastroenterology for discharge. Dr. Eddie Leo I agree with the dictator's note, documented as a scribe by Dai Burciaga.
--- NOTE | 2023-06-03 12:19 | P.PN ---
Subjective Progress Note Date: 06/03/23 I am following-up with patient and she is accompanied with her mother and no further seizures. Objective - Vital Signs Vital signs: Vital Signs Temp 97.6 F 06/03/23 01:10 Pulse 71 06/03/23 07:35 Resp 18 06/03/23 07:35 BP 124/84 06/03/23 07:35 Pulse Ox 97 06/03/23 07:35 FiO2 Intake & Output 06/02/23 06/03/23 06/03/23 18:59 06:59 18:59 Intake Total 900 Balance 900 Intake: Intake, IV Titration 900 Amount 0.9% NaCl with KCl 40 Meq 900 /l 1,000 ml @ 75 mls/hr IV .[id number] [facility] Rx#: [id number] Other: Voiding Method Diaper Diaper Diaper # Voids 1 2 1 - Exam General: Lying in bed and is not in acute distress. Neuro: Very limited. Not verbalizing or following commands. NO facial weakness. Motor: Strength is hard to assess. Some of the work-up during this hospital visit consisted of: AST during this hospital visit is as high as 557 ALT is 333 Ammonia is 20 TSH is 2.390 Calcium is 8.9, sodium is a 142, magnesium is 1.7. Urinalysis leukocyte esterase was large, urine white blood cells 56, urine bacteria is many Urine culture as gram-negative bacilli. Hepatitic C IgG ab, Hep B Core Igm and Hep Bs antigiven, Hep A IgM ab are non reactive. CMV is nonreactive. - Labs CBC & Chem 7: 06/03/23 05:19 06/03/23 05:19 Labs: Abnormal Lab Results - Last 24 Hours (Table) 06/02/23 06/03/23 06/03/23 Range/Units 09:35 05:19 05:19 WBC 4.21 L (4.50-10.00) X 10*3/uL RBC 3.66 L (4.10-5.20) X 10*6/uL Hgb 11.9 L (12.0-15.0) g/dL Hct 34.1 L (37.2-46.3) % MCH 32.5 H (27.0-32.0) pg RDW 14.8 H (11.5-14.5) % Chloride 112 H 113 H (96-109) mmol/L BUN 5.1 L 4 L (9.0-27.0) mg/dL Creatinine 0.44 L (0.52-1.04) mg/dL BUN/Creatinine Ratio 8.50 L (12.00-20.00) Ratio Calcium 8.2 L (8.4-10.2) mg/dL AST 305 H 191 H (13-35) U/L ALT 277 H 209 H (8-44) U/L Alkaline Phosphatase 175 H 144 H (41-126) U/L Total Protein 5.7 L 5.5 L (6.2-8.2) g/dL Albumin 3.6 L 3.1 L (3.8-4.9) g/dL Microbiology - Last 24 Hours (Table) 05/30/23 18:00 Urine Culture - Final Urine,Catheterized Escherichia coli Assessment and Plan Assessment: This is a 23-year-old woman who presents to the hospital because of failure to thrive. She was found to have acute UTI and elevated LFT's * Elevated LFT's/Transaminitis And there is concern due to some of the antiepileptic drugs (Vimpat or Onfi especially since was started in July 2022 and patient having elevated LFT since that time and trending up). I cannot rule out underlying recurrent infection such as UTIs etc. leading to to elevated liver function in addition * Acute UTI * Epilepsy since age 2 and is on 4 antiepileptic---controlled * Developmental delay * History of recurrent UTI * Polypharmacy Plan: I reached out to her neurology team and spoke with Dr. Garcia [place] [facility] [place]23 who is covering for him. She recommend to go down on Onfi from 20mg to 10mg qhs since she felt the Vimpat is helping with her seizure. The Vimpat and Onfi (Clobazam) were added in July 2022 after she was hospitalized at [facility] for status epilepticus. In the past she was on Keppra but was switched to Briviact. Continue her other home dose Lamictal 300 mg twice a day, Briviact 10mg bid twice a day, Vimpat 200 mg twice a day. Will have the patient to follow-up with Dr. Zillgitt as outpatient for further recommendation/modification of medication. Recommend to continue to monitor the LFT's as outpatient to assess if any improvement after decrease of Onfi dose. Seizure precaution and pads. GI is on board. We'll defer the rest of the medical measure the [facility] other specialist The plan discussed with the patient's mother and her nurse. There is no further neurological work-up. Please notify neurology team if any further concerns. Time with Patient: Less than 30
--- NOTE | 2023-06-03 13:25 | P.DS ---
Providers Date of admission: 06/02/23 11:34 Expected date of discharge: 06/03/23 Attending physician: Víctor Shay Consults: 05/31/23 11:27 Consult Physician Routine Consulting Provider: Hailey Leo Consult Reason/Comments: elev. LFTs Do you want consulting provider notified?: Yes 05/31/23 13:44 Consult Physician Routine Consulting Provider: Zia Yeh Consult Reason/Comments: Epilepsy Do you want consulting provider notified?: Yes Primary care physician: Víctor Shay [facility] Course: Final Diagnoses: -Elevated LFTs, continues trending up from previous visits, recent Lamictal level elevated at 21.5 ( 2-15), Keppra 91.6 ( 3-60), Vimpat 19.9 ( up tp 15) on 04/19/2023. Neurology's recommendations at that time was for patient's mom to discuss with her neurologist whether or not Lamictal dose needed to be decreased. CT of abdomen and pelvis completed in March 2023 reported no acute process. Noted initial trended elevation in LFTs in November 2022 after Vimpat and clobazam added to med regimen in July 2022. Mother reports patient has lost 70 pounds over the last 8 months without any further dose adjustments. Suspect toxic and metabolic encephalopathy, medication induced-seizure medications. -Altered mental status, metabolic and toxic encephalopathy, multifactorial, including acute UTI, medication induced in a patient with epilepsy, cerebral palsy, autism, nonverbal and multiple other medical issues. -Acute UTI, E. coli, noted resistance to previous antibiotic Bactrim multiple others. -Cognitively impaired with developmental disorder -Autism Hospital course:This is a 23-year-old female with past medical history significant for epilepsy, cerebral palsy, autism, nonverbal, and multiple other medical issues, follows up with [place] epileptologist -Dr. Barone, and recently admitted on 05/26/2023 as observation for acute metabolic encephalopathy, suspected related to patient's developmental delays, cognitive impairment and possible acute recurrent UTI, discharged on 05/27/2023. Mom had reported altered mental status, patient more withdrawn without seizure activity. Patient recently transferred from [facility] on 04/20/2023 to [facility] and completed a 36-hour prolonged EEG at [facility] April 28 that failed to show epileptiform activity. During last admission-PCP's exam patient was blinking, half grinning, without tachycardia. Afebrile, normal WBC. Potassium 3.1 on admission, supplemented, repeat potassium 3.7. Initial UA appeared contaminated reporting high epithelial cells, repeated -negative. Vital signs stable. T. bili 0.6, AST 157, ALT 151, alk phos 138, ammonia 29. Recent Lamictal level elevated at 21.5 ( 2-15), Keppra 91.6 ( 3-60), Vimpat 19.9 ( up tp 15) on 04/19/2023. Evaluated and cleared by neurology for discharge. Neurology's recommended patient's mom to discuss with her neurologist whether or not Lamictal dose needed to be decreased. Mother at bedside, in agreement with plan of discharging on empiric antibiotics and following up with PCP in 3 days. Mother returned to the ER with patient on 05/30/2023 with continued altered mental status, failure to thrive, not eating or drinking, denies seizure activity. patient's mother informed Dr. Garcia though, that in the ER, patient's demeanor was actually near baseline, but significantly decreased upon admission into MedSurg room. Currently appears lethargic, alert to her surroundings, receiving IV fluid hydration and empiric IV Rocephin. LFTs have continued to increase. CT of abdomen and pelvis completed in March 2023 repo rted no acute process. Noted initial trended mild elevation in LFTs in November 2022 after Vimpat and clobazam added to med regimen in July 2022. Mother reports patient has lost 70 pounds over the last 8 months without any further dose adjustments. Afebrile, normal WBC, hemoglobin 12.6, platelets 158, INR 1. Sodium 146, potassium 3.7, BUN 14.6, creatinine 0.5, magnesium 1.7. T. bili 0.4, AST 425, ALT 250, alk phos 149, ammonia 20. UA reported many mucus, bacteria, epithelial cells 1, 56 WBCs, large leukocytes, >12 urobilinogen, negative for nitrates. GI and neurology consulted. 06/01/2023 LFTs increased, AST 557, ALT 333, alk phos 179; T. bili 0.8. BUN 8, creatinine 0.47. Afebrile, normal WBC.Liver ultrasound reported abundant sludge through the gallbladder, common bile duct within normal limits; pancreas tail obscured by overlying bowel gas pattern, liver limited vision. Continues on IV ceftriaxone for acute UTI, preliminary culture reporting gram-negative bacilli. maintaining O2 sats in the 90s on room air. Neurology consult in place, recommendations pending. More alert today, opening her eyes, turning her head towards PCP. No facial grimacing to abdominal palpation. mother reports patient's demeanor was back at her baseline during the night into the ornamenter hand hours. 06/02/2023 much more alert today, staff reports consumed 100% of breakfast. Seizure precautions maintained.no seizure activity. PCP, Dr. Garcia left message for patient's [place] neurologist without call back yet. Labs pending. Neurology following with further recommendations pending regarding antiepileptic med regimen. Significant clinical improvement. Per recommendations of [place] neurologist,Dr. Garcia, colleague of , Onfi decreased from 20 mg to 10 mg q hs. No seizure activity reported. Alert, awake, good diet intake without nausea or vomiting reported. LFTs continue trending down, AST 191, ALT 209, alk phos 144. No abdominal pain to palpation.Hepatitic C IgG ab, Hep B Core Igm and Hep Bs antigiven, Hep A IgM ab are non reactive. CMV is nonreactive. Patient's mother has been advised to follow-up with her [place] neurology within 1 week for further evaluation, recommendations regarding patient's med regimen. Close monitoring of LFTs with repeat labs ordered outpatient in 3 days. Maintain seizure precautions. UTI reporting E. coli, resistant to ampicillin, cefazolin, cefoxitin, tetracycline and Bactrim; discharged on nitrofurantoin. Patient will be discharged home today in a stable condition with guarded prognosis. Mother at bedside, updated on plan of care and in agreement with. The impression and plan of care has been dictated as directed. : I performed a history and examination of this patient, discussed the same with the dictator. I agree with the dictator's note ,documented as a scribe. Any additional findings or plans will be noted. Patient Condition at Discharge: Stable Plan - Discharge Summary New Discharge Prescriptions: New Nitrofurantoin 100 mg PO QID 7 Days #280 ml Continue Paliperidone [Invega] 9 mg PO DAILY Midazolam [Nayzilam] 5 mg NASAL DIRECTED PRN PRN Reason: Seizures Lacosamide [Vimpat] 200 mg PO BID lamoTRIgine 300 mg PO BID LORazepam [Ativan] 1 mg PO TID PRN PRN Reason: Anxiety Brivaracetam [Briviact] 10 mg PO BID Cariprazine HCl [Vraylar] 6 mg PO DAILY FLUoxetine HCL 80 mg PO HS guanFACINE [Tenex] 3 mg PO DAILY Docusate Oral Soln [Colace Oral Soln] 60 mg PO DAILY Changed cloBAZam 10 mg PO HS #0 Discontinued Sulfamethox-Tmp 800-160Mg [Bactrim DS 800-160 mg] 1 tab PO Q12HR 5 Days #10 tab Discharge Medication List Cariprazine HCl [Vraylar] 6 mg PO DAILY 09/25/20 [History] FLUoxetine HCL 80 mg PO HS 09/25/20 [History] Paliperidone [Invega] 9 mg PO DAILY 05/12/22 [History] Midazolam [Nayzilam] 5 mg NASAL DIRECTED PRN 05/14/22 [History] guanFACINE [Tenex] 3 mg PO DAILY 05/14/22 [History] Lacosamide [Vimpat] 200 mg PO BID 11/04/22 [History] lamoTRIgine 300 mg PO BID 11/04/22 [History] LORazepam [Ativan] 1 mg PO TID PRN 02/21/23 [History] Brivaracetam [Briviact] 10 mg PO BID 05/03/23 [History] Docusate Oral Soln [Colace Oral Soln] 60 mg PO DAILY 05/27/23 [History] Nitrofurantoin 100 mg PO QID 7 Days #280 ml 06/03/23 [Rx] cloBAZam 10 mg PO HS #0 06/03/23 [Rx] Follow up Appointment(s)/Referral(s): [facility], Dr. Carter or Dr. Garcia [Other] - 1 Week (Patients Mother requesting to make appointments.) Víctor Shay Jr, DO [Primary Care Provider] - 3 Days (Patients Mother requesting to make appointments.) Hailey Leo MD [STAFF PHYSICIAN] - 1 Week (Patients Mother requesting to make appointments.) [facility], [NON-STAFF] - As Needed ([facility] will call you to schedule your in home nursing, physical therapy, occupational therapy, and aide visits. ) Ambulatory/Diagnostic Orders: Comprehensive Metabolic Panel [LAB.AMB] Time Frame: 3 Days, Location: None Selected Activity/Diet/Wound Care/Special Instructions: Maintain seizure precautions. Discharge/Stand Alone Forms: Adult Foster Alf List, Assisted Living Fac ilities, Community Resources, Help In The Home Discharge Disposition: HOME WITH HOME HEALTH SERVICES
[2023-06-03 16:37] LABS: Ceruloplasmin 30.6 mg/dL (20.0-60.0)
[2023-06-03 20:37] LABS: Alpha Fetoprotein, Tumor Mkr <3.00 ng/mL (0.00-7.90)
== END 2023-06-03 12:14 | disposition home health service (06) | DRG 463 ==
LOC: EC 15:24 → 6NMEDSUR 16:52 → 4SSUR 19:55 → OBSVTOIN 06-02 11:34
PROVIDERS: ADMIT Family Medicine; ATTEND Family Medicine
DX: N39.0 Urinary tract infection, site not specified (principal); B96.20 Unspecified Escherichia coli [E. coli] as the cause of diseases classified elsewhere; F84.0 Autistic disorder; F41.9 Anxiety disorder, unspecified; R94.5 Abnormal results of liver function studies; G40.909 Epilepsy, unspecified, not intractable, without status epilepticus; Z28.311 Partially vaccinated for COVID-19; G80.9 Cerebral palsy, unspecified; G92.9 Unspecified toxic encephalopathy; R62.7 Adult failure to thrive; R32 Unspecified urinary incontinence; Z16.11 Resistance to penicillins; Z77.22 Contact with and (suspected) exposure to environmental tobacco smoke (acute) (chronic); R62.59 Other lack of expected normal physiological development in childhood; T42.75XA Adverse effect of unspecified antiepileptic and sedative-hypnotic drugs, initial encounter; K82.8 Other specified diseases of gallbladder; Z79.899 Other long term (current) drug therapy; Z87.440 Personal history of urinary (tract) infections; Z68.28 Body mass index [BMI] 28.0-28.9, adult; Z99.3 Dependence on wheelchair
CPT/HCPCS: 71046; 76705; 80053; 80074; 80175; 80235; 81001; 82103; 82105; 82140; 82390; 83605; 83690; 83735; 83880; 84100; 84484; 85025; 85610; 85730; 86038; 86645; 86665; 87077; 87086; 87186; 93005; 96361; 96365; 99285

== ENCOUNTER 2023-12-29 14:31 | Emergency (ER) | payer OTHER ==
[2023-12-29 14:49] VITALS: RESP 16
--- NOTE | 2023-12-29 14:54 | ED ---
Seizure HPI - General Chief Complaint: Seizure Stated Complaint: seizure Time Seen by Provider: 12/29/23 14:33 Source: family, EMS, RN notes reviewed, old records reviewed Limitations: no limitations, altered mental status, physical limitation - History of Present Illness Initial Comments: This is a 23-year-old female to ER unable to give history no history available concern for UTI with seizure today MD Complaint: seizure -: minutes(s) Description of Episode: loss of consciousness, tonic-clonic movement -: second(s) Witnessed: no Seizure History: known seizure disorder Place: home Possible Precipitating Event: none Associated Symptoms: denies other symptoms Treatments Prior to Arrival: none, benzodiazepines - Related Data Home Medications Medication Instructions Recorded Confirmed Cariprazine HCl [Vraylar] 6 mg PO DAILY 09/25/20 12/29/23 FLUoxetine HCL 80 mg PO HS 09/25/20 12/29/23 Midazolam [Nayzilam] 5 mg NASAL DIRECTED PRN 05/14/22 12/29/23 guanFACINE [Tenex] 3 mg PO DAILY 05/14/22 12/29/23 LORazepam [Ativan] 1 mg PO TID PRN 02/21/23 12/29/23 Brivaracetam [Briviact] 10 mg PO BID 05/03/23 12/29/23 Docusate Oral Soln [Colace Oral 50 mg PO DAILY 05/27/23 12/29/23 Soln] Divalproex Sprinkle [Depakote 250 mg PO BID 12/29/23 12/29/23 Sprinkle] Lacosamide [Vimpat] 150 mg PO BID 12/29/23 12/29/23 lamoTRIgine [LaMICtal] 100 mg PO BID 12/29/23 12/29/23 Allergies Allergy/AdvReac Type Severity Reaction Status Date / Time No Known Allergies Allergy Verified 12/29/23 16:55 Review of Systems ROS Statement: Those systems with pertinent positive or pertinent negative responses have been documented in the HPI. ROS Other: All systems not noted in ROS Statement are negative. Past Medical History Past Medical History: Seizure Disorder Additional Past Medical History / Comment(s): Epilepsy, cognitive impairment, developmentally delayed, non verbal, Autism, urinary incontinence, wears depends, hx UTI's, cerebral palsy, pt. has been in W/C since 06/25 and requires Kate list for transfer History of Any Multi-Drug Resistant Organisms: None Reported Additional Past Surgical History / Comment(s): VNS shunt, eye correction, dental work. Past Anesthesia/Blood Transfusion Reactions: No Reported Reaction Additional Past Anesthesia/Blood Transfusion Reaction / Comment(s): Mom PONV Past Psychological History: Anxiety Smoking Status: Never smoker, Second hand smoke exposure Past Alcohol Use History: None Reported Past Drug Use History: None Reported - Past Family History Mother Family Medical History: No Reported History General Exam Limitations: altered mental status General appearance: alert, in no apparent distress, anxious Head exam: Present: atraumatic, normocephalic, normal inspection Eye exam: Present: normal appearance, PERRL, EOMI. Absent: scleral icterus, conjunctival injection, periorbital swelling ENT exam: Present: normal exam, mucous membranes moist Neck exam: Present: normal inspection. Absent: tenderness, meningismus, lymphadenopathy Respiratory exam: Present: normal lung sounds bilaterally. Absent: respiratory distress, wheezes, rales, rhonchi, stridor Cardiovascular Exam: Present: regular rate, normal rhythm, normal heart sounds. Absent: systolic murmur, diastolic murmur, rubs, gallop, clicks GI/Abdominal exam: Present: soft, normal bowel sounds. Absent: distended, tenderness, guarding, rebound, rigid Extremities exam: Present: normal inspection, full ROM, normal capillary refill. Absent: tenderness, pedal edema, joint swelling, calf tenderness Back exam: Present: normal inspection Neurological exam: Present: alert, oriented X3, CN II-XII intact Psychiatric exam: Present: normal affect, normal mood Skin exam: Present: warm, dry, intact, normal color. Absent: rash Course Vital Signs 12/29/23 14:48 Respiratory 16 Rate - Reevaluation(s) Reevaluation #1: 12/29/23 18:51 Medical records reviewed Reevaluation #2: 12/29/23 18:51 Patient symptoms unchanged no recurrent seizure Reevaluation #3: 12/29/23 18:51 Patient informed of results and questions answered Reevaluation #4: 12/29/23 18:52 Was pt. sent in by a medical professional or institution (, PA, FREIGHT AIR BRAKE FITTER, urgent care, hospital, or intermediate...) When possible be specific @ -no Did you speak to anyone other than the patient for history (EMS, parent, family, police, friend...)? What history was obtained from this source @ -no Did you review nursing and triage notes (agree or disagree)? Why? @ -agree Are old charts reviewed (outside hosp., previous admission, EMS record, old EKG, old radiological studies, urgent care reports/EKG's, intermediate records)? Report findings @ -yes Differential Diagnosis (chest pain, altered mental status, abdominal pain women, abdominal pain men, vaginal bleeding, weakness, fever, dyspnea, syncope, headache, dizziness, GI bleed, back pain, seizure, CVA, palpatations, mental health, musculoskeletal)? @ -prior EKG interpreted by me (3pts min.). @ -no X-rays interpreted by me (1pt min.). @ -no CT interpreted by me (1pt min.). @ -no U/S interpreted by me (1pt. min.). @ -no What testing was considered but not performed or refused? (CT, X-rays, U/S, labs)? Why? @ -none What meds were considered but not given or refused? Why? @ -none Did you discuss the management of the patient with other professionals (professionals i.e. , PA, FREIGHT AIR BRAKE FITTER, lab, RT, psych nurse, social media strategist, housekeeper hospital, teacher, corporate compliance officer, casey saw operator)? Give summary @ -no Was smoking cessation discussed for >3mins.? @ -no Was critical care preformed (if so, how long)? @ -no Were there social determinants of health that impacted care today? How? ( Homelessness, low income, unemployed, alcoholism, drug addiction, transportation, low edu. Level, literacy, decrease access to med. care, prison, rehab)? @ -none Was there de-escalation of care discussed even if they declined (Discuss DNR or withdrawal of care, Hospice)? DNR status @ -no What co-morbidities impacted this encounter? (DM, HTN, Smoking, COPD, CAD, Cancer, CVA, ARF, Chemo, Hep., AIDS, mental health diagnosis, sleep apnea, morbid obesity)? @ -none Was patient admitted / discharged? Hospital course, mention meds given and route, prescriptions, significant lab abnormalities, going to OR and other pertinent info. @ - 23 female to the ER for evaluation of recurrent seizures. No UTI family concern for UTI patient feels well can be discharged home no recurrent seizure here in the ER Discharge Undiagnosed new problem with uncertain prognosis? @ -no Drug Therapy requiring intensive monitoring for toxicity (Heparin, Nitro, Insulin, Cardizem)? @ -no Were any procedures done? @ -no Diagnosis/symptom? @ -Altered mental status Acute, or Chronic, or Acute on Chronic? @ -Acute Uncomplicated (without systemic symptoms) or Complicated (systemic symptoms)? @ -Complicated Side effects of treatment? @ -no Exacerbation, Progression, or Severe Exacerbation? @ -exacerbation Poses a threat to life or bodily function? How? (Chest pain, USA, NV, pneumonia, PE, COPD, DKA, ARF, appy, cholecystitis, CVA, Diverticulitis, Homicidal, Suicidal, threat to staff... and all critical care pts) @ -yes history of seizures Reevaluation #5: Differential Seizure: Recurrent seizure disorder, febrile seizure, alcohol withdrawal, stimulants, meningitis, encephalitis, intercranial hemorrhage, intracranial tumor, stroke, eclampsia, thyrotoxicosis, hypocalcemia, hyponatremia, hypernatremia, hypomagnesemia, psychogenic, this is not meant to be an all-inclusive list. Medical Decision Making - Medical Decision Making 23 female to the ER for evaluation of recurrent seizures. No UTI family concern for UTI patient feels well can be discharged home no recurrent seizure here in the ER - Lab Data Result diagrams: 12/29/23 15:55 12/29/23 15:55 Lab Results 12/29/23 12/29/23 12/29/23 Range/Units 15:55 15:55 16:34 WBC 6.8 (3.8-10.6) k/uL RBC 4.08 (3.80-5.40) m/uL Hgb 13.2 (11.4-16.0) gm/dL Hct 39.2 (34.0-46.0) % MCV 95.9 (80.0-100.0) fL MCH 32.4 (25.0-35.0) pg MCHC 33.8 (31.0-37.0) g/dL RDW 12.6 (11.5-15.5) % Plt Count 229 (150-450) k/uL MPV 7.6 Neutrophils % 61 % Lymphocytes % 30 % Monocytes % 6 % Eosinophils % 1 % Basophils % 0 % Neutrophils # 4.1 (1.3-7.7) k/uL Lymphocytes # 2.0 (1.0-4.8) k/uL Monocytes # 0.4 (0-1.0) k/uL Eosinophils # 0.1 (0-0.7) k/uL Basophils # 0.0 (0-0.2) k/uL Sodium 139 (137-145) mmol/L Potassium 4.3 (3.5-5.1) mmol/L Chloride 112 H (98-107) mmol/L Carbon Dioxide 20 L (22-30) mmol/L Anion Gap 7 mmol/L BUN 22 H (7-17) mg/dL Creatinine 0.54 (0.52-1.04) mg/dL Est GFR (CKD-EPI)AfAm >90 (>60 ml/min/1.73 sqM) Est GFR (CKD-EPI)NonAf >90 (>60 ml/min/1.73 sqM) Glucose 86 (74-99) mg/dL Plasma Lactic Acid Mookie 0.7 (0.7-2.0) mmol/L Calcium 9.3 (8.4-10.2) mg/dL Magnesium 2.0 (1.6-2.3) mg/dL Total Bilirubin 0.6 (0.2-1.3) mg/dL AST 32 (14-36) U/L ALT 19 (4-34) U/L Alkaline Phosphatase 73 (38-126) U/L Troponin I (0.000-0.034) ng/mL Total Protein 6.1 L (6.3-8.2) g/dL Albumin 3.9 (3.5-5.0) g/dL Urine Color Urine Appearance (Clear) Urine pH (5.0-8.0) Ur Specific [place] (1.001-1.035) Urine Protein (Negative) Urine Glucose (UA) (Negative) Urine Ketones (Negative) Urine Blood (Negative) Urine Nitrite (Negative) Urine Bilirubin (Negative) Urine Urobilinogen (<2.0) mg/dL Ur Leukocyte Esterase (Negative) 12/29/23 12/29/23 Range/Units 16:34 18:27 WBC (3.8-10.6) k/uL RBC (3.80-5.40) m/uL Hgb (11.4-16.0) gm/dL Hct (34.0-46.0) % MCV (80.0-100.0) fL MCH (25.0-35.0) pg MCHC (31.0-37.0) g/dL RDW (11.5-15.5) % Plt Count (150-450) k/uL MPV Neutrophils % % Lymphocytes % % Monocytes % % Eosinophils % % Basophils % % Neutrophils # (1.3-7.7) k/uL Lymphocytes # (1.0-4.8) k/uL Monocytes # (0-1.0) k/uL Eosinophils # (0-0.7) k/uL Basophils # (0-0.2) k/uL Sodium (137-145) mmol/L Potassium (3.5-5.1) mmol/L Chloride (98-107) mmol/L Carbon Dioxide (22-30) mmol/L Anion Gap mmol/L BUN (7-17) mg/dL Creatinine (0.52-1.04) mg/dL Est GFR (CKD-EPI)AfAm (>60 ml/min/1.73 sqM) Est GFR (CKD-EPI)NonAf (>60 ml/min/1.73 sqM) Glucose (74-99) mg/dL Plasma Lactic Acid Mookie (0.7-2.0) mmol/L Calcium (8.4-10.2) mg/dL Magnesium (1.6-2.3) mg/dL Total Bilirubin (0.2-1.3) mg/dL AST (14-36) U/L ALT (4-34) U/L Alkaline Phosphatase (38-126) U/L Troponin I <0.012 (0.000-0.034) ng/mL Total Protein (6.3-8.2) g/dL Albumin (3.5-5.0) g/dL Urine Color Yellow Urine Appearance Clear (Clear) Urine pH 8.5 H (5.0-8.0) Ur Specific [place] 1.029 (1.001-1.035) Urine Protein Trace H (Negative) Urine Glucose (UA) Negative (Negative) Urine Ketones Negative (Negative) Urine Blood Negative (Negative) Urine Nitrite Negative (Negative) Urine Bilirubin Negative (Negative) Urine Urobilinogen 2.0 (<2.0) mg/dL Ur Leukocyte Esterase Negative (Negative) Disposition Clinical Impression: Altered mental status Disposition: HOME SELF-CARE Condition: Fair Instructions (If sedation given, give patient instructions): Altered Mental Status (ED) Is patient prescribed a controlled substance at d/c from ED?: No Referrals: Víctor Shay Jr, DO [Primary Care Provider] - 1-2 days
[2023-12-29] MEDS: SODIUM CHLORIDE 0.9% 1,000 ML IV STA (16:29)
[2023-12-29 16:30] LABS: Basophils % (A) 0 %; Eosinophils # (A) 0.1 k/uL (0-0.7); Eosinophils % (A) 1 %; HCT 39.2 % (34.0-46.0); HGB 13.2 gm/dL (11.4-16.0); Lymphocytes % (A) 30 %; MCH 32.4 pg (25.0-35.0); MCHC 33.8 g/dL (31.0-37.0); MCV 95.9 fL (80.0-100.0); Mean Platelet Volume 7.6; Monocytes # (A) 0.4 k/uL (0-1.0); Monocytes % (A) 6 %; Neutrophils # (A) 4.1 k/uL (1.3-7.7); Neutrophils % (A) 61 %; Platelet Count 229 k/uL (150-450); RBC 4.08 m/uL (3.80-5.40); RDW 12.6 % (11.5-15.5); WBC 6.8 k/uL (3.8-10.6)
[2023-12-29 16:43] LABS: ALT 19 U/L (4-34); AST 32 U/L (14-36); African American GFR (CKD) >90 (>60 ml/min/1.73 sqM); Albumin 3.9 g/dL (3.5-5.0); Alkaline Phosphatase 73 U/L (38-126); Anion Gap 7 mmol/L; Blood Urea Nitrogen 22 mg/dL (7-17); Calcium 9.3 mg/dL (8.4-10.2); Carbon Dioxide 20 mmol/L (22-30); Chloride 112 mmol/L (98-107); Glucose 86 mg/dL (74-99); Non-African American GFR(CKD) >90 (>60 ml/min/1.73 sqM); Potassium 4.3 mmol/L (3.5-5.1); Sodium 139 mmol/L (137-145); Total Bilirubin 0.6 mg/dL (0.2-1.3); Total Protein 6.1 g/dL (6.3-8.2)
[2023-12-29 18:37] LABS: Appearance,Urine Clear (Clear); Bilirubin,Urine Negative (Negative); Blood,Urine Negative (Negative); Color,Urine Yellow; Glucose,Urine (UA) Negative (Negative); Ketones,Urine Negative (Negative); Leukocyte Esterase,Urine Negative (Negative); Nitrite,Urine Negative (Negative); PH, Urine 8.5 (5.0-8.0); Protein,Urine Trace (Negative); Specific Gravity,Urine 1.029 (1.001-1.035)
== END 2023-12-29 20:00 | disposition home or self-care (01) ==
LOC: EC 14:31
CPT/HCPCS: 36415; 80053; 81003; 83605; 83735; 84484; 85025; 96360; 99284

== ENCOUNTER 2024-08-07 06:04 | Day surgery (SDC) | payer OTHER ==
[~2024-08-07 06:04] MED LIST changes: -DEXAMETHASONE SOD PHOSPHATE 4 MG/ML 1 ML VIAL IV ONE; -HYDROmorphone 0.5 MG/0.5 ML SYRINGE IVP PRN; -LACTATED RINGERS 1,000 ML IV SCH; -ONDANSETRON 4 MG/2 ML VIAL IVP ONE
[2024-08-07] MEDS: IV FLUID CONTINUATION 1,000 ML IV ONE (06:10)
[2024-08-07] MEDS ORDERED: LACTATED RINGERS 1,000 ML IV SCH (06:20)
[2024-08-07] MEDS ORDERED: SCOPOLAMINE 1 MG/72 HR PATCH TRANSDERM ONE (06:20)
[2024-08-07] MEDS: MIDAZOLAM ORAL SYRUP 10 MG/5 ML CUP PO STA (06:48)
[2024-08-07] MEDS ORDERED: Ketamine (HIGH CONC) for PREOP 5 ML VIAL IM STA (06:54)
[2024-08-07] MEDS: Ketamine (HIGH CONC) for PREOP 5 ML VIAL IM PRN (06:55)
[2024-08-07] MEDS ORDERED: HYDROmorphone 0.5 MG/0.5 ML SYRINGE IVP PRN (07:00)
[2024-08-07] MEDS ORDERED: MIDAZOLAM 2 MG/2 ML VIAL IV PRN (07:00)
[2024-08-07] MEDS: DEXAMETHASONE SOD PHOSPHATE 4 MG/ML 1 ML VIAL IV ONE (07:17)
[2024-08-07] MEDS: ONDANSETRON 4 MG/2 ML VIAL IVP ONE (07:19)
[2024-08-07] MEDS ORDERED: LIDOCAINE 1% INJ 10MG/ML (20 ML MDV) ONE (07:29)
[2024-08-07] MEDS ORDERED: PROPOFOL 10 MG/ML 20 ML VIAL IV ONE (07:29)
[2024-08-07] MEDS ORDERED: SUCCINYLCHOLINE CHLORIDE 200 MG/10 ML VIAL IV ONE (07:29)
[2024-08-07] MEDS ORDERED: KETOROLAC 15 MG/ML 1 ML VIAL ONE (07:29)
[2024-08-07] MEDS ORDERED: PHENYLEPHRINE-0.9% NACL SYG 1,000 MCG/10 ML SYRINGE ONE (07:29)
[2024-08-07] MEDS ORDERED: MIDAZOLAM 2 MG/2 ML VIAL ONE (07:29)
[2024-08-07] MEDS: ceFAZolin 2 GM in DEXTROSE 5% IN WATER 50 ML IVPB PRN (07:34)
--- NOTE | 2024-08-07 09:22 | P.GSCN ---
History of Present Illness Consult date: 08/07/24 Reason for Consult: addendum to previous documentation -#15 DB root tip left in socket as unable to remove with limited visibility and poor suction. Pt parents informed. It may not give patient any issues, and it may work itself out. Past Medical History Past Medical History: Seizure Disorder Additional Past Medical History / Comment(s): Epilepsy, cognitive impairment, developmentally delayed, non verbal, Autism, urinary incontinence, wears depends, hx UTI's, cerebral palsy, History of Any Multi-Drug Resistant Organisms: None Reported Additional Past Surgical History / Comment(s): VNS shunt, eye correction, dental work. Past Anesthesia/Blood Transfusion Reactions: No Reported Reaction Additional Past Anesthesia/Blood Transfusion Reaction / Comm: Mom PONV Smoking Status: Never smoker, Second hand smoke exposure - Past Family History Mother Family Medical History: No Reported History Medications and Allergies Home Medications Medication Instructions Recorded Confirmed Type Cariprazine HCl [Vraylar] 6 mg PO DAILY 09/25/20 08/07/24 History FLUoxetine HCL 80 mg PO HS 09/25/20 08/07/24 History Midazolam [Nayzilam] 5 mg NASAL DIRECTED PRN 05/14/22 08/07/24 History guanFACINE [Tenex] 3 mg PO DAILY 05/14/22 08/07/24 History LORazepam [Ativan] 1 mg PO TID PRN 02/21/23 08/07/24 History Brivaracetam [Briviact] 10 mg PO BID 05/03/23 08/07/24 History Docusate Oral Soln [Colace Oral 50 mg PO DAILY 05/27/23 08/07/24 History Soln] Divalproex Sprinkle [Depakote 500 mg PO BID 12/29/23 08/07/24 History Sprinkle] Lacosamide [Vimpat] 150 mg PO BID 12/29/23 08/07/24 History lamoTRIgine [LaMICtal] 100 mg PO BID 12/29/23 08/07/24 History Allergies Allergy/AdvReac Type Severity Reaction Status Date / Time No Known Allergies Allergy Verified 08/07/24 06:20 Surgical - Exam Vital Signs Temp Pulse Resp BP Pulse Ox 97.9 F 80 18 108/62 99 08/07/24 06:39 08/07/24 06:39 08/07/24 06:39 08/07/24 06:39 08/07/24 06:39
[2024-08-07 09:57] VITALS: TEMP 96.8
[2024-08-07 10:35] VITALS: RESP 20
[2024-08-07 10:53] VITALS: BP 108/56; PULSE 67
--- NOTE | 2024-08-07 11:03 | P.GSCN ---
History of Present Illness Consult date: 08/07/24 Reason for Consult: -Prophy -4 BWS -Periodic exam -#13 D/O resin filteck bulk shade A3, glass ionomer base -#16 root extraction. DB root retained due to lack of visibility and inability to remove. Pt mom informed. Past Medical History Past Medical History: Seizure Disorder Additional Past Medical History / Comment(s): Epilepsy, cognitive impairment, developmentally delayed, non verbal, Autism, urinary incontinence, wears depends, hx UTI's, cerebral palsy, History of Any Multi-Drug Resistant Organisms: None Reported Additional Past Surgical History / Comment(s): VNS shunt, eye correction, dental work. Past Anesthesia/Blood Transfusion Reactions: No Reported Reaction Additional Past Anesthesia/Blood Transfusion Reaction / Comm: Mom PONV Smoking Status: Never smoker, Second hand smoke exposure - Past Family History Mother Family Medical History: No Reported History Medications and Allergies Home Medications Medication Instructions Recorded Confirmed Type Cariprazine HCl [Vraylar] 6 mg PO DAILY 09/25/20 08/07/24 History FLUoxetine HCL 80 mg PO HS 09/25/20 08/07/24 History Midazolam [Nayzilam] 5 mg NASAL DIRECTED PRN 05/14/22 08/07/24 History guanFACINE [Tenex] 3 mg PO DAILY 05/14/22 08/07/24 History LORazepam [Ativan] 1 mg PO TID PRN 02/21/23 08/07/24 History Brivaracetam [Briviact] 10 mg PO BID 05/03/23 08/07/24 History Docusate Oral Soln [Colace Oral 50 mg PO DAILY 05/27/23 08/07/24 History Soln] Divalproex Sprinkle [Depakote 500 mg PO BID 12/29/23 08/07/24 History Sprinkle] Lacosamide [Vimpat] 150 mg PO BID 12/29/23 08/07/24 History lamoTRIgine [LaMICtal] 100 mg PO BID 12/29/23 08/07/24 History Allergies Allergy/AdvReac Type Severity Reaction Status Date / Time No Known Allergies Allergy Verified 08/07/24 06:20 Surgical - Exam Vital Signs Temp Pulse Resp BP Pulse Ox 97.9 F 80 18 108/62 99 08/07/24 06:39 08/07/24 06:39 08/07/24 06:39 08/07/24 06:39 08/07/24 06:39
== END 2024-08-07 11:00 | disposition home or self-care (01) ==
LOC: OR 06:04
PROVIDERS: ATTEND Dentist
DX: K02.9 Dental caries, unspecified (principal); G80.9 Cerebral palsy, unspecified; G40.909 Epilepsy, unspecified, not intractable, without status epilepticus; F84.0 Autistic disorder; R62.50 Unspecified lack of expected normal physiological development in childhood; R32 Unspecified urinary incontinence; Z79.899 Other long term (current) drug therapy; Z87.440 Personal history of urinary (tract) infections; G31.84 Mild cognitive impairment of uncertain or unknown etiology
CPT/HCPCS: 84703; 41899; J2250; J0330; J1100; J0690; J2405; J2003; J1885; J2704; J2371